=== PATIENT | male | born 1970 | race African-American/Black ===

== ENCOUNTER 2020-07-23 21:56 | Inpatient (IN) | payer OTHER, SELFPAY ==
--- NOTE | ~2020-07-23 | XR_ITS ---
EXAMINATION: XR chest 1V portable EXAM DATE: 07/23/2020 22:25 INDICATION: Weakness, cough. COVID-19. TECHNIQUE: Portable AP frontal chest x-ray was obtained. Comparison is made to prior examination from 01/02/2013. FINDINGS: There is patchy right-sided greater than left peripheral acute airspace disease. Distributi on and appearance is consistent with acute lung injury from SARS-CoV-2. No pneumothorax or pleural ef fusion. Cardiomediastinal silhouette is normal. There are no osseous abnormalities identified. IMPRESSION: Patchy bilateral acute airspace disease, peripheral distribution consistent with COVID-19 . Reviewed, dictated and finalized at location G. IMPRESSION: Patchy bilateral acute airspace disease, peripheral distribution co nsistent with COVID-19.
--- NOTE | ~2020-07-23 | US_ITS ---
US renal BI 07/24/2020 08:48 Procedure: Realtime transabdominal ultrasound of the kidneys and bladder. Indication: Renal failure Comparison: Ultrasound dated 12/10/2011 Findings: Renal echotexture is increased bilaterally with renal atrophy. No hydronephrosis or mass id entified. The right kidney measures 6.7 cm and left kidney measures 7.3 cm. Bladder within normal li mits. Impression: 1: Atrophic echogenic kidneys bilaterally, consistent with chronic medical renal disease. Reviewed, dictated and finalized at location A. Impression: 1: Atrophic echogenic kidneys bilaterally, consistent with chronic medical chaim l disease.
--- NOTE | ~2020-07-23 | XR_ITS ---
EXAMINATION: XR chest port-a-cath/central INDICATION: Tunnel dialysis catheter placement TECHNIQUE: Portable AP chest at 1446 hours COMPARISON: 07/24/2020 FINDINGS: A right internal jugular dialysis catheter ends with its tip in the proximal right atrium. A diffuse interstitial pattern is present with slight worsening since the comparison examination. The re is stable cardiomegaly. No pleural effusion or pneumothorax is identified. IMPRESSION: 1. Right internal jugular tunneled dialysis catheter ending with its tip in the proximal right atrium . No pneumothorax. 2. Cardiomegaly with moderate pulmonary edema. Reviewed, dictated and finalized at location A. IMPRESSION: 1. Right internal jugular tunneled dialysis catheter ending with its tip in the proximal right atrium. No pneumothorax. 2. Cardiomegaly with moderate pulmonary edema.
--- NOTE | ~2020-07-23 | XR_ITS ---
EXAMINATION: XR fl guide central line place INDICATION: Tunnel dialysis catheter placement TECHNIQUE: A single intraoperative fluoroscopic image is submitted for review. Total fluoroscopic maurilio e is 2.0 seconds. The DAP is [id number] [id number]. COMPARISON: None available FINDINGS: Fluoroscopic image demonstrates partial visualization of a right internal jugular central v enous catheter. Please refer to procedure note for full details. IMPRESSION: 1. Partially imaged right internal jugular catheter. Please refer to procedure note for full details. Reviewed, dictated and finalized at location A.
--- NOTE | ~2020-07-23 | XR_ITS ---
XR chest port-a-cath/central 07/24/2020 10:52 Indication: Placement of dialysis catheter. Procedure: AP portable chest Comparison: 07/23/2020 Findings: Right IJ portacatheter tip at the cavoatrial junction. Cardiomegaly. Mild interstitial crissy a. Atypical pneumonia less favored. No pleural effusion or pneumothorax. Impression: 1: Cardiomegaly with bilateral interstitial infiltrates, edema versus atypical pneumonia. Reviewed, dictated and finalized at location A. Impression: 1: Cardiomegaly with bilateral interstitial infiltrates, edema versus atypical pneumonia.
[2020-07-23 21:54] VITALS: BP 143/98; PULSE 77; RESP 15; O2SAT 98
--- NOTE | 2020-07-23 22:11 | ECG_ITS ---
Measurements Intervals [place] Rate: 78 P: 40 [place]: 188 QRS: 21 QRSD: 87 T: 49 QT: 366 QTc: 418 Interpretive Statements SINUS RHYTHM NORMAL ECG Electronically Signed On 07-24-2020 7:37:21 CDT by Todd Romano D.O.
--- NOTE | 2020-07-23 22:16 | ED.WEAKNESS ---
HPI - Weakness General Chief complaint: Weakness Stated complaint: covid positive, n/v, weak Time Seen by Provider: 07/23/20 22:16 History of Present Illness HPI Narrative: Known COVID-19 positive. Feeling very weak and fatigued. Barely able to get around the house. Has not had anything to eat or drink in days. He has mild SOB. He has ESRD not yet on dialysis and is concerned that kidney function may be worse. Related Data Home Medications Medication Instructions Recorded Confirmed amlodipine 10 mg PO DAILY 07/23/20 07/24/20 Allergies Allergy/AdvReac Type Severity Reaction Status Date / Time No Known Allergies Allergy Verified 07/23/20 22:09 Review of Systems Review of Systems: All systems reviewed & are unremarkable except as noted in HPI and below Constitutional: Constitutional: Reports fever(s) ENT: Reports dizziness and Denies sore throat Cardiovascular: Cardiovascular: Denies chest pain Respiratory: Respiratory: Reports cough and Reports dyspnea Gastrointestinal: Gastrointestinal: Denies abdominal pain, Reports diarrhea, Reports nausea and Reports vomiting Genitourinary: Genitourinary: Reports oliguria Musculoskeletal: Musculoskeletal: Reports myalgias Neurologic: Reports dizziness and Reports weakness PMFSH Past Medical History Medical History Chronic hypertension Chronic kidney disease, stage 5 Chronic renal failure, stage 4 (severe) COVID-19 Hyperkalemia Obesity Family History Family History Grandparent Diabetes mellitus, Onset Age: 75 Father Hypertension Family history of elevated blood lipids Cerebrovascular accident Family history of coronary artery disease Social History Social History Smoking status: Never smoker Second hand tobacco smoke exposure: No Alcohol intake: current Drinks per week: 1 Substance use: never Substance use type: does not use Living arrangements: with family Occupation/Education: occupation Gender identity (if verbalized by the patient): Male Sexual Orientation (if Verbalized by the Patient): Straight or Heterosexual Spiritual care concerns: No Agree to blood products: No Exam Const: General: no acute distress, alert and ill appearing Orientation/consciousness: patient oriented x3 HENMT: Mouth: Yes dry mucous membranes Resp: Effort & Inspection: normal respiratory effort Auscultation: rhonchi lower bilaterally Cardio: Rate: regular rate Rhythm: regular rhythm GI: GI Palp: Yes Soft to palpation and No Tenderness to palpation present (GI) Skin: General skin exam: normal color Neuro: General: patient oriented x3, moves all extremities and CN's II-XI intact bilaterally Speech: normal speech Course Vital Signs Vital signs: Vital Signs Pulse Rate 77 07/23/20 21:54 Respiratory Rate 15 07/23/20 21:54 Blood Pressure 143/98 H 07/23/20 21:54 Pulse Oximetry 98 07/23/20 21:54 Temperature 37.1 C 07/27/20 12:00 Pulse Rate 82 07/27/20 12:00 Respiratory Rate 18 07/27/20 12:00 Blood Pressure 131/88 07/27/20 12:00 Pulse Oximetry 97 07/27/20 12:00 MDM - Weakness MDM Narrative Medical decision making narrative: Kidney function significantly decreased. He will likely need dialysis. Case discussed with Dr. Lim. I will plan to admit. Medical Records Attestation: I reviewed the patient's medical records. Lab Data Attestation: I reviewed the patient's lab results. Result diagrams: 07/27/20 06:34 07/27/20 06:34 Labs: Lab Results 07/23/20 07/23/20 Range/Units 22:12 22:12 WBC 7.7 (4.5-10.0) K/mm3 RBC 2.83 L (4.6-6.20) M/mm3 Hgb 8.2 L (14.0-18.0) g/dL Hct 24.0 L (42.0-52.0) % MCV 84.8 (80-100) fl MCH 29.0 (26-34) pg MCHC 34.2 (32-36) g/dl RDW
[2020-07-23 22:20] LABS: Basophils Percent Auto 0.3 % (0.2-1.2); Eosinophils Percent Auto 0.1 % (0-4.4); Hemoglobin 8.2 g/dL (14.0-18.0); Immature Granulocyte Absolute 0.11 K/mm3 (0.00-0.031); Immature Granulocyte Percent A 1.4 % (0-0.5); Lymphocytes Absolute Auto 0.69 K/mm3 (0.9-3.2); Mean Corpuscular HGB Conc 34.2 g/dl (32-36); Mean Corpuscular Volume 84.8 fl (80-100); Mean Platelet Volume 10.9 fl (7.4-10.4); Monocytes Absolute Auto 0.5 K/mm3 (0.1-0.6); Monocytes Percent Auto 6.8 % (2.6-8.5); Neutrophils Absolute Auto 6.3 K/mm3 (1.3-6.7); Neutrophils Percent Auto 82.4 % (45.5-73.1); Platelet Count Result 184 k/mm3 (150-375); Red Blood Count 2.83 M/mm3 (4.6-6.20); Red Cell Distribution Width 12.3 % (11.5-14.5); White Blood Count 7.7 K/mm3 (4.5-10.0)
[2020-07-23 22:32] LABS: Alanine Aminotransferase 16 U/L (4-50); Albumin Level 3.6 g/dL (3.5-5.1); Alkaline Phosphatase 48 U/L (38-126); Anion Gap 22 mmol/L (8-16); Aspartate Amino Transferase 16 U/L (17-59); Bilirubin,Total 0.4 mg/dL (0.2-1.3); Carbon Dioxide 13 mmol/L (22-30); Chloride 102 mmol/L (98-107); Glucose 108 mg/dL (75-110); Sodium 137 mmol/L (137-145)
[2020-07-23 22:39] LABS: Estimated CRCL calculation 4 ml/min; Estimated Glomerular Filt Rate 2
[2020-07-23 22:42] LABS: Blood Urea Nitrogen 140 mg/dL (9-20)
[2020-07-23] MEDS: SODIUM CHLORIDE 0.9% IV 1,000 ML 999 ML IV CONT (23:32)
[2020-07-24] VITALS (22 sets, daily range): BP systolic 132–171; BP diastolic 78–104; PULSE 65–94; RESP 18–20; TEMP 36.7–38.2; O2SAT 97–100; BMI 28.3
--- NOTE | 2020-07-24 01:23 | ADMGEN ---
This patient, Ron Sky, was admitted to [facility] Surg Room 328-01. Patient/family oriented to hospital policies and general routines including ID bracelet, bed and alarms, visiting hours, pain management, procedures, bathroom and other care routines, personal items, smoking policy, room service/diet, and visiting hours. Valuables list has been completed. Information on how to activate the Rapid Response Team has been discussed. Patient/Family are encouraged to report perceived risks to care and to ask questions if they do not understand what they are told or what they should do.
[2020-07-24] MEDS: LACTATED RINGERS 1,000 ML 125 ML IV CONT ×3 (02:07→20:34)
--- NOTE | 2020-07-24 03:38 | PM.IMHP ---
H&P: HPI History of Present Illness Date/Time: 07/24/20 03:38 Chief complaint: Acute on chronic renal failure, COVID-19 Narrative: This is a pleasant 49-year-old male with known chronic renal failure stage 4 thought to be secondary to hypertension who presented to the hospital this evening with a complaint of generalized weakness, nausea, vomiting, and ongoing respiratory symptoms from coronavirus. The patient tested positive for coronavirus this past Sunday. He reports that he is making urine. The patient is known to see Dr. Lim for his chronic renal failure. Over the past few days he has become so nauseated that he can't keep down any food or fluid. The patient was evaluated emergency room this evening and he was found to have a creatinine greater than 28. His last known creatinine was 14 last month. The patient has not required any supplemental oxygen tonight. ER provider has consulted nephrology who has asked that we admit the patient to the hospital so they can evaluate him in the morning. On further questioning the patient denies any significant chest pain, abdominal pain, headache, dysuria, hematuria, diarrhea, rectal bleeding, or focal neurological symptoms. The patient has had fever over the past few days. Review of Systems Review of Systems: All systems reviewed & are unremarkable except as noted in HPI and below PMFSH Past Medical History Medical History (Updated 07/24/20 @ 03:51 by Sean Orr MD) Chronic hypertension Chronic renal failure, stage 4 (severe) Family History Family History Grandparent Diabetes mellitus, Onset Age: 75 Father Hypertension Family history of elevated blood lipids Cerebrovascular accident Family history of coronary artery disease Social History Social History (Updated 07/24/20 @ 01:13 by Darian Berger, RN) Smoking status: Never smoker Second hand tobacco smoke exposure: No Alcohol intake: current Drinks per week: 1 Substance use: never Substance use type: does not use Living arrangements: with family Occupation/Education: occupation Gender identity (if verbalized by the patient): Male Sexual Orientation (if Verbalized by the Patient): Straight or Heterosexual Spiritual care concerns: No Agree to blood products: No Comments Past surgical history is reviewed and noncontributory. Meds Home Medications and Allergies Home Medications Medication Instructions Recorded Confirmed Type amlodipine 10 mg PO DAILY 07/23/20 07/24/20 History Allergies Allergy/AdvReac Type Severity Reaction Status Date / Time No Known Allergies Allergy Verified 07/23/20 22:09 Vital Signs Vital Signs - 24 hr 07/23/20 21:54 07/24/20 00:05 07/24/20 00:35 Temperature 36.9 C 37.3 C Pulse Rate 77 78 74 Respiratory Rate 15 19 18 Blood Pressure 143/98 H 152/104 H 146/95 H Pulse Oximetry 98 100 97 Exam Const: General: cooperative, no acute distress, alert and awake Nutritional Appearance: well nourished Orientation/consciousness: patient oriented x3 HENMT: Head: normal to inspection General nose exam: Normal external nose present Face and sinus: normal facial exam Mouth: Yes Normal oral and palatal mucosa present and Yes oropharynx normal Eyes: Pupils: Equal, round and reactive pupils present EOM: EOMs intact bilaterally Neck: Neck: supple and no JVD Thyroid: thyroid normal Lymphatic: lymphadenopathy not noted Resp: Effort & Inspection: normal respiratory effort Auscultation: clear to auscultation bilaterally Cardio: Rate: regular rate Rhythm: regular rhythm Heart sounds: no murmurs GI: Inspection: normal to inspection Auscultation: normal bowel sounds Skin: General skin exam: normal color and no rashes or lesions noted Neuro: General: patient oriented x3 Cranial nerves: Yes CN's II-XII intact bilaterally and Yes Equal, round and reactive pu
[2020-07-24 05:25] LABS: Add Urine Microscopic? YES; Appearance Urine Clear (Clear); Bacteria Urine Trace /hpf; Bilirubin Urine Negative (Negative); Blood Urine Negative (Negative); Color Urine Yellow (Yellow); Glucose Urine UA 2+ mg/dL (Negative); Ketones Urine Negative (Negative); Leukocyte Esterase Ur Negative LEU/UL (Negative); Mucus Urine Rare /lpf; Nitrate Urine Negative (Negative); Protein Urine 3+ mg/dL (Negative); Specific Grav Ur 1.026 (1.001-1.035); Urobilinogen Urine Negative mg/dL (<2.0); WBC Urine 0-3 /hpf
[2020-07-24 06:01] LABS: Basophils Percent Auto 0.2 % (0.2-1.2); Hematocrit 22.4 % (42.0-52.0); Hemoglobin 7.6 g/dL (14.0-18.0); Immature Granulocyte Absolute 0.11 K/mm3 (0.00-0.031); Immature Granulocyte Percent A 1.4 % (0-0.5); Lymphocytes Absolute Auto 0.65 K/mm3 (0.9-3.2); Mean Corpuscular HGB Conc 33.9 g/dl (32-36); Mean Corpuscular Hemoglobin 29.3 pg (26-34); Mean Corpuscular Volume 86.5 fl (80-100); Mean Platelet Volume 11.3 fl (7.4-10.4); Monocytes Absolute Auto 0.6 K/mm3 (0.1-0.6); Monocytes Percent Auto 7.4 % (2.6-8.5); Neutrophils Absolute Auto 6.7 K/mm3 (1.3-6.7); Platelet Count Result 174 k/mm3 (150-375); Red Blood Count 2.59 M/mm3 (4.6-6.20); Red Cell Distribution Width 12.3 % (11.5-14.5); White Blood Count 8.1 K/mm3 (4.5-10.0)
[2020-07-24 07:17] LABS: Anion Gap 20 mmol/L (8-16); Calcium 6.9 mg/dL (8.4-10.2); Carbon Dioxide 14 mmol/L (22-30); Chloride 103 mmol/L (98-107); Glucose 106 mg/dL (75-110); Magnesium 2.3 mg/dL (1.6-2.3); Potassium 5.7 mmol/L (3.4-5.0); Sodium 137 mmol/L (137-145)
[2020-07-24 07:19] LABS: Blood Urea Nitrogen 137 mg/dL (9-20)
[2020-07-24 07:20] LABS: Estimated CRCL calculation 4 ml/min; Estimated Glomerular Filt Rate 2
--- NOTE | 2020-07-24 07:46 | PC.NURSE ---
Called Dr Gauri Travis about potassium of 5.7 . New order received for 30g of Kayexalate one time dose.
[2020-07-24] MEDS: SODIUM POLYSTYRENE SULFONONATE 15 GM/60 ML BTL 30 GM PO (08:09)
[2020-07-24] MEDS: ONDANSETRON INJ 4 MG/2 ML VIAL IV PUSH (08:24)
--- NOTE | 2020-07-24 09:11 | PM.CNGS ---
Assessment and Plan Assessment and plan (1) Acute on chronic renal failure: Qualifiers: Acute renal failure type: unspecified Chronic kidney disease stage: stage 4 (severe) Qualified Code(s): N17.9 - Acute kidney failure, unspecified; N18.4 - Chronic kidney disease, stage 4 (severe) Code(s): N17.9 - Acute kidney failure, unspecified; N18.9 - Chronic kidney disease, unspecified Status: Acute Assessment and Plan: will place temporary emergent catheter at bedside (2) COVID-19: Code(s): U07.1 - COVID-19 Status: Acute Assessment and Plan: all necessary precautions, isolation, etc, retest pending (3) Chronic hypertension: Code(s): I10 - Essential (primary) hypertension Status: Chronic Assessment and Plan: mgmt peer primary team History of Present Illness Consult details Consult date: 07/24/20 Reason for consult: other (renal failure) Requesting physician: Farhat Travis MD Narrative: Pt is a 49 y/o M c multiple med issues including severe renal disease presenting to ED c/o SOB, N/V, anorexia, weakness over last week. Pt reports he tested positive for COVID last wk. Pt noted to have creatinine > 28 at this time. Given this, pt admitted and GS consulted for emergent HD access. Review of Systems Constitutional: Constitutional: Reports anorexia, Reports body ache(s), Reports chills, Reports fatigue, Reports fever(s), Reports lethargy, Reports malaise, Reports poor appetite and Reports weakness Eyes: Eyes: Reports no additional eye complaints ENT: Reports system reviewed and no additional complaints, except as documented Cardiovascular: Cardiovascular: Reports no additional cardiovascular complaints Respiratory: Respiratory: Reports cough, Denies hemoptysis, Reports dyspnea and Reports dyspnea on exertion Gastrointestinal: Gastrointestinal: Reports no additional gastrointestinal complaints Genitourinary: Genitourinary: Reports no additional male genitourinary complaints Musculoskeletal: Musculoskeletal: Reports no additional musculoskeletal complaints Integumentary/Breasts: Skin/Breast: Reports system reviewed and no additional complaints, except as docu Neurologic: Reports system reviewed and no additional complaints, except as documented Psychiatric: Psychiatric: Reports no additional psychiatric complaints Endocrine: Endocrine: Reports no additional endocrine complaints Hematologic/Lymphatic: Hematologic/Lymphatic: Reports no additional hematologic/lymphatic complaints Allergic/Immunologic: Allergic/Immunologic: Reports no additional allergic/immunologic complaints PMFSH Past Medical History Medical History Chronic hypertension Chronic renal failure, stage 4 (severe) Family History Family History Grandparent Diabetes mellitus, Onset Age: 75 Father Hypertension Family history of elevated blood lipids Cerebrovascular accident Family history of coronary artery disease Social History Social History Smoking status: Never smoker Second hand tobacco smoke exposure: No Alcohol intake: current Drinks per week: 1 Substance use: never Substance use type: does not use Living arrangements: with family Occupation/Education: occupation Gender identity (if verbalized by the patient): Male Sexual Orientation (if Verbalized by the Patient): Straight or Heterosexual Spiritual care concerns: No Agree to blood products: No Meds Home Medications and Allergies Home Medications Medication Instructions Recorded Confirmed Type amlodipine 10 mg PO DAILY 07/23/20 07/24/20 History Allergies Allergy/AdvReac Type Severity Reaction Status Date / Time No Known Allergies Allergy Verified 07/23/20 22:09 Vital Signs Vital Signs - 24 hr 07/23/20
--- NOTE | 2020-07-24 09:32 | PC.NURSE ---
At 0900, I called Dr. Travis at the request of Dr. Andrade to get approval to place a Mino catheter at bedside for dialysis access. Dr. Travis approved the placement of the Mino catheter. In addition, I notified Dr. Travis that the patient is currently vomiting and unable to keep down the Kayexalate that was ordered for the elevated potassium. Dr. Travis stated that he did not want to order anything else for the elevated potassium because he would get dialysis later in the day. Dr. Travis stated that the patient was still appropriate to stay on Med/Surg regardless of his labs.
--- NOTE | 2020-07-24 09:38 | PM.IMPN ---
Progress Note: A&P Assessment and Plan (1) Acute on chronic renal failure: Qualifiers: Acute renal failure type: unspecified Chronic kidney disease stage: stage 4 (severe) Qualified Code(s): N17.9 - Acute kidney failure, unspecified; N18.4 - Chronic kidney disease, stage 4 (severe) Code(s): N17.9 - Acute kidney failure, unspecified; N18.9 - Chronic kidney disease, unspecified Status: Acute Assessment and Plan: Likely secondary to dehydration from vomiting and decreased p.o. intake of fluids. Dr. Travis has been consulted and appreciate recommendations. Plans for a temporary HD catheter and HD today. He gets N/v when eating/drinking anything and vomited after kayexalate administration. He is still making urine continue IV fluid for now monitor renal function and urine output. avoid nephrotoxin agents and renally dose medications. Await further rec from Nephrology Zofran PRN with n/v; willconsider compazine if zofran not improving symptoms Monitor closely (2) Metabolic acidosis with increased anion gap and accumulation of organic acids: Code(s): E87.2 - Acidosis Status: Acute Assessment and Plan: Likely secondary to acute on chronic renal failure. Improvement in AG. Monitor acid-base status. Continue treatment of acute renal failure. We will consider sodium bicarbonate IV drip if necessary. Plan on dialysis today (3) Chronic hypertension: Code(s): I10 - Essential (primary) hypertension Status: Chronic Assessment and Plan: BP elevated to 160 sys this morning. Monitor blood pressure. Continue amlodipine. (4) COVID-19: Code(s): U07.1 - COVID-19 Status: Acute Assessment and Plan: The patient has tested positive for trivedi virus on 07/18. Has adequate O2 requirements on RA. Minimal symptoms today. Droplet isolation. Continue supportive care. The patient has not required any supplemental oxygen and at this time he does not meet criteria for steroid therapy or Remdesivir. Continue bronchodilators. (5) Normocytic anemia: Code(s): D64.9 - Anemia, unspecified Status: Acute Assessment and Plan: Hgb 7.6. likely chronic anemia and anemia of chronic disease from chronic renal failure. No signs of acute blood loss. Monitor H&H. Iron panel/vitb12/folate studies pending Transfuse p.r.n. (6) Hyperkalemia: Code(s): E87.5 - Hyperkalemia Status: Acute Assessment and Plan: Likely secondary to acute on CKDIV. Kayexalate ordered by Nephrology. Patient also to have dialysis today once temp cath placed by general surgery. No chest pain/palpitations. 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 Patient sates he feels somewhat better now that he has gotten zofran, but notes n/v today when he drank kayexalate for his high potassium. He states he only gets sick when he eats/drinks anything. No associated abdominal pain. 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 No other complaints. Denies f/c/s, headaches, dizziness, lightheadedness, changes in v/h, cp/palpitations, sob/cough, d/c, abd pain, bloody emesis;coffee-ground emesis, changes in BMs, dysuria, hematuria, cloudy urine, sergei
--- NOTE | 2020-07-24 10:14 | PM.PROC ---
Procedure Note - Detailed Date of procedure: 07/24/20 Pre-op diagnosis: Acute on chronic renal failure, COVID-19 Post-op diagnosis: same Procedure performed: Placement of Trialysis catheter in right internal jugular vein under ultrasound guidance Description of procedure: The patient was placed in the supine position. The bed was then placed in Trendelenburg with the patient facing to his left to expose the right neck. I then prepped and draped the right neck in normal sterile fashion. A time-out was then done to verify the patient's identity as well as the procedure being performed. I then used the ultrasound to view the right internal jugular vein. Once this was identified, I localized the skin superior to the vein. I then used the 18 gauge needle to gain access into the right internal jugular vein, once again under ultrasound guidance. Once this was noted in good position, I removed the needle just leaving the guidewire in the vein. I then enlarged the incision around the guidewire in the right neck. I then dilated the vein and using the dilators provided in the kit under sterile Seldinger technique. Once the vein was adequately dilated, I was able to easily slide the catheter over the guidewire into the right internal jugular vein. I placed a 20 cm 12 [place] Trialysis catheter into the right internal jugular vein. I then removed the guidewire, now just leaving the catheter in the vein. I was then able to easily draw and flush from all 3 port sites . I then sutured the catheter in place in the right neck. Sterile dressing was then placed. I did not place final heparin flush into the catheter as the patient is going to get emergent dialysis today. The patient tolerated the procedure well. Implants: 20 cm 12 [place] Trialysis catheter in right IJ Anesthesia: local Surgeon: Lynsey Ribera Estimated blood loss (mL): 5 Drains: No Packing: No Pathology: none sent Complications: No immediate complications Condition: stable Disposition: floor Findings: 1st stick right IJ via ultrasound guidance
[2020-07-24 10:35] LABS: Folic Acid > 20.0 ng/mL (2.76->20)
[2020-07-24 10:55] LABS: Iron 79 ug/dL (49-181)
[2020-07-24 11:07] LABS: Hepatitis B Surface Antigen Negative (Negative)
[2020-07-24 11:09] LABS: Percent Iron Saturation 45 % (20-50)
[2020-07-24 11:25] LABS: Hepatitis B Surface Anti Res Negative
--- NOTE | 2020-07-24 11:25 | PC.NURSE ---
Called Dr Andrade with chest x ray results after plaement of right IJ line. Dr. Andrade said it was now ok to use this line.
[2020-07-24] MEDS: LIDOCAINE HCL 1% LOCAL INJ 20 ML VIAL (11:31)
--- NOTE | 2020-07-24 11:32 | PM.CNNEP ---
Assessment and Plan Assessment and plan (1) Chronic kidney disease, stage 5: Code(s): N18.5 - Chronic kidney disease, stage 5 Status: Acute Assessment and Plan: The patient has longstanding chronic kidney disease. A month ago his creatinine was 14. Now it is above 28. I think he is probably end-stage renal disease. Even if he recovers from COVID and whatever affect COVID had on his kidneys improves he would still have a creatinine of 14 Which is not good enough to stay off dialysis. I discussed with the patient at length about dialysis. We discussed the risks, benefits, alternatives, and the process of the dialysis and he agrees to proceed. He still wants to do a kidney transplant. We will have to apply for this to [facility]. (2) Hyperkalemia: Code(s): E87.5 - Hyperkalemia Status: Acute Assessment and Plan: Potassium is mildly high at 5.7. He has too much nausea and vomiting to swallow Kayexalate. He is going to be getting dialysis early this afternoon. (3) Normocytic anemia: Code(s): D64.9 - Anemia, unspecified Status: Acute Assessment and Plan: Hemoglobin is 7.6. Will start Epogen. Will check iron levels. (4) COVID-19: Code(s): U07.1 - COVID-19 Status: Acute Assessment and Plan: Getting supportive care. (5) Chronic hypertension: Code(s): I10 - Essential (primary) hypertension Status: Chronic Assessment and Plan: Blood pressure is a bit high. We will see how he does after dialysis. (6) Metabolic acidosis with increased anion gap and accumulation of organic acids: Code(s): E87.2 - Acidosis Status: Acute Assessment and Plan: Most likely due to his chronic kidney disease. This should improve with dialysis. Consider oral bicarb if it continues. History of Present Illness Reason for Consult Consult date: 07/24/20 Chief Complaint Chief complaint: Acute on chronic renal failure, COVID-19 History of Present Illness Narrative: Ron is a very pleasant 49-year-old gentleman who has chronic kidney disease. He sees Dr. Lim as an outpatient. His last visit was on July 05 when he came in after about 18 months. He did not have any symptoms at that point apparently. However his creatinine was very high at 14. Few days ago the patient was feeling weaker. 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 So because he was feeling poorly he got at test which was positive. He stated home for this but then felt worse and so came to the emergency room yesterday evening. In the ER his creatinine was greater than 20 a. Electrolytes were okay and volume status was okay so he was admitted. Patient wants to get a transplant but has not really addressed dialysis. The etiology of the chronic kidney disease is unclear. The 1st time he saw Dr. Lim a renal ultrasound was obtained which showed small-sized shrunken echogenic kidneys. The patient has hypertension. He has had this for many years. He does not smoke cigarettes. He is drinks about 1 drink per week. Allergies are none. Review of Systems Constitutional: Constitutional: Reports no additional constitutional complaints Eyes: Eyes: Reports no additional eye complaints ENT: Reports system reviewed and no additional complaints, except as documented Cardiovascular: Cardiovascular: Reports no additional cardiovascular complaints Respiratory: Respiratory: Reports no additional respiratory complaints Gastrointestinal: Gastrointestinal: Reports no additional gastrointestinal complaints Genitourinary: Genitourinary: Reports no additional male genitourinary complaints Musculoskeletal: Musculoskeletal: Reports no additional musculoskeletal complaints Integumentary/Breasts: Skin/Breast: Reports system reviewed and no additional complaints, except a
[2020-07-24 12:58] LABS: Hepatitis B Surface Antigen Negative (Negative)
[2020-07-24 14:22] LABS: Hepatitis B Surface Anti Res Negative; Hepatitis C Virus Antibody Negative (Negative)
[2020-07-24] MEDS: guaiFENesin/DEXTROMETHORPHAN 10 ML UDC PO (18:11)
[2020-07-24] MEDS: amLODIPine BESYLATE 5 MG TABLET 10 MG PO (18:11)
[2020-07-24] MEDS: SODIUM CHLORIDE 0.9% IV 1,000 ML 999 ML IV CONT (18:11)
[2020-07-24] MEDS: ACETAMINOPHEN 325 MG TABLET 650 MG PO (18:37)
--- NOTE | 2020-07-24 18:45 | PC.NURSE ---
Pt had triple lumen Right IJ placed at bedside by Dr. Andrade. Had Dialysis at bedside tolerated well. Informed he became slightly hypertensive during dialysis. This was pts first dialysis tx.800 ml removed.
[2020-07-25] VITALS: BP 149/93; PULSE 89; PULSE 94; RESP 20; TEMP 37.4; O2SAT 95
[2020-07-25 04:00] VITALS: BP 136/88; PULSE 120; PULSE 88; RESP 20; TEMP 37.6; O2SAT 100
[2020-07-25] MEDS: LACTATED RINGERS 1,000 ML 125 ML IV CONT (04:50)
[2020-07-25 06:39] LABS: Basophils Percent Auto 0.1 % (0.2-1.2); Immature Granulocyte Absolute 0.13 K/mm3 (0.00-0.031); Immature Granulocyte Percent A 1.8 % (0-0.5); Lymphocytes Absolute Auto 0.57 K/mm3 (0.9-3.2); Lymphocytes Percent Auto 7.9 % (18.3-44.2); Mean Corpuscular HGB Conc 33.8 g/dl (32-36); Mean Corpuscular Hemoglobin 29.4 pg (26-34); Monocytes Absolute Auto 0.6 K/mm3 (0.1-0.6); Monocytes Percent Auto 7.9 % (2.6-8.5); Neutrophils Percent Auto 82.3 % (45.5-73.1); Platelet Count Result 161 k/mm3 (150-375); Red Blood Count 2.38 M/mm3 (4.6-6.20); Red Cell Distribution Width 12.5 % (11.5-14.5); White Blood Count 7.2 K/mm3 (4.5-10.0)
[2020-07-25 06:40] LABS: Hematocrit 20.7 % (42.0-52.0)
[2020-07-25 07:12] LABS: Anion Gap 16 mmol/L (8-16); Blood Urea Nitrogen 107 mg/dL (9-20); Carbon Dioxide 20 mmol/L (22-30); Chloride 101 mmol/L (98-107); Estimated CRCL calculation 5 ml/min; Estimated Glomerular Filt Rate 3; Glucose 112 mg/dL (75-110); Magnesium 2.1 mg/dL (1.6-2.3); Potassium 4.9 mmol/L (3.4-5.0); Sodium 137 mmol/L (137-145)
[2020-07-25 08:00] VITALS: BP 130/87; PULSE 80; PULSE 82; RESP 16; TEMP 36.8; O2SAT 93
[2020-07-25] MEDS: VITAMIN B CMPLX/VIT C/FOLIC AC 1 CAPSULE 1 CAP PO (09:39)
[2020-07-25] MEDS: guaiFENesin/DEXTROMETHORPHAN 10 ML UDC PO (09:46)
--- NOTE | 2020-07-25 10:16 | PM.PNNEP ---
Progress Note: A&P Assessment and Plan (1) Chronic kidney disease, stage 5: Code(s): N18.5 - Chronic kidney disease, stage 5 Status: Acute Assessment and Plan: The patient has longstanding chronic kidney disease. He is not getting dialysis and has end-stage kidney disease. He got a treatment yesterday. We will give another treatment tomorrow. (2) Hyperkalemia: Code(s): E87.5 - Hyperkalemia Status: Acute Assessment and Plan: Potassium is Down to 4.0. (3) Normocytic anemia: Code(s): D64.9 - Anemia, unspecified Status: Acute Assessment and Plan: Hemoglobin is 7.0. His hemoglobin is borderline for blood transfusion but since he wants to get a transplant I asked them to hold off on the transfusion. I talked with ANASTACIA Razo and also with Fabio his nurse. Iron level is okay. He is on Epogen. (4) COVID-19: Code(s): U07.1 - COVID-19 Status: Acute Assessment and Plan: Getting supportive care. (5) Chronic hypertension: Code(s): I10 - Essential (primary) hypertension Status: Chronic Assessment and Plan: Blood pressure is Better (6) Metabolic acidosis with increased anion gap and accumulation of organic acids: Code(s): E87.2 - Acidosis Status: Acute Assessment and Plan: Most likely due to his chronic kidney disease. This should improve with dialysis. Consider oral bicarb if it continues. Subjective Date/time seen: 07/25/20 10:16 Interval history: patient is feeling weak. No chest pain or shortness of breath I talked with his sister. She is applying to give him a kidney. She lives in [place] but she is staying in a hotel nearby. We discussed all aspects of the case. She will call the transplant people to find out how long she should stay in [place] or whether she should just go home and come back for her evaluation. Review of Systems Cardiovascular: Cardiovascular: Reports no additional cardiovascular complaints Respiratory: Respiratory: Reports no additional respiratory complaints Gastrointestinal: Gastrointestinal: Reports no additional gastrointestinal complaints Genitourinary: Genitourinary: Reports no additional male genitourinary complaints Exam Narrative: Exam Narrative: WDWN in NAD skin no rash head ncat lungs clear cor reg no rub abd BS+ nontender and soft ext no edema. Objective Data Vital Signs Vital Signs: Vital Signs - 24 hr 07/24/20 12:00 07/24/20 13:45 07/24/20 13:59 Temperature 36.8 C Pulse Rate 73 74 73 Respiratory Rate 18 Blood Pressure 160/97 H 171/98 H Pulse Oximetry 07/24/20 14:00 07/24/20 14:15 07/24/20 14:30 Temperature Pulse Rate 72 94 79 Respiratory Rate Blood Pressure 165/93 H 156/94 H 147/93 H Pulse Oximetry 07/24/20 14:45 07/24/20 15:00 07/24/20 15:15 Temperature Pulse Rate 83 65 77 Respiratory Rate Blood Pressure 157/96 H 132/78 136/83 Pulse Oximetry 07/24/20 15:30 07/24/20 15:45 07/24/20 15:57 Temperature Pulse Rate 81 80 81 Respiratory Rate Blood Pressure 134/84 144/86 H 138/82 Pulse Oximetry 07/24/20 16:00 07/24/20 16:03 07/24/20 18:22 Temperature 37.2 C 37.2 C 37.7 C H Pulse Rate 84 79 90 Respiratory Rate 18 20 Blood Pressure 148/90 H 153/96 H Pulse Oximetry 97 07/24/20 18:37 07/24/20 20:00 07/25/20 00:00 Temperature 37.6 C H 38.2 C H 37.4 C Pulse Rate 92 89 Respiratory Rate 20 20 Blood Pressure 151/93 H 149/93 H Pulse Oximetry 97 95 07/25/20 04:00 07/25/20 08:00 Temperature 37.6 C 36.8 C Pulse Rate 88 80 Respiratory Rate 20 16 Blood Pressure 136/88 130/87 Pulse Oximetry 100 93 Intake/Output Intake/Output: Intake & Output 07/22/20 07/23/20 07/24/20 07/25/20 23:59 23:59 23:59 23:59 Intake Total 5520 1100 Output Total 1450 Balance 4070 1100 Meds/Results Medications: Active Medications Gener
[2020-07-25] MEDS: amLODIPine BESYLATE 5 MG TABLET 10 MG PO (11:33)
[2020-07-25] MEDS: CALCIUM ACETATE 667 MG TABLET 1334 MG PO ×2 (11:33→19:42)
[2020-07-25 12:00] VITALS: BP 130/89; PULSE 73; PULSE 77; RESP 16; TEMP 36.4; O2SAT 94
--- NOTE | 2020-07-25 12:14 | PM.IMPN ---
Progress Note: A&P Assessment and Plan (1) Acute on chronic renal failure: Qualifiers: Acute renal failure type: unspecified Chronic kidney disease stage: stage 4 (severe) Qualified Code(s): N17.9 - Acute kidney failure, unspecified; N18.4 - Chronic kidney disease, stage 4 (severe) Code(s): N17.9 - Acute kidney failure, unspecified; N18.9 - Chronic kidney disease, unspecified Status: Acute Assessment and Plan: Likely secondary to dehydration from vomiting and decreased p.o. intake of fluids. Dr. Travis has been consulted and appreciate recommendations. Temp catheter placed yesterday per Dr. Andrade at bedside. HD yesterday and appears will go again tomorrow. He is still making urine. Feeling somwhat better today Will stop IVF today monitor renal function and urine output. avoid nephrotoxin agents and renally dose medications. Await further rec from Nephrology Zofran PRN with n/v; will consider compazine if zofran not improving symptoms Monitor closely (2) Metabolic acidosis with increased anion gap and accumulation of organic acids: Code(s): E87.2 - Acidosis Status: Acute Assessment and Plan: Likely secondary to acute on chronic renal failure. Improvement in AG. Monitor acid-base status. Continue treatment of acute renal failure. We will consider sodium bicarbonate IV drip if necessary. Plan on dialysis tomorrow (3) Chronic hypertension: Code(s): I10 - Essential (primary) hypertension Status: Chronic Assessment and Plan: BP elevated to 130 sys this morning. Monitor blood pressure. Continue amlodipine. (4) COVID-19: Code(s): U07.1 - COVID-19 Status: Acute Assessment and Plan: The patient has tested positive for trivedi virus on 07/18. Has adequate O2 requirements on RA. Minimal symptoms today. Droplet isolation. Continue supportive care. The patient has not required any supplemental oxygen and at this time he does not meet criteria for steroid therapy or Remdesivir. Continue bronchodilators. (5) Normocytic anemia: Code(s): D64.9 - Anemia, unspecified Status: Acute Assessment and Plan: Hgb 7.0. Likely chronic anemia and anemia of chronic disease from chronic renal failure; possible some dilutional effect from IV fluids. No signs of acute blood loss. Discussed with Dr. Travis, and will plan to hold on transfusion as he may proceed with transplant in the future. He does not appear to be iron deficient; iron panel suggestive more of anemia of chronic disease. Monitor H&H tomorrow Will defer transfuse to Nephrology (6) Hyperkalemia: Code(s): E87.5 - Hyperkalemia Status: Acute Assessment and Plan: K 4.9 today; improvement. Likely secondary to acute on CKDIV. Kayexalate ordered by Nephrology. Patient also to have dialysis today once temp cath placed by general surgery. No chest pain/palpitations. Telemetry thus far has no alarms, no peaked T waves Continue knowledge management advisor for symptoms Monitor BMP Subjective Date/time seen: 07/25/20 12:14 Interval history: Patient is a pleasant 49 yo M with known chronic renal failure stage 4 thought to be secondary to hypertension, and with recent positive COVID test on 07/18 who is seen in follow up for acute on CKDIV with uremia-associated symptoms. Patient sates he feels somewhat better today, but still tired and somewhat nauseated at times. Coughing up clear sputum at times. No signs of bleeding in stools, urine or sputum. No other complaints. Denies f/c/s, headaches, dizziness, lightheadedness, cp/palpitations, sob, d/c, abd pain, bloody emesis, coffee-ground emesis, changes in BMs, dysuria, hematuria,
[2020-07-25 16:00] VITALS: BP 147/92; PULSE 70; PULSE 75; RESP 14; TEMP 36.6; O2SAT 96
[2020-07-25 20:00] VITALS: BP 144/91; PULSE 77; PULSE 80; RESP 18; TEMP 36.9; O2SAT 94
--- NOTE | 2020-07-25 21:51 | PC.NURSE ---
Attempted to obtain consent for dialysis catheter as ordered. Patient stated he was too tired right now and he would look at the consent in the morning.
[2020-07-26] VITALS (28 sets, daily range): BP systolic 90–164; BP diastolic 64–100; PULSE 76–107; RESP 16–22; TEMP 36.4–37.9; O2SAT 93–97
[2020-07-26 06:35] LABS: Basophils Percent Auto 0.4 % (0.2-1.2); Eosinophils Percent Auto 0.5 % (0-4.4); Hematocrit 21.1 % (42.0-52.0); Immature Granulocyte Absolute 0.24 K/mm3 (0.00-0.031); Immature Granulocyte Percent A 3.1 % (0-0.5); Lymphocytes Absolute Auto 0.68 K/mm3 (0.9-3.2); Lymphocytes Percent Auto 8.9 % (18.3-44.2); Mean Corpuscular HGB Conc 33.2 g/dl (32-36); Mean Corpuscular Hemoglobin 28.9 pg (26-34); Mean Corpuscular Volume 87.2 fl (80-100); Mean Platelet Volume 10.7 fl (7.4-10.4); Monocytes Absolute Auto 0.6 K/mm3 (0.1-0.6); Monocytes Percent Auto 8.4 % (2.6-8.5); Neutrophils Percent Auto 78.7 % (45.5-73.1); Platelet Count Result 186 k/mm3 (150-375); Red Blood Count 2.42 M/mm3 (4.6-6.20); Red Cell Distribution Width 12.2 % (11.5-14.5); White Blood Count 7.7 K/mm3 (4.5-10.0)
[2020-07-26 06:55] LABS: Anion Gap 16 mmol/L (8-16); Blood Urea Nitrogen 117 mg/dL (9-20); Calcium 6.8 mg/dL (8.4-10.2); Carbon Dioxide 19 mmol/L (22-30); Chloride 101 mmol/L (98-107); Glucose 107 mg/dL (75-110); Magnesium 2.2 mg/dL (1.6-2.3); Phosphorus 10.7 mg/dL (2.5-4.5); Potassium 4.7 mmol/L (3.4-5.0); Sodium 136 mmol/L (137-145)
[2020-07-26 07:03] LABS: Estimated CRCL calculation 5 ml/min; Estimated Glomerular Filt Rate 2
[2020-07-26] MEDS: amLODIPine BESYLATE 5 MG TABLET 10 MG PO (10:49)
[2020-07-26] MEDS: ONDANSETRON INJ 4 MG/2 ML VIAL IV PUSH (10:58)
--- NOTE | 2020-07-26 13:50 | WPDANESEPPF ---
Anes - Initial Pre Proc Eval Procedure: Operation Date: 07/26/20 14:30 Proposed Procedures p Insertion Tunneled Dialysis Catheter - Lima Andrade MD Date/Time: 07/26/20 13:50 Surgeon: Maco Razo PA-C Pre Op Diagnosis: Acute on chronic renal failure, COVID-19 Patient Data Age: 49 Gender: M Height: 6 ft 6 in Weight: 130.7 kg Last Vital Signs Temp 98.4 F 07/26/20 12:00 Pulse 79 07/26/20 12:00 Resp 18 07/26/20 12:00 BP 147/92 H 07/26/20 12:00 Pulse Ox 96 07/26/20 12:00 Allergies Allergy/AdvReac Type Severity Reaction Status Date / Time No Known Allergies Allergy Verified 07/23/20 22:09 Home Medications Medication Instructions Recorded Confirmed Type amlodipine 10 mg PO DAILY 07/23/20 07/24/20 History Laboratory Tests 07/26/20 07/26/20 06:10 06:10 WBC 7.7 K/mm3 K/mm3 (4.5-10.0) RBC 2.42 M/mm3 L M/mm3 (4.6-6.20) Hgb 7.0 g/dL L g/dL (14.0-18.0) Hct 21.1 % L % (42.0-52.0) MCV 87.2 fl fl (80-100) MCH 28.9 pg pg (26-34) MCHC 33.2 g/dl g/dl (32-36) RDW 12.2 % % (11.5-14.5) Plt Count 186 k/mm3 k/mm3 (150-375) MPV 10.7 fl H fl (7.4-10.4) Immature Gran % (Auto) 3.1 % H % (0-0.5) Neut % (Auto) 78.7 % H % (45.5-73.1) Lymph % (Auto) 8.9 % L % (18.3-44.2) [place] % (Auto) 8.4 % % (2.6-8.5) Eos % (Auto) 0.5 % % (0-4.4) Baso % (Auto) 0.4 % % (0.2-1.2) Lymph # (Auto) 0.68 K/mm3 L K/mm3 (0.9-3.2) [place] # (Auto) 0.6 K/mm3 K/mm3 (0.1-0.6) Eos # (Auto) 0.0 K/mm3 K/mm3 (0-0.3) Baso # (Auto) 0.0 K/mm3 K/mm3 (0.0-0.1) Abs Immat Gran (auto) 0.24 K/mm3 H K/mm3 (0.00-0.031) Absolute Neuts (auto) 6.0 K/mm3 K/mm3 (1.3-6.7) Absolute Nucleated RBC 0.0 K/mm3 K/mm3 (0.0-0.012) Nucleated RBC % 0.0 % % (0.0-0.2) Sodium 136 mmol/L L mmol/L (137-145) Potassium 4.7 mmol/L mmol/L (3.4-5.0) Chloride 101 mmol/L mmol/L (98-107) Carbon Dioxide 19 mmol/L L mmol/L (22-30) Anion Gap 16 mmol/L mmol/L (8-16) BUN 117 mg/dL H D mg/dL (9-20) Creatinine 24.60 mg/dL H mg/dL (0.7-1.3) Estim Creat Clear Calc 5 ml/min ml/min Estimated GFR 2 L (59 - ) Glucose 107 mg/dL mg/dL (75-110) Calcium 6.8 mg/dL L mg/dL (8.4-10.2) Phosphorus 10.7 mg/dL H mg/dL (2.5-4.5) Magnesium 2.2 mg/dL mg/dL (1.6-2.3) Albumin 3.0 g/dL L g/dL (3.5-5.1) Patient hx anesthesia problems: none Family hx anesthesia problems: none PMFSH Past Medical History Medical History (Updated 07/26/20 @ 13:52 by Nicolás Cast MD) Chronic hypertension Chronic kidney disease, stage 5 Chronic renal failure, stage 4 (severe) COVID-19 Hyperkalemia Obesity Family History Family History Grandparent Diabetes mellitus, Onset Age: 75 Father Hypertension Family history of elevated blood lipids Cerebrovascular accident Family history of coronary artery disease Social History Social History Smoking status: Never smoker Second hand tobacco smoke exposure: No Alcohol intake: current Drinks per week: 1 Substance use: never Substance use type: does not use Living arrangements: with family Occupation/Education: occupation Gender identity (if verbalized by the patient): Male Sexual Orientation (if Verbalized by the Patient): Straight or Heterosexual Spiritual care concerns: No Agree to blood products: No Anes - Eval Final PreProcedure Day of Procedure 07/26/20 13:50 Patient weight: obese Heart: regular rate and rhythm Lungs: clear to auscultation Airway: Mallampati scale class III Neurological: alert and oriented Last oral intake: >/= 8 hours ASA classification: IV Emergen
--- NOTE | 2020-07-26 13:50 | WPDHPUPDATE1 ---
History and Physical Update Update Date/Time: 07/26/20 13:50 History and Physical has been reviewed, including an updated exam of the patient. There are NO changes in the patient's condition. Risks, benefits, and alternatives have been discussed and questions answered. Patient agrees to proceed with procedure.
[2020-07-26] MEDS: ceFAZolin SODIUM 1 GM VIAL 2 GM IV PUSH ×2 (14:17→15:00)
[2020-07-26] MEDS: LIDO 1%/EPINEPHRINE 1:100,000 20 ML VIAL INFILTRATE (14:35)
[2020-07-26] MEDS: HEPARIN SODIUM 5,000 UNITS/ML VIAL 5000 UNITS IRRIGATION (14:36)
[2020-07-26] MEDS: HEPARIN SODIUM, PORCINE 10,000 UNITS/10 ML VIAL 10000 UNITS IRRIGATION (14:37)
--- NOTE | 2020-07-26 14:46 | PM.PROC ---
Procedure Note - Detailed Date of procedure: 07/26/20 Pre-op diagnosis: Acute on chronic renal failure, COVID-19 end stage renal disease Post-op diagnosis: same Procedure performed: placement of RIJ tunneled HD catheter 28 cm under fluroscopic guidance Description of procedure: Patient was taken to the operating room and placed in the supine position. After adequate induction of MAC anesthesia, the patient was prepped and draped in normal sterile fashion. A time-out was then done to verify the patient's identity as well as the procedure being performed. I began by placing a guidewire through the previously placed RIJ hemodialysis catheter. Placement of the guidewire was confirmed by fluoroscopic guidance. I removed the previously placed catheter just leaving the guidewire in the vein. I then went ahead and measured the 28 cm tunneled dialysis catheter to our stick site in the right neck. I then localized the tract going from the right chest to the right neck. I then made a small incision in the right chest and tunneled the catheter to the right neck. I then serially dilated the right internal jugular vein under fluoroscopic guidance. Once adequately dilated, I placed dilating sheath over the guidewire into the right internal jugular vein under fluoroscopic visualization. Once this was noted to be in good position, I removed both the guidewire and dilator, now just leaving the sheath in the vein. I then went ahead and fed the previously tunneled catheter into the sheath. Once the catheter was fed and positioned correctly, I went ahead and peeled the sheath away. Final fluoroscopic view showed the catheter in good position from its insertion point in the right chest to its termination in the right atrial caval junction. It was noted there was no kinking of the catheter. I was able to easily draw and flush from both ports of the catheter. I placed 2.2 and 2.3 cc of final heparin flush into each port as marked. The catheter was then sutured into place and the incision in the neck was closed with 4 O Monocryl subcuticular suture. The patient tolerated the procedure well and will be transferred to the recovery room in stable condition. Sterile dressing was placed on the catheter. Portable chest x-ray will be done in the recovery. Implants: 28 cm duraflow tunneled HD cath Anesthesia: MAC and local Surgeon: Lima Andrade MD Estimated blood loss (mL): 5 Drains: No Packing: No Pathology: none sent Complications: No immediate complications Condition: stable Disposition: PACU Findings: 28 cm TDC in RIJ replacing previous HD cath
[2020-07-26] MEDS: SODIUM CHLORIDE 0.9% IV 500 ML 30 ML IV CONT (14:47)
--- NOTE | 2020-07-26 14:52 | SUR.PHASEI ---
1447 - pt recovered in OR 9
--- NOTE | 2020-07-26 16:32 | PM.IMPN ---
Progress Note: A&P Assessment and Plan (1) Acute on chronic renal failure: Qualifiers: Acute renal failure type: unspecified Chronic kidney disease stage: stage 4 (severe) Qualified Code(s): N17.9 - Acute kidney failure, unspecified; N18.4 - Chronic kidney disease, stage 4 (severe) Code(s): N17.9 - Acute kidney failure, unspecified; N18.9 - Chronic kidney disease, unspecified Status: Acute Assessment and Plan: Likely secondary to dehydration from vomiting and decreased p.o. intake of fluids. Nephrology has been consulted and appreciate recommendations. Temp catheter placed 07/[address] Andrade at bedside. Tunneled catheter placed today, 07/26. HD on 07/24 and appears will go again this evening. He is still making urine. Feeling somewhat about the same today, although tremulous monitor renal function and urine output. avoid nephrotoxic agents and renally dose medications. Await further rec from Nephrology Zofran PRN with n/v Monitor closely (2) Metabolic acidosis with increased anion gap and accumulation of organic acids: Code(s): E87.2 - Acidosis Status: Acute Assessment and Plan: Likely secondary to acute on chronic renal failure. Improvement in AG. Monitor acid-base status. Continue treatment of acute renal failure. We will consider sodium bicarbonate IV drip if necessary. Plan on dialysis this evening (3) Chronic hypertension: Code(s): I10 - Essential (primary) hypertension Status: Chronic Assessment and Plan: BP elevated to 140 sys this morning. Monitor blood pressure. Continue amlodipine. (4) COVID-19: Code(s): U07.1 - COVID-19 Status: Inactive Assessment and Plan: The patient has tested positive for trivedi virus on 07/18. Has adequate O2 requirements on RA. Minimal symptoms today, although still has a cough. Droplet isolation. Continue supportive care. The patient has not required any supplemental oxygen and at this time he does not meet criteria for steroid therapy or Remdesivir. Continue bronchodilators. (5) Normocytic anemia: Code(s): D64.9 - Anemia, unspecified Status: Acute Assessment and Plan: Hgb 7.0. Likely chronic anemia and anemia of chronic disease from chronic renal failure; possible some dilutional effect from IV fluids. No signs of acute blood loss. Discussed with Dr. Travis, and will plan to hold on transfusion as he may proceed with transplant in the future. He does not appear to be iron deficient; iron panel suggestive more of anemia of chronic disease. Monitor H&H tomorrow Will defer transfuse to Nephrology (6) Hyperkalemia: Code(s): E87.5 - Hyperkalemia Status: Inactive Assessment and Plan: K 4.7 today; improvement. Likely secondary to acute on CKD IV. Kayexalate given on 07/24. No chest pain/palpitations. Monitor for symptoms Monitor BMP Subjective Date/time seen: 07/26/20 16:32 Interval history: Patient is a pleasant 49 yo M with known chronic renal failure stage 4 thought to be secondary to hypertension, and with recent positive COVID test on 07/18 who is seen in follow up for acute on CKDIV with uremia-associated symptoms. Patient states he feels somewhat okay today, but complaining of tremulous. Coughing up clear sputum at times. He was feeling nauseous in the morning, but this has resolved. No signs of bleeding in stools, urine or sputum. No other complaints. Denies f/c/s, headaches, dizziness, lightheadedness, cp/palpitations, sob, diarrhea/constipation, abd pain, bloody emesis, coffee-ground emesis, changes in BMs, dysuria, hematuria, cloudy urine, calf pain/swelling. Review of Systems Review of System
[2020-07-26] MEDS: VITAMIN B CMPLX/VIT C/FOLIC AC 1 CAPSULE 1 CAP PO (16:35)
[2020-07-26] MEDS: CALCIUM ACETATE 667 MG TABLET 1334 MG PO (16:35)
--- NOTE | 2020-07-26 18:17 | PC.NURSE ---
Sister Magalys called in and was updated on her brother and his current status. All questions answered verbalized by Magalys.
--- NOTE | 2020-07-26 18:20 | PM.PNNEP ---
Progress Note: A&P Assessment and Plan (1) End stage renal disease: Code(s): N18.6 - End stage renal disease Status: Chronic Assessment and Plan: due to progression of advanced kidney disease at baseline s/p tunneled HD catheter today HD today and likely again tomorrow will need outpatient dialysis arranged follow electrolytes, volume status, and clearance (2) Chronic hypertension: Code(s): I10 - Essential (primary) hypertension Status: Chronic Assessment and Plan: reasonable control at this time follow trend of hemodynamics (3) Anemia: Code(s): D64.9 - Anemia, unspecified Status: Acute Assessment and Plan: due to ESRD adequate iron stores high dose Epogen with HD since he is a transplant candidate, limit PRBC transfusion if possible follow trend of H/H (4) Metabolic acidosis: Code(s): E87.2 - Acidosis Status: Chronic Assessment and Plan: due to advanced kidney disease should correct with dialytic intervention (5) Renal osteodystrophy: Code(s): N25.0 - Renal osteodystrophy Status: Chronic Assessment and Plan: calcium low and phosphorus high follow trend with dialysis suspect will eventually need binders Will continue to follow. Subjective Date/time seen: 07/26/20 18:20 Tolerating dialysis at the time of my visit (seen on HD at ~ 6:10PM); s/p tunneled HD catheter placement earlier this afternoon and he tolerated well; no acute distress at this time. Exam Narrative: Exam Narrative: General: WD/WN AA male in NAD Heart: normal S1 and S2; no rub Lungs: clear to auscultation Abdomen: soft, nontender, nondistended, positive bowel sounds Extremities: no cyanosis or clubbing; no edema Skin: warm and dry Objective Data Vital Signs Vital Signs: Vital Signs Temp Pulse Resp BP Pulse Ox 07/26/20 15:15 77 20 147/77 H 97 07/26/20 15:05 94 20 136/77 97 07/26/20 14:47 104 H 22 H 137/69 95 07/26/20 12:00 36.9 C 79 18 147/92 H 96 07/26/20 08:00 37.2 C 80 16 145/86 H 96 07/26/20 04:00 37.9 C H 81 18 142/94 H 95 07/26/20 00:00 37.4 C 76 18 139/96 H 95 07/25/20 20:00 36.9 C 77 18 144/91 H 94 Intake/Output Intake/Output: Intake & Output 07/23/20 07/24/20 07/25/20 07/26/20 23:59 23:59 23:59 23:59 Intake Total 5520 2270 100 Output Total 1450 Balance 4070 2270 100 Meds/Results Medications: Active Medications Generic Name Dose Route Start Last Admin Trade Name Freq PRN Reason Stop Dose Admin Acetaminophen 650 mg 07/24/20 03:38 07/24/20 18:37 Acetaminophen 325 Mg Tablet PO 650 mg Q4H PRN Administration Mild Pain (1-3) or Fever Amlodipine Besylate 10 mg 07/24/20 09:00 07/26/20 10:49 Amlodipine Besylate 5 Mg Tablet PO 08/23/20 09:01 10 mg DAILY DEXTER Administration Calcium Acetate 1,334 mg 07/25/20 11:30 07/26/20 16:35 Calcium Acetate 667 Mg Tablet PO 1,334 mg TIDAC DEXTER Administration Epoetin Issa-epbx 10,000 units 07/24/20 14:00 Epoetin Issa-Epbx 10,000 Units/Ml Vial IV PUSH ONCE DEXTER Epoetin Issa-epbx 10,000 units 07/26/20 17:00 Epoetin Issa-Epbx 10,000 Units/Ml Vial IV PUSH [id number] DEXTER Guaifenesin/Dextromethorphan 10 ml 07/24/20 01:29 07/25/20 09:46 Guaifenesin/Dextromethorphan 10 Ml Udc PO 10 ml Q4H PRN Administration Cough Ondansetron HCl 4 mg 07/23/20 23:32 07/26/20 10:58 Ondansetron Inj 4 Mg/2 Ml Vial IV PUSH 4 mg Q4H PRN Administration Nausea Vitamin B Complex/Folic Acid 1 cap 07/25/20 09:00 07/26/20 16:35 Vitamin B Cmplx/Vit C/Folic Ac 1 Capsule PO 1 cap QAM DEXTER Administration Radiology Results: ITS Impressions Renal Ultrasound 07/24/20 08:54 Impression: 1: Atrophic echogenic kidneys bilaterally, consistent with chronic medical renal disease. Chest X-Ray 07/26/20 15:09 IMPRESSION: 1. Right inte
[2020-07-26] MEDS: EPOETIN ALFA-EPBX 10,000 UNITS/ML VIAL 10000 UNITS IV PUSH (19:00)
[2020-07-26] MEDS: HEPARIN SODIUM 1,000 UNITS/ML VIAL 6000 UNITS (22:08)
[2020-07-27] VITALS (21 sets, daily range): BP systolic 128–161; BP diastolic 78–95; PULSE 78–103; RESP 16–18; TEMP 36.7–37.8; O2SAT 92–99
[2020-07-27] MEDS: CALCIUM ACETATE 667 MG TABLET 1334 MG PO ×3 (06:16→18:21)
[2020-07-27] MEDS: guaiFENesin/DEXTROMETHORPHAN 10 ML UDC PO (06:32)
--- NOTE | 2020-07-27 06:41 | PC.NURSE ---
Patient experienced nausea and emesis just after taking morning dose of phoslo. Phoslo pills visualized coming back up into emesis bag just after being given. Zofran PRN dose given. Dr. Orr informed.
[2020-07-27 06:59] LABS: Basophils Percent Auto 0.4 % (0.2-1.2); Eosinophils Absolute Auto 0.1 K/mm3 (0-0.3); Hematocrit 22.4 % (42.0-52.0); Hemoglobin 7.6 g/dL (14.0-18.0); Immature Granulocyte Absolute 0.43 K/mm3 (0.00-0.031); Immature Granulocyte Percent A 5.4 % (0-0.5); Lymphocytes Absolute Auto 0.95 K/mm3 (0.9-3.2); Mean Corpuscular HGB Conc 33.9 g/dl (32-36); Mean Corpuscular Volume 85.5 fl (80-100); Mean Platelet Volume 10.6 fl (7.4-10.4); Monocytes Absolute Auto 0.6 K/mm3 (0.1-0.6); Neutrophils Absolute Auto 5.8 K/mm3 (1.3-6.7); Neutrophils Percent Auto 73.2 % (45.5-73.1); Platelet Count Result 241 k/mm3 (150-375); Red Blood Count 2.62 M/mm3 (4.6-6.20); Red Cell Distribution Width 11.9 % (11.5-14.5); White Blood Count 7.9 K/mm3 (4.5-10.0)
[2020-07-27 07:14] LABS: Albumin Level 3.2 g/dL (3.5-5.1); Anion Gap 13 mmol/L (8-16); Blood Urea Nitrogen 77 mg/dL (9-20); Calcium 6.9 mg/dL (8.4-10.2); Carbon Dioxide 26 mmol/L (22-30); Chloride 99 mmol/L (98-107); Glucose 105 mg/dL (75-110); Magnesium 2.1 mg/dL (1.6-2.3); Potassium 3.9 mmol/L (3.4-5.0); Sodium 138 mmol/L (137-145)
[2020-07-27 07:22] LABS: Estimated CRCL calculation 6 ml/min; Estimated Glomerular Filt Rate 3
--- NOTE | 2020-07-27 08:07 | WPDANESPN ---
Anes - Prog Note Post-Op Date/Time: 07/27/20 08:07 Cardiovascular status: normal Respiratory status: normal Airway patency: baseline Mental status: baseline Post-Op hydration status: normal Vital Signs: Last Vital Signs Temp 37.6 C 07/27/20 04:00 Pulse 90 07/27/20 04:00 Resp 18 07/27/20 04:00 BP 133/95 H 07/27/20 04:00 Pulse Ox 99 07/27/20 04:00 Pain Score (VAS): 3 I/O: Intake & Output 07/26/20 07/27/20 07/27/20 23:59 07:59 15:59 Intake Total 240 220 Output Total 2050 200 Balance -1810 20 Laboratory Tests 07/26/20 06:10 07/27/20 06:34 07/27/20 06:34 Sodium 138 Potassium 3.9 Chloride 99 Carbon Dioxide 26 Anion Gap 13 BUN 77 H D Creatinine 19.20 H Estim Creat Clear Calc 6 Estimated GFR 3 L Glucose 105 Calcium 6.9 L Phosphorus 8.0 H Magnesium 2.1 Albumin 3.2 L Post-procedural complaints: none Patient Feedback: Patient satisfied with anesthetic care.
[2020-07-27] MEDS: VITAMIN B CMPLX/VIT C/FOLIC AC 1 CAPSULE 1 CAP PO (09:44)
[2020-07-27] MEDS: amLODIPine BESYLATE 5 MG TABLET 10 MG PO (09:44)
--- NOTE | 2020-07-27 11:04 | PM.PNNEP ---
Progress Note: A&P Assessment and Plan (1) End stage renal disease: Code(s): N18.6 - End stage renal disease Status: Chronic Assessment and Plan: due to progression of advanced kidney disease at baseline s/p tunneled HD catheter yesterday HD today will need outpatient dialysis arranged follow electrolytes, volume status, and clearance (2) Chronic hypertension: Code(s): I10 - Essential (primary) hypertension Status: Chronic Assessment and Plan: reasonable control at this time follow trend of hemodynamics (3) Anemia: Code(s): D64.9 - Anemia, unspecified Status: Acute Assessment and Plan: due to ESRD adequate iron stores high dose Epogen with HD since he is a transplant candidate, limit PRBC transfusion if possible follow trend of H/H (4) Metabolic acidosis: Code(s): E87.2 - Acidosis Status: Chronic Assessment and Plan: due to advanced kidney disease should correct with dialytic intervention (5) Renal osteodystrophy: Code(s): N25.0 - Renal osteodystrophy Status: Chronic Assessment and Plan: calcium low and phosphorus high follow trend with dialysis suspect will eventually need binders Will continue to follow. Subjective Date/time seen: 07/27/20 11:04 Tolerated dialysis yesterday and plan HD later today; seems to be doing reasonably well; no other acute issues or problems to report. Exam Narrative: Exam Narrative: General: WD/WN AA male in NAD Heart: normal S1 and S2; no rub Lungs: clear to auscultation Abdomen: soft, nontender, nondistended, positive bowel sounds Extremities: no cyanosis or clubbing; no edema Skin: warm and dry Objective Data Vital Signs Vital Signs: Vital Signs Temp Pulse Resp BP Pulse Ox 07/27/20 09:49 37.1 C 07/27/20 08:00 37.5 C 83 18 134/94 H 94 07/27/20 04:00 37.6 C 90 18 133/95 H 99 07/27/20 00:00 37.8 C H 94 18 156/95 H 92 07/26/20 20:10 37.6 C 94 16 132/88 07/26/20 20:05 88 131/78 07/26/20 20:00 37.3 C 90 20 123/81 96 07/26/20 19:50 89 119/81 07/26/20 19:45 96 90/64 L 07/26/20 19:30 103 H 122/79 07/26/20 19:15 101 H 126/90 07/26/20 19:00 100 154/93 H 07/26/20 18:45 96 147/95 H 07/26/20 18:30 102 H 142/90 H 07/26/20 18:15 107 H 154/98 H 07/26/20 18:00 100 153/95 H 07/26/20 17:45 97 164/100 H 07/26/20 17:35 97 160/95 H 07/26/20 17:18 37.2 C 98 16 164/99 H 07/26/20 17:15 37.2 C 100 18 153/95 H 95 07/26/20 16:15 36.4 C L 97 18 155/97 H 93 07/26/20 16:00 93 07/26/20 15:45 36.6 C 95 20 146/92 H 96 07/26/20 15:30 36.6 C 98 20 146/95 H 93 07/26/20 15:15 77 20 147/77 H 97 07/26/20 15:05 94 20 136/77 97 07/26/20 14:47 104 H 22 H 137/69 95 07/26/20 12:00 36.9 C 79 18 147/92 H 96 Intake/Output Intake/Output: Intake & Output 07/24/20 07/25/20 07/26/20 07/27/20 23:59 23:59 23:59 23:59 Intake Total 5520 2270 340 220 Output Total 1450 2050 200 Balance 4070 2270 -1710 20 Meds/Results Medications: Active Medications Generic Name Dose Route Start Last Admin Trade Name Freq PRN Reason Stop Dose Admin Acetaminophen 650 mg 07/24/20 03:38 07/24/20 18:37 Acetaminophen 325 Mg Tablet PO 650 mg Q4H PRN Administration Mild Pain (1-3) or Fever Amlodipine Besylate 10 mg 07/24/20 09:00 07/27/20 09:44 Amlodipine Besylate 5 Mg Tablet PO 08/23/20 09:01 10 mg DAILY DEXTER Administration Calcium Acetate 1,334 mg 07/25/20 11:30 07/27/20 06:16 Calcium Acetate 667 Mg Tablet PO 1,334 mg TIDAC DEXTER Administration Epoetin Issa-epbx 20,000 units 07/27/20 19:08 Epoetin Issa-Epbx 10,000 Units/Ml Vial IV PUSH 07/27/20 19:09 ONCE ONE Guaifenesin/Dextromethorphan 10 ml 07/24/20 01:29 07/27/20 06:32 Guaifenesin/Dextromethorphan 10 Ml Udc PO 10 ml Q4
[2020-07-27] MEDS: SODIUM CHLORIDE 0.9% IV 1,000 ML 999 ML IV CONT (15:47)
[2020-07-27] MEDS: EPOETIN ALFA-EPBX 10,000 UNITS/ML VIAL 20000 UNITS IV PUSH (15:48)
[2020-07-27] MEDS: HEPARIN SODIUM 1,000 UNITS/ML VIAL 5000 UNITS (15:49)
--- NOTE | 2020-07-27 16:23 | PM.IMPN ---
Progress Note: A&P Assessment and Plan (1) Acute on chronic renal failure: Code(s): N17.9 - Acute kidney failure, unspecified; N18.9 - Chronic kidney disease, unspecified Status: Acute Assessment and Plan: -----acute on chronic, likely worsened from viral illness with decreased p.o. intake and just progressive kidney disease. Unclear of the etiology at this time. He does have a history of hypertension and is which makes him high risk. Ultrasound shows medical renal disease. I am unsure if he has ever got a renal biopsy. Continue dialysis, creatinine and BUN coming down nicely. (2) Metabolic acidosis with increased anion gap and accumulation of organic acids: Code(s): E87.2 - Acidosis Status: Acute Assessment and Plan: -----likely due to renal disease CO2 within normal limits today. Monitor (3) Chronic hypertension: Code(s): I10 - Essential (primary) hypertension Status: Chronic Assessment and Plan: -----last blood pressure 136/90, continue amlodipine. (4) COVID-19: Code(s): U07.1 - COVID-19 Status: Inactive Assessment and Plan: -----The patient has tested positive for trivedi virus on 07/18. Continues to have a cough but is getting better. Not requiring O2. Continue isolation and supportive care. (5) Normocytic anemia: Code(s): D64.9 - Anemia, unspecified Status: Acute Assessment and Plan: -----Hgb 7.7. Likely chronic anemia and anemia of chronic disease from chronic renal failure; possible some dilutional effect from IV fluids. No signs of acute blood loss. (6) Hyperkalemia: Code(s): E87.5 - Hyperkalemia Status: Inactive Assessment and Plan: -----K 3.9 today; improvement. Likely secondary to acute on CKD IV. Time Spent With Patient Time with patient: 25 - 35 minutes Subjective Date/time seen: 07/27/20 16:23 Interval history: Pt is a 49-year-old male here for new onset dialysis with acute on chronic kidney failure. Patient was seen today and is feeling little bit better. He said his cough has improved but is appetite is still low. He had some nausea this morning and Zofran helped. No vomiting. Pt denies fevers, chills, constipation, diarrhea, chest pain, sob, or abdominal pain. Review of Systems Review of Systems: All systems reviewed & are unremarkable except as noted in HPI and below Exam Narrative: Exam Narrative: General: Well developed well nourished patient in NAD HEENT: normocephalic Neck: supple Neuro: Alert and oriented x4 CV:RRR Resp:CTA through a disposable stethoscope which lowers sensitivity Abd: Soft, non distended. No pain to palpation. Positive bowel sounds Extremities: No swelling, erythema, or pain to palpation. Objective Data Vital Signs Vital Signs: Vital Signs - 24 hr 07/26/20 17:15 07/26/20 17:18 07/26/20 17:35 Temperature 98.9 F 98.9 F Pulse Rate 100 98 97 Respiratory Rate 18 16 Blood Pressure 153/95 H 164/99 H 160/95 H Pulse Oximetry 95 07/26/20 17:45 07/26/20 18:00 07/26/20 18:15 Temperature Pulse Rate 97 100 107 H Respiratory Rate Blood Pressure 164/100 H 153/95 H 154/98 H Pulse Oximetry 07/26/20 18:30 07/26/20 18:45 07/26/20 19:00 Temperature Pulse Rate 102 H 96 100 Respiratory Rate Blood Pressure 142/90 H 147/95 H 154/93 H Pulse Oximetry 07/26/20 19:15 07/26/20 19:30 07/26/20 19:45 Temperature Pulse Rate 101 H 103 H 96 Respiratory Rate Blood Pressure 126/90 122/79 90/64 L Pulse Oximetry 07/26/20 19:50 07/26/20 20:00 07/26/20 20:05 Temperature 99.1 F Pulse Rate 89 90 88 Respiratory Rate 20 Blood Pressure 119/81 123/81 131/78 Pulse Oximetry 96 07/26/20 20:10 07/27/20 00:00 07/27/20 04:00 Temperature 99.6 F 100.1 F H 99.6 F Pulse Rate 94 94 90 Respiratory Rate 16 18 18 Blood Pressure 132/88 156/95 H 133/95 H Pulse Oxi
[2020-07-28] VITALS (7 sets, daily range): BP systolic 102–145; BP diastolic 67–92; PULSE 83–96; RESP 14–18; TEMP 36.9–37.7; O2SAT 94–99
[2020-07-28] MEDS: ONDANSETRON INJ 4 MG/2 ML VIAL IV PUSH (02:48)
[2020-07-28] MEDS: CALCIUM ACETATE 667 MG TABLET 1334 MG PO ×3 (05:40→17:45)
[2020-07-28 06:32] LABS: Hematocrit 22.6 % (42.0-52.0); Hemoglobin 7.4 g/dL (14.0-18.0); Mean Corpuscular HGB Conc 32.7 g/dl (32-36); Mean Corpuscular Hemoglobin 28.7 pg (26-34); Mean Corpuscular Volume 87.6 fl (80-100); Mean Platelet Volume 10.3 fl (7.4-10.4); Platelet Count Result 271 k/mm3 (150-375); Red Blood Count 2.58 M/mm3 (4.6-6.20); Red Cell Distribution Width 12.1 % (11.5-14.5); White Blood Count 9.4 K/mm3 (4.5-10.0)
[2020-07-28 06:45] LABS: Albumin Level 3.3 g/dL (3.5-5.1); Anion Gap 7 mmol/L (8-16); Blood Urea Nitrogen 50 mg/dL (9-20); Calcium 7.7 mg/dL (8.4-10.2); Carbon Dioxide 31 mmol/L (22-30); Chloride 100 mmol/L (98-107); Glucose 117 mg/dL (75-110); Phosphorus 5.8 mg/dL (2.5-4.5); Potassium 4.3 mmol/L (3.4-5.0); Sodium 138 mmol/L (137-145)
[2020-07-28 06:51] LABS: Estimated CRCL calculation 9 ml/min; Estimated Glomerular Filt Rate 5
[2020-07-28] MEDS: VITAMIN B CMPLX/VIT C/FOLIC AC 1 CAPSULE 1 CAP PO (09:24)
[2020-07-28] MEDS: amLODIPine BESYLATE 5 MG TABLET 10 MG PO (09:24)
[2020-07-28] MEDS: ACETAMINOPHEN 325 MG TABLET 650 MG PO (11:52)
--- NOTE | 2020-07-28 14:52 | PM.IMPN ---
Progress Note: A&P Assessment and Plan (1) Acute on chronic renal failure: Code(s): N17.9 - Acute kidney failure, unspecified; N18.9 - Chronic kidney disease, unspecified Status: Acute Assessment and Plan: -----acute on chronic, likely worsened from viral illness with decreased p.o. intake and just progressive kidney disease. Unclear of the etiology at this time. He does have a history of hypertension and is which makes him high risk. Ultrasound shows medical renal disease. I am unsure if he has ever got a renal biopsy. Continue dialysis, creatinine and BUN coming down nicely. Likely d/c tomorrow (2) Metabolic acidosis with increased anion gap and accumulation of organic acids: Code(s): E87.2 - Acidosis Status: Acute Assessment and Plan: -----likely due to renal disease CO2 within normal limits today. Monitor (3) Chronic hypertension: Code(s): I10 - Essential (primary) hypertension Status: Chronic Assessment and Plan: -----last blood pressure 102/67. continue amlodipine. (4) COVID-19: Code(s): U07.1 - COVID-19 Status: Inactive Assessment and Plan: -----The patient has tested positive for Covid on 07/18. Continues to have a cough but is getting better. Not requiring O2. Continue isolation and supportive care. okay to discontinue isolation tomorrow. (5) Normocytic anemia: Code(s): D64.9 - Anemia, unspecified Status: Acute Assessment and Plan: -----Hgb 7.4. Likely chronic anemia and anemia of chronic disease from chronic renal failure; possible some dilutional effect from IV fluids. No signs of acute blood loss. (6) Hyperkalemia: Code(s): E87.5 - Hyperkalemia Status: Inactive Assessment and Plan: -----K 4.5 today; improvement. Subjective Date/time seen: 07/28/20 14:52 Interval history: Pt is a 49-year-old male here for new onset dialysis with acute on chronic kidney failure. Patient was seen today and is feeling pretty good. he has not gotten out of bed much except to use the commode and feels weak. He said his cough has improved and his appetite has as well. Pt denies fevers, chills, constipation, diarrhea, chest pain, sob, or abdominal pain. Exam Narrative: Exam Narrative: General: Well developed well nourished patient in NAD HEENT: normocephalic Neck: supple Neuro: Alert and oriented x4 CV:RRR Resp:CTA through a disposable stethoscope which lowers sensitivity Abd: Soft, non distended. No pain to palpation. Positive bowel sounds Extremities: No swelling, erythema, or pain to palpation. pt appears unsteady on his feet when walking him to the door and back Objective Data Vital Signs Vital Signs: Vital Signs - 24 hr 07/27/20 15:00 07/27/20 15:30 07/27/20 15:35 Temperature Pulse Rate 84 81 79 Respiratory Rate Blood Pressure 130/93 H 145/95 H 147/87 H Pulse Oximetry 07/27/20 15:45 07/27/20 16:00 07/27/20 16:01 Temperature 98.0 F Pulse Rate 88 90 87 Respiratory Rate 18 Blood Pressure 138/92 H 134/78 143/92 H Pulse Oximetry 97 07/27/20 16:16 07/27/20 16:30 07/27/20 16:45 Temperature Pulse Rate 88 90 94 Respiratory Rate Blood Pressure 136/90 134/78 128/91 H Pulse Oximetry 07/27/20 17:00 07/27/20 17:15 07/27/20 17:34 Temperature 98.2 F Pulse Rate 83 89 78 Respiratory Rate 16 Blood Pressure 133/82 146/89 H 132/85 Pulse Oximetry 07/27/20 20:00 07/28/20 00:00 07/28/20 04:00 Temperature 98.5 F 99.4 F 98.5 F Pulse Rate 96 96 92 Respiratory Rate 18 18 18 Blood Pressure 128/93 H 130/82 133/90 Pulse Oximetry 93 94 94 07/28/20 08:00 07/28/20 11:52 07/28/20 12:00 Temperature 98.5 F 99.4 F 99.8 F H Pulse Rate 90 88 Respiratory Rate 16 16 Blood Pressure 128/88 102/67 Pulse Oximetry 98 94 Intake/Output Intake/Output: Intake & Output 07/25/20 07/26/20 07/27/20 1
--- NOTE | 2020-07-28 17:51 | PM.PNNEP ---
Progress Note: A&P Assessment and Plan (1) End stage renal disease: Code(s): N18.6 - End stage renal disease Status: Chronic Assessment and Plan: due to progression of advanced kidney disease at baseline s/p tunneled HD catheter placement plan HD tomorrow follow electrolytes, volume status, and clearance (2) Chronic hypertension: Code(s): I10 - Essential (primary) hypertension Status: Chronic Assessment and Plan: reasonable control at this time will switch amlodipine to lisinopril follow trend of hemodynamics (3) Anemia: Code(s): D64.9 - Anemia, unspecified Status: Acute Assessment and Plan: due to ESRD adequate iron stores high dose Epogen with HD since he is a transplant candidate, limit PRBC transfusion if possible follow trend of H/H (4) Metabolic acidosis: Code(s): E87.2 - Acidosis Status: Chronic Assessment and Plan: due to advanced kidney disease corrected with dialytic intervention (5) Renal osteodystrophy: Code(s): N25.0 - Renal osteodystrophy Status: Chronic Assessment and Plan: calcium low and phosphorus high follow trend with dialysis started on phoslo Long and extensive (> 20 minutes) discussion with patient regarding ESRD, dialysis, treatment modalities, transplantation and general plan of care regarding the above issues. Will continue to follow - not opposed to discharge if otherwise medically stable and outpatient dialysis center/schedule is finalized Subjective Date/time seen: 07/28/20 17:51 Seems to be doing better; tolerated dialysis yesterday without any issues or problems; no apparent distress noted; no other acute complaints voiced at this time. Exam Narrative: Exam Narrative: General: WD/WN AA male in NAD Heart: normal S1 and S2; no rub Lungs: clear to auscultation Abdomen: soft, nontender, nondistended, positive bowel sounds Extremities: no cyanosis or clubbing; no edema Skin: warm and intact Objective Data Vital Signs Vital Signs: Vital Signs Temp Pulse Resp BP Pulse Ox 07/28/20 16:00 37.1 C 86 14 145/92 H 99 07/28/20 12:00 37.7 C H 88 16 102/67 94 07/28/20 11:52 37.4 C 07/28/20 08:00 36.9 C 90 16 128/88 98 07/28/20 04:00 36.9 C 92 18 133/90 94 07/28/20 00:00 37.4 C 96 18 130/82 94 07/27/20 20:00 36.9 C 96 18 128/93 H 93 Intake/Output Intake/Output: Intake & Output 07/25/20 07/26/20 07/27/20 07/28/20 23:59 23:59 23:59 23:59 Intake Total 2270 340 490 650 Output Total 2050 1900 0 Balance 2270 -1710 -1410 650 Meds/Results Medications: Active Medications Generic Name Dose Route Start Last Admin Trade Name Freq PRN Reason Stop Dose Admin Acetaminophen 650 mg 07/24/20 03:38 07/28/20 11:52 Acetaminophen 325 Mg Tablet PO 650 mg Q4H PRN Administration Mild Pain (1-3) or Fever Amlodipine Besylate 10 mg 07/24/20 09:00 07/28/20 09:24 Amlodipine Besylate 5 Mg Tablet PO 08/23/20 09:01 10 mg DAILY DEXTER Administration Calcium Acetate 1,334 mg 07/25/20 11:30 07/28/20 11:49 Calcium Acetate 667 Mg Tablet PO 1,334 mg TIDAC DEXTER Administration Guaifenesin/Dextromethorphan 10 ml 07/24/20 01:29 07/27/20 06:32 Guaifenesin/Dextromethorphan 10 Ml Udc PO 10 ml Q4H PRN Administration Cough Albumin Human 50 mls @ 999 mls/hr 07/27/20 07:08 Albutein IVPB 08/26/20 07:09 Q10M PRN HYPOTENSION Ondansetron HCl 4 mg 07/23/20 23:32 07/28/20 02:48 Ondansetron Inj 4 Mg/2 Ml Vial IV PUSH 4 mg Q4H PRN Administration Nausea Vitamin B Complex/Folic Acid 1 cap 07/25/20 09:00 07/28/20 09:24 Vitamin B Cmplx/Vit C/Folic Ac 1 Capsule PO 1 cap QAM DEXTER Administration Radiology Results: ITS Impressions Renal Ultrasound 07/24/20 08:54 Impression: 1: Atrophic echogenic kidneys bilaterally, consistent with chronic medical renal dise
[2020-07-29] VITALS (16 sets, daily range): BP systolic 108–145; BP diastolic 62–91; PULSE 77–98; RESP 16–18; TEMP 36–37.4; O2SAT 95–98
[2020-07-29 05:22] LABS: Hepatitis B Core Ab Total Nonreactive (Nonreactive)
[2020-07-29] MEDS: CALCIUM ACETATE 667 MG TABLET 1334 MG PO ×2 (05:32→19:30)
--- NOTE | 2020-07-29 07:41 | PM.IMPN ---
Progress Note: A&P Assessment and Plan (1) Acute on chronic renal failure: Code(s): N17.9 - Acute kidney failure, unspecified; N18.9 - Chronic kidney disease, unspecified Status: Acute Assessment and Plan: -----acute on chronic, likely worsened from viral illness with decreased p.o. intake and just progressive kidney disease. Unclear of the etiology at this time. He does have a history of hypertension and is which makes him high risk. Ultrasound shows medical renal disease. I am unsure if he has ever got a renal biopsy. Continue dialysis, creatinine and BUN coming down nicely. Likely d/c tomorrow (2) Metabolic acidosis with increased anion gap and accumulation of organic acids: Code(s): E87.2 - Acidosis Status: Acute Assessment and Plan: -----likely due to renal disease CO2 within normal limits today. Monitor (3) Chronic hypertension: Code(s): I10 - Essential (primary) hypertension Status: Chronic Assessment and Plan: -----Reviewed 07/29 and stable. continue lisinopril (4) COVID-19: Code(s): U07.1 - COVID-19 Status: Inactive Assessment and Plan: -----The patient has tested positive for Covid on 07/18. Continues to have a cough but is getting better. Not requiring O2. it has been 10 days since his infection, will discontinue isolation according to CDC guidelines as the pt is improved. (5) Normocytic anemia: Code(s): D64.9 - Anemia, unspecified Status: Acute Assessment and Plan: -----Hgb 7.4. Likely chronic anemia and anemia of chronic disease from chronic renal failure; possible some dilutional effect from IV fluids. No signs of acute blood loss. (6) Hyperkalemia: Code(s): E87.5 - Hyperkalemia Status: Inactive Assessment and Plan: -----resolved Subjective Date/time seen: 07/29/20 1200 Late entry Interval history: Pt is a 49-year-old male here for new onset dialysis with acute on chronic kidney failure. Patient was seen right before dialysis and doing well. Earlier he has some nausea vomiting but that has resolved. He has been eating and drinking well. His cough is getting better. Pt denies fevers, chills, , diarrhea, chest pain, sob, or abdominal pain. He feels a bit constipated Exam Narrative: Exam Narrative: General: Well developed well nourished patient in NAD HEENT: normocephalic Neck: supple Neuro: Alert and oriented x4 CV:RRR Resp:CTA through a disposable stethoscope which lowers sensitivity Abd: Soft, non distended. No pain to palpation. Positive bowel sounds Extremities: No swelling, erythema, or pain to palpation. Objective Data Vital Signs Vital Signs: Vital Signs - 24 hr 07/29/20 08:00 07/29/20 12:59 07/29/20 13:00 Temperature 98.5 F 98.4 F Pulse Rate 78 79 80 Respiratory Rate 16 18 Blood Pressure 121/77 134/85 141/82 H Pulse Oximetry 98 07/29/20 13:15 07/29/20 13:30 07/29/20 13:45 Temperature Pulse Rate 78 78 78 Respiratory Rate Blood Pressure 138/88 129/86 144/87 H Pulse Oximetry 07/29/20 14:00 07/29/20 14:15 07/29/20 14:30 Temperature Pulse Rate 81 83 87 Respiratory Rate Blood Pressure 134/88 145/80 H 137/91 H Pulse Oximetry 07/29/20 15:00 07/29/20 15:15 07/29/20 15:30 Temperature 98.4 F Pulse Rate 88 87 98 Respiratory Rate 18 Blood Pressure 120/62 124/78 118/64 Pulse Oximetry 07/29/20 19:10 07/29/20 22:00 07/30/20 04:00 Temperature 99.0 F 98.9 F 98.5 F Pulse Rate 84 86 79 Respiratory Rate 16 16 16 Blood Pressure 114/72 108/73 111/74 Pulse Oximetry 95 98 98 Intake/Output Intake/Output: Intake & Output 07/27/20 07/28/20 07/29/20 07/30/20 23:59 23:59 23:59 23:59 Intake Total 338 799 3207 200 Output Total 1900 0 2300 Balance -1410 650 -1240 200 Meds/Results Medications: Active Medications Generic Name Dose Route Start Last Admin T
[2020-07-29] MEDS: lisinopriL 10 MG TABLET PO (08:52)
[2020-07-29] MEDS: VITAMIN B CMPLX/VIT C/FOLIC AC 1 CAPSULE 1 CAP PO (08:52)
[2020-07-29] MEDS: ONDANSETRON INJ 4 MG/2 ML VIAL IV PUSH (12:19)
--- NOTE | 2020-07-29 13:30 | PCPTNOTE ---
Attempted PT eval. Pt receiving dialysis. Will try again at later time.
--- NOTE | 2020-07-29 15:30 | PM.PNNEP ---
Progress Note: A&P Assessment and Plan (1) End stage renal disease: Code(s): N18.6 - End stage renal disease Status: Chronic Assessment and Plan: due to progression of advanced kidney disease at baseline s/p tunneled HD catheter placement HD today and HD tomorrow at his outpatient dialysis center follow electrolytes, volume status, and clearance (2) Chronic hypertension: Code(s): I10 - Essential (primary) hypertension Status: Chronic Assessment and Plan: reasonable control at this time switched amlodipine to lisinopril follow trend of hemodynamics (3) Anemia: Code(s): D64.9 - Anemia, unspecified Status: Acute Assessment and Plan: due to ESRD adequate iron stores high dose Epogen with HD since he is a transplant candidate, limit PRBC transfusion if possible follow trend of H/H (4) Metabolic acidosis: Code(s): E87.2 - Acidosis Status: Chronic Assessment and Plan: due to advanced kidney disease corrected with dialytic intervention (5) Renal osteodystrophy: Code(s): N25.0 - Renal osteodystrophy Status: Chronic Assessment and Plan: calcium low and phosphorus high follow trend with dialysis started on phoslo Will continue to follow - not opposed to discharge if otherwise medically stable and outpatient dialysis center/schedule is finalized Subjective Date/time seen: 07/29/20 15:30 Tolerating dialysis at the time of my visit (seen on HD at 3:15PM); no apparent distress noted at this time; feel reasonably well; no events overnight or earlier this AM. Exam Narrative: Exam Narrative: General: WD/WN AA male in NAD Heart: normal S1 and S2; no rub Lungs: clear to auscultation Abdomen: soft, nontender, nondistended, positive bowel sounds Extremities: no cyanosis or clubbing; no edema Skin: warm and intact Objective Data Vital Signs Vital Signs: Vital Signs Temp Pulse Resp BP Pulse Ox 07/29/20 15:30 36.9 C 98 18 118/64 07/29/20 15:15 87 124/78 07/29/20 15:00 88 120/62 07/29/20 14:30 87 137/91 H 07/29/20 14:15 83 145/80 H 07/29/20 14:00 81 134/88 07/29/20 13:45 78 144/87 H 07/29/20 13:30 78 129/86 07/29/20 13:15 78 138/88 07/29/20 13:00 80 141/82 H 07/29/20 12:59 36.9 C 79 18 134/85 07/29/20 08:00 36.9 C 78 16 121/77 98 07/29/20 04:00 36.8 C 77 16 122/62 98 07/29/20 00:00 37.4 C 85 18 131/90 98 07/28/20 20:00 36.9 C 83 18 133/83 98 Intake/Output Intake/Output: Intake & Output 07/26/20 07/27/20 07/28/20 07/29/20 23:59 23:59 23:59 23:59 Intake Total 340 975 040 2562 Output Total 2050 1900 0 2300 Balance -1710 -1410 650 -1240 Meds/Results Medications: Active Medications Generic Name Dose Route Start Last Admin Trade Name Freq PRN Reason Stop Dose Admin Acetaminophen 650 mg 07/24/20 03:38 07/28/20 11:52 Acetaminophen 325 Mg Tablet PO 650 mg Q4H PRN Administration Mild Pain (1-3) or Fever Calcium Acetate 1,334 mg 07/25/20 11:30 07/29/20 14:57 Calcium Acetate 667 Mg Tablet PO Not Given TIDAC DEXTER Epoetin Issa-epbx 20,000 units 07/29/20 19:00 Epoetin Issa-Epbx 10,000 Units/Ml Vial IV PUSH 07/29/20 19:01 ONCE ONE Guaifenesin/Dextromethorphan 10 ml 07/24/20 01:29 07/27/20 06:32 Guaifenesin/Dextromethorphan 10 Ml Udc PO 10 ml Q4H PRN Administration Cough Albumin Human 50 mls @ 999 mls/hr 07/27/20 07:08 Albutein IVPB 08/26/20 07:09 Q10M PRN HYPOTENSION Lisinopril 10 mg 07/29/20 09:00 07/29/20 08:52 Lisinopril 10 Mg Tablet PO 10 mg DAILY DEXTER Administration Ondansetron HCl 4 mg 07/23/20 23:32 07/29/20 12:19 Ondansetron Inj 4 Mg/2 Ml Vial IV PUSH 4 mg Q4H PRN Administration Nausea Vitamin B Complex/Folic Acid 1 cap 07/25/20 09:00 07/29/20 08:52 Vitamin B Cmplx/Vit C/Folic Ac 1 Capsule P
--- NOTE | 2020-07-29 15:30 | P.PNNP_ITS ---
Progress Note: A&P Assessment and Plan (1) End stage renal disease: Code(s): N18.6 - End stage renal disease Status: Chronic Assessment and Plan: * due to progression of advanced kidney disease at baseline * s/p tunneled HD catheter placement * HD today and HD tomorrow at his outpatient dialysis center * follow electrolytes, volume status, and clearance (2) Chronic hypertension: Code(s): I10 - Essential (primary) hypertension Status: Chronic Assessment and Plan: * reasonable control at this time * switched amlodipine to lisinopril * follow trend of hemodynamics (3) Anemia: Code(s): D64.9 - Anemia, unspecified Status: Acute Assessment and Plan: * due to ESRD * adequate iron stores * high dose Epogen with HD * since he is a transplant candidate, limit PRBC transfusion if possible * follow trend of H/H (4) Metabolic acidosis: Code(s): E87.2 - Acidosis Status: Chronic Assessment and Plan: * due to advanced kidney disease * corrected with dialytic intervention (5) Renal osteodystrophy: Code(s): N25.0 - Renal osteodystrophy Status: Chronic Assessment and Plan: * calcium low and phosphorus high * follow trend with dialysis * started on phoslo Will continue to follow - not opposed to discharge if otherwise medically stable and outpatient dialysis center/schedule is finalized Subjective Date/time seen: 07/29/20 15:30 Tolerating dialysis at the time of my visit (seen on HD at 3:15PM); no apparent distress noted at this time; feel reasonably well; no events overnight or earlier this AM. Exam Narrative: Exam Narrative: General: WD/WN AA male in NAD Heart: normal S1 and S2; no rub Lungs: clear to auscultation Abdomen: soft, nontender, nondistended, positive bowel sounds Extremities: no cyanosis or clubbing; no edema Skin: warm and intact Objective Data Vital Signs Vital Signs: Vital Signs Temp Pulse Resp BP Pulse Ox 07/29/20 15:30 36.9 C 98 18 118/64 07/29/20 15:15 87 124/78 07/29/20 15:00 88 120/62 07/29/20 14:30 87 137/91 H 07/29/20 14:15 83 145/80 H 07/29/20 14:00 81 134/88 07/29/20 13:45 78 144/87 H 07/29/20 13:30 78 129/86 07/29/20 13:15 78 138/88 07/29/20 13:00 80 141/82 H 07/29/20 12:59 36.9 C 79 18 134/85 07/29/20 08:00 36.9 C 78 16 121/77 98 07/29/20 04:00 36.8 C 77 16 122/62 98 07/29/20 00:00 37.4 C 85 18 131/90 98 07/28/20 20:00 36.9 C 83 18 133/83 98 Intake/Output Intake/Output: Intake & Output 07/26/20 07/27/20 07/28/20 07/29/20 23:59 23:59 23:59 23:59 Intake Total 340 781 256 5228 Output Total 2050 1900 0 2300 Balance -1710 -1410 650 -1240 Meds/Results Medications: Active Medications Generic Name Dose Route Start Last Admin Trade Name Aaliyah PRN Reason Stop Dose Admin Acetaminophen 650 mg 07/24/20 03:38 07/28/20 11:52 Acetaminophen 325 Mg Tablet PO 650 mg Q4H PRN Administration Mild Pain (1-3) or Fever Calcium Acetate 1,334 mg 07/25/20 11:30 07/29/20 14:57 Calcium Acetate 667 Mg Tablet PO Not Given TIDAC DEXTER
--- NOTE | 2020-07-29 17:23 | PC.NURSE ---
Pt has discharge ordered. Pt has had IV removed, and discharge instructions have been reviewed with the pt and his sister. Opportunities for questions was provided and all questions answered to the best of my ability. Pt and sister exhibited good understanding of discharge instructions. Pt requested to eat dinner before he left the hospital and is currently finishing his food. Pt belongs have been reviewed with pt and his sister. Pt will be assisted to the front of the lobby by wheelchair, once he is ready.
--- NOTE | 2020-07-29 19:13 | PC.NURSE ---
Pt is A&O x 3. Vital signs all stable. Pt is very tired after dialysis and his family does not feel that he should go home. Pt is not waking up well and feels very weak. They have concerns about him getting in and out of the car and house. Dr. Rogers and hospitalist group notified.
[2020-07-30 04:00] VITALS: BP 111/74; PULSE 79; RESP 16; TEMP 36.9; O2SAT 98
[2020-07-30] MEDS: ACETAMINOPHEN 325 MG TABLET 650 MG PO (04:07)
[2020-07-30] MEDS: CALCIUM ACETATE 667 MG TABLET 1334 MG PO (06:14)
[2020-07-30 06:34] LABS: Hematocrit 23.2 % (42.0-52.0); Hemoglobin 7.4 g/dL (14.0-18.0)
[2020-07-30] MEDS: VITAMIN B CMPLX/VIT C/FOLIC AC 1 CAPSULE 1 CAP PO (08:47)
--- NOTE | 2020-07-30 08:47 | PCPTNOTE ---
Attempted PT eval. Pt is being discharged to home.
--- NOTE | 2020-07-30 09:18 | PM.DS ---
DS: Admitting Diagnosis Admitting Diagnosis Admitting Diagnosis: Acute on chronic renal failure, COVID-19 DS: Discharge Diagnosis Discharge Diagnosis (1) Acute on chronic renal failure: Code(s): N17.9 - Acute kidney failure, unspecified; N18.9 - Chronic kidney disease, unspecified Status: Acute Assessment and Plan: -----acute on chronic, likely worsened from viral illness with decreased p.o. intake and just progressive kidney disease. Unclear of the etiology at this time. He does have a history of hypertension and is which makes him high risk. Ultrasound shows medical renal disease. I am unsure if he has ever got a renal biopsy. Continue dialysis outpatient and follow-up with nephrology. (2) Metabolic acidosis with increased anion gap and accumulation of organic acids: Code(s): E87.2 - Acidosis Status: Acute Assessment and Plan: ----- Resolved.likely due to renal disease On admission (3) Chronic hypertension: Code(s): I10 - Essential (primary) hypertension Status: Chronic Assessment and Plan: ----- last blood pressure 111/74. I spoke with Dr. Lim who recommends no blood pressure medications and that he is going to follow up with the patient outpatient and will add back if necessary. I spoke to the patient and family about this change (4) COVID-19: Code(s): U07.1 - COVID-19 Status: Inactive Assessment and Plan: -----The patient has tested positive for Covid on 07/18. Continues to have a cough but is getting better. Not requiring O2. it has been 10 days since his infection, isolation discontinued (5) Normocytic anemia: Code(s): D64.9 - Anemia, unspecified Status: Acute Assessment and Plan: -----Hgb 7.4. Likely chronic anemia and anemia of chronic disease from chronic renal failure; possible some dilutional effect from IV fluids. No signs of acute blood loss. (6) Hyperkalemia: Code(s): E87.5 - Hyperkalemia Status: Inactive Assessment and Plan: -----resolved DS: Summary Hospital Course Reason for hospitalization: renal failure Hospital Course: patient is a 49-year-old male with chronic kidney disease End-stage but not on dialysis Recently diagnosed with COVID-19 who presented to the emergency room on July 23, 2020 for weakness, fatigue and shortness of breath. ER vitals were pulse 77, respiratory rate 15, blood pressure 143/98, pulse ox 98 on room air. hemoglobin 7.6, hematocrit 22.4, white blood cell count 7.9. His initial creatinine was greater than 28 with a BUN of 140, potassium 5.0, and a CO2 of 13. Patient was admitted to the hospitalist service and started on dialysis. This improved his fatigue and weakness significantly and he was set up for outpatient dialysis with [facility]. He did not have many COVID-19 symptoms and did not require any oxygen. He continues to have a slight cough. He saw physical therapy why he was here and is doing well and would like to go home. He had a decreased appetite throughout his stay but it improved at discharge. He still has not had a bowel movement in felt constipated but we talked about obtaining [id number]-[id number] medications. He plans to go to dialysis this afternoon and follow up with Dr. Lim. Family in the room and I discussed discharge instructions with her as well. The patient was educated about the worrisome signs and symptoms to come back to emergency room for and was discharged in stable condition. Status at Discharge Functional status at discharge: independent ambulation Overall status at discharge: patient is progressing back to baseline Time Spent with Patient Time attestation: Total time spent providing and/or coordinating discharge services:34 min Time spent: Greater than 30 minutes Exam Narrative: Exam Narrative: General: Well developed well nourished patient in NAD HEENT: normocephalic
== END 2020-07-30 09:55 | disposition home or self-care (01) | DRG 178 ==
LOC: ANHED 22:40 → ANH3MEDSUR 07-24 00:14
PROVIDERS: Internal Medicine Nephrology; Physician Assistant; Surgery; Admitting Provider Family Medicine; Emergency Provider Emergency Medicine; PCP Internal Medicine; Visit Provider Physician Assistant
PROC: 0JH63XZ Insertion of Tunneled Vascular Access Device into Chest Subcutaneous Tissue and Fascia, Percutaneous Approach (ICD-10-PCS; CPT 36908; principal; 2020-07-26 14:30)
DX: U07.1 COVID-19 (principal); N17.9 Acute kidney failure, unspecified; I12.0 Hypertensive chronic kidney disease with stage 5 chronic kidney disease or end stage renal disease; E87.2 Acidosis; N18.5 Chronic kidney disease, stage 5; D63.1 Anemia in chronic kidney disease; N25.0 Renal osteodystrophy; E87.5 Hyperkalemia; E66.9 Obesity, unspecified; Z68.28 Body mass index [BMI] 28.0-28.9, adult; Z28.21 Immunization not carried out because of patient refusal; Z77.9 Other contact with and (suspected) exposures hazardous to health; Z79.899 Other long term (current) drug therapy; Z99.2 Dependence on renal dialysis
CPT/HCPCS: 36415; 71045; 76775; 77001; 80048; 80053; 80069; 81001; 82607; 82728; 82746; 83540; 83550; 83735; 85014; 85018; 85025; 85027; 86704; 86706; 86803; 86850; 86900; 86901; 86923; 87340; 93005; 96360; 97165; 97535; 99285; A9270; C1750; C1752; G0257; J0690; J1644; J2405; J2704; J3010; J7030; J7040; J7120; Q5106

== ENCOUNTER 2021-05-23 02:47 | Day surgery (SDC) | payer OTHER, SELFPAY ==
[2021-05-11 14:09] VITALS: BMI 28.7
--- NOTE | 2021-05-20 18:07 | WPDANESEPP ---
Anes - Eval Pre Procedure Procedure: Operation Date: 05/23/21 12:15 Proposed Procedures p Screening Colonoscopy - Marco Antonio Ch MD Date/Time: 05/20/21 18:07 Pre Op Diagnosis: neoplasm screening Patient Data Age: 50 Gender: M Height: 1.98 m Weight: 112.7 kg Allergies Allergy/AdvReac Type Severity Reaction Status Date / Time No Known Allergies Allergy Verified 07/23/20 22:09 Home Medications Medication Instructions Recorded Confirmed Type ondansetron HCl [Zofran] 4 mg PO Q8H #20 tablet 07/29/20 05/11/21 Rx B complex-vitamin C-folic acid 1 tablet PO DAILY 05/11/21 05/11/21 History [Sonya-Shayne] amlodipine 10 mg PO DAILY 05/11/21 05/11/21 History cinacalcet 90 mg PO DAILY 05/11/21 05/11/21 History lisinopril 10 mg PO DAILY 05/11/21 05/11/21 History sevelamer carbonate 800 mg PO DIRECTED 05/11/21 05/11/21 History Patient hx anesthesia problems: none Family hx anesthesia problems: none PMFSH Past Medical History Medical History (Updated 05/20/21 @ 18:08 by Emerson Briceño DO) Chronic hypertension COVID-19 Dialysis patient Tues/Thurs/Sat End stage renal disease Hyperkalemia Obesity Family History Family History Grandparent Diabetes mellitus, Onset Age: 75 Father Hypertension Family history of elevated blood lipids Cerebrovascular accident Family history of coronary artery disease Social History Social History Smoking status: Never smoker Second hand tobacco smoke exposure: No Alcohol intake: current Drinks per week: 1 Substance use: never Substance use type: does not use Living arrangements: with family Gender identity (if verbalized by the patient): Male Spiritual care concerns: No Agree to blood products: No Exam Day of Procedure 05/20/21 18:07
[2021-05-23 11:21] VITALS: BP 110/74; PULSE 70; RESP 18; TEMP 35.8; O2SAT 100
--- NOTE | 2021-05-23 11:30 | WPDANESEFPP ---
Anes - Eval Final PreProcedure Day of Procedure 05/23/21 11:30 Patient weight: overweight Heart: regular rate and rhythm Lungs: clear to auscultation Airway: Mallampati scale class III Neurological: alert and oriented Last oral intake: >/= 8 hours ASA classification: IV Emergent: no Anesthetic plan: proceed Anesthesia type and monitoring: general GIVS and standard monitoring Informed Consent: The patient's anesthetic plan and its attendant risks and benefits were discussed with the patient/family/POA. Questions were solicited and answers provided to the satisfaction of the patient/family/POA.
[2021-05-23] MEDS: SODIUM CHLORIDE 0.9% IV 500 ML 10 ML IV CONT (11:32)
--- NOTE | 2021-05-23 12:15 | PM.HPGS ---
History of Present Illness History of Present Illness Consent: Risks, benefits, and alternatives have been discussed and questions answered. Patient agrees to proceed with procedure. Chief complaint: neoplasm screening Narrative: Ron Sky is a 50 year old male here for first screening colonoscopy Review of Systems Constitutional: Constitutional: Denies headache(s) and Denies weakness Eyes: Eyes: Denies blurry vision ENT: Reports Normal hearing present, Denies headache(s) and Denies neck pain Cardiovascular: Cardiovascular: Denies chest pain and Denies dyspnea Respiratory: Respiratory: Denies dyspnea Gastrointestinal: Gastrointestinal: Reports no additional gastrointestinal complaints Genitourinary: Genitourinary: Denies dysuria Musculoskeletal: Musculoskeletal: Denies neck pain Integumentary/Breasts: Skin/Breast: Denies dry skin Neurologic: Reports Normal hearing present, Denies headache(s) and Denies weakness Psychiatric: Psychiatric: Denies anxiety Endocrine: Endocrine: Denies change in body appearance Hematologic/Lymphatic: Hematologic/Lymphatic: Denies easy bleeding Allergic/Immunologic: Allergic/Immunologic: Denies urticaria PMFSH Past Medical History Medical History (Updated 05/23/21 @ 12:15 by Marco Antonio Ch MD) Chronic hypertension Colon cancer screening COVID-19 Dialysis patient Tues/Th/Sat End stage renal disease Hyperkalemia Obesity Family History Family History Grandparent Diabetes mellitus, Onset Age: 75 Father Hypertension Family history of elevated blood lipids Cerebrovascular accident Family history of coronary artery disease Social History Social History Smoking status: Never smoker Second hand tobacco smoke exposure: No Alcohol intake: current Drinks per week: 1 Substance use: never Substance use type: does not use Living arrangements: with family Gender identity (if verbalized by the patient): Male Spiritual care concerns: No Agree to blood products: No Meds Home Medications and Allergies Home Medications Medication Instructions Recorded Confirmed Type ondansetron HCl [Zofran] 4 mg PO Q8H #20 tablet 07/29/20 05/11/21 Rx B complex-vitamin C-folic acid 1 tablet PO DAILY 05/11/21 05/11/21 History [Sonya-Shayne] amlodipine 10 mg PO DAILY 05/11/21 05/11/21 History cinacalcet 90 mg PO DAILY 05/11/21 05/11/21 History lisinopril 10 mg PO DAILY 05/11/21 05/11/21 History sevelamer carbonate 800 mg PO DIRECTED 05/11/21 05/11/21 History Allergies Allergy/AdvReac Type Severity Reaction Status Date / Time No Known Allergies Allergy Verified 05/23/21 11:19 Vital Signs Vital Signs - 24 hr 05/23/21 11:21 Temperature 96.4 F L Pulse Rate 70 Respiratory Rate 18 Blood Pressure 110/74 Pulse Oximetry 100 Exam Const: General: comfortable and no acute distress HENMT: General nose exam: Normal nares present Eyes: General: appearance normal, both eyes and all related structures Neck: Neck: no JVD Resp: Auscultation: clear to auscultation bilaterally Cardio: Rate: regular rate Rhythm: regular rhythm GI: Inspection: non-distended GI Palp: Yes Soft to palpation Skin: General skin exam: normal color Neuro: General: gait normal Speech: normal speech Extrem: General: normal to inspection Psych: Mental Status: mental status grossly normal Assessment and Plan Assessment and plan (1) Colon cancer screening: Code(s): Z12.11 - Encounter for screening for malignant neoplasm of colon Status: Acute Assessment and Plan: colonoscopy
[2021-05-23 12:35] VITALS: BP 108/70; PULSE 64; RESP 13; O2SAT 98
[2021-05-23 12:45] VITALS: BP 105/73; PULSE 61; RESP 18; O2SAT 100
[2021-05-23 12:55] VITALS: BP 107/83; PULSE 55; RESP 12; O2SAT 100
== END 2021-05-23 12:59 | disposition home or self-care (01) ==
PROVIDERS: PCP Internal Medicine; Visit Provider Internal Medicine Gastroenterology
PROC: 0DJD8ZZ Inspection of Lower Intestinal Tract, Via Natural or Artificial Opening Endoscopic (ICD-10-PCS; CPT 45378; principal; 2021-05-23 12:15)
DX: Z12.11 Encounter for screening for malignant neoplasm of colon (principal); K63.5 Polyp of colon; K57.30 Diverticulosis of large intestine without perforation or abscess without bleeding; K64.8 Other hemorrhoids; I12.0 Hypertensive chronic kidney disease with stage 5 chronic kidney disease or end stage renal disease; N18.6 End stage renal disease; Z99.2 Dependence on renal dialysis; Z86.16 Personal history of COVID-19
CPT/HCPCS: 45380; 88305; J2704; J7040

== ENCOUNTER 2021-09-09 02:43 | Emergency (ER) | payer OTHER, SELFPAY ==
[2021-09-09] VITALS (24 sets, daily range): BP systolic 122–148; BP diastolic 87–105; PULSE 51–78; RESP 10–20; TEMP 36.4; O2SAT 95–100
--- NOTE | ~2021-09-09 | XR_ITS ---
EXAMINATION: XR chest 2V DATE: 09/09/2021 03:40 INDICATION: Left-sided lower chest pain TECHNIQUE: PA and lateral views of the chest are obtained. COMPARISON: 07/26/2020 FINDINGS: The lungs are free of acute opacities. A right internal jugular dialysis catheter ends with its tip in the proximal right atrium. There is no pleural effusion or pneumothorax. Stable cardiomeg marin is noted. There is mild thoracic spondylosis. IMPRESSION: 1. Stable cardiomegaly. Reviewed, dictated and finalized at location A. ATURE SET BUILDER IMPRESSION: 1. Stable cardiomegaly.
--- NOTE | 2021-09-09 03:07 | ECG_ITS ---
Measurements Intervals [place] Rate: 68 P: 43 DC: 199 QRS: 28 QRSD: 94 T: 26 QT: 403 QTc: 432 Interpretive Statements SINUS RHYTHM LOW QRS VOLTAGE IN PRECORDIAL LEADS BASELINE ARTIFACT- I, II, III, AVR, AVL, AVF, V1, V3-V6 BORDERLINE ECG Electronically Signed On 09-09-2021 7:56:14 DESKTOP SUPPORT SPECIALIST by Todd Romano D.O.
--- NOTE | 2021-09-09 03:11 | ED.CHESTPAIN ---
HPI - Chest Pain General Chief Complaint: Chest Pain Stated Complaint: chest pain Time Seen by Provider: 09/09/21 02:51 Source: patient and RN notes reviewed Mode of arrival: ambulatory Limitations: no limitations History of Present Illness HPI narrative: This is a 50 year old male with history of hypertension and ESRD on dialysis who presents for evaluation of left chest pain. He states last night he notice slight twinge to his left lower chest. He is pointing at left lower lateral chest or upper abdomen. He reports this only last a minute. He then noticed the same thing tonight when he was trying to sleep. He denies feeling anything currently. He is scheduled to get renal transplant next week so he states he came in to be safe. He has labs with multiple other testing on Sunday. He reports having normal stress test on Sunday. He states he does not have anginal chest pain. His symptoms are not worse with anything. HE denies cough, fever, shortness of breath, nausea or vomiting. He is also concerned because his potassium was elevated on Sunday. He had dialysis on Sunday and Sunday this week and his next dialysis is scheduled for Sunday. Timing of current episode: episodic Onset: during rest Pain radiation: none Exacerbating factors: nothing Related Data Home Medications Medication Instructions Recorded Confirmed B complex-vitamin C-folic acid 1 tablet PO DAILY 05/11/21 05/11/21 [Sonya-Shayne] amlodipine 10 mg PO DAILY 05/11/21 05/11/21 cinacalcet 90 mg PO DAILY 05/11/21 05/11/21 lisinopril 10 mg PO DAILY 05/11/21 05/11/21 sevelamer carbonate 800 mg PO DIRECTED 05/11/21 05/11/21 calcium acetate(phosphat bind) mg 09/09/21 Allergies Allergy/AdvReac Type Severity Reaction Status Date / Time No Known Allergies Allergy Verified 09/09/21 02:57 Review of Systems Review of Systems: All systems reviewed & are unremarkable except as noted in HPI and below PMFSH Past Medical History Medical History Chronic hypertension Colon cancer screening COVID-19 Dialysis patient //Sun End stage renal disease Hyperkalemia Obesity Family History Family History Grandparent Diabetes mellitus, Onset Age: 75 Father Hypertension Family history of elevated blood lipids Cerebrovascular accident Family history of coronary artery disease Social History Social History Smoking status: Never smoker Second hand tobacco smoke exposure: No Alcohol intake: current Drinks per week: 1 Substance use: never Substance use type: does not use Gender identity (if verbalized by the patient): Male Sexual Orientation (if Verbalized by the Patient): Straight or Heterosexual Spiritual care concerns: No Agree to blood products: No Exam Const: General: no acute distress and alert Orientation/consciousness: patient oriented x3 Eyes: EOM: EOMs intact bilaterally Chest: Chest palpation & inspection: normal inspection of the chest Resp: Effort & Inspection: normal respiratory effort and no retractions Auscultation: clear to auscultation bilaterally Cardio: Rate: regular rate Rhythm: regular rhythm Heart sounds: no murmurs GI: GI Palp: Yes Soft to palpation, No Tenderness to palpation present (GI) and No Guarding due to palpation present (GI) Auscultation: normal bowel sounds Skin: General skin exam: normal color Rashes: no rashes Neuro: General: patient oriented x3 and moves all extremities Extrem: General: normal to inspection Psych: Mental Status: mental status grossly normal Affect: normal affect Course Reevaluation(s) Reevaluation #1: PAtient's symptoms were atypical. I discussed labs are stable and his potassium was normal. He just seems anxious due to upcoming surgery. Date: 09/09/21 Time
[2021-09-09 03:30] LABS: Basophils Absolute Auto 0.1 K/mm3 (0.0-0.1); Basophils Percent Auto 1.4 % (0.2-1.2); Eosinophils Absolute Auto 0.4 K/mm3 (0-0.3); Eosinophils Percent Auto 4.9 % (0-4.4); Hematocrit 31.6 % (42.0-52.0); Hemoglobin 10.7 g/dL (14.0-18.0); Immature Granulocyte Absolute 0.05 K/mm3 (0.00-0.031); Immature Granulocyte Percent A 0.6 % (0-0.5); Lymphocytes Absolute Auto 1.96 K/mm3 (0.9-3.2); Lymphocytes Percent Auto 25.2 % (18.3-44.2); Mean Corpuscular HGB Conc 33.9 g/dl (32-36); Mean Corpuscular Volume 94.6 fl (80-100); Mean Platelet Volume 9.8 fl (7.4-10.4); Monocytes Absolute Auto 0.7 K/mm3 (0.1-0.6); Monocytes Percent Auto 8.5 % (2.6-8.5); Neutrophils Absolute Auto 4.6 K/mm3 (1.3-6.7); Neutrophils Percent Auto 59.4 % (45.5-73.1); Platelet Count Result 235 k/mm3 (150-375); Red Blood Count 3.34 M/mm3 (4.6-6.20); Red Cell Distribution Width 13.1 % (11.5-14.5); White Blood Count 7.8 K/mm3 (4.5-10.0)
[2021-09-09 03:33] LABS: INR 1.1; Partial Thromboplastin Time 30.3 SECONDS (22.3-36.8); Prothrombin Time 13.7 Seconds (11.1-14.7)
[2021-09-09 03:34] LABS: Alanine Aminotransferase 15 U/L (4-50); Albumin Level 4.5 g/dL (3.5-5.1); Alkaline Phosphatase 77 U/L (38-126); Anion Gap 13 mmol/L (8-16); Aspartate Amino Transferase 17 U/L (17-59); Bilirubin,Total 0.5 mg/dL (0.2-1.3); Blood Urea Nitrogen 53 mg/dL (9-20); Calcium 7.9 mg/dL (8.4-10.2); Carbon Dioxide 24 mmol/L (22-30); Chloride 101 mmol/L (98-107); Estimated CRCL calculation 8 ml/min; Estimated Glomerular Filt Rate 5; Glucose 121 mg/dL (65-110); Lipase 212 U/L (23-300); Potassium 4.8 mmol/L (3.4-5.0); Sodium 138 mmol/L (137-145)
[2021-09-09 03:44] LABS: Troponin I < 0.012 ng/mL (0.000-0.034)
[2021-09-09 06:46] LABS: Troponin I < 0.012 ng/mL (0.000-0.034)
== END 2021-09-09 07:05 | disposition home or self-care (01) ==
PROVIDERS: Emergency Provider General Practice; PCP Internal Medicine
DX: R07.89 Other chest pain (principal); I12.0 Hypertensive chronic kidney disease with stage 5 chronic kidney disease or end stage renal disease; N18.6 End stage renal disease; Z99.2 Dependence on renal dialysis; Z86.16 Personal history of COVID-19; E66.9 Obesity, unspecified; Z68.29 Body mass index [BMI] 29.0-29.9, adult; R94.31 Abnormal electrocardiogram [ECG] [EKG]
CPT/HCPCS: 36415; 71046; 80053; 83690; 84484; 85025; 85610; 85730; 93005; 99284

== ENCOUNTER 2024-11-12 11:37 | Emergency (ER) | payer MEDICARE, OTHER, SELFPAY ==
--- NOTE | ~2024-11-12 | XR_ITS ---
EXAMINATION: XR chest 2V DATE: 11/12/2024 16:43 INDICATION: Cough. Chills. TECHNIQUE: Frontal and lateral views of the chest were obtained. COMPARISON: Chest 2 views 09/09/2021 FINDINGS: There is mild atelectasis at left lung base. No pleural effusion or pneumothorax. The heart size is normal. IMPRESSION: 1. Mild atelectasis at left lung base. Reviewed, dictated and finalized at location A. OMIC GEOGRAPHER
--- NOTE | ~2024-11-12 | CT_ITS ---
EXAMINATION: CT brain wo con DATE: 11/12/2024 21:16 INDICATION: headache . TECHNIQUE: Computed tomography (CT) of the head was performed without intravenous contrast. The mA wa s adjusted according to patient size. Iterative reconstruction technique was employed. The dose-lengt h product was 983.67 mGy-cm. COMPARISON: None. FINDINGS: No acute intracranial hemorrhage or extra-axial fluid collection. No hydrocephalus, mass, or herniation. No acute ischemic infarct. Unremarkable dural venous sinus attenuation. No acute osseous abnormality. The aerated spaces are clear. Bilateral basal ganglia calcifications. IMPRESSION: No acute intracranial process. Reviewed, dictated and finalized at location K. STANT TEACHER
[2024-11-12 11:42] VITALS: BP 161/88; PULSE 82; RESP 20; TEMP 37.3; O2SAT 100
--- OUTSIDE RECORDS SUMMARY | 2024-11-12 12:55 | XMS_ITS | Encounter Summary ---
Author Organization [facility] Address [address] [place] [phone] Phone Care Team Providers Care Film Archivist Name Role Phone Unavailable Primary Care Provider Unavailabl e Reason for Visit * Reason Comments Med Refill Encounter Details Date Type Department Care Team (Late st Contact Info) Description 05/20/2021 Refill [facility] Nephrology and Hypertension [address] [facility], [address] [place] [id number] Zi Lim MD [address] [facility] [facility] [place] [address] Social History Tobacco Use Types Packs/Day Years Used Date Smoking Tobacco: Never Smokeless Tobacco: Never Alcohol Use Standard Drinks/Week Comments No 0 (1 standard drink = 0.6 oz pur e alcohol) Sex and Gender Information Value Date Recorded Sex Assigned at Not on file Gender Identity Not on file Sexual Orientation Not on file documented as of this encounter Plan of Treatment Not on file documented as of this encounter Visit Diagnoses Not on filedocumented in this encounter
--- OUTSIDE RECORDS SUMMARY | 2024-11-12 12:55 | XMS_ITS | Encounter Summary ---
Author Organization [facility] Address [address] [place] [address] Phone Care Team Providers Care Crab Fisherman Name Role Phone Sean Davis DO Primary Care Provider [phone] Reason for Visit * Reason Comments Med Refill Encounter Details Date Type Department Care Team (Late st Contact Info) Description 04/04/2020 Refill [facility] Nephrology and Hypertension [address] [place] [address], [address] [place] [address] Zi Lim MD [address] [facility], [address] [place] [address] Social History Tobacco Use Types Packs/Day Years Used Date Smoking Tobacco: Never Smokeless Tobacco: Never Alcohol Use Standard Drinks/Week Comments No 0 (1 standard drink = 0.6 oz pur e alcohol) Sex and Gender Information Value Date Recorded Sex Assigned at Not on file Gender Identity Not on file Sexual Orientation Not on file documented as of this encounter Miscellaneous Notes * Telephone Encounter - Zi Lim MD - 04/04/2020 4:51 PM CDT Patient has not been seen in almost a year....needs appointment first before medication refill. documented in this encounter Plan of Treatment Not on file documented as of this encounter Visit Diagnoses Not on filedocumented in this encounter Care Teams Crab Fisherman Relationship Specialty Start Date End Date Sean Davis DO [address] [place] [id number] PCP - General Internal Medicine 01/05/19 07/04/20 documented as of this encounter
--- OUTSIDE RECORDS SUMMARY | 2024-11-12 12:55 | XMS_ITS | Clinical Summary ---
Author Organization [facility] Address [address] [place] [address] Phone Care Team Providers Care Roofing Superintendent Name Role Phone Unavailable Primary Care Provider Unavailabl e Allergies No known active allergies Medications Medication Sig Dispensed Refills Start Date End Date Status amLODIPine (NORVASC) 10 MG tablet Take 1 tablet (10 mg total) by mouth 1 (one) time each day 30 tablet 11 07/05/2020 Active Calcium Acetate 667 MG tablet TAKE 2 TABLETS BY MOUTH THREE TIMES DAILY BEFORE A MEAL 180 tablet 11 10/28/2020 Active ondansetron (ZOFRAN) 4 MG tablet TAKE 1 TABLET BY MOUTH EVERY 8 HOURS NEEDED FOR NAUSEA 30 tablet 6 05/21/2021 Active B Xjrfhbc-Y-Yiwhb Acid (Sonya-Shayne) tablet TAKE 1 TABLET BY MOUTH EVERY DAY 30 tablet 11 05/30/2021 Active Active Problems Problem Noted Date Diagnosed Date Stage 5 chronic kidney disease 08/21/2018 Hypertensive chronic kidney disease with stage 1 through stage 4 chronic kidney disease, or unspecified chronic kidney disease 10/31/2015 Chronic kidney disease, stage 4 (severe) 015 Chronic kidney disease, stage 3 (moderate) 04/15 Essential (primary) hypertension 04/15/2012 Family History Medical History Relation Comments Kidney disease Neg Hx Kidney stone Neg Hx Social History Tobacco Use Types Packs/Day Years Used Date Smoking Tobacco: Never Smokeless Tobacco: Never Alcohol Use Standard Drinks/Week Comments No 0 (1 standard drink = 0.6 oz pur e alcohol) Sex and Gender Information Value Date Recorded Sex Assigned at Not on file Gender Identity Not on file Sexual Orientation Not on file Last Filed Vital Signs Vital Sign Reading Time Taken Comments Blood Pressure 154/84 07/05/2020 2:43 PM CDT Pulse - - Temperature 36.8 ??C (98.2 ??F) 07/05/2020 2:43 PM CD T Respiratory Rate 18 07/05/2020 2:43 PM CDT Oxygen Saturation - - Inhaled Oxygen Concentration - - Weight 115 kg (254 lb) 07/05/2020 2:43 PM CDT Height 200.7 cm (6' 7 ) 07/05/2020 2:43 PM CDT Body Mass Index 28.61 07/05/2020 2:43 PM CDT Plan of Treatment Health Maintenance Due Date Last Done Comments Influenza Vaccine (#1) 2024
--- OUTSIDE RECORDS SUMMARY | 2024-11-12 12:55 | XMS_ITS | Encounter Summary ---
Author Organization [facility] Address [address] [facility] [place] [address] Care Team Providers Care Personnel Research Psychologist Name Role Phone Zi Lim MD Unavailable [phone] Unknown, Provider Primary Care Provider Unavaila ble Reason for Visit * Reason Onset Date Comments MEDICATION REFILL 03/11/2024 Encounter Details Date Type Department Care Team (Late st Contact Info) Description 03/11/2024 Refill [facility] - Nephrology [address] [facility], [place] [address] Melisa Chambers, RETAIL SELLING SPECIALIST-MEASUREMENT SUPERINTENDENT [address] [facility] [place] [address] MEDICATION REFILL Social History Tobacco Use Types Packs/Day Years Used Date Smoking Tobacco: Never Smokeless Tobacco: Never Alcohol Use Standard Drinks/Week Comments Yes 0 (1 standard drink = 0.6 oz pur e alcohol) SOCIAL/RARELY AUDIT-C Answer Date Recorded Q1: How often do you have a drink containing alc ohol? Monthly or less 09/14/2021 Q2: How many drinks containi ng alcohol do you have on a typical day when you are drinking? 1 or 2 09/14/2021 Q3: How often do you have si x or more drinks on one occasion? Never 09/14/2021 Sex and Gender Information Value Date Recorded Sex Assigned at Not on file Gender Identity Not on file Sexual Orientation Not on file documented as of this encounter Functional Status Functional Status Response Date of Assess ment Is person deaf or have serious hearing difficult y? No 09/30/2021 Is person blind or have serious difficulty seein g? No 09/30/2021 Does person have serious dif ficulty walking/climbing stairs? No 09/30/2021 Does person have difficulty dressing/bathing? No 09/30/2021 Does person have difficulty doing errands alone? No 09/30/2021 Cognitive Status Response Date of Assessm ent Does person have difficulty concentrating/remembering/making decisions? No 09/30/2021 documented as of this encounter Plan of Treatment Upcoming Encounters Date Type Department Care Team (Late st Contact Info) Description 04/21/2025 8:40 AM CDT Office Visit [facility] - Nephrology [facility] [facility] [place] [id number] documented as of this encounter Visit Diagnoses Not on filedocumented in this encounter Care Teams Personnel Research Psychologist Relationship Specialty Start Date End Date Unknown, Provider PCP - General 12/18/23 Zi Lim MD [facility] [phone] Tool Liaison Nephrology 07/28/20 documented as of this encounter
--- OUTSIDE RECORDS SUMMARY | 2024-11-12 12:55 | XMS_ITS | Encounter Summary ---
Author Organization [facility] Address [address] [place] [address] Phone Care Team Providers Care Product Examiner Name Role Phone Unavailable Primary Care Provider Unavailabl e Reason for Visit * Reason Comments Med Refill Encounter Details Date Type Department Care Team (Late st Contact Info) Description 10/28/2020 Refill [facility] Nephrology and Hypertension [address] [facility], [address] [place] [address] Zi Lim MD [address] [facility], [address] [facility] [place] [address] Social History Tobacco Use Types Packs/Day Years [...]
--- OUTSIDE RECORDS SUMMARY | 2024-11-12 12:56 | XMS_ITS | Patient Health Summary ---
Author Organization [facility] Address [address] [place] [address] Care Team Providers Care Top Frame Fitter Name Role Phone Zi Lim MD Unavailable [phone] Unknown, Provider Primary Care Provider Unavaila ble Note from [facility],non-owned Affiliates and Associated Physician Practices is amultiple site organization consisting of ambulatory clinics and hospital sitesin [place], [place], [place] and [place]. This disclosure is being madepursuant to the Care Everywhere program and may not contain all information available regarding this patient. Last updated 18.[facility] Allergies * Fish Allergy(Other) -High Criticality * Live Vaccines (Immunodeficiency)(Other) -Low Criticality Medications * Be aware that medications may not be up to date on this document. Alwaysverify current medications with the patient. * aspirin (Aspirin) 81 MG chew tablet(Started 08/23/2022) Take 1 (one) tablet by mouth once daily Reasons: Systemic Lupus Erythematosus 11 refills by 08/23/2023 * Vitamin D3, cholecalciferol, 50 MCG (1999) tablet(Started 11/08/2022) Take 1 (one) tablet by mouth once daily 4 refills by 11/08/2023 * predniSONE (Deltasone) 5 MG tablet(Started 01/15/2024) Take 1 (one) tablet by mouth once daily 11 refills by 01/14/2025 * mycophenolate EC (Myfortic) 180 MG tablet(Started 02/15/2024) Take 1 (one) tablet by mouth 2 times daily 4 refills by 02/14/2025 * atorvastatin (Lipitor) 20 MG tablet(Started 02/27/2024) Take 1 (one) tablet by mouth at bedtime 11 refills by 02/26/2025 * cinacalcet (Sensipar) 30 MG tablet(Started 03/04/2024) Take 1 (one) tablet by mouth daily with breakfast 4 refills by 03/04/2025 * amLODIPine (Norvasc) 5 MG tablet(Started 09/17/2024) Take 1 (one) tablet by mouth once daily 4 refills by 09/17/2025 * losartan - hydroCHLOROthiazide (Hyzaar) 50-12.5 MG tablet(Started 09/22/2024) Take 1 (one) tablet by mouth once daily 3 refills by 09/22/2025 * carvedilol (Coreg) 6.25 MG tablet(Started 10/29/2024) Take 1 (one) tablet by mouth 2 times daily with morning and evening meal 3 refills by 10/29/2025 * calcitriol (Rocaltrol) 0.25 MCG capsule(Started 10/29/2024) Take 1 (one) capsule by mouth every Sunday, Sunday & Sunday 4 refills by 10/29/2025 * tacrolimus ER 24hr (Envarsus XR) 0.75 MG tablet(Started 11/10/2024) Take 5 (five) tablets by mouth once daily Swallow whole. Do not crush or chew tablets. 11 refills by 11/10/2025 Ended Medications* carvedilol (Coreg) 6.25 MG tablet(Started 12/03/2023) (Discontinued) Take 1 (one) tablet by mouth 2 times daily with morning and evening meal 3 refills by 12/02/2024 * calcitriol (Rocaltrol) 0.25 MCG capsule(Started 04/09/2024)(Discontinued) Take 1 (one) capsule by mouth every Sunday, Sunday & Sunday 4 refills by 04/08/2025 * tacrolimus ER 24hr (Envarsus XR) 0.75 MG tablet(Started 08/01/2024) (Discontinued) Take 4 (four) tablets by mouth once daily Swallow whole. Do not crush or chew tablets. 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 disease or end stage renal disease Anemia in chronic kidney disease (CODE) Secondary hyperparathyroidism of renal origin Social History Tobacco Use Types Packs/Day Years Used Date Smoking Tobacco: Never Smokeless Tobacco: Never Tobacco Cessation:Counseling Given: Not Answered Alcohol Use Standard Drinks/Week Comments Yes 0 [...] Sign Reading Time Taken Comments Blood Pressure 115/83 10/14/2024 8:55 AM [employer] Pulse 68 10/14/2024 8:55 AM [employer] Temperature 36.9 ??C (98.4 ??F) 04/08/2024 8:37 AM CD T Respiratory Rate 20 12/19/2022 9:10 AM [employer] Oxygen Saturation 98% 10/14/2024 8:55 AM [employer] Inhaled Oxygen Concentration - - Weight 131.5 kg (290 lb) 10/14/2024 8:55 AM [employer] Height 198.1 cm (6' 6 ) 06/19/2023 8:23 AM CDT Body Mass Index 33.51 06/19/2023 8:23 AM CDT Medical Devices Implanted Type Area Dye And Chemical Coordinator Device Identifier Shelf Expiration Date Model / Serial / Lot Stent Uret 6fr 12cm 100cm .028in 1 Stp Implanted:Qty: 1 on 09/14/2021 by Jeimy Renteria MD at 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 Procedures * REF LAB-NOTE(Performed 10/28/2024) * MICROALB/CREAT RATIO URINE RANDOM PANEL(Performed 10/28/2024) Performed for Chronic kidney disease-mineral and bone disorder, S/P living-donor kidney transplantation ([facility]) * URINALYSIS REFLEX TO MICROSCOPIC NO CULTURE(Performed 10/28/2024) Performed for Chronic kidney disease-mineral and bone disorder, S/P living-donor kidney transplantation ([facility]) * TACROLIMUS LEVEL(Performed 10/28/2024) Performed for Chronic kidney disease-mineral and bone disorder, S/P living-donor kidney transplantation ([facility]) * PHOSPHORUS BLOOD(Performed 10/28/2024) Performed for Chronic kidney disease-mineral and bone disorder, S/P living-donor kidney transplantation ([facility]) * MAGNESIUM BLOOD(Performed 10/28/2024) Performed for Chronic kidney disease-mineral and bone disorder, S/P living-donor kidney transplantation ([facility]) * COMPREHENSIVE METABOLIC PANEL(Performed 10/28/2024) Performed for Chronic kidney disease-mineral and bone disorder, S/P living-donor kidney transplantation ([facility]) * CBC W AUTO DIFFERENTIAL(Performed 10/28/2024) Performed for Chronic kidney disease-mineral and bone disorder, S/P living-donor kidney transplantation ([facility]) * PTH INTACT(Performed 10/28/2024) Performed for Chronic kidney disease-mineral and bone disorder, S/P living-donor kidney transplantation ([facility]) * URIC ACID BLOOD(Performed 10/28/2024) Performed for Chronic kidney disease-mineral and bone disorder, S/P living-donor kidney transplantation ([facility]) * VITAMIN D 25-HYDROXY(Performed 10/28/2024) Performed for Chronic kidney disease-mineral and bone disorder, S/P living-donor kidney transplantation ([facility]) * CYTOMEGALOVIRUS QUANT BLOOD(Performed 10/28/2024) Performed for Chronic kidney disease-mineral and bone disorder, S/P living-donor kidney transplantation ([facility]) * BK VIRUS PCR QUANTITATIVE(Performed 10/28/2024) Performed for Chronic kidney disease-mineral and bone disorder, S/P living-donor kidney transplantation ([facility]) * LIPID PROFILE(Performed 10/28/2024) Performed for Chronic kidney disease-mineral and bone disorder, S/P living-donor kidney transplantation ([facility]) * REF LAB-NOTE(Performed 09/30/2024) * MICROALB/CREAT RATIO URINE RANDOM PANEL(Performed 09/30/2024) Performed for Chronic kidney disease-mineral and bone disorder, S/P living-donor kidney transplantation ([facility]) * URINALYSIS REFLEX TO MICROSCOPIC NO CULTURE(Performed 09/30/2024) Performed for Chronic kidney disease-mineral and bone disorder, S/P living-donor kidney transplantation ([facility]) * TACROLIMUS LEVEL(Performed 09/30/2024) Performed for Chronic kidney disease-mineral and bone disorder, S/P living-donor kidney transplantation ([facility]) * PHOSPHORUS BLOOD(Performed 09/30/2024) Performed for Chronic kidney disease-mineral and bone disorder, S/P living-donor kidney transplantation ([facility]) * MAGNESIUM BLOOD(Performed 09/30/2024) Performed for Chronic kidney disease-mineral and bone disorder, S/P living-donor kidney transplantation ([facility]) * COMPREHENSIVE METABOLIC PANEL(Performed 09/30/2024) Performed for Chronic kidney disease-mineral and bone disorder, S/P living-donor kidney transplantation ([facility]) * CBC W AUTO DIFFERENTIAL(Performed 09/30/2024) Performed for Chronic kidney disease-mineral and bone disorder, S/P living-donor kidney transplantation ([facility]) * PTH INTACT(Performed 09/30/2024) Performed for Chronic kidney disease-mineral and bone disorder, S/P living-donor kidney transplantation ([facility]) * URIC ACID BLOOD(Performed 09/30/2024) Performed for Chronic kidney disease-mineral and bone disorder, S/P living-donor kidney transplantation ([facility]) * VITAMIN D 25-HYDROXY(Performed 09/30/2024) Performed for Chronic kidney disease-mineral and bone disorder, S/P living-donor kidney transplantation ([facility]) * CYTOMEGALOVIRUS QUANT BLOOD(Performed 09/30/2024) Performed for Chronic kidney disease-mineral and bone disorder, S/P living-donor kidney transplantation ([facility]) * BK VIRUS PCR QUANTITATIVE(Performed 09/30/2024) Performed for Chronic kidney disease-mineral and bone disorder, S/P living-donor kidney transplantation ([facility]) * LIPID PROFILE(Performed 09/30/2024) Performed for Chronic kidney disease-mineral and bone disorder, S/P living-donor kidney transplantation ([facility]) * URINALYSIS W/MICROSCOPIC REFLEX TO CULTURE(Performed 05/19/2024) Performed for Secondary hyperparathyroidism of renal origin (HCC), S/P living- donor kidney transplantation, S/P LR-TXP in 09/14/2021, Long-term use of immunosuppressant medication, Chronic kidney disease-mineral and bone disorder, Vitamin D deficiency * PROTEIN CREATININE RATIO URINE RANDOM PNL(Performed 05/19/2024) Performed for Secondary hyperparathyroidism of renal origin (HCC), S/P living- donor kidney transplantation, S/P LR-TXP in 09/14/2021, Long-term use of immunosuppressant medication, Chronic kidney disease-mineral and bone disorder, Vitamin D deficiency * TACROLIMUS LEVEL(Performed 05/19/2024) Performed for Secondary hyperparathyroidism of renal origin (HCC), S/P living- donor kidney transplantation, S/P LR-TXP in 09/14/2021, Long-term use of immunosuppressant medication, Chronic kidney disease-mineral and bone disorder, Vitamin D deficiency * PHOSPHORUS BLOOD(Performed 05/19/2024) Performed for Secondary hyperparathyroidism of renal origin (HCC), S/P living- donor kidney transplantation, S/P LR-TXP in 09/14/2021, Long-term use of immunosuppressant medication, Chronic kidney disease-mineral and bone disorder, Vitamin D deficiency * MAGNESIUM BLOOD(Performed 05/19/2024) Performed for Secondary hyperparathyroidism of renal origin (HCC), S/P living- donor kidney transplantation, S/P LR-TXP in 09/14/2021, Long-term use of immunosuppressant medication, Chronic kidney disease-mineral and bone disorder, Vitamin D deficiency * COMPREHENSIVE METABOLIC PANEL(Performed 05/19/2024) Performed for Secondary hyperparathyroidism of renal origin (HCC), S/P living- donor kidney transplantation, S/P LR-TXP in 09/14/2021, Long-term use of immunosuppressant medication, Chronic kidney disease-mineral and bone disorder, Vitamin D deficiency * CBC W AUTO DIFFERENTIAL(Performed 05/19/2024) Performed for Secondary hyperparathyroidism of renal origin (HCC), S/P living- donor kidney transplantation, S/P LR-TXP in 09/14/2021, Long-term use of immunosuppressant medication, Chronic kidney disease-mineral and bone disorder, Vitamin D deficiency * URIC ACID BLOOD(Performed 05/19/2024) Performed for Secondary hyperparathyroidism of renal origin (HCC), S/P living- donor kidney transplantation, S/P LR-TXP in 09/14/2021, Long-term use of immunosuppressant medication, Chronic kidney disease-mineral and bone disorder, Vitamin D deficiency * PTH INTACT W/O CALCIUM(Performed 05/19/2024) Performed for Secondary hyperparathyroidism of renal origin (HCC), S/P living- donor kidney transplantation, S/P LR-TXP in 09/14/2021, Long-term use of immunosuppressant medication, Chronic kidney disease-mineral and bone disorder, Vitamin D deficiency * VITAMIN D 25-HYDROXY(Performed 05/19/2024) Performed for Secondary hyperparathyroidism of renal origin (HCC), S/P living- donor kidney transplantation, S/P LR-TXP in 09/14/2021, Long-term use of immunosuppressant medication, Chronic kidney disease-mineral and bone disorder, Vitamin D deficiency * LIPID PROFILE(Performed 05/19/2024) Performed for Secondary hyperparathyroidism of renal origin (HCC), S/P living- donor kidney transplantation, S/P LR-TXP in 09/14/2021, Long-term use of immunosuppressant medication, Chronic kidney disease-mineral and bone disorder, Vitamin D deficiency * CYTOMEGALOVIRUS (CMV) QUANTITATIVE PLASMA(Performed 05/19/2024) Performed for Secondary hyperparathyroidism of renal origin (HCC), S/P living- donor kidney transplantation, S/P LR-TXP in 09/14/2021, Long-term use of immunosuppressant medication, Chronic kidney disease-mineral and bone disorder, Vitamin D deficiency * BK VIRUS PCR QUANT BLOOD STL(Performed 05/19/2024) Performed for Secondary hyperparathyroidism of renal origin (HCC), S/P living- donor kidney transplantation, S/P LR-TXP in 09/14/2021, Long-term use of immunosuppressant medication, Chronic kidney disease-mineral and bone disorder, Vitamin D deficiency * URINALYSIS W/MICROSCOPIC REFLEX TO CULTURE(Performed 04/07/2024) Performed for Secondary hyperparathyroidism of renal origin (HCC), S/P living- donor kidney transplantation, S/P LR-TXP in 09/14/2021, Long-term use of immunosuppressant medication, Chronic kidney disease-mineral and bone disorder, Vitamin D deficiency * PROTEIN CREATININE RATIO URINE RANDOM PNL(Performed 04/07/2024) Performed for Secondary hyperparathyroidism of renal origin (HCC), S/P living- donor kidney transplantation, S/P LR-TXP in 09/14/2021, Long-term use of immunosuppressant medication, Chronic kidney disease-mineral and bone disorder, Vitamin D deficiency * TACROLIMUS LEVEL(Performed 04/07/2024) Performed for Secondary hyperparathyroidism of renal origin (HCC), S/P living- donor kidney transplantation, S/P LR-TXP in 09/14/2021, Long-term use of immunosuppressant medication, Chronic kidney disease-mineral and bone disorder, Vitamin D deficiency * PHOSPHORUS BLOOD(Performed 04/07/2024) Performed for Secondary hyperparathyroidism of renal origin (HCC), S/P living- donor kidney transplantation, S/P LR-TXP in 09/14/2021, Long-term use of immunosuppressant medication, Chronic kidney disease-mineral and bone disorder, Vitamin D deficiency * MAGNESIUM BLOOD(Performed 04/07/2024) Performed for Secondary hyperparathyroidism of renal origin (HCC), S/P living- donor kidney transplantation, S/P LR-TXP in 09/14/2021, Long-term use of immunosuppressant medication, Chronic kidney disease-mineral and bone disorder, Vitamin D deficiency * COMPREHENSIVE METABOLIC PANEL(Performed 04/07/2024) Performed for Secondary hyperparathyroidism of renal origin (HCC), S/P living- donor kidney transplantation, S/P LR-TXP in 09/14/2021, Long-term use of immunosuppressant medication, Chronic kidney disease-mineral and bone disorder, Vitamin D deficiency * CBC W AUTO DIFFERENTIAL(Performed 04/07/2024) Performed for Secondary hyperparathyroidism of renal origin (HCC), S/P living- donor kidney transplantation, S/P LR-TXP in 09/14/2021, Long-term use of immunosuppressant medication, Chronic kidney disease-mineral and bone disorder, Vitamin D deficiency * URIC ACID BLOOD(Performed 04/07/2024) Performed for Secondary hyperparathyroidism of renal origin (HCC), S/P living- donor kidney transplantation, S/P LR-TXP in 09/14/2021, Long-term use of immunosuppressant medication, Chronic kidney disease-mineral and bone disorder, Vitamin D deficiency * PTH INTACT W/O CALCIUM(Performed 04/07/2024) Performed for Secondary hyperparathyroidism of renal origin (HCC), S/P living- donor kidney transplantation, S/P LR-TXP in 09/14/2021, Long-term use of immunosuppressant medication, Chronic kidney disease-mineral and bone disorder, Vitamin D deficiency * VITAMIN D 25-HYDROXY(Performed 04/07/2024) Performed for Secondary hyperparathyroidism of renal origin (HCC), S/P living- donor kidney transplantation, S/P LR-TXP in 09/14/2021, Long-term use of immunosuppressant medication, Chronic kidney disease-mineral and bone disorder, Vitamin D deficiency * LIPID PROFILE(Performed 04/07/2024) Performed for Secondary hyperparathyroidism of renal origin (HCC), S/P living- donor kidney transplantation, S/P LR-TXP in 09/14/2021, Long-term use of immunosuppressant medication, Chronic kidney disease-mineral and bone disorder, Vitamin D deficiency * CYTOMEGALOVIRUS (CMV) QUANTITATIVE PLASMA(Performed 04/07/2024) Performed for Secondary hyperparathyroidism of renal origin (HCC), S/P living- donor kidney transplantation, S/P LR-TXP in 09/14/2021, Long-term use of immunosuppressant medication, Chronic kidney disease-mineral and bone disorder, Vitamin D deficiency * BK VIRUS PCR QUANT BLOOD STL(Performed 04/07/2024) Performed for Secondary hyperparathyroidism of renal origin (HCC), S/P living- donor kidney transplantation, S/P LR-TXP in 09/14/2021, Long-term use of immunosuppressant medication, Chronic kidney disease-mineral and bone disorder, Vitamin D deficiency * URINALYSIS W/MICROSCOPIC REFLEX TO CULTURE(Performed 03/04/2024) Performed for Secondary hyperparathyroidism of renal origin (HCC), S/P living- donor kidney transplantation, S/P LR-TXP in 09/14/2021, Long-term use of immunosuppressant medication, Chronic kidney disease-mineral and bone disorder, Vitamin D deficiency * PROTEIN CREATININE RATIO URINE RANDOM PNL(Performed 03/04/2024) Performed for Secondary hyperparathyroidism of renal origin (HCC), S/P living- donor kidney transplantation, S/P LR-TXP in 09/14/2021, Long-term use of immunosuppressant medication, Chronic kidney disease-mineral and bone disorder, Vitamin D deficiency * TACROLIMUS LEVEL(Performed 03/04/2024) Performed for Secondary hyperparathyroidism of renal origin (HCC), S/P living- donor kidney transplantation, S/P LR-TXP in 09/14/2021, Long-term use of immunosuppressant medication, Chronic kidney disease-mineral and bone disorder, Vitamin D deficiency * PHOSPHORUS BLOOD(Performed 03/04/2024) Performed for Secondary hyperparathyroidism of renal origin (HCC), S/P living- donor kidney transplantation, S/P LR-TXP in 09/14/2021, Long-term use of immunosuppressant medication, Chronic kidney disease-mineral and bone disorder, Vitamin D deficiency * MAGNESIUM BLOOD(Performed 03/04/2024) Performed for Secondary hyperparathyroidism of renal origin (HCC), S/P living- donor kidney transplantation, S/P LR-TXP in 09/14/2021, Long-term use of immunosuppressant medication, Chronic kidney disease-mineral and bone disorder, Vitamin D deficiency * COMPREHENSIVE METABOLIC PANEL(Performed 03/04/2024) Performed for Secondary hyperparathyroidism of renal origin (HCC), S/P living- donor kidney transplantation, S/P LR-TXP in 09/14/2021, Long-term use of immunosuppressant medication, Chronic kidney disease-mineral and bone disorder, Vitamin D deficiency * CBC W AUTO DIFFERENTIAL(Performed 03/04/2024) Performed for Secondary hyperparathyroidism of renal origin (HCC), S/P living- donor kidney transplantation, S/P LR-TXP in 09/14/2021, Long-term use of immunosuppressant medication, Chronic kidney disease-mineral and bone disorder, Vitamin D deficiency * URINALYSIS W/MICROSCOPIC REFLEX TO CULTURE(Performed 01/08/2024) Performed for Secondary hyperparathyroidism of renal origin (HCC), S/P living- donor kidney transplantation, S/P LR-TXP in 09/14/2021, Long-term use of immunosuppressant medication, Chronic kidney disease-mineral and bone disorder, Vitamin D deficiency * PROTEIN CREATININE RATIO URINE RANDOM PNL(Performed 01/08/2024) Performed for Secondary hyperparathyroidism of renal origin (HCC), S/P living- donor kidney transplantation, S/P LR-TXP in 09/14/2021, Long-term use of immunosuppressant medication, Chronic kidney disease-mineral and bone disorder, Vitamin D deficiency * TACROLIMUS LEVEL(Performed 01/08/2024) Performed for Secondary hyperparathyroidism of renal origin (HCC), S/P living- donor kidney transplantation, S/P LR-TXP in 09/14/2021, Long-term use of immunosuppressant medication, Chronic kidney disease-mineral and bone disorder, Vitamin D deficiency * PHOSPHORUS BLOOD(Performed 01/08/2024) Performed for Secondary hyperparathyroidism of renal origin (HCC), S/P living- donor kidney transplantation, S/P LR-TXP in 09/14/2021, Long-term use of immunosuppressant medication, Chronic kidney disease-mineral and bone disorder, Vitamin D deficiency * MAGNESIUM BLOOD(Performed 01/08/2024) Performed for Secondary hyperparathyroidism of renal origin (HCC), S/P living- donor kidney transplantation, S/P LR-TXP in 09/14/2021, Long-term use of immunosuppressant medication, Chronic kidney disease-mineral and bone disorder, Vitamin D deficiency * COMPREHENSIVE METABOLIC PANEL(Performed 01/08/2024) Performed for Secondary hyperparathyroidism of renal origin (HCC), S/P living- donor kidney transplantation, S/P LR-TXP in 09/14/2021, Long-term use of immunosuppressant medication, Chronic kidney disease-mineral and bone disorder, Vitamin D deficiency * CBC W AUTO DIFFERENTIAL(Performed 01/08/2024) Performed for Secondary hyperparathyroidism of renal origin (HCC), S/P living- donor kidney transplantation, S/P LR-TXP in 09/14/2021, Long-term use of immunosuppressant medication, Chronic kidney disease-mineral and bone disorder, Vitamin D deficiency * URIC ACID BLOOD(Performed 01/08/2024) Performed for Secondary hyperparathyroidism of renal origin (HCC), S/P living- donor kidney transplantation, S/P LR-TXP in 09/14/2021, Long-term use of immunosuppressant medication, Chronic kidney disease-mineral and bone disorder, Vitamin D deficiency * PTH INTACT W/O CALCIUM(Performed 01/08/2024) Performed for Secondary hyperparathyroidism of renal origin (HCC), S/P living- donor kidney transplantation, S/P LR-TXP in 09/14/2021, Long-term use of immunosuppressant medication, Chronic kidney disease-mineral and bone disorder, Vitamin D deficiency * VITAMIN D 25-HYDROXY(Performed 01/08/2024) Performed for Secondary hyperparathyroidism of renal origin (HCC), S/P living- donor kidney transplantation, S/P LR-TXP in 09/14/2021, Long-term use of immunosuppressant medication, Chronic kidney disease-mineral and bone disorder, Vitamin D deficiency * LIPID PROFILE(Performed 01/08/2024) Performed for Secondary hyperparathyroidism of renal origin (HCC), S/P living- donor kidney transplantation, S/P LR-TXP in 09/14/2021, Long-term use of immunosuppressant medication, Chronic kidney disease-mineral and bone disorder, Vitamin D deficiency * CYTOMEGALOVIRUS (CMV) QUANTITATIVE PLASMA(Performed 01/08/2024) Performed for Secondary hyperparathyroidism of renal origin (HCC), S/P living- donor kidney transplantation, S/P LR-TXP in 09/14/2021, Long-term use of immunosuppressant medication, Chronic kidney disease-mineral and bone disorder, Vitamin D deficiency * BK VIRUS PCR QUANT BLOOD STL(Performed 01/08/2024) Performed for Secondary hyperparathyroidism of renal origin (HCC), S/P living- donor kidney transplantation, S/P LR-TXP in 09/14/2021, Long-term use of immunosuppressant medication, Chronic kidney disease-mineral and bone disorder, Vitamin D deficiency * CYTOMEGALOVIRUS (CMV) QUANTITATIVE PLASMA(Performed 08/14/2023) Performed for S/P living-donor kidney transplantation, S/P LR-TXP in 09/14/2021, Chronic kidney disease-mineral and bone disorder, Long-term use of immunosuppressant medication * VITAMIN D 25-HYDROXY(Performed 08/14/2023) Performed for S/P living-donor kidney transplantation, S/P LR-TXP in 09/14/2021, Chronic kidney disease-mineral and bone disorder, Long-term use of immunosuppressant medication * URIC ACID BLOOD(Performed 08/14/2023) Performed for S/P living-donor kidney transplantation, S/P LR-TXP in 09/14/2021, Chronic kidney disease-mineral and bone disorder, Long-term use of immunosuppressant medication * PTH INTACT W/O CALCIUM(Performed 08/14/2023) Performed for S/P living-donor kidney transplantation, S/P LR-TXP in 09/14/2021, Chronic kidney disease-mineral and bone disorder, Long-term use of immunosuppressant medication * LIPID PROFILE(Performed 08/14/2023) Performed for S/P living-donor kidney transplantation, S/P LR-TXP in 09/14/2021, Chronic kidney disease-mineral and bone disorder, Long-term use of immunosuppressant medication * BK VIRUS PCR QUANT BLOOD STL(Performed 08/14/2023) Performed for S/P living-donor kidney transplantation, S/P LR-TXP in 09/14/2021, Chronic kidney disease-mineral and bone disorder, Long-term use of immunosuppressant medication * CREATININE URINE RANDOM(Performed 08/14/2023) Performed for S/P living-donor kidney transplantation, S/P LR-TXP in 09/14/2021, Chronic kidney disease-mineral and bone disorder, Long-term use of immunosuppressant medication * PROTEIN URINE RANDOM QUANTITATIVE(Performed 08/14/2023) Performed for S/P living-donor kidney transplantation, S/P LR-TXP in 09/14/2021, Chronic kidney disease-mineral and bone disorder, Long-term use of immunosuppressant medication * URINALYSIS W/MICROSCOPIC NO CULTURE(Performed 08/14/2023) Performed for S/P living-donor kidney transplantation, S/P LR-TXP in 09/14/2021, Chronic kidney disease-mineral and bone disorder, Long-term use of immunosuppressant medication * PHOSPHORUS BLOOD(Performed 08/14/2023) Performed for S/P living-donor kidney transplantation, S/P LR-TXP in 09/14/2021, Chronic kidney disease-mineral and bone disorder, Long-term use of immunosuppressant medication * MAGNESIUM BLOOD(Performed 08/14/2023) Performed for S/P living-donor kidney transplantation, S/P LR-TXP in 09/14/2021, Chronic kidney disease-mineral and bone disorder, Long-term use of immunosuppressant medication * COMPREHENSIVE METABOLIC PANEL(Performed 08/14/2023) Performed for S/P living-donor kidney transplantation, S/P LR-TXP in 09/14/2021, Chronic kidney disease-mineral and bone disorder, Long-term use of immunosuppressant medication * CBC W AUTO DIFFERENTIAL(Performed 08/14/2023) Performed for S/P living-donor kidney transplantation, S/P LR-TXP in 09/14/2021, Chronic kidney disease-mineral and bone disorder, Long-term use of immunosuppressant medication * TACROLIMUS LEVEL(Performed 08/14/2023) Performed for S/P living-donor kidney transplantation, S/P LR-TXP in 09/14/2021, Chronic kidney disease-mineral and bone disorder, Long-term use of immunosuppressant medication * CREATININE URINE RANDOM(Performed 06/19/2023) Performed for S/P living-donor kidney transplantation, S/P LR-TXP in 09/14/2021, Chronic kidney disease-mineral and bone disorder, Long-term use of immunosuppressant medication * PROTEIN URINE RANDOM QUANTITATIVE(Performed 06/19/2023) Performed for S/P living-donor kidney transplantation, S/P LR-TXP in 09/14/2021, Chronic kidney disease-mineral and bone disorder, Long-term use of immunosuppressant medication * URINALYSIS W/MICROSCOPIC NO CULTURE(Performed 06/19/2023) Performed for S/P living-donor kidney transplantation, S/P LR-TXP in 09/14/2021, Chronic kidney disease-mineral and bone disorder, Long-term use of immunosuppressant medication * CYTOMEGALOVIRUS (CMV) QUANTITATIVE PLASMA(Performed 06/19/2023) Performed for S/P living-donor kidney transplantation, S/P LR-TXP in 09/14/2021, Chronic kidney disease-mineral and bone disorder, Long-term use of immunosuppressant medication * VITAMIN D 25-HYDROXY(Performed 06/19/2023) Performed for S/P living-donor kidney transplantation, S/P LR-TXP in 09/14/2021, Chronic kidney disease-mineral and bone disorder, Long-term use of immunosuppressant medication * URIC ACID BLOOD(Performed 06/19/2023) Performed for S/P living-donor kidney transplantation, S/P LR-TXP in 09/14/2021, Chronic kidney disease-mineral and bone disorder, Long-term use of immunosuppressant medication * PTH INTACT W/O CALCIUM(Performed 06/19/2023) Performed for S/P living-donor kidney transplantation, S/P LR-TXP in 09/14/2021, Chronic kidney disease-mineral and bone disorder, Long-term use of immunosuppressant medication * LIPID PROFILE(Performed 06/19/2023) Performed for S/P living-donor kidney transplantation, S/P LR-TXP in 09/14/2021, Chronic kidney disease-mineral and bone disorder, Long-term use of immunosuppressant medication * BK VIRUS PCR QUANT BLOOD STL(Performed 06/19/2023) Performed for S/P living-donor kidney transplantation, S/P LR-TXP in 09/14/2021, Chronic kidney disease-mineral and bone disorder, Long-term use of immunosuppressant medication * PHOSPHORUS BLOOD(Performed 06/19/2023) Performed for S/P living-donor kidney transplantation, S/P LR-TXP in 09/14/2021, Chronic kidney disease-mineral and bone disorder, Long-term use of immunosuppressant medication * MAGNESIUM BLOOD(Performed 06/19/2023) Performed for S/P living-donor kidney transplantation, S/P LR-TXP in 09/14/2021, Chronic kidney disease-mineral and bone disorder, Long-term use of immunosuppressant medication * COMPREHENSIVE METABOLIC PANEL(Performed 06/19/2023) Performed for S/P living-donor kidney transplantation, S/P LR-TXP in 09/14/2021, Chronic kidney disease-mineral and bone disorder, Long-term use of immunosuppressant medication * CBC W AUTO DIFFERENTIAL(Performed 06/19/2023) Performed for S/P living-donor kidney transplantation, S/P LR-TXP in 09/14/2021, Chronic kidney disease-mineral and bone disorder, Long-term use of immunosuppressant medication * TACROLIMUS LEVEL(Performed 06/19/2023) Performed for S/P living-donor kidney transplantation, S/P LR-TXP in 09/14/2021, Chronic kidney disease-mineral and bone disorder, Long-term use of immunosuppressant medication * CREATININE URINE RANDOM(Performed 04/19/2023) Performed for Recurrent UTI, Immunosuppression ([facility]), Long-term use of immunosuppressant medication, Kidney replaced by transplant ([facility]) * PROTEIN URINE RANDOM QUANTITATIVE(Performed 04/19/2023) Performed for Recurrent UTI, Immunosuppression ([facility]), Long-term use of immunosuppressant medication, Kidney replaced by transplant ([facility]) * URINALYSIS W/MICROSCOPIC NO CULTURE(Performed 04/19/2023) Performed for Recurrent UTI, Immunosuppression ([facility]), Long-term use of immunosuppressant medication, Kidney replaced by transplant ([facility]) * CULTURE URINE(Performed 04/19/2023) Performed for Recurrent UTI, Immunosuppression ([facility]), Long-term use of immunosuppressant medication, Kidney replaced by transplant ([facility]) * PHOSPHORUS BLOOD(Performed 04/19/2023) Performed for Recurrent UTI, Immunosuppression ([facility]), Long-term use of immunosuppressant medication, Kidney replaced by transplant ([facility]) * MAGNESIUM BLOOD(Performed 04/19/2023) Performed for Recurrent UTI, Immunosuppression ([facility]), Long-term use of immunosuppressant medication, Kidney replaced by transplant ([facility]) * COMPREHENSIVE METABOLIC PANEL(Performed 04/19/2023) Performed for Recurrent UTI, Immunosuppression ([facility]), Long-term use of immunosuppressant medication, Kidney replaced by transplant ([facility]) * CBC W AUTO DIFFERENTIAL(Performed 04/19/2023) Performed for Recurrent UTI, Immunosuppression ([facility]), Long-term use of immunosuppressant medication, Kidney replaced by transplant ([facility]) * TACROLIMUS LEVEL(Performed 04/19/2023) Performed for Recurrent UTI, Immunosuppression ([facility]), Long-term use of immunosuppressant medication, Kidney replaced by transplant ([facility]) * CYTOMEGALOVIRUS (CMV) QUANTITATIVE PLASMA(Performed 03/13/2023) Performed for S/P living-donor kidney transplantation, S/P LR-TXP in 09/14/2021 * BK VIRUS PCR QUANT BLOOD STL(Performed 03/13/2023) Performed for S/P living-donor kidney transplantation, S/P LR-TXP in 09/14/2021 * CREATININE URINE RANDOM(Performed 03/13/2023) Performed for Recurrent UTI, Immunosuppression ([facility]), Long-term use of immunosuppressant medication, Kidney replaced by transplant ([facility]) * PROTEIN URINE RANDOM QUANTITATIVE(Performed 03/13/2023) Performed for Recurrent UTI, Immunosuppression ([facility]), Long-term use of immunosuppressant medication, Kidney replaced by transplant ([facility]) * URINALYSIS W/MICROSCOPIC NO CULTURE(Performed 03/13/2023) Performed for Recurrent UTI, Immunosuppression ([facility]), Long-term use of immunosuppressant medication, Kidney replaced by transplant ([facility]) * PHOSPHORUS BLOOD(Performed 03/13/2023) Performed for Recurrent UTI, Immunosuppression ([facility]), Long-term use of immunosuppressant medication, Kidney replaced by transplant ([facility]) * MAGNESIUM BLOOD(Performed 03/13/2023) Performed for Recurrent UTI, Immunosuppression ([facility]), Long-term use of immunosuppressant medication, Kidney replaced by transplant ([facility]) * COMPREHENSIVE METABOLIC PANEL(Performed 03/13/2023) Performed for Recurrent UTI, Immunosuppression ([facility]), Long-term use of immunosuppressant medication, Kidney replaced by transplant ([facility]) * CBC W AUTO DIFFERENTIAL(Performed 03/13/2023) Performed for Recurrent UTI, Immunosuppression ([facility]), Long-term use of immunosuppressant medication, Kidney replaced by transplant ([facility]) * TACROLIMUS LEVEL(Performed 03/13/2023) Performed for Recurrent UTI, Immunosuppression ([facility]), Long-term use of immunosuppressant medication, Kidney replaced by transplant ([facility]) * CULTURE URINE(Performed 03/13/2023) Performed for Recurrent UTI, Immunosuppression ([facility]), Long-term use of immunosuppressant medication, Kidney replaced by transplant ([facility]) * CYTOMEGALOVIRUS (CMV) QUANTITATIVE PLASMA(Performed 02/12/2023) Performed for Immunosuppression ([facility]) * BK VIRUS PCR QUANT BLOOD STL(Performed 02/12/2023) Performed for Immunosuppression ([facility]) * TESTOSTERONE TOTAL MALE(Performed 02/12/2023) Performed for Other male erectile dysfunction * CREATININE URINE RANDOM(Performed 02/12/2023) Performed for Recurrent UTI, Immunosuppression ([facility]), Long-term use of immunosuppressant medication, Kidney replaced by transplant ([facility]) * PROTEIN URINE RANDOM QUANTITATIVE(Performed 02/12/2023) Performed for Recurrent UTI, Immunosuppression ([facility]), Long-term use of immunosuppressant medication, Kidney replaced by transplant ([facility]) * URINALYSIS W/MICROSCOPIC NO CULTURE(Performed 02/12/2023) Performed for Recurrent UTI, Immunosuppression ([facility]), Long-term use of immunosuppressant medication, Kidney replaced by transplant ([facility]) * PHOSPHORUS BLOOD(Performed 02/12/2023) Performed for Recurrent UTI, Immunosuppression ([facility]), Long-term use of immunosuppressant medication, Kidney replaced by transplant ([facility]) * MAGNESIUM BLOOD(Performed 02/12/2023) Performed for Recurrent UTI, Immunosuppression ([facility]), Long-term use of immunosuppressant medication, Kidney replaced by transplant ([facility]) * COMPREHENSIVE METABOLIC PANEL(Performed 02/12/2023) Performed for Recurrent UTI, Immunosuppression ([facility]), Long-term use of immunosuppressant medication, Kidney replaced by transplant ([facility]) * CBC W AUTO DIFFERENTIAL(Performed 02/12/2023) Performed for Recurrent UTI, Immunosuppression ([facility]), Long-term use of immunosuppressant medication, Kidney replaced by transplant ([facility]) * TACROLIMUS LEVEL(Performed 02/12/2023) Performed for Recurrent UTI, Immunosuppression ([facility]), Long-term use of immunosuppressant medication, Kidney replaced by transplant ([facility]) * CULTURE URINE(Performed 02/12/2023) Performed for Recurrent UTI, Immunosuppression ([facility]), Long-term use of immunosuppressant medication, Kidney replaced by transplant ([facility]) * URINALYSIS AUTO - POINT OF CARE (AMB) [facility](Performed 12/21/2022) Performed for Other male erectile dysfunction * PTH INTACT W/O CALCIUM(Performed 12/19/2022) Performed for Recurrent UTI, Immunosuppression ([facility]), Long-term use of immunosuppressant medication, Kidney replaced by transplant ([facility]), Vitamin D deficiency, Chronic kidney disease-mineral and bonedisorder, Hyperlipidemia, unspecified hyperlipidemia type, Hyperparathyroidism ([facility]) * CYTOMEGALOVIRUS (CMV) QUANTITATIVE PLASMA(Performed 12/19/2022) Performed for Recurrent UTI, Immunosuppression ([facility]), Long-term use of immunosuppressant medication, Kidney replaced by transplant ([facility]) * BK VIRUS PCR QUANT BLOOD STL(Performed 12/19/2022) Performed for Recurrent UTI, Immunosuppression ([facility]), Long-term use of immunosuppressant medication, Kidney replaced by transplant ([facility]) * TRANSFERRIN(Performed 12/19/2022) Performed for Recurrent UTI, Immunosuppression ([facility]), Long-term use of immunosuppressant medication, Kidney replaced by transplant ([facility]), Vitamin D deficiency, Chronic kidney disease-mineral and bonedisorder, Hyperlipidemia, unspecified hyperlipidemia type, Hyperparathyroidism ([facility]) * IRON BLOOD(Performed 12/19/2022) Performed for Recurrent UTI, Immunosuppression ([facility]), Long-term use of immunosuppressant medication, Kidney replaced by transplant ([facility]), Vitamin D deficiency, Chronic kidney disease-mineral and bonedisorder, Hyperlipidemia, unspecified hyperlipidemia type, Hyperparathyroidism ([facility]) * URIC ACID BLOOD(Performed 12/19/2022) Performed for Recurrent UTI, Immunosuppression ([facility]), Long-term use of immunosuppressant medication, Kidney replaced by transplant ([facility]), Vitamin D deficiency, Chronic kidney disease-mineral and bonedisorder, Hyperlipidemia, unspecified hyperlipidemia type, Hyperparathyroidism ([facility]) * FERRITIN(Performed 12/19/2022) Performed for Recurrent UTI, Immunosuppression ([facility]), Long-term use of immunosuppressant medication, Kidney replaced by transplant ([facility]), Vitamin D deficiency, Chronic kidney disease-mineral and bonedisorder, Hyperlipidemia, unspecified hyperlipidemia type, Hyperparathyroidism ([facility]) * VITAMIN D 25-HYDROXY(Performed 12/19/2022) Performed for Recurrent UTI, Immunosuppression ([facility]), Long-term use of immunosuppressant medication, Kidney replaced by transplant ([facility]), Vitamin D deficiency, Chronic kidney disease-mineral and bonedisorder, Hyperlipidemia, unspecified hyperlipidemia type, Hyperparathyroidism ([facility]) * LIPID PROFILE(Performed 12/19/2022) Performed for Recurrent UTI, Immunosuppression ([facility]), Long-term use of immunosuppressant medication, Kidney replaced by transplant ([facility]), Vitamin D deficiency, Chronic kidney disease-mineral and bonedisorder, Hyperlipidemia, unspecified hyperlipidemia type, Hyperparathyroidism ([facility]) * CREATININE URINE RANDOM(Performed 12/19/2022) Performed for Recurrent UTI, Immunosuppression ([facility]), Long-term use of immunosuppressant medication, Kidney replaced by transplant ([facility]) * PROTEIN URINE RANDOM QUANTITATIVE(Performed 12/19/2022) Performed for Recurrent UTI, Immunosuppression ([facility]), Long-term use of immunosuppressant medication, Kidney replaced by transplant ([facility]) * URINALYSIS W/MICROSCOPIC NO CULTURE(Performed 12/19/2022) Performed for Recurrent UTI, Immunosuppression ([facility]), Long-term use of immunosuppressant medication, Kidney replaced by transplant ([facility]) * PHOSPHORUS BLOOD(Performed 12/19/2022) Performed for Recurrent UTI, Immunosuppression ([facility]), Long-term use of immunosuppressant medication, Kidney replaced by transplant ([facility]) * MAGNESIUM BLOOD(Performed 12/19/2022) Performed for Recurrent UTI, Immunosuppression ([facility]), Long-term use of immunosuppressant medication, Kidney replaced by transplant ([facility]) * COMPREHENSIVE METABOLIC PANEL(Performed 12/19/2022) Performed for Recurrent UTI, Immunosuppression ([facility]), Long-term use of immunosuppressant medication, Kidney replaced by transplant ([facility]) * CBC W AUTO DIFFERENTIAL(Performed 12/19/2022) Performed for Recurrent UTI, Immunosuppression ([facility]), Long-term use of immunosuppressant medication, Kidney replaced by transplant ([facility]) * TACROLIMUS LEVEL(Performed 12/19/2022) Performed for Recurrent UTI, Immunosuppression ([facility]), Long-term use of immunosuppressant medication, Kidney replaced by transplant ([facility]) * CULTURE URINE(Performed 12/19/2022) Performed for Recurrent UTI, Immunosuppression ([facility]), Long-term use of immunosuppressant medication, Kidney replaced by transplant ([facility]) * CYTOMEGALOVIRUS (CMV) QUANTITATIVE PLASMA(Performed 09/04/2022) Performed for Recurrent UTI, Immunosuppression ([facility]), Long-term use of immunosuppressant medication, Kidney replaced by transplant ([facility]) * BK VIRUS PCR QUANT BLOOD STL(Performed 09/04/2022) Performed for Recurrent UTI, Immunosuppression ([facility]), Long-term use of immunosuppressant medication, Kidney replaced by transplant ([facility]) * CREATININE URINE RANDOM(Performed 09/04/2022) Performed for Recurrent UTI, Immunosuppression ([facility]), Long-term use of immunosuppressant medication, Kidney replaced by transplant ([facility]) * PROTEIN URINE RANDOM QUANTITATIVE(Performed 09/04/2022) Performed for Recurrent UTI, Immunosuppression ([facility]), Long-term use of immunosuppressant medication, Kidney replaced by transplant ([facility]) * URINALYSIS W/MICROSCOPIC NO CULTURE(Performed 09/04/2022) Performed for Recurrent UTI, Immunosuppression ([facility]), Long-term use of immunosuppressant medication, Kidney replaced by transplant ([facility]) * PHOSPHORUS BLOOD(Performed 09/04/2022) Performed for Recurrent UTI, Immunosuppression ([facility]), Long-term use of immunosuppressant medication, Kidney replaced by transplant ([facility]) * MAGNESIUM BLOOD(Performed 09/04/2022) Performed for Recurrent UTI, Immunosuppression ([facility]), Long-term use of immunosuppressant medication, Kidney replaced by transplant ([facility]) * COMPREHENSIVE METABOLIC PANEL(Performed 09/04/2022) Performed for Recurrent UTI, Immunosuppression ([facility]), Long-term use of immunosuppressant medication, Kidney replaced by transplant ([facility]) * CBC W AUTO DIFFERENTIAL(Performed 09/04/2022) Performed for Recurrent UTI, Immunosuppression ([facility]), Long-term use of immunosuppressant medication, Kidney replaced by transplant ([facility]) * TACROLIMUS LEVEL(Performed 09/04/2022) Performed for Recurrent UTI, Immunosuppression ([facility]), Long-term use of immunosuppressant medication, Kidney replaced by transplant ([facility]) * CULTURE URINE(Performed 09/04/2022) Performed for Recurrent UTI, Immunosuppression ([facility]), Long-term use of immunosuppressant medication, Kidney replaced by transplant ([facility]) * CYTOMEGALOVIRUS (CMV) QUANTITATIVE PLASMA(Performed 08/23/2022) Performed for Recurrent UTI, Immunosuppression ([facility]), Long-term use of immunosuppressant medication, Kidney replaced by transplant ([facility]) * BK VIRUS PCR QUANT BLOOD STL(Performed 08/23/2022) Performed for Recurrent UTI, Immunosuppression ([facility]), Long-term use of immunosuppressant medication, Kidney replaced by transplant ([facility]) * CREATININE URINE RANDOM(Performed 08/23/2022) Performed for Recurrent UTI, Immunosuppression ([facility]), Long-term use of immunosuppressant medication, Kidney replaced by transplant ([facility]) * PROTEIN URINE RANDOM QUANTITATIVE(Performed 08/23/2022) Performed for Recurrent UTI, Immunosuppression ([facility]), Long-term use of immunosuppressant medication, Kidney replaced by transplant ([facility]) * URINALYSIS W/MICROSCOPIC NO CULTURE(Performed 08/23/2022) Performed for Recurrent UTI, Immunosuppression ([facility]), Long-term use of immunosuppressant medication, Kidney replaced by transplant ([facility]) * PHOSPHORUS BLOOD(Performed 08/23/2022) Performed for Recurrent UTI, Immunosuppression ([facility]), Long-term use of immunosuppressant medication, Kidney replaced by transplant ([facility]) * MAGNESIUM BLOOD(Performed 08/23/2022) Performed for Recurrent UTI, Immunosuppression ([facility]), Long-term use of immunosuppressant medication, Kidney replaced by transplant ([facility]) * COMPREHENSIVE METABOLIC PANEL(Performed 08/23/2022) Performed for Recurrent UTI, Immunosuppression ([facility]), Long-term use of immunosuppressant medication, Kidney replaced by transplant ([facility]) * CBC W AUTO DIFFERENTIAL(Performed 08/23/2022) Performed for Recurrent UTI, Immunosuppression ([facility]), Long-term use of immunosuppressant medication, Kidney replaced by transplant ([facility]) * TACROLIMUS LEVEL(Performed 08/23/2022) Performed for Recurrent UTI, Immunosuppression ([facility]), Long-term use of immunosuppressant medication, Kidney replaced by transplant ([facility]) * CULTURE URINE(Performed 08/23/2022) Performed for Recurrent UTI, Immunosuppression ([facility]), Long-term use of immunosuppressant medication, Kidney replaced by transplant ([facility]) * CYTOMEGALOVIRUS (CMV) QUANTITATIVE PLASMA(Performed 07/18/2022) Performed for Recurrent UTI, Immunosuppression ([facility]), Long-term use of immunosuppressant medication, Kidney replaced by transplant ([facility]) * BK VIRUS PCR QUANT BLOOD STL(Performed 07/18/2022) Performed for Recurrent UTI, Immunosuppression ([facility]), Long-term use of immunosuppressant medication, Kidney replaced by transplant ([facility]) * CREATININE URINE RANDOM(Performed 07/18/2022) Performed for Recurrent UTI, Immunosuppression ([facility]), Long-term use of immunosuppressant medication, Kidney replaced by transplant ([facility]) * PROTEIN URINE RANDOM QUANTITATIVE(Performed 07/18/2022) Performed for Recurrent UTI, Immunosuppression ([facility]), Long-term use of immunosuppressant medication, Kidney replaced by transplant ([facility]) * URINALYSIS W/MICROSCOPIC NO CULTURE(Performed 07/18/2022) Performed for Recurrent UTI, Immunosuppression ([facility]), Long-term use of immunosuppressant medication, Kidney replaced by transplant ([facility]) * PHOSPHORUS BLOOD(Performed 07/18/2022) Performed for Recurrent UTI, Immunosuppression ([facility]), Long-term use of immunosuppressant medication, Kidney replaced by transplant ([facility]) * MAGNESIUM BLOOD(Performed 07/18/2022) Performed for Recurrent UTI, Immunosuppression ([facility]), Long-term use of immunosuppressant medication, Kidney replaced by transplant ([facility]) * COMPREHENSIVE METABOLIC PANEL(Performed 07/18/2022) Performed for Recurrent UTI, Immunosuppression ([facility]), Long-term use of immunosuppressant medication, Kidney replaced by transplant ([facility]) * CBC W AUTO DIFFERENTIAL(Performed 07/18/2022) Performed for Recurrent UTI, Immunosuppression ([facility]), Long-term use of immunosuppressant medication, Kidney replaced by transplant ([facility]) * TACROLIMUS LEVEL(Performed 07/18/2022) Performed for Recurrent UTI, Immunosuppression ([facility]), Long-term use of immunosuppressant medication, Kidney replaced by transplant ([facility]) * CULTURE URINE(Performed 07/18/2022) Performed for Recurrent UTI, Immunosuppression ([facility]), Long-term use of immunosuppressant medication, Kidney replaced by transplant ([facility]) * CMV T CELL IMMUNITY PANEL(Performed 07/18/2022) Performed for Immunosuppression ([facility]), Long-term use of immunosuppressant medication, Kidney replaced by transplant ([facility]) * CYTOMEGALOVIRUS (CMV) QUANTITATIVE PLASMA(Performed 06/29/2022) Performed for Recurrent UTI, Immunosuppression ([facility]), Long-term use of immunosuppressant medication, Kidney replaced by transplant ([facility]) * BK VIRUS PCR QUANT BLOOD STL(Performed 06/29/2022) Performed for Recurrent UTI, Immunosuppression ([facility]), Long-term use of immunosuppressant medication, Kidney replaced by transplant ([facility]) * CREATININE URINE RANDOM(Performed 06/29/2022) Performed for Recurrent UTI, Immunosuppression ([facility]), Long-term use of immunosuppressant medication, Kidney replaced by transplant ([facility]) * PROTEIN URINE RANDOM QUANTITATIVE(Performed 06/29/2022) Performed for Recurrent UTI, Immunosuppression ([facility]), Long-term use of immunosuppressant medication, Kidney replaced by transplant ([facility]) * URINALYSIS W/MICROSCOPIC NO CULTURE(Performed 06/29/2022) Performed for Recurrent UTI, Immunosuppression (HCC), Long-term use of immunosuppressant medication, Kidney replaced by transplant ([facility]) * PHOSPHORUS BLOOD(Performed 06/29/2022) Performed for Recurrent UTI, Immunosuppression ([facility]), Long-term use of immunosuppressant medication, Kidney replaced by transplant ([facility]) * MAGNESIUM BLOOD(Performed 06/29/2022) Performed for Recurrent UTI, Immunosuppression ([facility]), Long-term use of immunosuppressant medication, Kidney replaced by transplant ([facility]) * COMPREHENSIVE METABOLIC PANEL(Performed 06/29/2022) Performed for Recurrent UTI, Immunosuppression ([facility]), Long-term use of immunosuppressant medication, Kidney replaced by transplant ([facility]) * CBC W AUTO DIFFERENTIAL(Performed 06/29/2022) Performed for Recurrent UTI, Immunosuppression ([facility]), Long-term use of immunosuppressant medication, Kidney replaced by transplant ([facility]) * TACROLIMUS LEVEL(Performed 06/29/2022) Performed for Recurrent UTI, Immunosuppression ([facility]), Long-term use of immunosuppressant medication, Kidney replaced by transplant ([facility]) * CULTURE URINE(Performed 06/29/2022) Performed for Recurrent UTI, Immunosuppression ([facility]), Long-term use of immunosuppressant medication, Kidney replaced by transplant ([facility]) * BK VIRUS PCR QUANTITATIVE(Performed 06/13/2022) Performed for BK viremia, Long-term use of immunosuppressant medication, S/P living-donor kidney transplantation ([facility]) * TACROLIMUS LEVEL(Performed 06/13/2022) Performed for BK viremia, Long-term use of immunosuppressant medication, S/P living-donor kidney transplantation ([facility]) * COMPREHENSIVE METABOLIC PANEL(Performed 06/13/2022) Performed for BK viremia, Long-term use of immunosuppressant medication, S/P living-donor kidney transplantation ([facility]) * TACROLIMUS (EXTERNAL RESULT ENTRY)(Performed 06/13/2022) * CHEM PROFILE (EXTERNAL RESULT ENTRY)(Performed 06/13/2022) * BK VIRUS PCR QUANTITATIVE(Performed 05/31/2022) Performed for Immunosuppression ([facility]), Long-term use of immunosuppressant medication, Kidney replaced by transplant ([facility]) * CYTOMEGALOVIRUS QUANT BLOOD(Performed 05/31/2022) Performed for Immunosuppression ([facility]), Long-term use of immunosuppressant medication, Kidney replaced by transplant ([facility]) * CREATININE URINE RANDOM(Performed 05/31/2022) Performed for Recurrent UTI, Immunosuppression ([facility]), Long-term use of immunosuppressant medication, Kidney replaced by transplant ([facility]) * PROTEIN URINE RANDOM QUANTITATIVE(Performed 05/31/2022) Performed for Recurrent UTI, Immunosuppression ([facility]), Long-term use of immunosuppressant medication, Kidney replaced by transplant ([facility]) * URINALYSIS W/MICROSCOPIC NO CULTURE(Performed 05/31/2022) Performed for Recurrent UTI, Immunosuppression ([facility]), Long-term use of immunosuppressant medication, Kidney replaced by transplant ([facility]) * PHOSPHORUS BLOOD(Performed 05/31/2022) Performed for Recurrent UTI, Immunosuppression ([facility]), Long-term use of immunosuppressant medication, Kidney replaced by transplant ([facility]) * MAGNESIUM BLOOD(Performed 05/31/2022) Performed for Recurrent UTI, Immunosuppression ([facility]), Long-term use of immunosuppressant medication, Kidney replaced by transplant ([facility]) * COMPREHENSIVE METABOLIC PANEL(Performed 05/31/2022) Performed for Recurrent UTI, Immunosuppression ([facility]), Long-term use of immunosuppressant medication, Kidney replaced by transplant ([facility]) * CBC W AUTO DIFFERENTIAL(Performed 05/31/2022) Performed for Recurrent UTI, Immunosuppression ([facility]), Long-term use of immunosuppressant medication, Kidney replaced by transplant ([facility]) * TACROLIMUS LEVEL(Performed 05/31/2022) Performed for Recurrent UTI, Immunosuppression ([facility]), Long-term use of immunosuppressant medication, Kidney replaced by transplant ([facility]) * CULTURE URINE(Performed 05/31/2022) Performed for Recurrent UTI, Immunosuppression ([facility]), Long-term use of immunosuppressant medication, Kidney replaced by transplant ([facility]) * DIFFERENTIAL MANUAL(Performed 05/17/2022) Performed for Recurrent UTI, Immunosuppression ([facility]), Long-term use of immunosuppressant medication, Kidney replaced by transplant ([facility]) * CYTOMEGALOVIRUS (CMV) QUANTITATIVE PLASMA(Performed 05/17/2022) Performed for Immunosuppression ([facility]), Kidney replaced by transplant ([facility]) * BK VIRUS PCR QUANT BLOOD STL(Performed 05/17/2022) Performed for Immunosuppression ([facility]), Kidney replaced by transplant ([facility]) * PTH INTACT W/O CALCIUM(Performed 05/17/2022) Performed for Immunosuppression ([facility]), Kidney replaced by transplant ([facility]) * TRANSFERRIN(Performed 05/17/2022) Performed for Recurrent UTI, Immunosuppression ([facility]), Long-term use of immunosuppressant medication, Kidney replaced by transplant ([facility]), Vitamin D deficiency, Chronic kidney disease-mineral and bonedisorder, Hyperlipidemia, unspecified hyperlipidemia type, Hyperparathyroidism ([facility]) * IRON BLOOD(Performed 05/17/2022) Performed for Recurrent UTI, Immunosuppression ([facility]), Long-term use of immunosuppressant medication, Kidney replaced by transplant ([facility]), Vitamin D deficiency, Chronic kidney disease-mineral and bonedisorder, Hyperlipidemia, unspecified hyperlipidemia type, Hyperparathyroidism ([facility]) * URIC ACID BLOOD(Performed 05/17/2022) Performed for Recurrent UTI, Immunosuppression ([facility]), Long-term use of immunosuppressant medication, Kidney replaced by transplant ([facility]), Vitamin D deficiency, Chronic kidney disease-mineral and bonedisorder, Hyperlipidemia, unspecified hyperlipidemia type, Hyperparathyroidism ([facility]) * FERRITIN(Performed 05/17/2022) Performed for Recurrent UTI, Immunosuppression ([facility]), Long-term use of immunosuppressant medication, Kidney replaced by transplant ([facility]), Vitamin D deficiency, Chronic kidney disease-mineral and bonedisorder, Hyperlipidemia, unspecified hyperlipidemia type, Hyperparathyroidism ([facility]) * VITAMIN D 25-HYDROXY(Performed 05/17/2022) Performed for Recurrent UTI, Immunosuppression ([facility]), Long-term use of immunosuppressant medication, Kidney replaced by transplant ([facility]), Vitamin D deficiency, Chronic kidney disease-mineral and bonedisorder, Hyperlipidemia, unspecified hyperlipidemia type, Hyperparathyroidism ([facility]) * LIPID PROFILE(Performed 05/17/2022) Performed for Recurrent UTI, Immunosuppression ([facility]), Long-term use of immunosuppressant medication, Kidney replaced by transplant ([facility]), Vitamin D deficiency, Chronic kidney disease-mineral and bonedisorder, Hyperlipidemia, unspecified hyperlipidemia type, Hyperparathyroidism ([facility]) * CREATININE URINE RANDOM(Performed 05/17/2022) Performed for Recurrent UTI, Immunosuppression ([facility]), Long-term use of immunosuppressant medication, Kidney replaced by transplant ([facility]) * PROTEIN URINE RANDOM QUANTITATIVE(Performed 05/17/2022) Performed for Recurrent UTI, Immunosuppression ([facility]), Long-term use of immunosuppressant medication, Kidney replaced by transplant ([facility]) * URINALYSIS W/MICROSCOPIC NO CULTURE(Performed 05/17/2022) Performed for Recurrent UTI, Immunosuppression ([facility]), Long-term use of immunosuppressant medication, Kidney replaced by transplant ([facility]) * PHOSPHORUS BLOOD(Performed 05/17/2022) Performed for Recurrent UTI, Immunosuppression ([facility]), Long-term use of immunosuppressant medication, Kidney replaced by transplant ([facility]) * MAGNESIUM BLOOD(Performed 05/17/2022) Performed for Recurrent UTI, Immunosuppression ([facility]), Long-term use of immunosuppressant medication, Kidney replaced by transplant ([facility]) * COMPREHENSIVE METABOLIC PANEL(Performed 05/17/2022) Performed for Recurrent UTI, Immunosuppression ([facility]), Long-term use of immunosuppressant medication, Kidney replaced by transplant ([facility]) * CBC W AUTO DIFFERENTIAL(Performed 05/17/2022) Performed for Recurrent UTI, Immunosuppression ([facility]), Long-term use of immunosuppressant medication, Kidney replaced by transplant ([facility]) * TACROLIMUS LEVEL(Performed 05/17/2022) Performed for Recurrent UTI, Immunosuppression ([facility]), Long-term use of immunosuppressant medication, Kidney replaced by transplant ([facility]) * CMV T CELL IMMUNITY PANEL(Performed 05/17/2022) Performed for Long-term use of immunosuppressant medication, Kidney replaced by transplant ([facility]) * CULTURE URINE(Performed 05/17/2022) Performed for Recurrent UTI, Immunosuppression ([facility]), Long-term use of immunosuppressant medication, Kidney replaced by transplant ([facility]) * CULTURE URINE(Performed 05/17/2022) Performed for Recurrent UTI, Immunosuppression ([facility]), Long-term use of immunosuppressant medication, Kidney replaced by transplant ([facility]) * DIFFERENTIAL MANUAL REFLXED III(Performed 04/28/2022) * BK VIRUS PCR QUANTITATIVE(Performed 04/28/2022) Performed for Immunosuppression ([facility]), Long-term use of immunosuppressant medication, Kidney replaced by transplant ([facility]) * CYTOMEGALOVIRUS QUANT BLOOD(Performed 04/28/2022) Performed for Immunosuppression ([facility]), Long-term use of immunosuppressant medication, Kidney replaced by transplant ([facility]) * CREATININE URINE RANDOM(Performed 04/28/2022) Performed for Recurrent UTI, Immunosuppression ([facility]), Long-term use of immunosuppressant medication, Kidney replaced by transplant ([facility]) * PROTEIN URINE RANDOM QUANTITATIVE(Performed 04/28/2022) Performed for Recurrent UTI, Immunosuppression ([facility]), Long-term use of immunosuppressant medication, Kidney replaced by transplant ([facility]) * URINALYSIS W/MICROSCOPIC NO CULTURE(Performed 04/28/2022) Performed for Recurrent UTI, Immunosuppression ([facility]), Long-term use of immunosuppressant medication, Kidney replaced by transplant ([facility]) * PHOSPHORUS BLOOD(Performed 04/28/2022) Performed for Recurrent UTI, Immunosuppression ([facility]), Long-term use of immunosuppressant medication, Kidney replaced by transplant ([facility]) * MAGNESIUM BLOOD(Performed 04/28/2022) Performed for Recurrent UTI, Immunosuppression ([facility]), Long-term use of immunosuppressant medication, Kidney replaced by transplant ([facility]) * COMPREHENSIVE METABOLIC PANEL(Performed 04/28/2022) Performed for Recurrent UTI, Immunosuppression ([facility]), Long-term use of immunosuppressant medication, Kidney replaced by transplant ([facility]) * CBC W AUTO DIFFERENTIAL(Performed 04/28/2022) Performed for Recurrent UTI, Immunosuppression ([facility]), Long-term use of immunosuppressant medication, Kidney replaced by transplant ([facility]) * TACROLIMUS LEVEL(Performed 04/28/2022) Performed for Recurrent UTI, Immunosuppression ([facility]), Long-term use of immunosuppressant medication, Kidney replaced by transplant ([facility]) * CULTURE URINE(Performed 04/28/2022) Performed for Recurrent UTI, Immunosuppression ([facility]), Long-term use of immunosuppressant medication, Kidney replaced by transplant ([facility]) * DIFFERENTIAL MANUAL REFLXED III(Performed 04/18/2022) * CREATININE URINE RANDOM(Performed 04/18/2022) Performed for Recurrent UTI, Immunosuppression ([facility]), Long-term use of immunosuppressant medication, Kidney replaced by transplant ([facility]) * PROTEIN URINE RANDOM QUANTITATIVE(Performed 04/18/2022) Performed for Recurrent UTI, Immunosuppression ([facility]), Long-term use of immunosuppressant medication, Kidney replaced by transplant ([facility]) * URINALYSIS W/MICROSCOPIC NO CULTURE(Performed 04/18/2022) Performed for Recurrent UTI, Immunosuppression ([facility]), Long-term use of immunosuppressant medication, Kidney replaced by transplant ([facility]) * PHOSPHORUS BLOOD(Performed 04/18/2022) Performed for Recurrent UTI, Immunosuppression ([facility]), Long-term use of immunosuppressant medication, Kidney replaced by transplant ([facility]) * MAGNESIUM BLOOD(Performed 04/18/2022) Performed for Recurrent UTI, Immunosuppression ([facility]), Long-term use of immunosuppressant medication, Kidney replaced by transplant ([facility]) * COMPREHENSIVE METABOLIC PANEL(Performed 04/18/2022) Performed for Recurrent UTI, Immunosuppression ([facility]), Long-term use of immunosuppressant medication, Kidney replaced by transplant ([facility]) * CBC W AUTO DIFFERENTIAL(Performed 04/18/2022) Performed for Recurrent UTI, Immunosuppression ([facility]), Long-term use of immunosuppressant medication, Kidney replaced by transplant ([facility]) * TACROLIMUS LEVEL(Performed 04/18/2022) Performed for Recurrent UTI, Immunosuppression ([facility]), Long-term use of immunosuppressant medication, Kidney replaced by transplant ([facility]) * CULTURE URINE(Performed 04/18/2022) Performed for Recurrent UTI, Immunosuppression ([facility]), Long-term use of immunosuppressant medication, Kidney replaced by transplant ([facility]) * TACROLIMUS (EXTERNAL RESULT ENTRY)(Performed 04/18/2022) * URINALYSIS (EXTERNAL RESULT ENTRY)(Performed 04/18/2022) * CBC W DIFF (EXTERNAL RESULT ENTRY)(Performed 04/18/2022) * PROTEIN RANDOM UR (EXTERNAL RESULT ENTRY)(Performed 04/18/2022) * CREATININE RAND UR (EXTERNAL RESULT ENTRY)(Performed 04/18/2022) * CHEM PROFILE (EXTERNAL RESULT ENTRY)(Performed 04/18/2022) * HLA ANTIBODY SCREEN LUM CLASS 2 SAB(Performed 03/22/2022) Performed for Long-term use of immunosuppressant medication, Kidney replaced by transplant ([facility]) * HLA ANTIBODY SCREEN LUM CLASS 1 SAB(Performed 03/22/2022) Performed for Long-term use of immunosuppressant medication, Kidney replaced by transplant ([facility]) * CMV T CELL IMMUNITY PANEL(Performed 03/22/2022) Performed for Immunosuppression ([facility]), Recurrent UTI, Long-term use of immunosuppressant medication * DIFFERENTIAL MANUAL REFLXED III(Performed 03/21/2022) * CREATININE URINE RANDOM(Performed 03/21/2022) Performed for Recurrent UTI, Immunosuppression ([facility]), Long-term use of immunosuppressant medication, Kidney replaced by transplant ([facility]) * PROTEIN URINE RANDOM QUANTITATIVE(Performed 03/21/2022) Performed for Recurrent UTI, Immunosuppression ([facility]), Long-term use of immunosuppressant medication, Kidney replaced by transplant ([facility]) * URINALYSIS W/MICROSCOPIC NO CULTURE(Performed 03/21/2022) Performed for Recurrent UTI, Immunosuppression ([facility]), Long-term use of immunosuppressant medication, Kidney replaced by transplant ([facility]) * PHOSPHORUS BLOOD(Performed 03/21/2022) Performed for Recurrent UTI, Immunosuppression ([facility]), Long-term use of immunosuppressant medication, Kidney replaced by transplant ([facility]) * MAGNESIUM BLOOD(Performed 03/21/2022) Performed for Recurrent UTI, Immunosuppression ([facility]), Long-term use of immunosuppressant medication, Kidney replaced by transplant ([facility]) * COMPREHENSIVE METABOLIC PANEL(Performed 03/21/2022) Performed for Recurrent UTI, Immunosuppression ([facility]), Long-term use of immunosuppressant medication, Kidney replaced by transplant ([facility]) * CBC W AUTO DIFFERENTIAL(Performed 03/21/2022) Performed for Recurrent UTI, Immunosuppression (FORM[facility]LY [facility]), Long-term use of immunosuppressant medication, Kidney replaced by transplant ([facility]) * TACROLIMUS LEVEL(Performed 03/21/2022) Performed for Recurrent UTI, Immunosuppression ([facility]), Long-term use of immunosuppressant medication, Kidney replaced by transplant ([facility]) * BK VIRUS PCR QUANTITATIVE(Performed 03/21/2022) Performed for Immunosuppression ([facility]), Long-term use of immunosuppressant medication, Kidney replaced by transplant ([facility]) * CULTURE URINE(Performed 03/21/2022) Performed for Recurrent UTI, Immunosuppression ([facility]), Long-term use of immunosuppressant medication, Kidney replaced by transplant ([facility]) * CYTOMEGALOVIRUS QUANT BLOOD(Performed 03/07/2022) Performed for Immunosuppression ([facility]), Long-term use of immunosuppressant medication, Kidney replaced by transplant ([facility]) * CREATININE URINE RANDOM(Performed 03/07/2022) Performed for Recurrent UTI, Immunosuppression ([facility]), Long-term use of immunosuppressant medication, Kidney replaced by transplant ([facility]) * PROTEIN URINE RANDOM QUANTITATIVE(Performed 03/07/2022) Performed for Recurrent UTI, Immunosuppression ([facility]), Long-term use of immunosuppressant medication, Kidney replaced by transplant ([facility]) * URINALYSIS W/MICROSCOPIC NO CULTURE(Performed 03/07/2022) Performed for Recurrent UTI, Immunosuppression ([facility]), Long-term use of immunosuppressant medication, Kidney replaced by transplant ([facility]) * PHOSPHORUS BLOOD(Performed 03/07/2022) Performed for Recurrent UTI, Immunosuppression ([facility]), Long-term use of immunosuppressant medication, Kidney replaced by transplant ([facility]) * MAGNESIUM BLOOD(Performed 03/07/2022) Performed for Recurrent UTI, Immunosuppression ([facility]), Long-term use of immunosuppressant medication, Kidney replaced by transplant ([facility]) * COMPREHENSIVE METABOLIC PANEL(Performed 03/07/2022) Performed for Recurrent UTI, Immunosuppression ([facility]), Long-term use of immunosuppressant medication, Kidney replaced by transplant ([facility]) * CBC W AUTO DIFFERENTIAL(Performed 03/07/2022) Performed for Recurrent UTI, Immunosuppression ([facility]), Long-term use of immunosuppressant medication, Kidney replaced by transplant ([facility]) * TACROLIMUS LEVEL(Performed 03/07/2022) Performed for Recurrent UTI, Immunosuppression ([facility]), Long-term use of immunosuppressant medication, Kidney replaced by transplant ([facility]) * CULTURE URINE(Performed 03/07/2022) Performed for Recurrent UTI, Immunosuppression ([facility]), Long-term use of immunosuppressant medication, Kidney replaced by transplant ([facility]) * DIFFERENTIAL MANUAL REFLXED III(Performed 02/21/2022) * CREATININE URINE RANDOM(Performed 02/21/2022) Performed for Recurrent UTI, Immunosuppression ([facility]), Long-term use of immunosuppressant medication, Kidney replaced by transplant ([facility]) * PROTEIN URINE RANDOM QUANTITATIVE(Performed 02/21/2022) Performed for Recurrent UTI, Immunosuppression ([facility]), Long-term use of immunosuppressant medication, Kidney replaced by transplant ([facility]) * URINALYSIS W/MICROSCOPIC NO CULTURE(Performed 02/21/2022) Performed for Recurrent UTI, Immunosuppression ([facility]), Long-term use of immunosuppressant medication, Kidney replaced by transplant ([facility]) * PHOSPHORUS BLOOD(Performed 02/21/2022) Performed for Recurrent UTI, Immunosuppression ([facility]), Long-term use of immunosuppressant medication, Kidney replaced by transplant ([facility]) * MAGNESIUM BLOOD(Performed 02/21/2022) Performed for Recurrent UTI, Immunosuppression ([facility]), Long-term use of immunosuppressant medication, Kidney replaced by transplant ([facility]) * COMPREHENSIVE METABOLIC PANEL(Performed 02/21/2022) Performed for Recurrent UTI, Immunosuppression ([facility]), Long-term use of immunosuppressant medication, Kidney replaced by transplant ([facility]) * CBC W AUTO DIFFERENTIAL(Performed 02/21/2022) Performed for Recurrent UTI, Immunosuppression ([facility]), Long-term use of immunosuppressant medication, Kidney replaced by transplant ([facility]) * TACROLIMUS LEVEL(Performed 02/21/2022) Performed for Recurrent UTI, Immunosuppression ([facility]), Long-term use of immunosuppressant medication, Kidney replaced by transplant ([facility]) * CULTURE URINE(Performed 02/21/2022) Performed for Recurrent UTI, Immunosuppression ([facility]), Long-term use of immunosuppressant medication, Kidney replaced by transplant ([facility]) * TACROLIMUS (EXTERNAL RESULT ENTRY)(Performed 02/21/2022) * URINALYSIS (EXTERNAL RESULT ENTRY)(Performed 02/21/2022) * CBC W DIFF (EXTERNAL RESULT ENTRY)(Performed 02/21/2022) * CHEM PROFILE (EXTERNAL RESULT ENTRY)(Performed 02/21/2022) * DIFFERENTIAL MANUAL REFLXED III(Performed 02/06/2022) * CREATININE URINE RANDOM(Performed 02/06/2022) Performed for Recurrent UTI, Immunosuppression ([facility]), Long-term use of immunosuppressant medication, Kidney replaced by transplant ([facility]) * PROTEIN URINE RANDOM QUANTITATIVE(Performed 02/06/2022) Performed for Recurrent UTI, Immunosuppression ([facility]), Long-term use of immunosuppressant medication, Kidney replaced by transplant ([facility]) * URINALYSIS W/MICROSCOPIC NO CULTURE(Performed 02/06/2022) Performed for Recurrent UTI, Immunosuppression ([facility]), Long-term use of immunosuppressant medication, Kidney replaced by transplant ([facility]) * PHOSPHORUS BLOOD(Performed 02/06/2022) Performed for Recurrent UTI, Immunosuppression ([facility]), Long-term use of immunosuppressant medication, Kidney replaced by transplant ([facility]) * MAGNESIUM BLOOD(Performed 02/06/2022) Performed for Recurrent UTI, Immunosuppression ([facility]), Long-term use of immunosuppressant medication, Kidney replaced by transplant ([facility]) * COMPREHENSIVE METABOLIC PANEL(Performed 02/06/2022) Performed for Recurrent UTI, Immunosuppression ([facility]), Long-term use of immunosuppressant medication, Kidney replaced by transplant ([facility]) * CBC W AUTO DIFFERENTIAL(Performed 02/06/2022) Performed for Recurrent UTI, Immunosuppression ([facility]), Long-term use of immunosuppressant medication, Kidney replaced by transplant ([facility]) * TACROLIMUS LEVEL(Performed 02/06/2022) Performed for Recurrent UTI, Immunosuppression ([facility]), Long-term use of immunosuppressant medication, Kidney replaced by transplant ([facility]) * CULTURE URINE(Performed 02/06/2022) Performed for Recurrent UTI, Immunosuppression ([facility]), Long-term use of immunosuppressant medication, Kidney replaced by transplant ([facility]) * DIFFERENTIAL MANUAL REFLXED III(Performed 01/23/2022) * CREATININE URINE RANDOM(Performed 01/23/2022) Performed for Recurrent UTI, Immunosuppression ([facility]), Long-term use of immunosuppressant medication, Kidney replaced by transplant ([facility]) * PROTEIN URINE RANDOM QUANTITATIVE(Performed 01/23/2022) Performed for Recurrent UTI, Immunosuppression ([facility]), Long-term use of immunosuppressant medication, Kidney replaced by transplant ([facility]) * URINALYSIS W/MICROSCOPIC NO CULTURE(Performed 01/23/2022) Performed for Recurrent UTI, Immunosuppression ([facility]), Long-term use of immunosuppressant medication, Kidney replaced by transplant ([facility]) * PHOSPHORUS BLOOD(Performed 01/23/2022) Performed for Recurrent UTI, Immunosuppression ([facility]), Long-term use of immunosuppressant medication, Kidney replaced by transplant ([facility]) * MAGNESIUM BLOOD(Performed 01/23/2022) Performed for Recurrent UTI, Immunosuppression ([facility]), Long-term use of immunosuppressant medication, Kidney replaced by transplant ([facility]) * COMPREHENSIVE METABOLIC PANEL(Performed 01/23/2022) Performed for Recurrent UTI, Immunosuppression ([facility]), Long-term use of immunosuppressant medication, Kidney replaced by transplant ([facility]) * CBC W AUTO DIFFERENTIAL(Performed 01/23/2022) Performed for Recurrent UTI, Immunosuppression ([facility]), Long-term use of immunosuppressant medication, Kidney replaced by transplant ([facility]) * TACROLIMUS LEVEL(Performed 01/23/2022) Performed for Recurrent UTI, Immunosuppression ([facility]), Long-term use of immunosuppressant medication, Kidney replaced by transplant ([facility]) * CULTURE URINE(Performed 01/23/2022) Performed for Recurrent UTI, Immunosuppression ([facility]), Long-term use of immunosuppressant medication, Kidney replaced by transplant ([facility]) * BK VIRUS PCR QUANTITATIVE(Performed 01/10/2022) Performed for Recurrent UTI, Immunosuppression ([facility]), Long-term use of immunosuppressant medication, Kidney replaced by transplant ([facility]), Anemia of chronic renal failure, unspecified CKD stage, Vitamin D deficiency, Chronic kidney disease-mineral and bone disorder, Hyperlipidemia, unspecified hyperl ipidemia type, Hyperparathyroidism ([facility]) * PTH INTACT(Performed 01/10/2022) Performed for Recurrent UTI, Immunosuppression ([facility]), Long-term use of immunosuppressant medication, Kidney replaced by transplant ([facility]), Anemia of chronic renal failure, unspecified CKD stage, Vitamin D deficiency, Chronic kidney disease-mineral and bone disorder, Hyperlipidemia, unspecified hyperl ipidemia type, Hyperparathyroidism ([facility]) * DIFFERENTIAL MANUAL REFLXED III(Performed 01/10/2022) * CYTOMEGALOVIRUS QUANT BLOOD(Performed 01/10/2022) Performed for Recurrent UTI, Immunosuppression ([facility]), Long-term use of immunosuppressant medication, Kidney replaced by transplant ([facility]), Anemia of chronic renal failure, unspecified CKD stage, Vitamin D deficiency, Chronic kidney disease-mineral and bone disorder, Hyperlipidemia, unspecified hyperl ipidemia type, Hyperparathyroidism ([facility]) * CREATININE URINE RANDOM(Performed 01/10/2022) Performed for Recurrent UTI, Immunosuppression ([facility]), Long-term use of immunosuppressant medication, Kidney replaced by transplant ([facility]), Anemia of chronic renal failure, unspecified CKD stage, Vitamin D deficiency, Chronic kidney disease-mineral and bone disorder, Hyperlipidemia, unspecified hyperl ipidemia type, Hyperparathyroidism ([facility]) * PROTEIN URINE RANDOM QUANTITATIVE(Performed 01/10/2022) Performed for Recurrent UTI, Immunosuppression ([facility]), Long-term use of immunosuppressant medication, Kidney replaced by transplant ([facility]), Anemia of chronic renal failure, unspecified CKD stage, Vitamin D deficiency, Chronic kidney disease-mineral and bone disorder, Hyperlipidemia, unspecified hyperl ipidemia type, Hyperparathyroidism ([facility]) * URINALYSIS W/MICROSCOPIC NO CULTURE(Performed 01/10/2022) Performed for Recurrent UTI, Immunosuppression ([facility]), Long-term use of immunosuppressant medication, Kidney replaced by transplant ([facility]), Anemia of chronic renal failure, unspecified CKD stage, Vitamin D deficiency, Chronic kidney disease-mineral and bone disorder, Hyperlipidemia, unspecified hyperl ipidemia type, Hyperparathyroidism ([facility]) * PHOSPHORUS BLOOD(Performed 01/10/2022) Performed for Recurrent UTI, Immunosuppression ([facility]), Long-term use of immunosuppressant medication, Kidney replaced by transplant ([facility]), Anemia of chronic renal failure, unspecified CKD stage, Vitamin D deficiency, Chronic kidney disease-mineral and bone disorder, Hyperlipidemia, unspecified hyperl ipidemia type, Hyperparathyroidism ([facility]) * MAGNESIUM BLOOD(Performed 01/10/2022) Performed for Recurrent UTI, Immunosuppression ([facility]), Long-term use of immunosuppressant medication, Kidney replaced by transplant ([facility]), Anemia of chronic renal failure, unspecified CKD stage, Vitamin D deficiency, Chronic kidney disease-mineral and bone disorder, Hyperlipidemia, unspecified hyperl ipidemia type, Hyperparathyroidism ([facility]) * COMPREHENSIVE METABOLIC PANEL(Performed 01/10/2022) Performed for Recurrent UTI, Immunosuppression ([facility]), Long-term use of immunosuppressant medication, Kidney replaced by transplant ([facility]), Anemia of chronic renal failure, unspecified CKD stage, Vitamin D deficiency, Chronic kidney disease-mineral and bone disorder, Hyperlipidemia, unspecified hyperl ipidemia type, Hyperparathyroidism ([facility]) * CBC W AUTO DIFFERENTIAL(Performed 01/10/2022) Performed for Recurrent UTI, Immunosuppression ([facility]), Long-term use of immunosuppressant medication, Kidney replaced by transplant ([facility]), Anemia of chronic renal failure, unspecified CKD stage, Vitamin D deficiency, Chronic kidney disease-mineral and bone disorder, Hyperlipidemia, unspecified hyperl ipidemia type, Hyperparathyroidism ([facility]) * TACROLIMUS LEVEL(Performed 01/10/2022) Performed for Recurrent UTI, Immunosuppression ([facility]), Long-term use of immunosuppressant medication, Kidney replaced by transplant ([facility]), Anemia of chronic renal failure, unspecified CKD stage, Vitamin D deficiency, Chronic kidney disease-mineral and bone disorder, Hyperlipidemia, unspecified hyperl ipidemia type, Hyperparathyroidism ([facility]) * CULTURE URINE(Performed 01/10/2022) Performed for Recurrent UTI, Immunosuppression ([facility]), Long-term use of immunosuppressant medication, Kidney replaced by transplant ([facility]), Anemia of chronic renal failure, unspecified CKD stage, Vitamin D deficiency, Chronic kidney disease-mineral and bone disorder, Hyperlipidemia, unspecified hyperl ipidemia type, Hyperparathyroidism ([facility]) * BK VIRUS DNA PCR (EXTERNAL RESULT ENTRY)(Performed 01/10/2022) * CMV DNA PCR (EXTERNAL RESULT ENTRY)(Performed 01/10/2022) * TACROLIMUS (EXTERNAL RESULT ENTRY)(Performed 01/10/2022) * URINALYSIS (EXTERNAL RESULT ENTRY)(Performed 01/10/2022) * CBC W DIFF (EXTERNAL RESULT ENTRY)(Performed 01/10/2022) * PROTEIN RANDOM UR (EXTERNAL RESULT ENTRY)(Performed 01/10/2022) * CREATININE BLOOD (EXTERNAL RESULT ENTRY)(Performed 01/10/2022) * CHEM PROFILE (EXTERNAL RESULT ENTRY)(Performed 01/10/2022) * PTH (EXTERNAL RESULT ENTRY)(Performed 01/10/2022) * DIFFERENTIAL MANUAL REFLXED III(Performed 01/02/2022) * PROTEIN URINE RANDOM QUANTITATIVE(Performed 01/02/2022) Performed for Recurrent UTI, Immunosuppression ([facility]), Long-term use of immunosuppressant medication, Kidney replaced by transplant ([facility]), Anemia of chronic renal failure, unspecified CKD stage, Vitamin D deficiency, Chronic kidney disease-mineral and bone disorder, Hyperlipidemia, unspecified hyperl ipidemia type, Hyperparathyroidism ([facility]) * URINALYSIS W/MICROSCOPIC NO CULTURE(Performed 01/02/2022) Performed for Recurrent UTI, Immunosuppression ([facility]), Long-term use of immunosuppressant medication, Kidney replaced by transplant ([facility]), Anemia of chronic renal failure, unspecified CKD stage, Vitamin D deficiency, Chronic kidney disease-mineral and bone disorder, Hyperlipidemia, unspecified hyperl ipidemia type, Hyperparathyroidism ([facility]) * PHOSPHORUS BLOOD(Performed 01/02/2022) Performed for Recurrent UTI, Immunosuppression ([facility]), Long-term use of immunosuppressant medication, Kidney replaced by transplant ([facility]), Anemia of chronic renal failure, unspecified CKD stage, Vitamin D deficiency, Chronic kidney disease-mineral and bone disorder, Hyperlipidemia, unspecified hyperl ipidemia type, Hyperparathyroidism ([facility]) * COMPREHENSIVE METABOLIC PANEL(Performed 01/02/2022) Performed for Recurrent UTI, Immunosuppression ([facility]), Long-term use of immunosuppressant medication, Kidney replaced by transplant ([facility]), Anemia of chronic renal failure, unspecified CKD stage, Vitamin D deficiency, Chronic kidney disease-mineral and bone disorder, Hyperlipidemia, unspecified hyperl ipidemia type, Hyperparathyroidism ([facility]) * CBC W AUTO DIFFERENTIAL(Performed 01/02/2022) Performed for Recurrent UTI, Immunosuppression ([facility]), Long-term use of immunosuppressant medication, Kidney replaced by transplant ([facility]), Anemia of chronic renal failure, unspecified CKD stage, Vitamin D deficiency, Chronic kidney disease-mineral and bone disorder, Hyperlipidemia, unspecified hyperl ipidemia type, Hyperparathyroidism ([facility]) * TACROLIMUS LEVEL(Performed 01/02/2022) Performed for Recurrent UTI, Immunosuppression ([facility]), Long-term use of immunosuppressant medication, Kidney replaced by transplant ([facility]), Anemia of chronic renal failure, unspecified CKD stage, Vitamin D deficiency, Chronic kidney disease-mineral and bone disorder, Hyperlipidemia, unspecified hyperl ipidemia type, Hyperparathyroidism ([facility]) * CREATININE URINE RANDOM(Performed 01/02/2022) Performed for Recurrent UTI, Immunosuppression ([facility]), Long-term use of immunosuppressant medication, Kidney replaced by transplant ([facility]), Anemia of chronic renal failure, unspecified CKD stage, Vitamin D deficiency, Chronic kidney disease-mineral and bone disorder, Hyperlipidemia, unspecified hyperl ipidemia type, Hyperparathyroidism ([facility]) * MAGNESIUM BLOOD(Performed 01/02/2022) Performed for Recurrent UTI, Immunosuppression ([facility]), Long-term use of immunosuppressant medication, Kidney replaced by transplant ([facility]), Anemia of chronic renal failure, unspecified CKD stage, Vitamin D deficiency, Chronic kidney disease-mineral and bone disorder, Hyperlipidemia, unspecified hyperl ipidemia type, Hyperparathyroidism ([facility]) * CULTURE URINE(Performed 01/02/2022) Performed for Recurrent UTI, Immunosuppression ([facility]), Long-term use of immunosuppressant medication, Kidney replaced by transplant ([facility]), Anemia of chronic renal failure, unspecified CKD stage, Vitamin D deficiency, Chronic kidney disease-mineral and bone disorder, Hyperlipidemia, unspecified hyperl ipidemia type, Hyperparathyroidism ([facility]) * TACROLIMUS (EXTERNAL RESULT ENTRY)(Performed 12/26/2021) * URINALYSIS (EXTERNAL RESULT ENTRY)(Performed 12/26/2021) * CBC W DIFF (EXTERNAL RESULT ENTRY)(Performed 12/26/2021) * PROTEIN RANDOM UR (EXTERNAL RESULT ENTRY)(Performed 12/26/2021) * CREATININE RAND UR (EXTERNAL RESULT ENTRY)(Performed 12/26/2021) * CHEM PROFILE (EXTERNAL RESULT ENTRY)(Performed 12/26/2021) * VITAMIN D HYDROXY (EXTERNAL RESULT)(Performed 12/21/2021) * TACROLIMUS (EXTERNAL RESULT ENTRY)(Performed 12/21/2021) * URINALYSIS (EXTERNAL RESULT ENTRY)(Performed 12/21/2021) * CBC W DIFF (EXTERNAL RESULT ENTRY)(Performed 12/21/2021) * PROTEIN RANDOM UR (EXTERNAL RESULT ENTRY)(Performed 12/21/2021) * CREATININE RAND UR (EXTERNAL RESULT ENTRY)(Performed 12/21/2021) * PTH (EXTERNAL RESULT ENTRY)(Performed 12/21/2021) * HEMOGLOBIN A1C (EXTERNAL RESULT ENTRY)(Performed 12/21/2021) * CHEM PROFILE (EXTERNAL RESULT ENTRY)(Performed 12/21/2021) * LIPID PROFILE (EXTERAL RESULT ENTRY)(Performed 12/21/2021) * HEMOGLOBIN A1C (EXTERNAL RESULT ENTRY)(Performed 12/12/2021) * CMV DNA PCR (EXTERNAL RESULT ENTRY)(Performed 12/12/2021) * VITAMIN D HYDROXY (EXTERNAL RESULT)(Performed 12/12/2021) * BK VIRUS DNA PCR (EXTERNAL RESULT ENTRY)(Performed 12/12/2021) * TACROLIMUS (EXTERNAL RESULT ENTRY)(Performed 12/12/2021) * URINALYSIS (EXTERNAL RESULT ENTRY)(Performed 12/12/2021) * CBC W DIFF (EXTERNAL RESULT ENTRY)(Performed 12/12/2021) * PROTEIN RANDOM UR (EXTERNAL RESULT ENTRY)(Performed 12/12/2021) * CREATININE RAND UR (EXTERNAL RESULT ENTRY)(Performed 12/12/2021) * PTH (EXTERNAL RESULT ENTRY)(Performed 12/12/2021) * CHEM PROFILE (EXTERNAL RESULT ENTRY)(Performed 12/12/2021) * LIPID PROFILE (EXTERAL RESULT ENTRY)(Performed 12/12/2021) * CMV DNA PCR (EXTERNAL RESULT ENTRY)(Performed 12/05/2021) * VITAMIN D HYDROXY (EXTERNAL RESULT)(Performed 12/05/2021) * BK VIRUS DNA PCR (EXTERNAL RESULT ENTRY)(Performed 12/05/2021) * TACROLIMUS (EXTERNAL RESULT ENTRY)(Performed 12/05/2021) * URINALYSIS (EXTERNAL RESULT ENTRY)(Performed 12/05/2021) * PTH (EXTERNAL RESULT ENTRY)(Performed 12/05/2021) * PROTEIN RANDOM UR (EXTERNAL RESULT ENTRY)(Performed 12/05/2021) * CREATININE RAND UR (EXTERNAL RESULT ENTRY)(Performed 12/05/2021) * CBC W DIFF (EXTERNAL RESULT ENTRY)(Performed 12/05/2021) * HEMOGLOBIN A1C (EXTERNAL RESULT ENTRY)(Performed 12/05/2021) * CHEM PROFILE (EXTERNAL RESULT ENTRY)(Performed 12/05/2021) * LIPID PROFILE (EXTERAL RESULT ENTRY)(Performed 12/05/2021) * VITAMIN D HYDROXY (EXTERNAL RESULT)(Performed 11/28/2021) * TACROLIMUS (EXTERNAL RESULT ENTRY)(Performed 11/28/2021) * URINALYSIS (EXTERNAL RESULT ENTRY)(Performed 11/28/2021) * CBC W DIFF (EXTERNAL RESULT ENTRY)(Performed 11/28/2021) * PROTEIN RANDOM UR (EXTERNAL RESULT ENTRY)(Performed 11/28/2021) * CREATININE RAND UR (EXTERNAL RESULT ENTRY)(Performed 11/28/2021) * PTH (EXTERNAL RESULT ENTRY)(Performed 11/28/2021) * HEMOGLOBIN A1C (EXTERNAL RESULT ENTRY)(Performed 11/28/2021) * CHEM PROFILE (EXTERNAL RESULT ENTRY)(Performed 11/28/2021) * LIPID PROFILE (EXTERAL RESULT ENTRY)(Performed 11/28/2021) * VITAMIN D HYDROXY (EXTERNAL RESULT)(Performed 11/22/2021) * TACROLIMUS (EXTERNAL RESULT ENTRY)(Performed 11/22/2021) * URINALYSIS (EXTERNAL RESULT ENTRY)(Performed 11/22/2021) * CBC W DIFF (EXTERNAL RESULT ENTRY)(Performed 11/22/2021) * PROTEIN RANDOM UR (EXTERNAL RESULT ENTRY)(Performed 11/22/2021) * CREATININE RAND UR (EXTERNAL RESULT ENTRY)(Performed 11/22/2021) * PTH (EXTERNAL RESULT ENTRY)(Performed 11/22/2021) * HEMOGLOBIN A1C (EXTERNAL RESULT ENTRY)(Performed 11/22/2021) * CHEM PROFILE (EXTERNAL RESULT ENTRY)(Performed 11/22/2021) * LIPID PROFILE (EXTERAL RESULT ENTRY)(Performed 11/22/2021) * CMV DNA PCR (EXTERNAL RESULT ENTRY)(Performed 11/14/2021) * VITAMIN D HYDROXY (EXTERNAL RESULT)(Performed 11/14/2021) * BK VIRUS DNA PCR (EXTERNAL RESULT ENTRY)(Performed 11/14/2021) * TACROLIMUS (EXTERNAL RESULT ENTRY)(Performed 11/14/2021) * URINALYSIS (EXTERNAL RESULT ENTRY)(Performed 11/14/2021) * CBC W DIFF (EXTERNAL RESULT ENTRY)(Performed 11/14/2021) * PROTEIN RANDOM UR (EXTERNAL RESULT ENTRY)(Performed 11/14/2021) * CREATININE RAND UR (EXTERNAL RESULT ENTRY)(Performed 11/14/2021) * PTH (EXTERNAL RESULT ENTRY)(Performed 11/14/2021) * HEMOGLOBIN A1C (EXTERNAL RESULT ENTRY)(Performed 11/14/2021) * CHEM PROFILE (EXTERNAL RESULT ENTRY)(Performed 11/14/2021) * LIPID PROFILE (EXTERAL RESULT ENTRY)(Performed 11/14/2021) * PROTEIN URINE RANDOM QUANTITATIVE(Performed 11/14/2021) Performed for Recurrent UTI, Immunosuppression ([facility]LY [facility]), Long-term use of immunosuppressant medication, Kidney replaced by transplant ([facility]), Anemia of chronic renal failure, unspecified CKD stage, Vitamin D deficiency, Chronic kidney disease-mineral and bone disorder, Hyperlipidemia, unspecified hyperl ipidemia type, Hyperparathyroidism ([facility]) * CMV DNA PCR (EXTERNAL RESULT ENTRY)(Performed 11/10/2021) * VITAMIN D HYDROXY (EXTERNAL RESULT)(Performed 11/10/2021) * BK VIRUS DNA PCR (EXTERNAL RESULT ENTRY)(Performed 11/10/2021) * TACROLIMUS (EXTERNAL RESULT ENTRY)(Performed 11/10/2021) * URINALYSIS (EXTERNAL RESULT ENTRY)(Performed 11/10/2021) * CBC W DIFF (EXTERNAL RESULT ENTRY)(Performed 11/10/2021) * PROTEIN RANDOM UR (EXTERNAL RESULT ENTRY)(Performed 11/10/2021) * CREATININE RAND UR (EXTERNAL RESULT ENTRY)(Performed 11/10/2021) * PTH (EXTERNAL RESULT ENTRY)(Performed 11/10/2021) * HEMOGLOBIN A1C (EXTERNAL RESULT ENTRY)(Performed 11/10/2021) * CHEM PROFILE (EXTERNAL RESULT ENTRY)(Performed 11/10/2021) * LIPID PROFILE (EXTERAL RESULT ENTRY)(Performed 11/10/2021) * VITAMIN D HYDROXY (EXTERNAL RESULT)(Performed 11/07/2021) * TACROLIMUS (EXTERNAL RESULT ENTRY)(Performed 11/07/2021) * URINALYSIS (EXTERNAL RESULT ENTRY)(Performed 11/07/2021) * CBC W DIFF (EXTERNAL RESULT ENTRY)(Performed 11/07/2021) * CREATININE RAND UR (EXTERNAL RESULT ENTRY)(Performed 11/07/2021) * PROTEIN RANDOM UR (EXTERNAL RESULT ENTRY)(Performed 11/07/2021) * PTH (EXTERNAL RESULT ENTRY)(Performed 11/07/2021) * HEMOGLOBIN A1C (EXTERNAL RESULT ENTRY)(Performed 11/07/2021) * CHEM PROFILE (EXTERNAL RESULT ENTRY)(Performed 11/07/2021) * LIPID PROFILE (EXTERAL RESULT ENTRY)(Performed 11/07/2021) * CMV DNA PCR (EXTERNAL RESULT ENTRY)(Performed 11/03/2021) * VITAMIN D HYDROXY (EXTERNAL RESULT)(Performed 11/03/2021) * BK VIRUS DNA PCR (EXTERNAL RESULT ENTRY)(Performed 11/03/2021) * TACROLIMUS (EXTERNAL RESULT ENTRY)(Performed 11/03/2021) * URINALYSIS (EXTERNAL RESULT ENTRY)(Performed 11/03/2021) * CBC W DIFF (EXTERNAL RESULT ENTRY)(Performed 11/03/2021) * PROTEIN RANDOM UR (EXTERNAL RESULT ENTRY)(Performed 11/03/2021) * CREATININE RAND UR (EXTERNAL RESULT ENTRY)(Performed 11/03/2021) * PTH (EXTERNAL RESULT ENTRY)(Performed 11/03/2021) * HEMOGLOBIN A1C (EXTERNAL RESULT ENTRY)(Performed 11/03/2021) * CHEM PROFILE (EXTERNAL RESULT ENTRY)(Performed 11/03/2021) * LIPID PROFILE (EXTERAL RESULT ENTRY)(Performed 11/03/2021) * ME CYSTOSCOPY,REMV CALCULUS,SIMPLE(Performed 11/02/2021) Performed for Kidney transplant recipient (HCC) * CMV DNA PCR (EXTERNAL RESULT ENTRY)(Performed 10/31/2021) * VITAMIN D HYDROXY (EXTERNAL RESULT)(Performed 10/31/2021) * BK VIRUS DNA PCR (EXTERNAL RESULT ENTRY)(Performed 10/31/2021) * TACROLIMUS (EXTERNAL RESULT ENTRY)(Performed 10/31/2021) * URINALYSIS (EXTERNAL RESULT ENTRY)(Performed 10/31/2021) * CBC W DIFF (EXTERNAL RESULT ENTRY)(Performed 10/31/2021) * PROTEIN RANDOM UR (EXTERNAL RESULT ENTRY)(Performed 10/31/2021) * CREATININE RAND UR (EXTERNAL RESULT ENTRY)(Performed 10/31/2021) * PTH (EXTERNAL RESULT ENTRY)(Performed 10/31/2021) * HEMOGLOBIN A1C (EXTERNAL RESULT ENTRY)(Performed 10/31/2021) * CHEM PROFILE (EXTERNAL RESULT ENTRY)(Performed 10/31/2021) * LIPID PROFILE (EXTERAL RESULT ENTRY)(Performed 10/31/2021) * CMV DNA PCR (EXTERNAL RESULT ENTRY)(Performed 10/27/2021) * VITAMIN D HYDROXY (EXTERNAL RESULT)(Performed 10/27/2021) * BK VIRUS DNA PCR (EXTERNAL RESULT ENTRY)(Performed 10/27/2021) * TACROLIMUS (EXTERNAL RESULT ENTRY)(Performed 10/27/2021) * URINALYSIS (EXTERNAL RESULT ENTRY)(Performed 10/27/2021) * CBC W DIFF (EXTERNAL RESULT ENTRY)(Performed 10/27/2021) * CREATININE RAND UR (EXTERNAL RESULT ENTRY)(Performed 10/27/2021) * PROTEIN RANDOM UR (EXTERNAL RESULT ENTRY)(Performed 10/27/2021) * PTH (EXTERNAL RESULT ENTRY)(Performed 10/27/2021) * HEMOGLOBIN A1C (EXTERNAL RESULT ENTRY)(Performed 10/27/2021) * CHEM PROFILE (EXTERNAL RESULT ENTRY)(Performed 10/27/2021) * LIPID PROFILE (EXTERAL RESULT ENTRY)(Performed 10/27/2021) * URINALYSIS (EXTERNAL RESULT ENTRY)(Performed 10/27/2021) * CBC W DIFF (EXTERNAL RESULT ENTRY)(Performed 10/27/2021) * VITAMIN D HYDROXY (EXTERNAL RESULT)(Performed 10/24/2021) * TACROLIMUS (EXTERNAL RESULT ENTRY)(Performed 10/24/2021) * URINALYSIS (EXTERNAL RESULT ENTRY)(Performed 10/24/2021) * CBC W DIFF (EXTERNAL RESULT ENTRY)(Performed 10/24/2021) * PROTEIN RANDOM UR (EXTERNAL RESULT ENTRY)(Performed 10/24/2021) * CREATININE RAND UR (EXTERNAL RESULT ENTRY)(Performed 10/24/2021) * PTH (EXTERNAL RESULT ENTRY)(Performed 10/24/2021) * HEMOGLOBIN A1C (EXTERNAL RESULT ENTRY)(Performed 10/24/2021) * CHEM PROFILE (EXTERNAL RESULT ENTRY)(Performed 10/24/2021) * LIPID PROFILE (EXTERAL RESULT ENTRY)(Performed 10/24/2021) * CMV DNA PCR (EXTERNAL RESULT ENTRY)(Performed 10/20/2021) * VITAMIN D HYDROXY (EXTERNAL RESULT)(Performed 10/20/2021) * BK VIRUS DNA PCR (EXTERNAL RESULT ENTRY)(Performed 10/20/2021) * TACROLIMUS (EXTERNAL RESULT ENTRY)(Performed 10/20/2021) * URINALYSIS (EXTERNAL RESULT ENTRY)(Performed 10/20/2021) * CBC W DIFF (EXTERNAL RESULT ENTRY)(Performed 10/20/2021) * CREATININE RAND UR (EXTERNAL RESULT ENTRY)(Performed 10/20/2021) * PROTEIN RANDOM UR (EXTERNAL RESULT ENTRY)(Performed 10/20/2021) * PTH (EXTERNAL RESULT ENTRY)(Performed 10/20/2021) * HEMOGLOBIN A1C (EXTERNAL RESULT ENTRY)(Performed 10/20/2021) * CHEM PROFILE (EXTERNAL RESULT ENTRY)(Performed 10/20/2021) * LIPID PROFILE (EXTERAL RESULT ENTRY)(Performed 10/20/2021) * HEMOGLOBIN A1C (EXTERNAL RESULT ENTRY)(Performed 10/18/2021) * CMV DNA PCR (EXTERNAL RESULT ENTRY)(Performed 10/18/2021) * VITAMIN D HYDROXY (EXTERNAL RESULT)(Performed 10/18/2021) * BK VIRUS DNA PCR (EXTERNAL RESULT ENTRY)(Performed 10/18/2021) * TACROLIMUS (EXTERNAL RESULT ENTRY)(Performed 10/18/2021) * URINALYSIS (EXTERNAL RESULT ENTRY)(Performed 10/18/2021) * CBC W DIFF (EXTERNAL RESULT ENTRY)(Performed 10/18/2021) * PROTEIN RANDOM UR (EXTERNAL RESULT ENTRY)(Performed 10/18/2021) * CREATININE RAND UR (EXTERNAL RESULT ENTRY)(Performed 10/18/2021) * PTH (EXTERNAL RESULT ENTRY)(Performed 10/18/2021) * CHEM PROFILE (EXTERNAL RESULT ENTRY)(Performed 10/18/2021) * LIPID PROFILE (EXTERAL RESULT ENTRY)(Performed 10/18/2021) * HEMOGLOBIN A1C (EXTERNAL RESULT ENTRY)(Performed 10/13/2021) * TACROLIMUS (EXTERNAL RESULT ENTRY)(Performed 10/13/2021) * URINALYSIS (EXTERNAL RESULT ENTRY)(Performed 10/13/2021) * CBC W DIFF (EXTERNAL RESULT ENTRY)(Performed 10/13/2021) * CHEM PROFILE (EXTERNAL RESULT ENTRY)(Performed 10/13/2021) * HEMOGLOBIN A1C (EXTERNAL RESULT ENTRY)(Performed 10/13/2021) * URINALYSIS (EXTERNAL RESULT ENTRY)(Performed 10/13/2021) * CBC W DIFF (EXTERNAL RESULT ENTRY)(Performed 10/13/2021) * CHEM PROFILE (EXTERNAL RESULT ENTRY)(Performed 10/13/2021) * TACROLIMUS (EXTERNAL RESULT ENTRY)(Performed 10/11/2021) * URINALYSIS (EXTERNAL RESULT ENTRY)(Performed 10/11/2021) * CBC W DIFF (EXTERNAL RESULT ENTRY)(Performed 10/11/2021) * PROTEIN RANDOM UR (EXTERNAL RESULT ENTRY)(Performed 10/11/2021) * CREATININE RAND UR (EXTERNAL RESULT ENTRY)(Performed 10/11/2021) * CHEM PROFILE (EXTERNAL RESULT ENTRY)(Performed 10/11/2021) * URINALYSIS (EXTERNAL RESULT ENTRY)(Performed 10/06/2021) * CBC W DIFF (EXTERNAL RESULT ENTRY)(Performed 10/06/2021) * CHEM PROFILE (EXTERNAL RESULT ENTRY)(Performed 10/06/2021) * TACROLIMUS (EXTERNAL RESULT ENTRY)(Performed 10/03/2021) * URINALYSIS (EXTERNAL RESULT ENTRY)(Performed 10/03/2021) * PROTEIN RANDOM UR (EXTERNAL RESULT ENTRY)(Performed 10/03/2021) * CREATININE RAND UR (EXTERNAL RESULT ENTRY)(Performed 10/03/2021) * CBC W DIFF (EXTERNAL RESULT ENTRY)(Performed 10/03/2021) * CHEM PROFILE (EXTERNAL RESULT ENTRY)(Performed 10/03/2021) * DIFFERENTIAL MANUAL FLUID(Performed 09/30/2021) Performed for Perinephric fluid collection of kidney transplant ([facility]LY [facility]) * PH BODY FLUID ([facility] ONLY)(Performed 09/30/2021) Performed for Perinephric fluid collection of kidney transplant ([facility]) * CREATININE BODY FLUID(Performed 09/30/2021) Performed for Perinephric fluid collection of kidney transplant ([facility]) * CELL COUNT W DIFFERENTIAL FLUID(Performed 09/30/2021) Performed for Perinephric fluid collection of kidney transplant ([facility]) * TRIGLYCERIDES BODY FLUID(Performed 09/30/2021) Performed for Perinephric fluid collection of kidney transplant ([facility]) * CULTURE FLUID+GRAM STAIN(Performed 09/30/2021) Performed for Perinephric fluid collection of kidney transplant ([facility]) * IR DRAIN W CATH PLACEMENT(Performed 09/30/2021) Performed for S/P living-donor kidney transplantation ([facility]) * US RENAL TRANSPLANT(Performed 09/29/2021) Performed for Acute renal failure, unspecified acute renal failure type ([facility]), Kidney replaced by transplant ([facility]) * PTH INTACT W/O CALCIUM(Performed 09/29/2021) Performed for Kidney replaced by transplant ([facility]) * CYTOMEGALOVIRUS (CMV) QUANTITATIVE PLASMA(Performed 09/29/2021) Performed for Immunosuppressive management encounter following kidney transplant ([facility]), Kidney replaced by transplant ([facility]) * BK VIRUS PCR QUANT BLOOD STL(Performed 09/29/2021) Performed for Immunosuppressive management encounter following kidney transplant ([facility]), Kidney replaced by transplant ([facility]) * URIC ACID BLOOD(Performed 09/29/2021) Performed for Recurrent UTI, Immunosuppression ([facility]), Long-term use of immunosuppressant medication, Kidney replaced by transplant ([facility]), Vitamin D deficiency, Chronic kidney disease-mineral and bonedisorder, Hyperlipidemia, unspecified hyperlipidemia type, Hyperparathyroidism ([facility]) * VITAMIN D 25-HYDROXY(Performed 09/29/2021) Performed for Recurrent UTI, Immunosuppression ([facility]), Long-term use of immunosuppressant medication, Kidney replaced by transplant ([facility]), Vitamin D deficiency, Chronic kidney disease-mineral and bonedisorder, Hyperlipidemia, unspecified hyperlipidemia type, Hyperparathyroidism ([facility]) * LIPID PROFILE(Performed 09/29/2021) Performed for Recurrent UTI, Immunosuppression ([facility]), Long-term use of immunosuppressant medication, Kidney replaced by transplant ([facility]), Vitamin D deficiency, Chronic kidney disease-mineral and bonedisorder, Hyperlipidemia, unspecified hyperlipidemia type, Hyperparathyroidism ([facility]) * PHOSPHORUS BLOOD(Performed 09/29/2021) Performed for Recurrent UTI, Immunosuppression ([facility]), Long-term use of immunosuppressant medication, Kidney replaced by transplant ([facility]) * MAGNESIUM BLOOD(Performed 09/29/2021) Performed for Recurrent UTI, Immunosuppression ([facility]), Long-term use of immunosuppressant medication, Kidney replaced by transplant ([facility]) * COMPREHENSIVE METABOLIC PANEL(Performed 09/29/2021) Performed for Recurrent UTI, Immunosuppression ([facility]), Long-term use of immunosuppressant medication, Kidney replaced by transplant ([facility]) * CBC W AUTO DIFFERENTIAL(Performed 09/29/2021) Performed for Recurrent UTI, Immunosuppression ([facility]), Long-term use of immunosuppressant medication, Kidney replaced by transplant ([facility]) * TACROLIMUS LEVEL(Performed 09/29/2021) Performed for Recurrent UTI, Immunosuppression ([facility]), Long-term use of immunosuppressant medication, Kidney replaced by transplant ([facility]) * CREATININE URINE RANDOM(Performed 09/29/2021) Performed for Recurrent UTI, Immunosuppression ([facility]), Long-term use of immunosuppressant medication, Kidney replaced by transplant ([facility]) * PROTEIN URINE RANDOM QUANTITATIVE(Performed 09/29/2021) Performed for Recurrent UTI, Immunosuppression ([facility]), Long-term use of immunosuppressant medication, Kidney replaced by transplant ([facility]) * URINALYSIS W/MICROSCOPIC NO CULTURE(Performed 09/29/2021) Performed for Recurrent UTI, Immunosuppression ([facility]), Long-term use of immunosuppressant medication, Kidney replaced by transplant ([facility]) * CULTURE URINE(Performed 09/29/2021) Performed for Recurrent UTI, Immunosuppression ([facility]), Long-term use of immunosuppressant medication, Kidney replaced by transplant ([facility]) * TACROLIMUS LEVEL(Performed 09/27/2021) Performed for Kidney replaced by transplant ([facility]), Immunosuppressive management encounter followingkidney transplant ([facility]) * TACROLIMUS (EXTERNAL RESULT ENTRY)(Performed 09/26/2021) * URINALYSIS (EXTERNAL RESULT ENTRY)(Performed 09/26/2021) * CBC W DIFF (EXTERNAL RESULT ENTRY)(Performed 09/26/2021) * PROTEIN RANDOM UR (EXTERNAL RESULT ENTRY)(Performed 09/26/2021) * CREATININE RAND UR (EXTERNAL RESULT ENTRY)(Performed 09/26/2021) * CHEM PROFILE (EXTERNAL RESULT ENTRY)(Performed 09/26/2021) * URINALYSIS (EXTERNAL RESULT ENTRY)(Performed 09/22/2021) * CBC W DIFF (EXTERNAL RESULT ENTRY)(Performed 09/22/2021) * PROTEIN RANDOM UR (EXTERNAL RESULT ENTRY)(Performed 09/22/2021) * CREATININE RAND UR (EXTERNAL RESULT ENTRY)(Performed 09/22/2021) * CHEM PROFILE (EXTERNAL RESULT ENTRY)(Performed 09/22/2021) * CARDIAC EKG ORDER(Performed 09/20/2021) * GLUCOSE - POINT OF CARE(Performed 09/19/2021) * GLUCOSE - POINT OF CARE(Performed 09/19/2021) * BASIC METABOLIC PANEL (CALCIUM TOTAL)(Performed 09/19/2021) * PHOSPHORUS BLOOD(Performed 09/19/2021) * MAGNESIUM BLOOD(Performed 09/19/2021) * CBC W AUTO DIFFERENTIAL(Performed 09/19/2021) * TACROLIMUS LEVEL(Performed 09/19/2021) * CALCIUM IONIZED WHOLE BLOOD(Performed 09/19/2021) * GLUCOSE - POINT OF CARE(Performed 09/19/2021) * GLUCOSE - POINT OF CARE(Performed 09/18/2021) * GLUCOSE - POINT OF CARE(Performed 09/18/2021) * PHOSPHORUS BLOOD(Performed 09/18/2021) * GLUCOSE - POINT OF CARE(Performed 09/18/2021) * GLUCOSE - POINT OF CARE(Performed 09/18/2021) * BASIC METABOLIC PANEL (CALCIUM TOTAL)(Performed 09/18/2021) * PHOSPHORUS BLOOD(Performed 09/18/2021) * MAGNESIUM BLOOD(Performed 09/18/2021) * CBC W AUTO DIFFERENTIAL(Performed 09/18/2021) * TACROLIMUS LEVEL(Performed 09/18/2021) * CALCIUM IONIZED WHOLE BLOOD(Performed 09/18/2021) * GLUCOSE - POINT OF CARE(Performed 09/18/2021) * GLUCOSE - POINT OF CARE(Performed 09/17/2021) * GLUCOSE - POINT OF CARE(Performed 09/17/2021) * PHOSPHORUS BLOOD(Performed 09/17/2021) * GLUCOSE - POINT OF CARE(Performed 09/17/2021) * CULTURE BLOOD(Performed 09/17/2021) * GLUCOSE - POINT OF CARE(Performed 09/17/2021) * BASIC METABOLIC PANEL (CALCIUM TOTAL)(Performed 09/17/2021) * PHOSPHORUS BLOOD(Performed 09/17/2021) * MAGNESIUM BLOOD(Performed 09/17/2021) * CBC W AUTO DIFFERENTIAL(Performed 09/17/2021) * TACROLIMUS LEVEL(Performed 09/17/2021) * CALCIUM IONIZED WHOLE BLOOD(Performed 09/17/2021) * CULTURE BLOOD(Performed 09/17/2021) * GLUCOSE - POINT OF CARE(Performed 09/17/2021) * PHOSPHORUS BLOOD(Performed 09/16/2021) * GLUCOSE - POINT OF CARE(Performed 09/16/2021) * GLUCOSE - POINT OF CARE(Performed 09/16/2021) * GLUCOSE - POINT OF CARE(Performed 09/16/2021) * BASIC METABOLIC PANEL (CALCIUM TOTAL)(Performed 09/16/2021) * PHOSPHORUS BLOOD(Performed 09/16/2021) * MAGNESIUM BLOOD(Performed 09/16/2021) * CBC W AUTO DIFFERENTIAL(Performed 09/16/2021) * TACROLIMUS LEVEL(Performed 09/16/2021) * CALCIUM IONIZED WHOLE BLOOD(Performed 09/16/2021) * GLUCOSE - POINT OF CARE(Performed 09/16/2021) * GLUCOSE - POINT OF CARE(Performed 09/15/2021) * PT EVAL AND TREAT(Performed 09/15/2021) * OT EVAL AND TREAT(Performed 09/15/2021) * GLUCOSE - POINT OF CARE(Performed 09/15/2021) * PT EVAL AND TREAT(Performed 09/15/2021) * OT EVAL AND TREAT(Performed 09/15/2021) * GLUCOSE - POINT OF CARE(Performed 09/15/2021) * MAGNESIUM BLOOD(Performed 09/15/2021) * CBC W AUTO DIFFERENTIAL(Performed 09/15/2021) * BASIC METABOLIC PANEL (CALCIUM TOTAL)(Performed 09/15/2021) Performed for S/P living-donor kidney transplantation (HCC) * PHOSPHORUS BLOOD(Performed 09/15/2021) * GLUCOSE - POINT OF CARE(Performed 09/15/2021) * GLUCOSE - POINT OF CARE(Performed 09/15/2021) * HEPATIC FUNCTION PANEL(Performed 09/15/2021) * PHOSPHORUS BLOOD(Performed 09/15/2021) * MAGNESIUM BLOOD(Performed 09/15/2021) * CBC W AUTO DIFFERENTIAL(Performed 09/15/2021) * BASIC METABOLIC PANEL (CALCIUM TOTAL)(Performed 09/15/2021) * CALCIUM IONIZED WHOLE BLOOD(Performed 09/15/2021) * GLUCOSE - POINT OF CARE(Performed 09/15/2021) * BASIC METABOLIC PANEL (CALCIUM TOTAL)(Performed 09/15/2021) * EKG 12-LEAD(Performed 09/14/2021) Performed for ESRD (end stage renal disease) ([facility]) * PHOSPHORUS BLOOD(Performed 09/14/2021) * MAGNESIUM BLOOD(Performed 09/14/2021) * CBC W AUTO DIFFERENTIAL(Performed 09/14/2021) * BASIC METABOLIC PANEL (CALCIUM TOTAL)(Performed 09/14/2021) * US RENAL TRANSPLANT(Performed 09/14/2021) Performed for ESRD (end stage renal disease) ([facility]) * PHOSPHORUS BLOOD(Performed 09/14/2021) * MAGNESIUM BLOOD(Performed 09/14/2021) * COMPREHENSIVE METABOLIC PANEL(Performed 09/14/2021) * CBC W AUTO DIFFERENTIAL(Performed 09/14/2021) * XR CHEST 1VW PORTABLE(Performed 09/14/2021) Performed for ESRD (end stage renal disease) ([facility]) * XR ABDOMEN KUB PORTABLE(Performed 09/14/2021) Performed for ESRD (end stage renal disease) ([facility]) * BLOOD GAS+COOX+ELECTROLYTES+METAB ARTERIAL(Performed 09/14/2021) Performed for ESRD (end stage renal disease) ([facility]) * CENTRAL LINE NOTE(Performed 09/14/2021) * BLOOD GAS+COOX+ELECTROLYTES+METAB ARTERIAL(Performed 09/14/2021) Performed for ESRD (end stage renal disease) ([facility]) * BLOOD GASES ART + COOX PANEL(Performed 09/14/2021) Performed for ESRD (end stage renal disease) ([facility]) * ENDOTRACHEAL TUBE NOTE(Performed 09/14/2021) * ME RENAL ALLOTPLNT IMPLNT GRAFT; W/O RECIP NEPHRECT(Performed 09/14/2021) Performed for End stage renal disease on dialysis ([facility]) * ARTERIAL LINE NOTE(Performed 09/14/2021) * TYPE + SCREEN PANEL(Performed 09/14/2021) Performed for Pre-op evaluation * POTASSIUM WHOLE BLD(Performed 09/14/2021) Performed for Pre-op evaluation * HIV-1 HIV-2 ANTIBODY + HIV P24 AG PANEL(Performed 09/14/2021) Performed for Kidney transplant candidate * HCV AB DONOR(Performed 09/14/2021) Performed for Kidney transplant candidate * HEPATITIS C RNA QUANTITATIVE(Performed 09/14/2021) Performed for Kidney transplant candidate * HEPATITIS B SURFACE ANTIGEN W RFLX CONFIRMATION(Performed 09/14/2021) Performed for Kidney transplant candidate * HEPATITIS B SURFACE ANTIBODY QUANT(Performed 09/14/2021) Performed for Kidney transplant candidate * HEPATITIS B CORE ANTIBODY TOTAL(Performed 09/14/2021) Performed for Kidney transplant candidate * CALCIUM IONIZED WHOLE BLOOD(Performed 09/14/2021) Performed for ESRD (end stage renal disease) (HCC) * MAGNESIUM BLOOD(Performed 09/14/2021) Performed for ESRD (end stage renal disease) (HCC) * BASIC METABOLIC PANEL (CALCIUM TOTAL)(Performed 09/14/2021) Performed for ESRD (end stage renal disease) (HCC) * CARDIAC EKG ORDER(Performed 09/13/2021) * SARS-COV-2 (COVID-19) IN HOUSE(Performed 09/12/2021) Performed for Pre-kidney transplant, listed * CT ABDOMEN PELVIS WO CONTRAST(Performed 09/05/2021) Performed for Pre-kidney transplant, listed * HLA ANTIBODY SCREEN LUM CLASS 2 SAB(Performed 09/05/2021) Performed for Pre-transplant evaluation for kidney transplant * HLA ANTIBODY SCREEN LUM CLASS 1 SAB(Performed 09/05/2021) Performed for Pre-transplant evaluation for kidney transplant * URINALYSIS W/MICROSCOPIC NO CULTURE(Performed 09/05/2021) Performed for Pre-kidney transplant, listed * CREATININE URINE RANDOM(Performed 09/05/2021) Performed for Pre-kidney transplant, listed * PROTEIN URINE RANDOM QUANTITATIVE(Performed 09/05/2021) Performed for Pre-kidney transplant, listed * CULTURE URINE(Performed 09/05/2021) Performed for Pre-kidney transplant, listed * FLOW HLA XM LIVING DONOR(Performed 09/05/2021) Performed for Pre-kidney transplant, listed * HIV-1 HIV-2 ANTIBODY + HIV P24 AG PANEL(Performed 09/05/2021) Performed for Pre-transplant evaluation for kidney transplant * PT-INR SLH(Performed 09/05/2021) Performed for Pre-transplant evaluation for kidney transplant * MAGNESIUM BLOOD(Performed 09/05/2021) Performed for Pre-kidney transplant, listed * STRONGYLOIDES ANTIBODY IGG(Performed 09/05/2021) Performed for Pre-kidney transplant, listed * TOXOPLASMA GONDII ANTIBODY IGG(Performed 09/05/2021) Performed for Pre-kidney transplant, listed * PTH INTACT W/O CALCIUM(Performed 09/05/2021) Performed for Pre-kidney transplant, listed * HEPATITIS A ANTIBODY(Performed 09/05/2021) Performed for Pre-kidney transplant, listed * PROSTATE SPECIFIC ANTIGEN SCREEN(Performed 09/05/2021) Performed for Pre-kidney transplant, listed * CANNABINOID SCREEN BLOOD(Performed 09/05/2021) Performed for Pre-kidney transplant, listed * IRON BLOOD(Performed 09/05/2021) Performed for Pre-kidney transplant, listed * FERRITIN(Performed 09/05/2021) Performed for Pre-kidney transplant, listed * TRANSFERRIN(Performed 09/05/2021) Performed for Pre-kidney transplant, listed * VITAMIN D 25-HYDROXY(Performed 09/05/2021) Performed for Pre-kidney transplant, listed * URIC ACID BLOOD(Performed 09/05/2021) Performed for Pre-kidney transplant, listed * OPIATES BLOOD(Performed 09/05/2021) Performed for Pre-kidney transplant, listed * COCAINE METABOLITE BLOOD QUANT(Performed 09/05/2021) Performed for Pre-kidney transplant, listed * AMPHETAMINE BLOOD CONFIRMATION(Performed 09/05/2021) Performed for Pre-kidney transplant, listed * NICOTINE + METABOLITES BLOOD(Performed 09/05/2021) Performed for Pre-kidney transplant, listed * ALCOHOL ETHYL BLOOD(Performed 09/05/2021) Performed for Pre-kidney transplant, listed * SYPHILIS ANTIBODY CASCADING REFLEX(Performed 09/05/2021) Performed for Pre-kidney transplant, listed * HEMOGLOBIN A1C(Performed 09/05/2021) Performed for Pre-kidney transplant, listed * CYTOMEGALOVIRUS ANTIBODY IGG BLOOD(Performed 09/05/2021) Performed for Pre-kidney transplant, listed * HEPATITIS C ANTIBODY(Performed 09/05/2021) Performed for Pre-kidney transplant, listed * HEPATITIS B SURFACE ANTIBODY(Performed 09/05/2021) Performed for Pre-kidney transplant, listed * HEPATITIS B CORE ANTIBODY TOTAL(Performed 09/05/2021) Performed for Pre-kidney transplant, listed * HEPATITIS B SURFACE ANTIGEN W RFLX CONFIRMATION(Performed 09/05/2021) Performed for Pre-kidney transplant, listed * LIPID PROFILE(Performed 09/05/2021) Performed for Pre-kidney transplant, listed * PHOSPHORUS BLOOD(Performed 09/05/2021) Performed for Pre-kidney transplant, listed * COMPREHENSIVE METABOLIC PANEL(Performed 09/05/2021) Performed for Pre-kidney transplant, listed * CBC W AUTO DIFFERENTIAL(Performed 09/05/2021) Performed for Pre-kidney transplant, listed * ECHO STRESS W DOBUTAMINE(Performed 09/05/2021) Performed for Pre-kidney transplant, listed * SARS-COV-2 (COVID-19) IN HOUSE(Performed 09/05/2021) Performed for Pre-kidney transplant, listed * XR CHEST 2VW(Performed 09/05/2021) Performed for Pre-kidney transplant, listed * EKG 12-LEAD(Performed 09/05/2021) Performed for Pre-kidney transplant, listed * US RETROPERITONEAL COMPLETE(Performed 08/08/2021) Performed for Pre-kidney transplant, listed * NM PARATHYROID SPECT CT(Performed 06/24/2021) Performed for Pre-transplant evaluation for kidney transplant * FLOW HLA XM LIVING DONOR(Performed 12/08/2020) Performed for Pre-transplant evaluation for kidney transplant * CARDIAC EKG ORDER(Performed 10/11/2020) * VAS BILAT MAPPING FOR HEMODIALYSIS(Performed 10/06/2020) Performed for ESRD (end stage renal disease) (HCC) * XR PANOREX(Performed 10/06/2020) Performed for Pre-transplant evaluation for kidney transplant * XR CHEST 2VW(Performed 10/06/2020) Performed for Pre-transplant evaluation for kidney transplant * URINALYSIS W/MICROSCOPIC NO CULTURE(Performed 10/06/2020) Performed for Pre-transplant evaluation for kidney transplant * CREATININE URINE RANDOM(Performed 10/06/2020) Performed for Pre-transplant evaluation for kidney transplant * PROTEIN URINE RANDOM QUANTITATIVE(Performed 10/06/2020) Performed for Pre-transplant evaluation for kidney transplant * HLA ANTIBODY SCREEN LUM CLASS 2 ID(Performed 10/06/2020) Performed for Pre-transplant evaluation for kidney transplant * HLA ANTIBODY SCREEN LUM CLASS 1 ID(Performed 10/06/2020) Performed for Pre-transplant evaluation for kidney transplant * HLA TYPING DNA LOW RESOLUTION DR,DQ(Performed 10/06/2020) Performed for Pre-transplant evaluation for kidney transplant * HLA TYPING DNA LOW RESOLUTION A,B,C(Performed 10/06/2020) Performed for Pre-transplant evaluation for kidney transplant * BLOOD TYPE ABO+ RH PANEL(Performed 10/06/2020) Performed for Pre-transplant evaluation for kidney transplant * RUBELLA ANTIBODY IGG TITER(Performed 10/06/2020) Performed for Pre-transplant evaluation for kidney transplant * HIV-1 HIV-2 ANTIGEN/ANTIBODY(Performed 10/06/2020) Performed for Pre-transplant evaluation for kidney transplant * HEPATITIS A ANTIBODY(Performed 10/06/2020) Performed for Pre-transplant evaluation for kidney transplant * PTH INTACT W/O CALCIUM(Performed 10/06/2020) Performed for Pre-transplant evaluation for kidney transplant * TOXOPLASMA GONDII ANTIBODY IGG(Performed 10/06/2020) Performed for Pre-transplant evaluation for kidney transplant * STRONGYLOIDES ANTIBODY IGG(Performed 10/06/2020) Performed for Pre-transplant evaluation for kidney transplant * PROSTATE SPECIFIC ANTIGEN SCREEN(Performed 10/06/2020) Performed for Pre-transplant evaluation for kidney transplant * CANNABINOID SCREEN BLOOD(Performed 10/06/2020) Performed for Pre-transplant evaluation for kidney transplant * IRON BLOOD(Performed 10/06/2020) Performed for Pre-transplant evaluation for kidney transplant * FERRITIN(Performed 10/06/2020) Performed for Pre-transplant evaluation for kidney transplant * TRANSFERRIN(Performed 10/06/2020) Performed for Pre-transplant evaluation for kidney transplant * VITAMIN D 25-HYDROXY(Performed 10/06/2020) Performed for Pre-transplant evaluation for kidney transplant * URIC ACID BLOOD(Performed 10/06/2020) Performed for Pre-transplant evaluation for kidney transplant * VARICELLA ZOSTER ANTIBODY IGG(Performed 10/06/2020) Performed for Pre-transplant evaluation for kidney transplant * MUMPS ANTIBODY IGG(Performed 10/06/2020) Performed for Pre-transplant evaluation for kidney transplant * RUBEOLA ANTIBODY IGG(Performed 10/06/2020) Performed for Pre-transplant evaluation for kidney transplant * OPIATES BLOOD(Performed 10/06/2020) Performed for Pre-transplant evaluation for kidney transplant * COCAINE METABOLITE BLOOD QUANT(Performed 10/06/2020) Performed for Pre-transplant evaluation for kidney transplant * AMPHETAMINE BLOOD CONFIRMATION(Performed 10/06/2020) Performed for Pre-transplant evaluation for kidney transplant * NICOTINE + METABOLITES BLOOD(Performed 10/06/2020) Performed for Pre-transplant evaluation for kidney transplant * ALCOHOL ETHYL BLOOD(Performed 10/06/2020) Performed for Pre-transplant evaluation for kidney transplant * SYPHILIS ANTIBODY CASCADING REFLEX(Performed 10/06/2020) Performed for Pre-transplant evaluation for kidney transplant * HEMOGLOBIN A1C(Performed 10/06/2020) Performed for Pre-transplant evaluation for kidney transplant * JAKUB-EVANS VIRUS ANTIBODY TO VCA IGG(Performed 10/06/2020) Performed for Pre-transplant evaluation for kidney transplant * CYTOMEGALOVIRUS ANTIBODY IGG BLOOD(Performed 10/06/2020) Performed for Pre-transplant evaluation for kidney transplant * HEPATITIS C ANTIBODY(Performed 10/06/2020) Performed for Pre-transplant evaluation for kidney transplant * HEPATITIS B SURFACE ANTIBODY(Performed 10/06/2020) Performed for Pre-transplant evaluation for kidney transplant * HEPATITIS B CORE ANTIBODY TOTAL(Performed 10/06/2020) Performed for Pre-transplant evaluation for kidney transplant * HEPATITIS B SURFACE ANTIGEN W RFLX CONFIRMATION(Performed 10/06/2020) Performed for Pre-transplant evaluation for kidney transplant * LIPID PROFILE(Performed 10/06/2020) Performed for Pre-transplant evaluation for kidney transplant * PHOSPHORUS BLOOD(Performed 10/06/2020) Performed for Pre-transplant evaluation for kidney transplant * COMPREHENSIVE METABOLIC PANEL(Performed 10/06/2020) Performed for Pre-transplant evaluation for kidney transplant * CBC W AUTO DIFFERENTIAL(Performed 10/06/2020) Performed for Pre-transplant evaluation for kidney transplant * TYPE + SCREEN PANEL(Performed 10/06/2020) Performed for Pre-transplant evaluation for kidney transplant * ECHO STRESS W DOBUTAMINE(Performed 10/06/2020) Performed for Pre-transplant evaluation for kidney transplant * SKIN TEST PPD - POINT OF CARE(Performed 06/20/2019) Performed for Encounter for PPD test * SKIN TEST PPD - POINT OF CARE(Performed 06/04/2019) Performed for Screening for tuberculosis Results * CYTOMEGALOVIRUS QUANT BLOOD (10/28/2024 7:26 AM [facility]) Only the most recent of6 resultswithin the time period is included. Pathologist [facility] Cytomegalovirus DNA Quantitative PCR Not Detected Not Detected IU/mL [facility] Cytomegalovirus DNA Quantitative PCR Not Detected Not Detected Log IU/mL [facility] Comment: (Note) For additional information, please refer to http://education.[employer]ell[employer].The Game Creators/faq/CMVandEBVPCR (This link is being provided for informational/educational purposes only.) [facility] [address] [address],[address] [facility] [address] Memo Schrader MD, PhD Test Performed at: [facility] [address] [address] [address] [place], [place] ??[phone] MEMO SCHRADER MD,PHD Blood BLOOD SPECIMEN / Unknown 10/28/2024 7:26 AM [facility] 10/28/2024 7:27 AM [facility] Melisa Delisa Reyes PRESCHOOL HEAD TEACHER-CHIP WASHER LAB - CHEMISTRY ORDERABLES Performing Organization Address [facility] [place] [address] * URIC ACID BLOOD (10/28/2024 7:26 AM [facility]) Only the most recent of12 resultswithin the time period is included. Uric Acid 6.5 4.0 - 8.0 mg/dL [facility] Comment: Therapeutic target for gout patients: <6.0 mg/dL ?? Test Performed at: [employer] ??[phone] EDISON TROY MD Blood BLOOD SPECIMEN / Unknown 10/28/2024 7:26 AM [facility] 10/28/2024 7:27 AM [facility] Melisa Chambers APRN-CHIP WASHER LAB - CHEMISTRY ORDERABLES Performing Organization Address [facility] [place] [address] * (ABNORMAL) TACROLIMUS LEVEL (10/28/2024 7:26 AM [facility]) Only the most recent of34 resultswithin the time period is included. Tacrolimus 3.8(L) mcg/L [facility] Comment: No definitive therapeutic or toxic ranges have been established. Optimal blood drug levels are influenced by type of transplant, patient response, time post- transplant, co-administration of other drugs, and drug formulation. The following trough range is a suggested guideline: 5.0-20.0 mcg/L. Test Performed at: [facility] [place] ??[phone] EDISON TROY MD Blood BLOOD SPECIMEN / Unknown 10/28/2024 7:26 AM [facility] 10/28/2024 7:27 AM [facility] Melisa DARDEN LAB - THERAPEUT IC DRUG MONITORING ORDERABLES Performing Organization Address [facility] de Phone Number [facility] [address] [place] [address] * MICROALB/CREAT RATIO URINE RANDOM PANEL (10/28/2024 7:26 AM [facility]) Only the most recent of2 resultswithin the time period is included. Creatinine Urine 238 20 - 320 mg/dL [facility] Microalbumin Urine 4.7 mg/dL [facility] Comment: Reference Range Not established Microalbumin/Creat inine Ratio 20 <30 mg/g creat [facility] Comment: The ADA defines abnormalities in albumin excretion as follows: Albuminuria Category ?Result (mg/g creatinine) Normal to Mildly increased ?? <30 Moderately increased ? 30-299 Severely increased ? > OR = 300 The ADA recommends that at least two of three specimens collected within a 3-6 month period be abnormal before considering a patient to be within a diagnostic category. Test Performed at: [facility] ??[phone] EDISON TROY MD Urine URINE SPECIMEN OBTAINED BY CLEAN CATCH PROCEDURE / Unknown 10/28/2024 7:26 AM [facility] 10/28/2024 7:27 AM [facility] Melisa DARDEN LAB - URINE SOFIA CLARE ORDERABLES Performing Organization Address [facility] de Phone Number [facility] [phone] [place] [address] * (ABNORMAL) URINALYSIS REFLEX TO MICROSCOPIC NO CULTURE (10/28/2024 7:26 AM [facility]) Only the most recent of2 resultswithin the time period is included. Color UA YELLOW YELLOW [facility] Appearance CLEAR CLEAR [facility] Specific [place] UA 1.021 1.001 - 1.035 [facility] pH UA < OR = 5.0 5.0 - 8.0 [facility] Glucose UA NEGATIVE NEGATIVE [facility] Bilirubin UA NEGATIVE NEGATIVE [facility] Ketone UA NEGATIVE NEGATIVE [facility] Blood UA NEGATIVE NEGATIVE [facility] Protein UA TRACE(A) NEGATIVE [facility] Nitrite UA NEGATIVE NEGATIVE [facility] Leukocyte UA NEGATIVE NEGATIVE [facility] WBC UA NONE SEEN < OR = 5 /HPF [facility] RBC UA NONE SEEN < OR = 2 /HPF [facility] Epithelial Cell UA NONE SEEN < OR = 5 /HPF [facility] Transitional Epithelial Cells [facility] Renal Epithelial Cells [facility] Bacteria UA NONE SEEN NONE SEEN /HPF [facility] Calcium Oxalate Crystals [facility] Triple Phosphate Crystals [facility] Uric Acid Crystals [facility] Amorphous UA [facility] Crystals UA [facility] Hyaline Casts NONE SEEN NONE SEEN /LPF [facility] Comment: Test Performed at: [facility] [address] [place] [address] ??[phone] EDISON TROY MD Granular Casts [facility] Casts UA [facility] Yeast [facility] Comments [facility] Comment: Test Performed at: [facility] [address] [place] [address] ??[phone] EDISON TROY MD Urine URINE SPECIMEN OBTAINED BY CLEAN CATCH PROCEDURE / Unknown 10/28/2024 7:26 AM [facility] 10/28/2024 7:27 AM [facility] Melisa Chambers PRESCHOOL HEAD TEACHER-CHIP WASHER LAB - URINALYSI S ORDERABLES [facility] [address] [place] [address] * (ABNORMAL) PTH INTACT (10/28/2024 7:26 AM [facility]) Only the most recent of3 resultswithin the time period is included. PTH Intact 82(H) 16 - 77 pg/mL [facility] Comment: Interpretive Guide ?Intact PTH ? Calcium ? ------- Normal Parathyroid ?Normal ? Normal Hypoparathyroidism ?Low or Low Normal ?Low Hyperparathyroidism ?? Primary ?Normal or High ? High ?? Secondary ?High ? Normal or Low ?? Tertiary ? High ? High Non-Parathyroid ?? Hypercalcemia ?Low or Low Normal ?High Test Performed at: [facility] [address] [place], [place] ??[phone] EDISON TROY MD Blood BLOOD SPECIMEN / Unknown 10/28/2024 7:26 AM [facility] 10/28/2024 7:27 AM [facility] Melisa Chambers PRESCHOOL HEAD TEACHER-CHIP WASHER LAB - CHEMISTRY ORDERABLES [facility] [address] [place] [address] * VITAMIN D 25-HYDROXY (10/28/2024 7:26 AM [facility]) Only the most recent of12 resultswithin the time period is included. Vitamin D, 25 Hydroxy 45 30 - 100 ng/mL [facility] Comment: Vitamin D Status ? 25-OH Vitamin D: Deficiency: ?<20 ng/mL Insufficiency: ? 20 - 29 ng/mL Optimal: ? > or = 30 ng/mL For 25-OH Vitamin D testing on patients on D2-supplementation and patients for whom quantitation of D2 and D3 fractions is required, the [facility] 25-OH VIT D, (D2,D3), LC/MS/MS is recommended: order code 79731 (patients >2yrs). See Note 1 Note 1 For additional information, please refer to http://education.Chaordix/faq/GVE121 (This link is being provided for informational/ educational purposes only.) Test Performed at: [facility] [address] [place], [place] ??[phone] EDISON TROY MD Blood BLOOD SPECIMEN / Unknown 10/28/2024 7:26 AM [facility] 10/28/2024 7:27 AM [facility] Melisa Delisa Reyes PRESCHOOL HEAD TEACHER-CHIP WASHER LAB - CHEMISTRY ORDERABLES Performing Organization Address [facility] de Phone Number [facility] [address] [place] [address] * BK VIRUS PCR QUANTITATIVE (10/28/2024 7:26 AM [facility]) Only the most recent of7 resultswithin the time period is included. [facility] BK Virus DNA Quantitative PCR Not Detected Not Detected IU/mL [facility] BK Virus DNA PCR Not Detected Not Detected Log IU/mL [facility] Comment: [facility] [address] [address],[address] [facility] [address] Memo Schrader MD, PhD Test Performed at: [facility] [address] [address] [address] [place], [place] ??[phone] MEMO SCHRADER MD,PHD Blood BLOOD SPECIMEN / Unknown 10/28/2024 7:26 AM [facility] 10/28/2024 7:27 AM [facility] Melisa Chambers PRESCHOOL HEAD TEACHER-CHIP WASHER LAB - CHEMISTRY ORDERABLES Performing Organization Address [facility] de Phone Number [facility] [address] [phone] * CBC WITH DIFFERENTIAL (10/28/2024 7:26 AM [facility]) Only the most recent of38 resultswithin the time period is included. Pathologist [facility] White Blood Cell Count 6.6 3.8 - 10.8 Thousand/u L [facility] RBC 4.76 4.20 - 5.80 Million/uL [facility] Hemoglobin 13.5 13.2 - 17.1 g/dL [facility] Hematocrit 41.7 38.5 - 50.0 % [facility] MCV 87.6 80.0 - 100.0 fL [facility] MCH 28.4 27.0 - 33.0 pg [facility] MCHC 32.4 32.0 - 36.0 g/dL [facility] Comment: For adults, a slight decrease in the calculated MCHC value (in the range of 30 to 32 g/dL) is most likely not clinically significant; however, it should be interpreted with caution in correlation with other red cell parameters and the patient's clinical condition. RDW 13.3 11.0 - 15.0 % [facility] Platelet Count 230 140 - 400 Thousand/u L [facility] MPV 11.3 7.5 - 12.5 fL [facility] Neutrophil Absolute 4719 1500 - 7800 cells/uL [facility] Absolute Bands [facility] Metamyelocytes Absolute [facility] Myelocytes Absolute [facility] Absolute Prolymphocytes [facility] Lymphocytes Absolute 1016 850 - 3900 cells/uL [facility] Absolute Monocytes 574 200 - 950 cells/uL [facility] Eosinophils Absolute 198 15 - 500 cells/uL [facility] Basophils Absolute 92 0 - 200 cells/uL [facility] Absolute Blasts [facility] nRBC Absolute [facility] Granulocytes % 71.5 % [facility] Band Neutrophil [facility] Metamyelocytes [facility] Myelocytes [facility] Promyelocytes [facility] Lymphocytes % 15.4 % [facility] Lymphocyte Reactive [facility] Monocytes % 8.7 % [facility] Eosinophils % 3.0 % [facility] Basophils % 1.4 % [facility] Comment: Test Performed at: [place] ??[phone] EDISON TROY MD Blasts [facility] nRBC [facility] Comments [facility] Comment: Test Performed at: [place] ??[phone] EDISON TROY MD Blood BLOOD SPECIMEN / Unknown 10/28/2024 7:26 AM [facility] 10/28/2024 7:27 AM [facility] Melisa Chambers PRESCHOOL HEAD TEACHER-CHIP WASHER LAB - HEMATOLOG Y ORDERABLES Performing Organization Address City/State/[facility] Co de Phone Number [facility] [address] [place] [address] * (ABNORMAL) COMPREHENSIVE METABOLIC PANEL (10/28/2024 7:26 AM [facility]) Only the most recent of32 resultswithin the time period is included. Glucose 105(H) 65 - 99 mg/dL [facility] Comment: ? Fasting reference interval For someone without known diabetes, a glucose value between 100 and 125 mg/dL is consistent with prediabetes and should be confirmed with a follow-up test. BUN 20 7 - 25 mg/dL [facility] Creatinine 1.82(H) 0.70 - 1.30 mg/dL [facility] eGFR by Cystatin C 44(L) > OR = 60 mL/min/1.7 3m2 [facility] BUN/Creatinine Ratio 11 6 - 22 (calc) [facility] Sodium 136 135 - 146 mmol/L [facility] Potassium 3.9 3.5 - 5.3 mmol/L [facility] Chloride 102 98 - 110 mmol/L [facility] CO2 26 20 - 32 mmol/L [facility] Calcium 9.4 8.6 - 10.3 mg/dL [facility] Protein Total 7.1 6.1 - 8.1 g/dL [facility] Albumin 4.4 3.6 - 5.1 g/dL [facility] Globulin Total 2.7 1.9 - 3.7 g/dL (calc) [facility] Albumin/Globulin Ratio 1.6 1.0 - 2.5 (calc) [facility] Bilirubin Total 0.6 0.2 - 1.2 mg/dL [facility] Alkaline Phosphatase 56 35 - 144 U/L [facility] AST 11 10 - 35 U/L [facility] ALT 15 9 - 46 U/L [facility] Comment: Test Performed at: [employer] [place], [place] ??[phone] EDISON TROY MD Blood BLOOD SPECIMEN / Unknown 10/28/2024 7:26 AM [facility] 10/28/2024 7:27 AM [facility] Melisa FAYCHIP WASHER LAB - CHEMISTRY ORDERABLES Performing Organization Address [facility] Co de Phone Number [facility] [address] [place] [address] * PHOSPHORUS BLOOD (10/28/2024 7:26 AM [facility]) Only the most recent of41 resultswithin the time period is included. Phosphorus 2.7 2.5 - 4.5 mg/dL [facility] Comment: Test Performed at: [employer] [place] ??[phone] EDISON TROY MD Blood BLOOD SPECIMEN / Unknown 10/28/2024 7:26 AM [facility] 10/28/2024 7:27 AM [facility] Melisa FAYCHIP WASHER LAB - CHEMISTRY ORDERABLES [facility] [address] [place] [address] * MAGNESIUM BLOOD (10/28/2024 7:26 AM [facility]) Only the most recent of38 resultswithin the time period is included. Magnesium 1.8 1.5 - 2.5 mg/dL [facility] Comment: Test Performed at: [facility] [place] ??[phone] EDISON TROY MD Blood BLOOD SPECIMEN / Unknown 10/28/2024 7:26 AM [facility] 10/28/2024 7:27 AM [facility] Melisa Chambers APRN-CHIP WASHER LAB - CHEMISTRY ORDERABLES Performing Organization Address [facility] de Phone Number [facility] [address] [place] [address] * LIPID PROFILE (10/28/2024 7:26 AM [facility]) Only the most recent of12 resultswithin the time period is included. Cholesterol 129 <200 mg/dL [facility] HDL Cholesterol 43 > OR = 40 mg/dL [facility] Triglycerides 114 <150 mg/dL [facility] LDL Calculated 66 mg/dL (calc) [facility] Comment: Reference range: <100 Desirable range <100 mg/dL for primary prevention; ?? <70 mg/dL for patients with CHD or diabetic patients with > or = 2 CHD risk factors. LDL-C is now calculated using the Yogi-Stewart calculation, which is a validated novel method providing better accuracy than the Friedewald equation in the estimation of LDL-C. Yogi ROJAS et al. FRANDY. 2013;310(19): 9904-4747 (http://education.INVIDI Technologies.The Game Creators/faq/FAD778) CHOL/HDLC RATIO 3.0 <5.0 (calc) [facility] Non HDL Cholesterol 86 <130 mg/dL (calc) [facility] Comment: For patients with diabetes plus 1 major ASCVD risk factor, treating to a non-HDL-C goal of <100 mg/dL (LDL-C of <70 mg/dL) is considered a therapeutic option. Test Performed at: [facility] [place] ??[phone] EDISON TROY MD Blood BLOOD SPECIMEN / Unknown 10/28/2024 7:26 AM [facility] 10/28/2024 7:27 AM [facility] Melisa Chambers PRESCHOOL HEAD TEACHER-CHIP WASHER LAB - CHEMISTRY ORDERABLES [facility] [address] [place] [address] * URINALYSIS W/MICROSCOPIC REFLEX TO CULTURE (05/19/2024 7:57 AM [facility]) Only the most recent of4 resultswithin the time period is included. Color UA Yellow Straw, Yellow 05/19/2024 9:14 AM [facility] Clarity UA Clear Clear 05/19/2024 9:14 AM [facility] Specific [place] UA 1.016 1.005 - 1.030 05/19/2024 9:14 AM [facility] pH UA 5.0 5.0 - 8.0 pH 05/19/2024 9:14 AM [facility] Protein UA Negative Negative 05/19/2024 9:14 AM [facility] Glucose UA Negative Negative 05/19/2024 9:14 AM [facility] Ketone UA Negative Negative 05/19/2024 9:14 AM [facility] Bilirubin UA Negative Negative 05/19/2024 9:14 AM [facility] Blood UA Negative Negative 05/19/2024 9:14 AM [facility] Nitrite UA Negative Negative 05/19/2024 9:14 AM [facility] Leukocyte Esterase Negative Negative 05/19/2024 9:14 AM [facility] Urobilinogen UA Negative Negative mg/dL 05/19/2024 9:14 AM [facility] RBC UA 0-2 None Seen, 0-2, 3-5 /HPF 05/19/2024 9:14 AM [facility] WBC UA 0-5 None Seen, 0-5 /HPF 05/19/2024 9:14 AM [facility] Squamous Epithelial Cells UA None Seen None Seen, 0-2, 3-5 /HPF 05/19/2024 9:14 AM CDT [facility] Urine URINE SPECIMEN OBTAINED BY CLEAN CATCH PROCEDURE / Unknown Collection / Unknown 05/19/2024 7:57 AM CDT 05/19/2024 9:03 AM CDT Narrative [facility] - 05/19/2024 9:14 AM CDT Culture Not Indicated Gustavo Kent MD LAB - URINALYSIS ORD ERABLES Performing Organization Address City/[facility]/ZIP Co de Phone Number [address] [address], [facility] [phone] * PROTEIN CREATININE RATIO URINE RANDOM PNL (05/19/2024 7:57 AM CDT) Only the most recent of4 resultswithin the time period is included. Protein Urine 14 Not Established mg/dL 05/19/2024 9:44 AM CDT [facility] Creatinine Urine 175.24 Not Established mg/dL 05/19/2024 9:44 AM CDT [facility] Protein/Creati nine Ratio Urine 0.08 <0.10 05/19/2024 9:44 AM CDT [facility] Urine URINE SPECIMEN OBTAINED BY CLEAN CATCH PROCEDURE / Unknown Collection / Unknown 05/19/2024 7:57 AM CDT 05/19/2024 9:03 AM CDT Gustavo Kent MD LAB - URINE CHEMISTR Y ORDERABLES Performing Organization Address City/[facility]/ZIP Co de Phone Number [address] [address], [facility] [phone] * CYTOMEGALOVIRUS (CMV) QUANTITATIVE PLASMA (05/19/2024 7:47 AM CDT) Only the most recent of14 resultswithin the time period is included. CMV Quant by PCR, Interp Not detected Not detected 05/19/2024 1:21 PM CDT [facility] Blood BLOOD SPECIMEN / Unknown Lab Venipuncture / Unknown 05/19/2024 7:47 AM CDT 05/19/2024 7:51 AM CDT Narrative [facility] MICROBIOLOG[facility] - 05/19/2024 1:21 PM CDT The CMV DNA analysis utilized real-time PCR, and is reported as Not Detected, Detected (< 30 IU/mL) [or Detected (< 1.48 log IU/mL)], Detected (30 - 100,000,000 IU/mL) [or Detected 1.48 to 8.00 log IU/mL)], or Detected (> 100,000,000 IU/mL) [or Detected (> 8.00 log IU/mL)]. The analytical sensitivity (LOD) of the assay is 30.00 IU/mL [1.48 log IU/mL], (100% of samples with this CMV/DNA level were detected). Linear range of the assay is 30 - 100,000,000 IU/mL [or 1.48 to 8.00 log IU/mL]. The detection/quantitation of CMV DNA is plasma is based on the isolation of CMV DNA followed by real-time PCR in the presence of reference standard DNA. The standard ensures that DNA was isolated, and that no general significant inhibitors of the real-time PCR process were present. Absolute CMV values or breakpoints for symptomatic disease have not been established and appear to be different between populations and laboratories. Therefore, it is important to monitor patients and to follow increases and/or decreases in the level of CMV in multiple blood specimens. The analysis was performed using an [place] FDA approved test methodology. Gustavo Kent MD LAB - CHEMISTRY PIEP [facility] Organization Address City/State/ZIP Co de Phone Number [facility]CRO[facility] [address] [place] [address], [facility] [phone] * BK VIRUS PCR QUANT BLOOD STL (05/19/2024 7:47 AM CDT) Only the most recent of14 resultswithin the time period is included. BK Virus Quant by PCR, Interp Not detected Not detected 05/20/2024 1:58 PM CDT [facility]CRO[facility] Specimen Type Plasma 05/20/2024 1:58 PM CDT [facility] Blood BLOOD SPECIMEN / Unknown Lab Venipuncture / Unknown 05/19/2024 7:47 AM CDT 05/19/2024 7:51 AM CDT Narrative [facility]CROBIOLOG[facility] - 05/20/2024 1:58 PM CDT DNA isolated from the plasma was analyzed in a qPCR assay to detect and quantify BK virus DNA. An internal control is included to evaluate for PCR inhibition. The quantitative range of this assay is 200 IU/mL to 20,000,000 IU/mL. Values below 200 IU/mL will be reported as (Detected <200 IU/mL). 1 copy equals 0.32 IU. This test was developed and its performance characteristics determined by [facility]. ??It has not been cleared or approved by the U.S. Food and Drug Administration. ??The FDA has determined that such clearance or approval is not necessary. ??The test is used for clinical purposes. ??It should not be regarded as investigational or for research. ??This laboratory is certified under the Clinical Laboratory. Gustavo Kent MD LAB - CHEMISTRY PIPE ZELAYA Performing Organization Address City/[facility]/ZIP Co de Phone Number [facility] [address] [place] [id number], [facility] [phone] * (ABNORMAL) PTH INTACT W/O CALCIUM (05/19/2024 7:47 AM CDT) Only the most recent of10 resultswithin the time period is included. Pathologist [facility] PTH Intact 168.1(H) 8.0 - 77.0 pg/mL 05/19/2024 8:33 AM CDT [facility] Blood BLOOD SPECIMEN / Unknown Lab Venipuncture / Unknown 05/19/2024 7:47 AM CDT 05/19/2024 7:56 AM CDT Gustavo Kent MD LAB - CHEMISTRY PIPE ZELAYA [facility] [address] [place] [address], [facility] [phone] * URINALYSIS COMPLETE W MICROSCOPIC (08/14/2023 7:21 AM CDT) Only the most recent of24 resultswithin the time period is included. Color UA Yellow Straw, Yellow 08/14/2023 8:16 AM [facility] Clarity UA Clear Clear 08/14/2023 8:16 AM [facility] Specific [place] UA 1.017 1.005 - 1.030 08/14/2023 8:16 AM [facility] pH UA 7.0 5.0 - 8.0 pH 08/14/2023 8:16 AM [facility] Protein UA Negative Negative 08/14/2023 8:16 AM [facility] Glucose UA Negative Negative 08/14/2023 8:16 AM [facility] Ketone UA Negative Negative 08/14/2023 8:16 AM [facility] Bilirubin UA Negative Negative 08/14/2023 8:16 AM [facility] Blood UA Negative Negative 08/14/2023 8:16 AM [facility] Nitrite UA Negative Negative 08/14/2023 8:16 AM [facility] Leukocyte Esterase Negative Negative 08/14/2023 8:16 AM [facility] Urobilinogen UA Negative Negative mg/dL 08/14/2023 8:16 AM [facility] RBC UA 3-5 None Seen, 0-2, 3-5 /HPF 08/14/2023 8:16 AM [facility] WBC UA 0-5 None Seen, 0-5 /HPF 08/14/2023 8:16 AM [facility] Squamous Epithelial Cells UA 0-2 None Seen, 0-2, 3-5 /HPF 08/14/2023 8:16 AM [facility] Urine URINE SPECIMEN OBTAINED BY CLEAN CATCH PROCEDURE / Unknown Collection / Unknown 08/14/2023 7:21 AM T 08/14/2023 7:29 AM [facility] - 08/14/2023 8:16 AM [facility] Melisa Chambers PRESCHOOL HEAD TEACHER-CHIP WASHER LAB - URINALYSI S ORDERABLES [address] [address], [facility] [phone] * PROTEIN URINE RANDOM QUANTITATIVE (08/14/2023 7:21 AM CDT) Only the most recent of25 resultswithin the time period is included. Protein Urine 16 Not Established mg/dL 08/14/2023 8:00 AM CDT [facility] Urine URINE SPECIMEN OBTAINED BY CLEAN CATCH PROCEDURE / Unknown Collection / Unknown 08/14/2023 7:21 AM CDT 08/14/2023 7:29 AM CDT Melisa Chambers PRESCHOOL HEAD TEACHER-CHIP WASHER LAB - URINE SOFIA CLARE ORDERABLES [facility] [address] [place] [address], [place] [phone] * CREATININE URINE RANDOM (08/14/2023 7:21 AM CDT) Only the most recent of24 resultswithin the time period is included. Creatinine Urine 161.26 Not Established mg/dL 08/14/2023 8:00 AM CDT [facility] Urine URINE SPECIMEN OBTAINED BY CLEAN CATCH PROCEDURE / Unknown Collection / Unknown 08/14/2023 7:21 AM CDT 08/14/2023 7:29 AM CDT Melisa Chambers PRESCHOOL HEAD TEACHER-CHIP WASHER LAB - URINE SOFIA CLARE ORDERABLES [facility] [address] [place] [address], [place] [phone] * CULTURE URINE (04/19/2023 7:59 AM CDT) Only the most recent of22 resultswithin the time period is included. Culture Urine <10,000 CFU/mL [facility] 04/20/2023 11:03 AM CDT [facility]CRO[facility] Urine URINE SPECIMEN OBTAINED BY CLEAN CATCH PROCEDURE / Unknown Collection / Unknown 04/19/2023 7:59 AM CDT 04/19/2023 8:19 AM CDT Gustavo Kent MD LAB - MICROBIOLOGY O RDERABLES [facility] [address] [place], [address] [phone] * TESTOSTERONE TOTAL MALE (02/12/2023 6:58 AM CDT) Testosterone Adult Male 440 300 - 890 ng/dL 02/13/2023 3:14 PM CDT [facility] jaeyos ([facility]) Comment: INTERPRETIVE INFORMATION: Testosterone by Immunoassay Testosterone immunoassays are both imprecise and inaccurate at low testosterone concentrations, such as those found in children and cisgender females. For these individuals, testing by mass spectrometry is recommended; refer to Testosterone (Adult Females, Children, or Individuals on Testosterone-Suppressing Hormone Therapy) (HITigerstripe test code [id number]). Free or bioavailable testosterone measurements may provide supportive information. For individuals on testosterone hormone therapy, refer to cisgender male reference intervals. No reference intervals have been established for males younger than 14 years or for cisgender females. For a complete set of all established reference intervals, refer to [email or web address]. Performed By: [employer] [address] [place] [address] Pump House Operator: Nicholas Acuña MD, PhD Blood BLOOD SPECIMEN / Unknown Lab Venipuncture / Unknown 02/12/2023 6:58 AM CDT 02/12/2023 7:56 AM CDT Noris León APRN-CHIP WASHER LAB - INFORMATION RESOURCES MANAGER RY ORDERABLES Performing Organization Address City/[facility]/ZIP Co de Phone Number [facility] jaeyos [facility]) [address] * URINALYSIS AUTO - POINT OF CARE (AMB) [facility] (12/21/2022) Glucose UA - Bilirubin UA POCT - Ketones UA POCT - Specific [place] UA 1.015 Blood Urine POCT +- pH UA 6.0 Protein UA +- Urobilinogen UA - Nitrite UA - WBC UA - Urine URINE / Unknown 12/21/2022 Noris M Mau PRESCHOOL HEAD TEACHER-CHIP WASHER LAB - POINT O F CARE ORDERABLES * TRANSFERRIN (12/19/2022 8:50 AM [employer]) Only the most recent of4 resultswithin the time period is included. Transferrin 239 174 - 382 mg/dL 12/19/2022 10:11 AM [employer] [facility] Blood BLOOD SPECIMEN / Unknown Lab Venipuncture / Unknown 12/19/2022 8:50 AM [employer] 12/19/2022 9:29 AM [facility] [employer] [facility] Mirza Hunt MD LAB - CHEMISTRY PIPE ZELAYA Performing Organization Address City/[facility]/ZIP Co de Phone Number [address] [address], [place] [phone] * IRON BLOOD (12/19/2022 8:50 AM [employer]) Only the most recent of4 resultswithin the time period is included. Iron 95 50 - 175 ug/dL 12/19/2022 10:11 AM [employer] [facility] Blood BLOOD SPECIMEN / Unknown Lab Venipuncture / Unknown 12/19/2022 8:50 AM [employer] 12/19/2022 9:29 AM [employer] Mirza Hunt MD LAB - CHEMISTRY PIPE ZELAYA Performing Organization Address [facility]/ZIP Co de Phone Number [address] [address], [place] [phone] * FERRITIN (12/19/2022 8:50 AM [employer]) Only the most recent of4 resultswithin the time period is included. Ferritin 50 22 - 275 ng/mL 12/19/2022 10:28 AM [employer] [facility] Blood BLOOD SPECIMEN / Unknown Lab Venipuncture / Unknown 12/19/2022 8:50 AM [employer] 12/19/2022 9:29 AM [employer] Mirza Hunt MD LAB - CHEMISTRY PIPE ZELAYA Performing Organization Address City/State/[facility] Co de Phone Number [facility] [address] [place] [address], [facility] [phone] * CMV T CELL IMMUNITY PANEL (VIRACOR) (07/18/2022 7:09 AM CDT) Only the most recent of3 resultswithin the time period is included. CMV T Cell Immunity Panel See scanned report. 07/21/2022 2:43 PM CDT [facility] REF LAB NON INTERF Microbiology BLOOD SPECIMEN / Unknown Collection / Unknown 07/18/2022 7:09 AM CDT 07/18/2022 7:33 AM CDT Melisa DARDEN LAB - MICROBIOL OGY ORDERABLES Performing Organization Address [facility] de Phone Number [facility] REF LAB NON INTERF [address] [place] [address], [facility] [phone] * (ABNORMAL) TACROLIMUS (EXTERNAL RESULT ENTRY) (06/13/2022) Only the most recent of23 resultswithin the time period is included. Pathologist [facility] Tacrolimus Level (EXTERNAL RESULT) 3.2(L) [facility] Blood BLOOD SPECIMEN / Unknown 06/13/2022 Historical Provider LAB - CHEMISTRY O KARLIE Performing Organization Address [facility] Co de Phone Number [facility] [address] [place] [address], [facility] [phone] * (ABNORMAL) CHEM PROFILE (EXTERNAL RESULT ENTRY) (06/13/2022) Only the most recent of26 resultswithin the time period is included. Glucose (EXTERNAL RESULT) 93 mg/dl [facility] BUN (EXTERNAL RESULT) 24 mg/dl [facility] Creatinine (EXTERNAL RESULT) 2.14(H) mg/dl [facility] Sodium (EXTERNAL RESULT) 139 mmol/L [facility] Potassium (EXTERNAL RESULT) 4.0 mmol/L [facility] Chloride (EXTERNAL RESULT) 105 mmol/L [facility] Carbon Dioxide (EXTERNAL RESULT) 26 mmol/L [facility] Calcium (EXTERNAL RESULT) 9.8 mg/dl [facility] Phosphorus (EXTERNAL RESULT) [facility] Total Protein (EXTERNAL RESULT) 7.2 g/dl [facility] Albumin (EXTERNAL RESULT) 4.4 g/dl [facility] Alkaline Phosphatase (EXTERNAL RESULT) 58 U/L [facility] ALT (EXTERNAL RESULT) 11 units/L [facility] AST (EXTERNAL RESULT) 10 units/L [facility] Bilirubin Total (EXTERNAL RESULT) 0.8 mg/dl [facility] Bilirubin Direct (EXTERNAL RESULT) [facility] Bilirubin Indirect (EXTERNAL RESULT) [facility] Magnesium (EXTERNAL RESULT) [facility] Blood BLOOD SPECIMEN / Unknown 06/13/2022 Historical Provider LAB - CHEMISTRY O RDERABLES [facility] [address] [place] [address] [phone] * (ABNORMAL) DIFFERENTIAL MANUAL (05/17/2022 8:31 AM CDT) WBC (corrected for NRBC) 4.6 10? 3 /uL 05/17/2022 9:32 AM [facility] Total Cell Count 100 05/17/2022 9:32 AM T [facility] Neutrophils Absolute Manual 3.54 1.60 - 7.00 10? 3 /uL 05/17/2022 9:32 AM T [facility] Comment:(BANDS+SEGS) x WBC = NEUT # (ANC) Lymphocyte Absolute Manual 0.60(L) 1.10 - 3.90 10? 3 /uL 05/17/2022 9:32 AM CDT [facility] Monocytes Absolute Manual 0.41 0.26 - 1.07 10? 3 /uL 05/17/2022 9:32 AM CDT [facility] Eosinophils Absolute Manual 0.05 0.00 - 0.47 10? 3 /uL 05/17/2022 9:32 AM CDT [facility] Band % Manual 10 0 - 10 % 05/17/2022 9:32 AM [facility] Neutrophil % Manual 67 35 - 70 % 05/17/2022 9:32 AM [facility] Lymphocyte % Manual 13(L) 20 - 43 % 05/17/2022 9:32 AM [facility] Monocytes % Manual 9 5 - 13 % 05/17/2022 9:32 AM [facility] Eosinophils % Manual 1 0 - 6 % 05/17/2022 9:32 AM [facility] Platelet Estimate Adequate Adequate 05/17/2022 9:32 AM [facility] Ovalocytes 1+(A) None 05/17/2022 9:32 AM [facility] Edgarton Cells Occasional(A ) None 05/17/2022 9:32 AM [facility] Tear Drop Cells Rare(A) None 9:32 AM [facility] Blood BLOOD SPECIMEN / Unknown Lab Venipuncture / Unknown 05/17/2022 8:31 AM CDT 05/17/2022 8:44 AM CDT Mirza Hunt MD LAB - HEMATOLOGY ORD ERABLES [facility] [address] [place] [address], [facility] [phone] * (ABNORMAL) DIFFERENTIAL MANUAL REFLXED III (04/28/2022 7:33 AM CDT) Only the most recent of8 resultswithin the time period is included. Neutrophil Absolute 2339 1500 - 7800 cells/uL [facility] Absolute Bands 67 0 - 750 cells/uL [facility] Myelocytes Absolute 35(H) 0 cells/uL [facility] Lymphocytes Absolute 448(L) 850 - 3900 cells/uL [facility] Absolute Monocytes 310 200 - 950 cells/uL [facility] Eosinophils Absolute 0(L) 15 - 500 cells/uL [facility] Basophils Absolute 0 0 - 200 cells/uL [facility] Granulocytes % 73.1 % [facility] Band Neutrophil 2.1 % [facility] Myelocytes 1.1(H) % [facility] Lymphocytes % 14.0 % [facility] Monocytes % 9.7 % [facility] Eosinophils % 0 % [facility] Basophils % 0 % [facility] See Note See Below [facility] Comment: Although an automated CBC was ordered, our instrumentation detected an abnormality on your patient's specimen requiring us to perform a manual review. Test Performed at: [facility] [id number] [place] [address] ??[phone] NAVDEEP SINGH DO,MPH 04/28/2022 7:33 AM CDT 04/28/2022 7:35 AM CDT Mirza Hunt MD LAB - HEMATOLOGY ORD ERABLES Performing Organization Address City/[facility]/ZIP Co de Phone Number [employer] [address] [place] [address] * (ABNORMAL) CBC W DIFF (EXTERNAL RESULT ENTRY) (04/18/2022) Only the most recent of26 resultswithin the time period is included. WBC (EXTERNAL RESULT) 4.1 10^3/ul [facility] Hemoglobin (EXTERNAL RESULT) 11.6(L) g/dl [facility] Hematocrit (EXTERNAL RESULT) 36.7(L) % [facility] Platelets (EXTERNAL RESULT) 204 10^3/ul [facility] Neutrophil Absolute (EXTERNAL RESULT) 2,460 10^3/ul [facility] Blood BLOOD SPECIMEN / Unknown 04/18/2022 Historical Provider LAB - HEMATOLOGY ORDERABLES Performing Organization Address [facility] Co de Phone Number [facility] [address] [place] [address], [facility] [phone] * (ABNORMAL) URINALYSIS (EXTERNAL RESULT ENTRY) (04/18/2022) Only the most recent of26 resultswithin the time period is included. pH UA (EXTERNAL RESULT) 5.5 [facility] Specific [place] Urine (EXTERNAL RESULT) 1.027 [facility] Protein UA (EXTERNAL RESULT) 1+(A) [facility] Blood UA (EXTERNAL RESULT) Negative [facility] Nitrite UA (EXTERNAL RESULT) Negative [facility] RBC UA (EXTERNAL RESULT) None Seen /HPF [facility] WBC UA (EXTERNAL RESULT) None Seen /HPF [facility] Leukocyte Esterase (EXTERNAL RESULT) Negative [facility] Bacteria UA (EXTERNAL RESULT) None Seen [facility] Urine URINE / Unknown 04/18/2022 Historical Provider LAB - CHEMISTRY O RDERABLES Performing Organization Address City/[facility]/ZIP Co de Phone Number [facility] [address] [place] [address], [place] [phone] * CREATININE RAND UR (EXTERNAL RESULT ENTRY) (04/18/2022) Only the most recent of20 resultswithin the time period is included. Creatinine Random Urine (EXTERNAL RESULT) 253 mg/dl [facility] Urine URINE / Unknown 04/18/2022 Historical Provider LAB - CHEMISTRY O RDERABLES Performing Organization Address [facility] Co de Phone Number [address] [address], [place] [phone] * (ABNORMAL) PROTEIN RANDOM UR (EXTERNAL RESULT ENTRY) (04/18/2022) Only the most recent of21 resultswithin the time period is included. Protein Urine (EXTERNAL RESULT) 58(H) mg/dl [facility] Urine URINE / Unknown 04/18/2022 Historical Provider LAB - CHEMISTRY O RDERABLES Performing Organization Address [facility] Co de Phone Number [address] [address], [place] [phone] * HLA ANTIBODY SCREEN LUM CLASS 2 SAB (03/22/2022 10:07 AM CDT) Only the most recent of2 resultswithin the time period is included. % PRA 1 03/23/2022 1:03 PM CDT [facility] HLA LABORATORY (Senior Moments) Class 2 LUM SAB Specificity Possible Donor Specific: NONE DETECTED Other Specificiti es: [id number] DQA PRESENT 03/23/2022 1:03 PM CDT [facility] HLA LABORATORY (Senior Moments) Class 2 LUM SAB Moderate Risk - 03/23/2022 1:03 PM CDT [facility] HLA LABORATORY ([facility]) Class 2 LUM SAB Reportable Comments - 03/23/2022 1:03 PM CDT [facility] HLA LABORATORY ([facility]) Class 2 SAB Test Date 03/23/2022 03/23/2022 1:03 PM CDT [facility] HLA LABORATORY ([facility]) Comment: This test was developed and its performance characteristics determined by the [facility]. ??It has not been cleared or approved by the U.S. Food and Drug Administration. ??The FDA has determined that such clearance or approval is not necessary. ??This test is used for clinical purposes. ??It should not be regarded as investigational or for research. This laboratory is certified under the Clinical Laboratory Improvement Amendments of 1988 (CLIA-88) as qualified to perform high complexity clinical laboratory testing. ??CLIA ID# [id number] Performed at: [facility], [address] [place] [address] ??[id number] Security Clerk:Dr. Cristhian Luna, PhD, Blood BLOOD SPECIMEN / Unknown Lab Venipuncture / Unknown 03/22/2022 10:07 AM CDT 03/22/2022 10:39 AM CDT Melisa Chambers PRESCHOOL HEAD TEACHER-CHIP WASHER LAB - BLOOD BAN K ORDERABLES [facility] ([facility]) [facility] [place] [address], [facility] * HLA ANTIBODY SCREEN LUM CLASS 1 SAB (03/22/2022 10:07 AM CDT) Only the most recent of2 resultswithin the time period is included. % PRA 2 03/23/2022 1:03 PM CDT [facility] HLA LABORATORY ([facility]) Class 1 LUM SAB Specificity Possible Donor Specific: NONE DETECTED Other Specificiti es: B1512/76, B4601 03/23/2022 1:03 PM CDT [facility] HLA LABORATORY ([facility]) Class 1 LUM SAB Moderate Risk B1402/65 03/23/2022 1:03 PM CDT [facility] HLA [facility]ORATORY ([facility]) Class 1 LUM SAB Reportable Comments - 03/23/2022 1:03 PM CDT [facility] ([facility]) Class 1 SAB Test Date 03/23/2022 03/23/2022 1:03 PM CDT [facility] ([facility]) Comment: This test was developed and its performance characteristics determined by the [facility]. ??It has not been cleared or approved by the U.S. Food and Drug Administration. ??The FDA has determined that such clearance or approval is not necessary. ??This test is used for clinical purposes. ??It should not be regarded as investigational or for research. This laboratory is certified under the Clinical Laboratory Improvement Amendments of 1988 (CLIA-88) as qualified to perform high complexity clinical laboratory testing. ??CLIA ID# [id number] Performed at: [facility], [address] [place] [address] ??[phone] Security Clerk:Dr. Cristhian Luna, PhD, Blood BLOOD SPECIMEN / Unknown Lab Venipuncture / Unknown 03/22/2022 10:07 AM CDT 03/22/2022 10:39 AM CDT Melisa Chambers PRESCHOOL HEAD TEACHER-CHIP WASHER LAB - BLOOD BAN K ORDERABLES Performing Organization Address City/[facility]/ZIP Co de Phone Number [facility] ([facility]) [address] [place] [address], [facility] * BK VIRUS DNA PCR (EXTERNAL RESULT ENTRY) (01/10/2022) Only the most recent of10 resultswithin the time period is included. BK Virus DNA Quant PCR (EXTERNAL RESULT) Not Detected [facility] Blood BLOOD SPECIMEN / Unknown 01/10/2022 Historical Provider LAB - CHEMISTRY O RDERABLES Performing Organization Address City/[facility]/ZIP Co de Phone Number [facility] [address] [place] [address], [place] [phone] * CMV DNA PCR (EXTERNAL RESULT ENTRY) (01/10/2022) Only the most recent of10 resultswithin the time period is included. CMV DNA Quantitative by PCR (EXTERNAL RESULT) Not Detected [facility] Blood BLOOD SPECIMEN / Unknown 01/10/2022 Historical Provider LAB - CHEMISTRY O RDERABLES Performing Organization Address City/[facility] Co de Phone Number [address] [address], [facility] [phone] * (ABNORMAL) PTH (EXTERNAL RESULT ENTRY) (01/10/2022) Only the most recent of15 resultswithin the time period is included. PTH Intact (EXTERNAL RESULT) 202(H) pg/ml [facility] Blood BLOOD SPECIMEN / Unknown 01/10/2022 Historical Provider LAB - CHEMISTRY O RDERAKAILEY Performing Organization Address [facility] Co de Phone Number [address] [address], [place] [phone] * CREATININE BLOOD (EXTERNAL RESULT ENTRY) (01/10/2022) Creatinine (EXTERNAL RESULT) 106 mg/dl [facility] Blood BLOOD SPECIMEN / Unknown 01/10/2022 Historical Provider LAB - CHEMISTRY O RDERAKAILEY Performing Organization Address [facility] Co de Phone Number [address] [address], [place] [phone] * VITAMIN D HYDROXY (EXTERNAL RESULT) (12/21/2021) Only the most recent of14 resultswithin the time period is included. Vitamin D Hydroxy (External Result) 56 [facility] Blood 12/21/2021 Historical Provider LAB - CHEMISTRY O RDERAKAILEY Performing Organization Address City/[facility] Co de Phone Number [address] [place] [address], [facility] [phone] * LIPID PROFILE (EXTERAL RESULT ENTRY) (12/21/2021) Only the most recent of14 resultswithin the time period is included. Cholesterol (EXTERNAL RESULT) 129 mg/dL [facility] Triglycerides (EXTERNAL RESULT) 79 mg/dL [facility] HDL (EXTERNAL RESULT) 43 mg/dL [facility] LDL (EXTERNAL RESULT) 70 mg/dL [facility] VLDL (EXTERNAL RESULT) [facility] Chol HDL Ratio (External Result) 3.0 [facility] Blood BLOOD SPECIMEN / Unknown 12/21/2021 Historical Provider LAB - CHEMISTRY O RDERAKAILEY Performing Organization Address City/[facility]/ZIP Co de Phone Number [address] [address], [facility] [phone] * HEMOGLOBIN A1C (EXTERNAL RESULT ENTRY) (12/21/2021) Only the most recent of16 resultswithin the time period is included. Hemoglobin A1c (EXTERNAL RESULT) 5.3 % [facility] Blood BLOOD SPECIMEN / Unknown 12/21/2021 Historical Provider LAB - CHEMISTRY O RDERAKAILEY Performing Organization Address City/[facility]/ZIP Co de Phone Number [phone] [place] [address], [facility] [phone] * ME CYSTOSCOPY,REMV CALCULUS,SIMPLE (11/02/2021 2:49 PM [facility]) Narrative Emiliano Arnett MD - 11/02/2021 2:49 PM [facility] Emiliano Arnett MD ? 11/02/2021 ??2:55 PM Cystoscopy procedure note Indication for Procedure: stent removal after transplant Description: Pt placed on the procedure table in supine position. he ??was prepped/draped in standard fashion. ??Pt correctly identified and time out performed. ??A flexible cystoscope was introduced per urethra withthe following findings. Urethra: ??Normal caliber, no stricture. ??No masses. ??Urethral sphincter with good coaptation Prostate - positive mild prostatic hyperplasia present Verumontanum in normal position Bladder neck patent without contracture Bladder - normal mucosa without tumor/stone/erythema. ??No FB present other than transplant stent. ??No trabeculation. ??No cellules or diverticula. ??No fistula. ??Stent removed entirely under direct vision. IMPRESSION: ??S/P renal tx PLAN: F/U with transplant surgery as directed Emiliano Arnett MD ?? Emiliano Arnett MD PROCEDURE/MINOR ACEVEDO RGICAL ORDERABLES * TRIGLYCERIDES BODY FLUID ([facility] ONLY) (09/30/2021 4:46 PM [facility]) Triglycerides Fluid <12 Not Established For Fluids mg/dL 09/30/2021 5:50 PM [facility] Comment:The analytical perfo rmance of this test has been independently validated by [facility]. A reference range has not been established. Comparison of this result with the concentration in blood, serum or plasma is recommended. Fluid PERITONEAL FLUID / Unknown Collection / Unknown 09/30/2021 4:46 PM [facility] 09/30/2021 4:53 PM [facility] Navneet Renteria MD LAB - BODY FLUID ORD ERABLES [address] [address], [facility] [phone] * PH BODY FLUID ([facility] ONLY) (09/30/2021 4:46 PM [facility]) pH Fluid 7.64 Not Established for Fluids pH 09/30/2021 5:58 PM [facility] Body Fluid Type Peritoneal Fluid 09/30/2021 5:58 PM [facility] Fluid PERITONEAL FLUID / Unknown Collection / Unknown 09/30/2021 4:46 PM [facility] 09/30/2021 4:53 PM [facility] Navneet Renteria MD LAB - BODY FLUID ORD ERABLES Performing Organization Address [facility]/ZIP Co de Phone Number [address] [address], [facility] [phone] * CREATININE BODY FLUID ([facility] ONLY) (09/30/2021 4:46 PM [facility]) Creatinine Fluid 2.5 Not Established For Fluids mg/dL 09/30/2021 5:50 PM [facility] Comment:The analytical perfo rmance of this test has been independently validated by [facility]. A reference range has not been established. Comparison of this result with the concentration in blood, serum or plasma is recommended. Fluid PERITONEAL FLUID / Unknown Collection / Unknown 09/30/2021 4:46 PM [facility] 09/30/2021 4:53 PM [facility] Navneet Renteria MD LAB - BODY FLUID ORD ERABLES Performing Organization Address [facility] Co de Phone Number [address] [address], [facility] [phone] * (ABNORMAL) CELL COUNT W DIFFERENTIAL FLUID (09/30/2021 4:46 PM [facility]) Color Fluid Other(A) Colorless, Straw 09/30/2021 5:08 PM [facility] Comment:[place] Clarity Fluid Cloudy(A) Clear 09/30/2021 5:08 PM [facility] Volume Fluid 2.0 mL 09/30/2021 5:08 PM [facility] WBC Fluid 211 Reference Range Not Established /uL 09/30/2021 5:08 PM [facility] RBC Fluid 13,000 Reference Range Not Established /uL 09/30/2021 5:08 PM [facility] Differential Manual Differential to follow. 09/30/2021 5:08 PM [facility] Fluid PERITONEAL FLUID / Unknown Collection / Unknown 09/30/2021 4:46 PM [facility] 09/30/2021 4:53 PM [facility] Narrative [facility] - 09/30/2021 5:08 PM [facility] No reference ranges established for body fluid cell counts. The reference ranges provided are derived from published literature. The test results must be integrated into the clinical context for interpretation. Navneet Renteria MD LAB - BODY FLUID ORD ERABLES Performing Organization Address [facility] Co de Phone Number [address] [address], [place] [phone] * DIFFERENTIAL MANUAL FLUID (09/30/2021 4:46 PM [facility]) Segs % Fluid 3 % 09/30/2021 5:43 PM [facility] Lymphocytes % Fluid 97 % 09/30/2021 5:43 PM [facility] Fluid PERITONEAL FLUID / Unknown Collection / Unknown 09/30/2021 4:46 PM [facility] 09/30/2021 4:53 PM [facility] Navneet Renteria MD LAB - BODY FLUID ORD ERABLES Performing Organization Address [facility] Co de Phone Number [address] [address], [place] [phone] * CULTURE FLUID+GRAM STAIN (09/30/2021 4:46 PM [facility]) Culture No growth [facility]O 10/03/2021 10:21 PM [facility] MICROBIOLOGY Gram Stain Rare Polymorphonuclear cells 10/03/2021 10:21 PM [facility] MICROBIOLOGY Gram Stain No organisms seen 021 10:21 PM [facility] MICRO[facility]OLOG[facility] Fluid PERITONEAL FLUID / Unknown Collection / Unknown 09/30/2021 4:46 PM [facility] 09/30/2021 4:53 PM [facility] Navneet Renteria MD LAB - MICROBIOLOGY O RDERABLES Performing Organization Address [facility] Co de Phone Number [facility] MICROBIOLOGY [address] [place] [address], [facility] [phone] * IR DRAIN W CATH PLACEMENT (09/30/2021 4:42 PM [facility]) Anatomical Region Laterality Modality Abdomen X-Ray Angiograph y 10/11/2021 4:03 PM [facility] Impressions 10/11/2021 4:12 PM [facility] Impression: Ultrasound-guided access of the perinephric collection and abscessogram demonstrated no communication to the renal pelvis or ureter aspiration was clear straw-colored and approximately 150 mL of clear straw-colored fluid was aspirated. Findings were communicated to Dr. Renteria. I, Dr. Fabian Ivy, was present and performed/supervised the entire procedure. Moderate sedation on this patient was ordered by me, administered intravenously in my presence, and monitored by the procedure nurse as an independent trained observer who was present throughout the procedure. The following parameters were monitored: oxygen saturation, heart rate, blood pressure, and response to care. Intra-service sedation start time was 1621 and end time was 1637 during which I was present. Total physician intra-service sedation time was 16 minutes. For details on pre moderate sedation and post moderate sedation patient evaluation, please review the evaluation forms in [facility]. For details on monitored clinical parameters during the intra-service sedation time, please review the procedure nurse documentation in [facility]. This report was electronically signed by LISSET IVY M.D. ??on 10/11/2021 4:12 PM . Narrative 10/11/2021 4:12 PM [facility] History: This is a 50-year-old male status post kidney transplant in 09/14/2021. Patient presented with perinephric collection. Patient was referred for urgent aspiration/placement of percutaneous drain. Operators: 1.Dr. Fabian Ivy, Attending Physician Anesthesia: 1.Local anesthesia - 5 mL of 1% lidocaine 2.Intravenous conscious sedation - 1 mg Versed and 50 mcg Fentanyl Procedure: 1.Limited ultrasound evaluation of the transplant kidney in the right lower abdomen. 2.Ultrasound-guided access on the collection and abscessogram. 3.Ultrasound-guided aspiration of perinephric collection. Procedure in detail: The procedure, risks, and possible complications were explained to the patient in detail, and informed consent was obtained. The patient was placed in a supine position on the procedure table and a limited ultrasound evaluation of the transplant kidney in the left lower abdomen was performed, demonstrating known collection around the kidney with multiple septations. The marked site and skin around the region of interest was prepped and draped in sterile fashion. ??Local anesthesia was provided with 1% Lidocaine. ??A 5 [place] coaxial needle system was advanced in stages under real time ultrasound guidance. Upon aspiration, the outer-sheath was advanced within the collection. Contrast was hand injected and an abscessogram was obtained. The abscessogram demonstrated no communication to the renal pelvis are ureter. The collection is limited to the perinephric region. Since the aspirate is clear straw-colored, it was decided not to place a percutaneous drain. Approximately 150 mL of clear straw-colored fluid was aspirated and sent to the laboratory for ordered studies including creatinine. Post aspiration ultrasound demonstrated significant interval reduction with small residual collection. The patient tolerated the procedure well and was transferred to the holding area in stable condition. There were no immediate complications associated with the procedure. Procedure Note Lisset Ivy MD - 10/11/2021 History: This is a 50-year-old male status post kidney transplant in 09/14/2021. Patient presented with perinephric collection. Patient was referred for urgent aspiration/placement of percutaneous drain. Operators: 1.Dr. Fabian Ivy, Attending Physician Anesthesia: 1.Local anesthesia - 5 mL of 1% lidocaine 2.Intravenous conscious sedation - 1 mg Versed and 50 mcg Fentanyl Procedure: 1.Limited ultrasound evaluation of the transplant kidney in the right lower abdomen. 2.Ultrasound-guided access on the collection and abscessogram. 3.Ultrasound-guided aspiration of perinephric collection. Procedure in detail: The procedure, risks, and possible complicationswere explained to the patient in detail, and informed consent was obtained.The patient was placed in a supine position on the procedure table and a limited ultrasound evaluation of the transplant kidney in the left lower abdomen was performed, demonstrating known collection around the kidney with multiple septations. The marked site and skin around the region of interest was prepped and draped in sterile fashion. Local anesthesia was provided with 1% Lidocaine. A 5 [place] coaxial needle system was advanced in stagesunder real time ultrasound guidance. Upon aspiration, the outer-sheath was advanced within the collection. Contrast was hand injected and an abscessogram was obtained. The abscessogram demonstrated nocommunication to the renal pelvis are ureter. The collection is limited to the perinephric region. Since the aspirate is clear straw-colored, it was decided not to place a percutaneous drain. Approximately 150 mL of clear straw-colored fluid was aspirated and sent to the laboratory for ordered studies including creatinine. Post aspiration ultrasound demonstrated significant interval reduction with small residual collection. The patient tolerated the procedure well and was transferred to the holding area in stable condition. There wereno immediate complications associated with the procedure. Impression: Ultrasound-guided access of the perinephric collection and abscessogram demonstrated no communication to the renal pelvis or ureter aspiration was clear straw-colored and approximately 150 mL of clear straw-colored fluid was aspirated. Findings were communicated to Dr. Renteria. I, Dr. Fabian Ivy, was present and performed/supervised the entire procedure. Moderate sedation on this patient was ordered by me, administered intravenously in my presence, and monitored by theformerly [facility] nurse as an independent trained observer who was present throughout the procedure. The following parameters were monitored: oxygen saturation, heart rate, blood pressure, and response to care. Intra-service sedation start time was 1621 and end time was 1637 during which I was present. Total physician intra-service sedation time was 16 minutes. For detailson pre moderate sedation and post moderate sedation patient evaluation, please review the evaluation forms in [facility]. For details on monitored clinical parameters during the intra-service sedation time, pleasereview the procedure nurse documentation in [facility]. This report was electronically signed by LISSET IVY M.D. on 10/11/2021 4:12 PM . Navneet Renteria MD IR ORDERABLES * US RENAL TRANSPLANT (09/29/2021 3:54 PM [facility]) Only the most recent of2 resultswithin the time period is included. Anatomical Region Laterality Modality Abdomen Ultrasound 09/29/2021 4:03 PM [facility] Impressions 09/29/2021 4:23 PM [facility] IMPRESSION: 1. Interval development of a large perinephric collection with internal echogenicities measuring 16.3 x 8.5 x 5.9 cm. Findings may represent hematoma, urinoma, seroma, or lymphocele. 2. Normal sonographic appearance of the transplant kidney however the kidney appears slightly compressed from the surrounding collection. 3. Patent renal transplant vasculature, however there has been interval increase in resistive indices throughout the transplant kidney, renal artery and at the anastomosis. Short-term follow-up is recommended. Dictated by Edi Stratton MD (resident services manager). . I, Dr. PABLO APONTE have personally reviewed and interpreted this examination/study. This report was electronically signed by PABLO APONTE ??on 09/29/2021 4:23 PM . Narrative 09/29/2021 4:23 PM [facility] EXAMINATION: Transplant renal sonogram HISTORY: N17.9: Acute renal failure, unspecified acute renal failure type, Z94.0: Kidney replaced by transplant COMPARISON: Ultrasound Liver Transplant dated 09/14/2021 FINDINGS: Kidney size: 12.1 x 5.3 x 5.8 cm (previously 11.4 x 5.6 x 5.2 cm) Kidney volume: 194 mL (previously 75 mL) Superior pole resistive index: 0.78, previously 0.58 Mid kidney resistive index: 0.78, previously 0.57 Inferior pole resistive index: 0.71-0.73, previously 0.55-0.59 Main renal artery resistive index: 0.89, previously 0.69 Renal artery anastomosis resistive index: 0.88 , previously 0.62 Peak systolic velocity of the main renal artery: 225.1 cm/s Peak systolic velocity of the renal artery anastomosis: 147.5 cm/s Peak systolic velocity of the iliac artery adjacent to the anastomosis: 174.1 cm/s Perfusion is seen in all renal segments. The renal vein is patent. Renal parenchymal echogenicity is normal. There is no evidence of a solid renal mass, renal calculi, or hydronephrosis. There is interval development of large perinephric collection with internal echogenicities. This measures approximately 16.3 x 8.5 x 5.9 cm. Procedure Note Pablo Aponte MD - 09/29/2021 EXAMINATION: Transplant renal sonogram HISTORY: N17.9: Acute renal failure, unspecified acute renal failuretype, Z94.0: Kidney replaced by transplant COMPARISON: Ultrasound Liver Transplant dated 09/14/2021 FINDINGS: Kidney size: 12.1 x 5.3 x 5.8 cm (previously 11.4 x 5.6 x 5.2 cm) Kidney volume: 194 mL (previously 75 mL) Superior pole resistive index: 0.78, previously 0.58 Mid kidney resistive index: 0.78, previously 0.57 Inferior pole resistive index: 0.71-0.73, previously 0.55-0.59 Main renal artery resistive index: 0.89, previously 0.69 Renal artery anastomosis resistive index: 0.88 , previously 0.62 Peak systolic velocity of the main renal artery: 225.1 cm/s Peak systolic velocity of the renal artery anastomosis: 147.5 cm/s Peak systolic velocity of the iliac artery adjacent to the anastomosis: 174.1 cm/s Perfusion is seen in all renal segments. The renal vein is patent. Renal parenchymal echogenicity is normal. There is no evidence of asolid renal mass, renal calculi, or hydronephrosis. There is interval development of large perinephric collection with internalechogenicities. This measures approximately 16.3 x 8.5 x 5.9 cm. IMPRESSION: 1. Interval development of a large perinephric collection with internal echogenicities measuring 16.3 x 8.5 x 5.9 cm. Findings may represent hematoma, urinoma, seroma, or lymphocele. 2. Normal sonographic appearance of the transplant kidney however the kidney appears slightly compressed from the surrounding collection. 3. Patent renal transplant vasculature, however there has been interval increase in resistive indices throughout the transplant kidney, renal artery and at the anastomosis. Short-term follow-up is recommended. Dictated by Edi Stratton MD (resident services manager). . I, Dr. PABLO APONTE have personally reviewed and interpreted this examination/study. This report was electronically signed by PABLO APONTE on 14:23 PM . Jeimy Renteria MD US ORDERABLES * CARDIAC EKG ORDER (09/20/2021 3:05 PM [facility]) Only the most recent of3 resultswithin the time period is included. Narrative 09/20/2021 3:05 PM [facility] Ordered by an unspecified provider. Scanned Document CARDIAC SERVICES ORD ERABLES * (ABNORMAL) GLUCOSE - POINT OF CARE (09/19/2021 12:13 PM [facility]) Only the most recent of23 resultswithin the time period is included. Glucose WB/POC 116(H) 70 - 115 mg/dL 09/19/2021 12:18 PM [facility] Specimen Type Cap Fingerstick 2020 12:18 PM [facility] Blood BLOOD SPECIMEN / Unknown 09/19/2021 12:13 PM [facility] 09/19/2021 12:18 PM [facility] Michelle Fermin MD LAB - POINT OF CARE ORDERABLES Performing Organization Address City/[facility]/ZIP Co de Phone Number [address] [address], [facility] [phone] * (ABNORMAL) CALCIUM IONIZED WHOLE BLOOD (09/19/2021 5:38 AM [facility]) Only the most recent of6 resultswithin the time period is included. Calcium Ionized 1.38 mmol/L 09/19/2021 6:02 AM [facility] pH 7.39 7.35 - 7.45 pH 09/19/2021 6:02 AM [facility] Ionized Calcium pH Adjusted 1.37(H) 1.19 - 1.34 mmol/L 09/19/2021 6:02 AM [facility] Blood BLOOD SPECIMEN / Unknown Lab Venipuncture / Unknown 09/19/2021 5:38 AM [facility] 09/19/2021 5:59 AM [facility] Jeimy Renteria MD LAB - CHEMISTRY ORDE NATHALIE Performing Organization Address City/[facility]/ZIP Co de Phone Number [address] [address], [facility] [phone] * (ABNORMAL) BASIC METABOLIC PANEL (CALCIUM TOTAL) (09/19/2021 5:38 AM [facility]) Only the most recent of9 resultswithin the time period is included. BUN 38(H) 7 - 26 mg/dL 09/19/2021 6:29 AM [facility] Creatinine 2.27(H) 0.71 - 1.16 mg/dL 09/19/2021 6:29 AM [facility] Sodium 139 136 - 145 mmol/L 09/19/2021 6:29 AM [facility] Potassium 4.4 3.5 - 4.5 mmol/L 09/19/2021 6:29 AM [facility] Chloride 113(H) 98 - 107 mmol/L 09/19/2021 6:29 AM [facility] CO2 18(L) 22 - 29 mmol/L 09/19/2021 6:29 AM [facility] Glucose 87 70 - 115 mg/dL 09/19/2021 6:29 AM [facility] Calcium 9.7 8.4 - 10.2 mg/dL 09/19/2021 6:29 AM [facility] Anion Gap 12 8 - 18 09/19/2021 6:29 AM [facility] BUN/Creatinine Ratio 17 7 - 23 09/19/2021 6:29 AM [facility] Osmolality Calculated 296 270 - 300 mOsm/kg 09/19/2021 6:29 AM [facility] eGFR by CKD-EPI 32(L) >=90 mL/min/1.7 3 m2 09/19/2021 6:29 AM [facility] Blood BLOOD SPECIMEN / Unknown Lab Venipuncture / Unknown 09/19/2021 5:38 AM [facility] 09/19/2021 6:01 AM [facility] Ricky Estes PA-C LAB - CHEMISTRY ORD ERABLES [facility] [address] [place] [address], [facility] [phone] * CULTURE BLOOD (09/17/2021 8:18 AM [facility]) Only the most recent of2 resultswithin the time period is included. Culture No growth day 5 BI[facility]ENIDO 09/22/2021 11:30 AM [facility] MICROBIOLOGY Blood PERIPHERAL BLOOD / Unknown Lab Venipuncture / Unknown 09/17/2021 8:18 AM [facility] 09/17/2021 8:21 AM [facility] Michelle Fermin MD LAB - MICROBIO LOGY ORDERABLES [facility] [address] [place] [address], [facility] [phone] * (ABNORMAL) HEPATIC FUNCTION PANEL (09/15/2021 4:47 AM [facility]) [facility] Protein Total 6.3 6.0 - 8.3 g/dL 8:12 AM [facility] Albumin 3.3(L) 3.4 - 5.0 g/dL 09/15/2021 8:12 AM [facility] Bilirubin Total 0.4 0.2 - 1.2 mg/dL 11/2020 8:12 AM [facility] Bilirubin Conjugated 0.1 0.1 - 0.5 mg/dL 09/15/2021 8:12 AM [facility] Bilirubin Unconjugated 0.3 Unconjugated Bilirubin is a calculated value: Reference ranges have not been established. mg/dL 09/15/2021 8:12 AM [facility] Alkaline Phosphatase 34(L) 40 - 150 U/L 09/15/2021 8:12 AM [facility] ALT 10 5 - 55 U/L 09/15/2021 8:12 AM [facility] AST 16 5 - 34 U/L 09/15/2021 8:12 AM [facility] Albumin/Globulin Ratio 1.1 1.1 - 2.3 09/15/2021 8:12 AM [facility] Blood BLOOD SPECIMEN / Unknown Venipuncture / Unknown 09/15/2021 4:47 AM [facility] 09/15/2021 7:47 AM [facility] Jeimy Renteria MD LAB - CHEMISTRY PIPE ZELAYA [facility] [address] [place] [address], [place] [phone] * EKG 12-LEAD (09/14/2021 11:30 PM [facility]) Only the most recent of2 resultswithin the time period is included. [facility] Ventricular Rate 85 BPM [facility] MUSE Atrial Rate 85 BPM [facility] MUSE P-R Interval 194 ms [facility] QRS Duration ms 86 ms [facility] Q-T Interval ms 358 ms [facility] QTC Calculation (Bezet) 426 ms [facility] Calculated P [place] 25 degrees [facility] Calculated R [place] 16 degrees [facility] Calculated T [place] 20 degrees [facility] Interpretation EKG NORMAL SINUS RHYTHM WITH SINUS ARRHYTHMIA NONSPECIFIC T WAVE ABNORMALITY OTHERWISE NORMAL ECG WHEN COMPARED WITH ECG OF 05-SEP-2021 08:07, T WAVE ABNORMALITIES NOW PRESENT IN ??INFERIOR LEADS Confirmed by Reji Hernandez ([id number]) on 09/19/2021 3:26:50 PM [facility]USE 09/14/2021 11:3 0 PM [facility] 09/19/2021 3:26 PM [facility] Jeimy Renteria MD ECG ORDERABLES [facility] MUSE * XR CHEST 1VW PORTABLE (09/14/2021 4:58 PM [facility]) Anatomical Region Laterality Modality Chest Radiographic Shahnaz ging 09/15/2021 8:06 AM [facility] Impressions 09/15/2021 3:31 PM [facility] FINDINGS/IMPRESSION: The extreme lateral cost phrenic angles are not included on this examination. Lines and tubes: *A right internal jugular approach dialysis catheter terminates at the cavoatrial junction. *A left internal jugular approach central venous catheter terminates in the superior vena cava. Perihilar predominant interstitial and airspace opacities are favored to represent mild pulmonary edema. There is no pleural effusion or pneumothorax. The cardiomediastinal silhouette is normal. Dictated by Raymond Mark DO (resident services manager). I, Dr. ELDA DOOLEY have personally reviewed and interpreted this examination/study. This report was electronically signed by ELDA DOOLEY ??on 09/15/2021 3:31 PM . Narrative 09/15/2021 3:31 PM [facility] EXAMINATION: XR CHEST 1VW PORTABLE HISTORY: N18.6: ESRD (end stage renal disease) COMPARISON: 09/05/2021 Procedure Note Elda Dooley MD - 09/15/2021 EXAMINATION: XR CHEST 1VW PORTABLE HISTORY: N18.6: ESRD (end stage renal disease) COMPARISON: 09/05/2021 FINDINGS/IMPRESSION: The extreme lateral cost phrenic angles are not included on this examination. Lines and tubes: *A right internal jugular approach dialysis catheter terminates at the cavoatrial junction. *A left internal jugular approach central venous catheter terminates in the superior vena cava. Perihilar predominant interstitial and airspace opacities are favored to represent mild pulmonary edema. There is no pleural effusion or pneumothorax. The cardiomediastinal silhouette is normal. Dictated by Raymond Mark DO (resident services manager). IDr. ELDA have personally reviewed and interpreted this examination/study. This report was electronically signed by ELDA DOOLEY on 09/15/2021 3:31PM . Samantha Broussard MD DIAGNOSTIC IMAGING O RDERABLES * XR ABDOMEN KUB PORTABLE (09/14/2021 4:13 PM [facility]) Anatomical Region Laterality Modality Abdomen Radiographic Shahnaz ging 09/15/2021 12:5 9 PM [facility] Impressions 09/15/2021 3:24 PM [facility] FINDINGS/IMPRESSION: Metallic clips, double-J stent, and a surgical drain projects over the pelvis. Partially visualized catheter projects over the region of the right atrium. In the first image a metallic instrument overlies the left lower pelvis and a thin linear radiodensity projects over the right ischial tuberosity. In the second image a thin linear radiodensity projects over the right lesser trochanter. Report drafted by Hailee Carmen MD (Livestock Inspector). I, Dr. ELDA DOOLEY have personally reviewed and interpreted this examination/study. This report was electronically signed by ELDA DOOLEY ??on 09/15/2021 3:24 PM . Narrative 09/15/2021 3:24 PM [facility] EXAMINATION: XR ABDOMEN KUB PORTABLE HISTORY: N18.6: ESRD (end stage renal disease) surgical instrument counts COMPARISON: No prior study is available for comparison. Procedure Note Elda Dooley MD - 09/15/2021 EXAMINATION: XR ABDOMEN KUB PORTABLE HISTORY: N18.6: ESRD (end stage renal disease) surgical instrumentcounts COMPARISON: No prior study is available for comparison. FINDINGS/IMPRESSION: Metallic clips, double-J stent, and a surgical drain projects over the pelvis. Partially visualized catheter projects over the region of the right atrium. In the first image a metallic instrument overlies the left lower pelvis and a thin linear radiodensity projects over the right ischialtuberosity. In the second image a thin linear radiodensity projects over the right lesser trochanter. Report drafted by Hailee Carmen MD (Livestock Inspector). I, Dr. ELDA DOOLEY have personally reviewed and interpreted this examination/study. This report was electronically signed by ELDA DOOLEY on 09/15/2021 3:24PM . Jeimy Renteria MD DIAGNOSTIC IMAGING O RDERABLES * (ABNORMAL) BLOOD GAS+COOX+ELECTROLYTES+METAB ARTERIAL (09/14/2021 2:17 PM [facility]) Only the most recent of2 resultswithin the time period is included. pH Arterial 7.35 7.35 - 7.45 pH 09/14/2021 2:29 PM [facility] pO2 Arterial 351(H) 80 - 100 mmHg 09/14/2021 2:29 PM [facility] pCO2 Arterial 35 35 - 45 mmHg 2:29 PM [facility] HCO3 Arterial 19(L) 20 - 30 mmol/l 09/14/2021 2:29 PM [facility] BE Arterial -5.7(L) -2.0 - 2.0 mmol/L 09/14/2021 2:29 PM [facility] Oxyhemoglobin Arterial 97.8 % 09/14/2021 2:29 PM [facility] Dexoyhemoglobin (HHB) % 1.3 % 09/14/2021 2:29 PM [facility] Methemoglobin <0.8 0.0 - 2.0 % 09/14/2021 2:29 PM [facility] Carboxyhemoglobin 0.8 0.0 - 2.0 % 2020 2:29 PM [facility] O2 Content Arterial 12.7 Interpret within clinical context mg/dL 09/14/2021 2:29 PM [facility] Hemoglobin by COOX 8.5(L) 12.0 - 17.6 g/dL 09/14/2021 2:29 PM [facility] O2 Saturation Arterial 99 90 - 100 % 09/14/2021 2:29 PM [facility] Sodium Whole Blood 141 135 - 145 mmol/L 09/14/2021 2:29 PM [facility] Potassium Whole Blood 5.1 3.5 - 5.5 mmol/L 09/14/2021 2:29 PM [facility] Chloride WB 109 101 - 111 mmol/L 09/14/2021 2:29 PM [facility] Calcium Ionized 1.22 mmol/L 2:29 PM [facility] Ionized Calcium pH Adjusted 1.20 1.19 - 1.34 mmol/L 09/14/2021 2:29 PM [facility] Anion Gap (AG) Arterial 18 8 - 18 mmol/L 09/14/2021 2:29 PM [facility] Glucose WB 98 70 - 105 mg/dL 09/14/2021 2:29 PM [facility] Lactic Acid Whole Blood 1.1 <=2.0 mmol/L 09/14/2021 2:29 PM [facility] Blood, arterial ARTERIAL BLOOD SPECIMEN / Unknown Arterial Puncture / Unknown 09/14/2021 2:17 PM [facility] 09/14/2021 2:22 PM [facility] - 09/14/2021 2:29 PM [facility] Carboxyhemoglobin Normal Concentration: Non-smokers: 0-2%; Smokers: 0-9%; Toxic: >20% Samantha Broussard MD LAB - BLOOD GASES OR DERABLES [facility] [address] [place] [address], [facility] [phone] * CENTRAL LINE PERFORMABLE (09/14/2021 2:00 PM [facility]) Narrative Gene Juan MD - 09/14/2021 2:00 PM [facility] Gene Juan MD ? 09/14/2021 ??2:01 PM Central Line Placement Procedure Note/LDA ?? Procedure Section: ?? Indications: IV access and CVP monitoring. Patient Sedated? ??Yes ? Sedation Type: ??general anesthesia Patient Position: ??Trendelenburg Site: ??internal jugular Skin Prep: Chloraprep. Local Anesthetic Used? ??No Site Identification: ultrasound guided with sterile sleeve and gel. Seldinger Technique Used? ??Yes Wire Verification: verified by ultrasound. Intravenous Verification: verified by ultrasound, ultrasound image stored/saved and all ports aspirated/flushed easily. Lumens: ??triple lumen Size (Fr): 6. Length (cm): 20. Secured at (cm): 20. Port Insertion: guidewire removed intact, all ports aspirated/flushed, sutured in place and dressing applied. Number of Attempts: 2. Procedure Tolerance: ??performed while patient under general anesthesia Maximal Sterile Barriers: ??Cap, mask, sterile gloves, a large sterile sheet, hand hygiene, and chlorhexidine for cutaneous antisepsis (6030F) Procedure Start Time: 09/14/2021 10:47 AM. Staff Section ? Anesthesia Provider: Gene Juan MD, Performed the procedure Additional Comments: First attempt complicated by inability to advance wire, re-attempted proximally without issue. Samantha Broussard MD GENERAL ANESTHESIA O RDERABLES * (ABNORMAL) BLOOD GASES ART + COOX PANEL (09/14/2021 11:40 AM [facility]) pH Arterial 7.36 7.35 - 7.45 pH 09/14/2021 11:49 AM [facility] pO2 Arterial 199(H) 80 - 100 mmHg 09/14/2021 11:49 AM [facility] pCO2 Arterial 36 35 - 45 mmHg 11:49 AM [facility] HCO3 Arterial 20 20 - 30 mmol/l 09/14/2021 11:49 AM [facility] BE Arterial -4.6(L) -2.0 - 2.0 mmol/L 09/14/2021 11:49 AM [facility] Oxyhemoglobin Arterial 97.8 % 09/14/2021 11:49 AM [facility] Dexoyhemoglobin (HHB) % 1.7 % 09/14/2021 11:49 AM [facility] Methemoglobin <0.8 0.0 - 2.0 % 09/14/2021 11:49 AM [facility] Carboxyhemoglobin 0.5 0.0 - 2.0 % 2020 11:49 AM [facility] O2 Content Arterial 13.1 Interpret within clinical context mg/dL 09/14/2021 11:49 AM [facility] Hemoglobin by COOX 9.2(L) 12.0 - 17.6 g/dL 09/14/2021 11:49 AM [facility] O2 Saturation Arterial 98 90 - 100 % 09/14/2021 11:49 AM [facility] FI O2 Arterial 40.0 % 09/14/2021 11:49 AM [facility] Blood, arterial ARTERIAL BLOOD SPECIMEN / Unknown Arterial Puncture / Unknown 09/14/2021 11:40 AM [facility] 09/14/2021 11:44 AM [facility] Narrative [facility] - 09/14/2021 11:49 AM [facility] Carboxyhemoglobin Normal Concentration: Non-smokers: 0-2%; Smokers: 0-9%; Toxic: >20% Samantha Broussard MD LAB - BLOOD GASES OR DERABLES [facility] [address] [place] [address], [facility] [phone] * ETT LINE PERFORMABLE (09/14/2021 11:35 AM [facility]) Narrative Gene Juan MD - 09/14/2021 11:35 AM [facility] Gene Juan MD ? 09/14/2021 11:35 AM Endotracheal Tube Placement: ? Patient Location: OR. Intubation Event Date/Time: ??09/14/2021 10:41 AM Procedure: intubation ([id number]). Procedure Section: ?? Sedation: IV sedation. Indications for Airway Management: ??airway protection Induction: standard IV Patient Position: ??sniffing Mask Ventilation: difficult and required 2 people (2 handed). Blade Type: Video (non-reassuring airway exam) Blade Size: 4 Laryngoscopy View: grade 1 (full cords) Intubation Adjuncts: stylet Tube: endotracheal tube Placement: oral Tube type: cuff - inflated Tube Size (MM): 8 Measured From: teeth Cuff Inflated With: air Number of Attempts: 1. Placement Verified By: direct visualization, bilateral breath sounds, chest auscultation and CO2 monitor CXR Findings: ETT in proper place. Tube secured with: ??adhesive tape. Difficult Airway? ??No. Procedure Start Time: 09/14/2021 10:41 AM. Staff Section ? Provider #1: Gene Juan MD, Performed the procedure. Samantha Broussard MD GENERAL ANESTHESIA O RDERABLES * ARTERIAL LINE PERFORMABLE (09/14/2021 10:51 AM [facility]) Narrative Gene Juan MD - 09/14/2021 10:51 AM [facility] Gene Juna MD ? 09/14/2021 10:52 AM Arterial Line Placement Procedure Note Patient Location: OR. Procedure: Arterial Line ([id number]). Procedure Section ?? Indications: continuous blood pressure monitoring, renal failure and blood sampling needed. Consent: informed consent was obtained for the procedure, including sedation. Skin Prep: Chloraprep. Location: radial. Site Identification: palpation. Sterile Technique: cap and mask. Gauge: 20. Catheter Length: 1 and 1/4 inch. Catheter Type: Arrow. Seldinger Technique Used? ??Yes Number of Attempts: 1. Line Secured with: tape and Tegaderm. Procedure Tolerance: tolerated well. Events: none. Procedure Start Time: 09/14/2021 10:44 AM. Staff Section ? Anesthesia Provider: Samantha Broussard MD ? Provider #1: Navdeep Miller DO, Performed the procedure. Samantha Broussard MD GENERAL ANESTHESIA O RDERABLES * TYPE + SCREEN PANEL (09/14/2021 8:05 AM [facility]) Only the most recent of2 resultswithin the time period is included. Antibody Screen NEG 9:08 AM [facility] ABO Rh O POS 09/14/2021 9:08 AM [facility] Blood Bank BLOOD SPECIMEN / Unknown Venipuncture / Unknown 09/14/2021 8:05 AM [facility] 09/14/2021 8:28 AM [facility] Kathryn Coles APRN-MANAGER STUDIO LAB - BLO OD BANK ORDERABLES [facility] [address] [place] [address], [facility] [phone] * HCV AB DONOR (09/14/2021 8:04 AM [facility]) Hepatitis C Antibody Negative Negative 09/18/2021 6:07 PM [facility] ([facility]) Comment:Test performed with [employer] Hepatitis C Virus Antibody kit version 3.0. Blood BLOOD SPECIMEN / Unknown Venipuncture / Unknown 09/14/2021 8:04 AM [facility] 09/14/2021 8:26 AM [facility] Narrative [facility] ([facility]) - 09/18/2021 6:07 PM [facility] Performed at: ??01 - [facility] [address] [place] [address] ??[id number] Security Clerk: Eleni Decker PhD, Phone: ??[phone] Ricky Estes PA-C LAB - CHEMISTRY ORD ERABLES Performing Organization Address City/[facility] Co de Phone Number [facility] ([facility]) [phone] * HIV-1 HIV-2 ANTIBODY + HIV P24 AG PANEL (09/14/2021 8:04 AM [facility]) Only the most recent of2 resultswithin the time period is included. HIV Antigen/Antibod y 1 & 2 Non-reacti ve Non-react heather 09/14/2021 9:37 AM [facility] Comment:No Laboratory eviden ce of HIV infection. Blood BLOOD SPECIMEN / Unknown Venipuncture / Unknown 09/14/2021 8:04 AM [facility] 09/14/2021 8:26 AM [facility] Ricky Estes PA-C LAB - CHEMISTRY ORD ERABLES [facility] [address] [place] [address], [facility] [phone] * HEPATITIS B SURFACE ANTIBODY QUANT (09/14/2021 8:04 AM [facility]) Pathologist [facility] Hepatitis B Virus Surface Antibody 20.13 IU/L 09/16/2021 8:01 AM [facility] [employer] ([facility]) Comment: The anti-HBs is greater than or equal to 10 IU/L. This patient has either had an antibody response to HBV vaccination, received a transfusion, or has recovered from HBV infection. This patient should be considered immune to hepatitis B. An anti-HBs result greater than or equal to 10 IU/L implies immunity. For post-vaccination antibody testing guidelines for the general public refer to MMWR October 06, 2005/Vol. 54(No. 16);-23, and for healthcare workers refer to MMWR October 03, 2013/Vol. 62(No. 10);-. Reference Interval: anti-HBs 9.99 IU/L or less ....... Negative 10.00 IU/L or greater .... Positive Results greater than 1,000.00 IU/L are reported as greater than 1,000.00 IU/L. This assay should not be used for blood donor screening, associated re-entry protocols, or for screening Human Cell, Tissues and Cellular and Tissue-Based Products (HCT/P). Performed By: [facility] [address] [place] [address] Pump House Operator: Mckayla Loomis MD Blood BLOOD SPECIMEN / Unknown Venipuncture / Unknown 09/14/2021 8:04 AM [facility] 09/14/2021 8:26 AM [facility] Ricky Estes PA-C LAB - SEROLOGY PIPE ZELAYA [employer] [facility]) [address] * HEPATITIS C RNA QUANTITATIVE (09/14/2021 8:04 AM [facility]) Pathologist [facility] Hepatitis C RNA PCR, Interp Not detected Not detected 09/15/2021 3:53 PM [facility] Blood BLOOD SPECIMEN / Unknown Venipuncture / Unknown 09/14/2021 8:04 AM [facility] 09/14/2021 8:26 AM [facility] Narrative [facility] - 09/15/2021 3:53 PM [facility] The Hepatitis C viral (HCV) RNA analysis utilized a serum sample, real-time reverse arch pad cementer PCR, and is reported as Not Detected, Detected (<12 IU/mL), Quantity (IU/mL) or >30,000,000 IU/mL. The limit of quantitation of the assay is 12 IU/mL (100% of samples with this HCV RNA level were detected). ??The linear range is from 12 IU/mL to 30,000,000 IU/mL. ??Values less than 12 IU/mL are reported as Detected (<12 IU/mL). ??Values greater than 30,000,000 IU/mL are reported as >30,000,000 IU/mL. The detection/quantitation of HCV RNA in serum is based on the isolation of HCV RNA with reverse arch pad cementer of genomic HCV RNA followed by real-time PCR in the presence of an unrelated RNA internal control. ??The internal control ensures that RNA is isolated, and that no general significant inhibitors of the RT-PCR process are present. The analysis was performed using a U.S. FDA approved test methodology ([employer] Real Time HCV). Ricky Estes PA-C LAB - CHEMISTRY ORD JAYANT [facility] [address] [place], [place] [address], [facility] [phone] * POTASSIUM WHOLE BLD (09/14/2021 8:04 AM [facility]) Potassium Whole Blood 4.8 3.5 - 5.5 mmol/L 09/14/2021 8:35 AM [facility] Blood WHOLE BLOOD SPECIMEN / Unknown Venipuncture / Unknown 09/14/2021 8:04 AM [facility] 09/14/2021 8:32 AM [facility] Jeimy Renteria MD LAB - CHEMISTRY ORDDelisa ZELAYA [address] [address], [facility] [phone] * HEPATITIS B CORE ANTIBODY (09/14/2021 8:04 AM [facility]) Only the most recent of3 resultswithin the time period is included. Pathologist [facility] HBc Antibody Total Non-reacti ve Non-reacti ve 09/14/2021 9:37 AM [facility] Blood BLOOD SPECIMEN / Unknown Venipuncture / Unknown 09/14/2021 8:04 AM [facility] 09/14/2021 8:26 AM [facility] Ricky Estes PA-C LAB - CHEMISTRY ORD ERABLES [address] [address], [facility] [phone] * HEPATITIS B SURFACE ANTIGEN W RFLX CONFIRMATION (09/14/2021 8:04 AM [facility]) Only the most recent of3 resultswithin the time period is included. [facility] Hepatitis B Virus Surface Antigen Non-reacti ve Non-reacti ve 09/14/2021 9:37 AM [facility] Blood BLOOD SPECIMEN / Unknown Venipuncture / Unknown 09/14/2021 8:04 AM [facility] 09/14/2021 8:26 AM [facility] Ricky Estes PA-C LAB - CHEMISTRY ORD ERABLES [address] [address], [facility] [phone] * SARS-COV-2 (COVID-19) PRE-SURGICAL/PROCEDURE (09/12/2021 8:42 AM [facility]) Only the most recent of2 resultswithin the time period is included. [facility] COVID-19 PCR Not detected Not detected 09/12/2021 5:18 PM [facility] Microbiology SPECIMEN FROM NASOPHARYNGEAL STRUCTURE / Unknown Collection / Unknown 09/12/2021 8:42 AM [facility] 09/12/2021 9:33 AM [facility] Narrative [facility] - 09/12/2021 5:18 PM [facility] This nucleic acid amplification assay performance was validated by [facility]. This test has been authorized by the Food and Drug administration (FDA)under an Emergency??Use Authorization (EUA). This test has been validated in accordance with the FDA's guidance document Policy for Diagnostic Testing in Laboratories Certified to perform High Complexity Testing under CLIA prior to Emergency Use Authorization for Coronavirus Disease-2019 during the Public Health Emergency issued on December 13, 2019. FDA independent review of this validation is pending. This test is only authorized for the duration of time the declaration that circumstances exist justifying the authorization of emergency use of in vitro diagnostic tests for detection of SARS-CoV-2 virus and/or diagnosis of COVID-19 infection under section 564(b)(1) of the Act, 21 U.S.C 360bbb-3 (b)(1), unless the authorization is terminated or revoked sooner. Fact Sheets for this EUA assay are available upon request. Jeimy Renteria MD LAB - MICROBIOLOGY O RDERABLES [facility] [address] [place] [address], [facility] [phone] * CT ABDOMEN PELVIS WO CONTRAST (09/05/2021 3:09 PM [facility]) Anatomical Region Laterality Modality Abdomen, Pelvis Computed Tomogra phy 09/05/2021 3:27 PM [facility] Impressions 09/05/2021 4:33 PM [facility] Impression: 1.Bilateral atrophic kidneys consistent with end-stage renal disease. 2.Unremarkable other abdominal viscera. No suggestion of intra-abdominal fluid collection or infection. Report drafted by Mookie Blas (resident) Dr. ENZO Esparza MD, [facility] have personally reviewed and interpreted this examination/study. This report was electronically signed by ENZO PAULSON MD, FRCR ??on 09/05/2021 4:33 PM . Narrative 09/05/2021 4:33 PM [facility] Procedure Information DATE: 09/05/2021 3:09 PM EXAMINATION: Computed tomography (CT) of the abdomen and pelvis without contrast TECHNIQUE: CT of the abdomen and pelvis was performed without contrast according to standard protocol. Clinical Information HISTORY: Z76.82: Pre-kidney transplant, listed COMPARISON: None. Findings Evaluation of visceral and vascular structures is degraded due to lack of intravenous contrast administration. Lower Chest: Normal. Hepatobiliary: Normal. Pancreas: Normal. Spleen: Normal. Kidneys: Bilateral atrophic kidneys with soft tissue stranding surrounding the kidneys. There is no nephrolithiasis. Adrenals: Normal. Retroperitoneum: Normal. Peritoneum: Normal. Gastrointestinal: The stomach and visualized loops of bowel are unremarkable. Appendix: Normal. Pelvic Structures: Normal. Vasculature: Normal Bones: Severe degenerative changes are seen in the lumbar spine. There is mild anterolisthesis of L3 on L4. There is a chronic pars defect at the left L3. Degenerative changes noted in both hip joints. No bony cyst is noted in the right iliac bone. Soft tissues: Normal. Procedure Note Enzo Paulson MD - 09/05/2021 Procedure Information DATE: 09/05/2021 3:09 PM EXAMINATION: Computed tomography (CT) of the abdomen and pelvis without contrast TECHNIQUE: CT of the abdomen and pelvis was performed without contrast according to standard protocol. Clinical Information HISTORY: Z76.82: Pre-kidney transplant, listed COMPARISON: None. Findings Evaluation of visceral and vascular structures is degraded due to lackof intravenous contrast administration. Lower Chest: Normal. Hepatobiliary: Normal. Pancreas: Normal. Spleen: Normal. Kidneys: Bilateral atrophic kidneys with soft tissue stranding surrounding the kidneys. There is no nephrolithiasis. Adrenals: Normal. Retroperitoneum: Normal. Peritoneum: Normal. Gastrointestinal: The stomach and visualized loops of bowel are unremarkable. Appendix: Normal. Pelvic Structures: Normal. Vasculature: Normal Bones: Severe degenerative changes are seen in the lumbar spine. There is mild anterolisthesis of L3 on L4. There is a chronic pars defect at the left L3. Degenerative changes noted in both hip joints. No bony cyst is noted in the right iliac bone. Soft tissues: Normal. Impression: 1.Bilateral atrophic kidneys consistent with end-stage renal disease. 2.Unremarkable other abdominal viscera. No suggestion of intra-abdominal fluid collection or infection. Report drafted by Mookie Blas (resident) IDr. ENZO MD, [facility] have personally reviewedand interpreted this examination/study. This report was electronically signed by ENZO PAULSON MD, [facility] on 09/05/2021 4:33 PM . Jeimy Renteria MD CT ORDERABLES * PT-INR [facility] (09/05/2021 12:17 PM [facility] [facility]) PT 14.4 12.1 - 14.8 Seconds 09/05/2021 1:57 PM [facility] [facility] INR 1.1 See Comment 09/05/2021 1:57 PM [facility] [employer] Comment:The suggested therap eutic range for standard coumadin (warfarin) therapy is an INR of 2.0-3.0. For high-risk patients (Mechanical Mitral Valve Prosthesis, etc.), the suggested prophylactic therapeutic range is an INR of 2.5-3.5. Blood BLOOD SPECIMEN / Unknown Lab Venipuncture / Unknown 09/05/2021 12:17 PM [facility] 09/05/2021 12:36 PM [facility] Farhat Johnson MD LAB - COAGULATION OR DERABLES Performing Organization Address [facility]/State/ZIP Co de Phone Number [facility] [address] [place] [phone], [facility] [phone] * FLOW HLA XM LIVING DONOR (09/05/2021 12:17 PM [facility] [facility]) Only the most recent of2 resultswithin the time period is included. Flow XM Donor First Name Talisha 09/07/2021 1:53 PM [facility] [facility]OR[facility] ([facility]) Flow XM Donor Last Name JOSUE 09/07/2021 1:53 PM [facility] [facility] ([facility]) Flow XM Relation Cousin 09/07/20 1:53 PM [facility] ([facility]) Flow XM T Cell Neg MCS 6 09/07/2021 1:53 PM [employer] [facility] ([facility]) Flow XM Serum Date 09/05/20212020 1:53 PM [facility] ([facility]) Flow XM Test Date 09/07/2021 021 1:53 PM [facility] ([facility]) Comment: This test was developed and its performance characteristics determined by the [facility]. ??It has not been cleared or approved by the U.S. Food and Drug Administration. ??The FDA has determined that such clearance or approval is not necessary. ??This test is used for clinical purposes. ??It should not be regarded as investigational or for research. This laboratory is certified under the Clinical Laboratory Improvement Amendments of 1988 (CLIA-88) as qualified to perform high complexity clinical laboratory testing. ??CLIA ID# [id number] Performed at: [facility], [address] [place], [place] ??[phone] Security Clerk:Dr. Cristhian Luna, PhD, Flow XM B Cell Neg MCS -39 09/07/2021 1:53 PM [facility] ([facility]) Blood BLOOD SPECIMEN / Unknown Lab Venipuncture / Unknown 09/05/2021 12:17 PM [facility] 09/05/2021 12:41 PM [facility] [employer] [facility] Farhat Johnson MD LAB - PATHOLOGY/CYTO LOGY ORDERABLES [facility] ([facility]) [address] [place] [address], [facility] * CANNABINOID SCREEN BLOOD (09/05/2021 12:17 PM [facility] [facility]) Only the most recent of2 resultswithin the time period is included. Marijuana Metabolites Negative 09/14/2021 10:06 PM [facility] [facility] ([facility]) Comment:REFERENCE RANGE: thr shold: 5 ng/mL Specimen Type Comment 09/14/2021 10:06 PM [facility] ([facility]) Comment: WHOLE BLOOD This specimen was screened by immunoassay at the thresholds listed above. Presumptive positive results have not been confirmed by an alternate method; results are intended for clinical medical purposes. Please contact the laboratory if confirmatory testing is desired. This test was developed and its performance characteristics determined by [employer]. It has not been cleared or approved by the Food and Drug Administration. Blood BLOOD SPECIMEN / Unknown Lab Venipuncture / Unknown 09/05/2021 12:17 PM [facility] 09/05/2021 12:41 PM [facility] [employer] [facility] Narrative [facility] ([facility]) - 09/14/2021 10:06 PM [facility] Performed at: ??01 - [employer] [address] [place] [address] ??[id number] Security Clerk: Donya Peck [facility], Phone: ??[phone] Farhat Johnson MD LAB - CHEMISTRY PIPE [facility] ([facility]) [address] [place] [address], [facility] * COCAINE METABOLITE QUANT (09/05/2021 12:17 PM [facility] [facility]) Only the most recent of2 resultswithin the time period is included. [facility] Cocaine and Metabolite Blood <20 ng/mL 09/08/2021 4:29 PM [facility] [facility] ([facility]) Comment: INTERPRETIVE INFORMATION: Cocaine Metabolite, Serum or ?Plasma, Quantitative Methodology: Quantitative Gas Chromatography- Mass Spectrometry/Quantitative Liquid Chromatography-Tandem Mass Spectrometry Positive cutoff: 20 ng/mL ?? For medical purposes only; not valid for forensic use. The concentration value must be greater than or equal to the cutoff to be reported as positive. Interpretive questions should be directed to the laboratory. This test was developed and its performance characteristics determined by [employer]. It has not been cleared or approved by the US Food and Drug Administration. This test was performed in a CLIA certified laboratory and is intended for clinical purposes. Performed By: [facility] [address] [place] [id number] Pump House Operator: Mckayla Loomis MD Blood BLOOD SPECIMEN / Unknown Lab Venipuncture / Unknown 09/05/2021 12:17 PM [facility] [facility] 09/05/2021 12:39 PM [employer] Farhat Johnson MD LAB - CHEMISTRY ORDE NATHALIE [employer] [facility]) [address] [place] [address], [facility] * SYPHILIS ANTIBODY CASCADING REFLEX (09/05/2021 12:17 PM [facility]) Only the most recent of2 resultswithin the time period is included. Treponema pallidum Antibody Non-react heather Non-react heather 09/05/2021 2:16 PM [employer] [facility] Comment: No Laboratory evidence of syphilis infection. ?? Note: ??Circulating antibodies may be low or undetectable in early infection. ??If recent exposure is suspected, re-draw sample in 2-4 weeks and repeat testing. Blood BLOOD SPECIMEN / Unknown Lab Venipuncture / Unknown 09/05/2021 12:17 PM [facility] [facility] 09/05/2021 12:39 PM [facility] Farhat Johnson MD LAB - SEROLOGY ORDER MICHAEL Performing Organization Address City/[facility]/ZIP Co de Phone Number [facility] [address] [place] [address], [facility] [phone] * AMPHETAMINE BLOOD CONFIRMATION (09/05/2021 12:17 PM [facility] [facility]) Only the most recent of2 resultswithin the time period is included. Amphetamines Confirmation <20 ng/mL 09/09/2021 10:55 PM [employer] ([facility]) Comment: INTERPRETIVE INFORMATION: Amphetamines, Serum or ?Plasma, Quantitative Methodology: Quantitative Liquid Chromatography-Tandem Mass Spectrometry Positive cutoff: 20 ng/mL For medical purposes only; not valid for forensic use. The absence of expected drug(s) and/or drug metabolite(s) may indicate non-compliance, inappropriate timing of specimen collection relative to drug administration, poor drug absorption, or limitations of testing. ??The concentration value must be greater than or equal to the cutoff to be reported as positive. Interpretive questions should be directed to the laboratory. This test was developed and its performance characteristics determined by [employer]. It has not been cleared or approved by the US Food and Drug Administration. This test was performed in a CLIA certified laboratory and is intended for clinical purposes. Methamphetamine Confirmation <20 ng/mL 09/09/2021 10:55 PM [facility] ([facility]) MDA Confirmation <20 ng/mL 09/09/20 21 10:55 PM [facility] [employer] [facility] ([facility]) MDMA Confirm <20 ng/mL 09/09/2021 10:55 PM [facility] [facility] ([facility]) MDEA Confirmation <20 ng/mL 021 10:55 PM [employer] [facility] ([facility]) Comment: Performed By: [facility] [address] [place] [address] Pump House Operator: Mckayla Loomis MD Blood BLOOD SPECIMEN / Unknown Lab Venipuncture / Unknown 09/05/2021 12:17 PM [facility] [employer] [facility] 09/05/2021 12:39 PM [employer] Farhat Johnson MD LAB - CHEMISTRY PIPE ZELAYA [facility] [employer] [facility]) [address] [place] [address], [facility] * OPIATES BLOOD (09/05/2021 12:17 PM [facility]) Only the most recent of2 resultswithin the time period is included. [facility] Opiates Screen Negative 09/14/2021 10:10 AM [facility] ([facility]) Comment:REFERENCE RANGE: thr shold: 10 ng/mL Oxycodone Screen Negative 09/14/20 10:10 AM [facility] [facility] ([facility]) Comment:REFERENCE RANGE: thr shold: 10 ng/mL Specimen Type Comment 09/14/2021 10:10 AM [facility] ([facility]) Comment: WHOLE BLOOD This specimen was screened by immunoassay at the thresholds listed above. Presumptive positive results have not been confirmed by an alternate method; results are intended for clinical medical purposes. Please contact the laboratory if confirmatory testing is desired. This test was developed and its performance characteristics determined by [facility]. It has not been cleared or approved by the Food and Drug Administration. Blood BLOOD SPECIMEN / Unknown Lab Venipuncture / Unknown 09/05/2021 12:17 PM [facility] [facility] 09/05/2021 12:41 PM [facility] Narrative [facility] ([facility]) - 09/14/2021 10:10 AM [facility] [employer] Performed at: ??01 - [employer] [address] [place] [address] ??[phone] Security Clerk: Donya Chaparro, Phone: ??[phone] Farhat Johnson MD LAB - CHEMISTRY PIPE ZELAYA [facility] ([facility]) [address] [place] [address] * STRONGYLOIDES ANTIBODY IGG (09/05/2021 12:17 PM [facility] [facility]) Only the most recent of2 resultswithin the time period is included. Strongyloides Antibody IgG 0.2 <=0.9 IV 09/08/2021 1:57 PM [employer] ([facility]) Comment: INTERPRETIVE INFORMATION: Strongyloides Ab, IgG by MATTHEW ??0.9 IV or less....... Negative - No significant ?level of Strongyloides IgG ?antibody detected. ??1.0 IV................Equivocal - The Strongyloides IgG ?antibody result is borderline and ?therefore inconclusive. Recommend ?retesting the patient in 2-4 weeks, ?if clinically indicated. ??1.1 IV or greater ... Positive - IgG antibodies to ?Strongyloides detected, which ?may suggest current or past ?infection. False-positive results may occur with prior exposure to other helminth infections. Testing low-prevalence populations may also result in false-positive results. Performed By: [facility] [address] [place] [address] Pump House Operator: Mckayla Loomis MD Blood BLOOD SPECIMEN / Unknown Lab Venipuncture / Unknown 09/05/2021 12:17 PM [facility] [facility] 09/05/2021 12:39 PM [employer] Farhat Johnson MD LAB - SEROLOGY ORDER MICHAEL [employer] ([facility]) [address] [place] [address], [facility] * CYTOMEGALOVIRUS ANTIBODY IGG BLOOD (09/05/2021 12:17 PM [facility] [facility]) Only the most recent of2 resultswithin the time period is included. Cytomegalovirus Antibody IgG <0.20 U/mL 09/07/2021 4:16 AM [facility] ([facility]) Comment: INTERPRETIVE INFORMATION: Cytomegalovirus Antibody, IgG ??0.59 U/mL or less......... Not Detected ??0.6 - 0.69 U/mL........... Indeterminate-Repeat testing in ? 10-14 days may be helpful. ??0.70 U/mL or greater...... Detected In immunocompromised patients, CMV serology (IgG or IgM antibody titers) may not be reliable and may be misleading in the diagnosis of acute or reactivation CMV disease. The preferred method for diagnosis is culture of virus and/or demonstration of viral antigen in peripheral white cells (buffy coat), bronchoalveolar lavage (BAL) cells, or tissue biopsies. This test should not be used for blood donor screening, associated re-entry protocols, or for screening Human Cell, Tissues and Cellular and Tissue-Based Products (HCT/P). The best evidence for current infection is a significant change on two appropriately timed specimens, where both tests are done in the same laboratory at the same time. Performed By: [facility] [address] [place] [address] Pump House Operator: Mckayla Loomis MD Blood BLOOD SPECIMEN / Unknown Lab Venipuncture / Unknown 09/05/2021 12:17 PM [facility] 09/05/2021 12:40 PM [employer] Farhat Johnson MD LAB - CHEMISTRY PIPE ZELAYA [employer] ([facility]) [address] [place] [address], [facility] * TOXOPLASMA GONDII ANTIBODY IGG (09/05/2021 12:17 PM [facility]) Only the most recent of2 resultswithin the time period is included. [facility] Toxoplasma Antibody IgG <3.0 IU/mL 09/10/2021 4:43 AM [employer] [facility] [employer] ([facility]) Comment: INTERPRETIVE INFORMATION: Toxoplasma Ab, IgG ??7.1 IU/mL or less....... Not Detected ??7.2-8.7 IU/mL .......... Indeterminate-Repeat testing in ? 10-14 days may be helpful. ??8.8 IU/mL or greater ... Detected The best evidence for current infection is a significant change on two appropriately timed specimens, where both tests are done in the same laboratory at the same time. This test should not be used for blood donor screening, associated re-entry protocols, or for screening Human Cell, Tissues and Cellular and Tissue-Based Products (HCT/P). The magnitude of the measured result is not indicative of the amount of antibody present. Performed By: [facility] [address] [place] [address] Pump House Operator: Mckayla Loomis MD Blood BLOOD SPECIMEN / Unknown Lab Venipuncture / Unknown 09/05/2021 12:17 PM [facility] 09/05/2021 12:39 PM [employer] Farhat Johnson MD LAB - CHEMISTRY PIPE ZELAYA [facility] [employer] ([facility]) [address] [place] [address], [facility] * HEMOGLOBIN A1C (09/05/2021 12:17 PM [facility]) Only the most recent of2 resultswithin the time period is included. Hemoglobin A1c 5.2 4.4 - 6.3 % 09/06/2021 10:27 AM [employer] [facility] Estimated Average Glucose 103 mg/dL 09/06/2021 10:27 AM [employer] [facility] Comment: HbA1c Interpretation: Treatment target values recommended by ADA and other clinical organizations should be used to evaluate metabolic control in patients. Treatment Target Values: Normal : < 5.7% Pre-diabetes: 5.7-6.4% Diabetes: Equal to or greater than 6.5% Reference: [place] Diabetes Association Standards of Care in Diabetes -2014 In patients 70 years and older consider HbA1c target range of 7.0-7.5% Reference: ??Diabetes Mellitus in Older People: Position Statement on behalf of the International Association of Gerontology and Geriatrics (IAGG), the Diabetes Working Green Party for Older People (EDWPOP), and the International Task Force of Experts in Diabetes. ??Salomón Calvillo, et al. J [place] [employer]. 2012 Test results diagnostic of diabetes should be repeated for confirmation. The Sebia Capillary 2 assay for the measurement of HbA1c is a National Glycohemoglobin Standardization Program (NGSP)certified method. Blood BLOOD SPECIMEN / Unknown Lab Venipuncture / Unknown 09/05/2021 12:17 PM [facility] 09/05/2021 12:51 PM [employer] Farhat Johnson MD LAB - CHEMISTRY PIPE ZELAYA [facility] [address] [place] [address], [facility] [phone] * NICOTINE + METABOLITES BLOOD (09/05/2021 12:17 PM [facility]) Only the most recent of2 resultswithin the time period is included. Nicotine <2 ng/mL 09/08/2021 2:25 PM [employer] ([facility]) Comment: Consistent with abstinence from nicotine-containing products for at least 1 week. INTERPRETIVE INFORMATION: Nicotine and Metabolites, ?Serum or Plasma, ?Quantitative Methodology: Quantitative Liquid Chromatography-Tandem Mass Spectrometry Positive cutoff: 2 ng/mL For medical purposes only; not valid for forensic use. This test is designed to evaluate recent use of nicotine-containing products. ??Passive and active exposure cannot be discriminated definitively, although a cutoff of 10 ng/mL cotinine is frequently used for surgery qualification purposes. ?? For smoking cessation programs or compliance testing, the absence of expected drug(s) and/or drug metabolite(s) may indicate non-compliance, inappropriate timing of specimen collection relative to drug administration, poor drug absorption, or limitations of testing. This test cannot distinguish between use of tobacco and purified nicotine products. The concentration value must be greater than or equal to the cutoff to be reported as positive. ?? This test was developed and its performance characteristics determined by [facility]. It has not been cleared or approved by the US Food and Drug Administration. This test was performed in a CLIA certified laboratory and is intended for clinical purposes. Performed By: [facility] [address] [place] [address] Pump House Operator: Mckayla Loomis MD 3-Hydroxy Cotinine <2 ng/mL 2020 2:25 PM [employer] [facility] [employer] [facility]) Cotinine <2 ng/mL 09/08/2021 2:25 PM [employer] [facility] [employer]) Blood BLOOD SPECIMEN / Unknown Lab Venipuncture / Unknown 09/05/2021 12:17 PM [employer] 09/05/2021 12:39 PM [employer] Farhat Johnson MD LAB - CHEMISTRY PIPE ZELAYA [facility] [employer] [facility]) [address] * PROSTATE SPECIFIC ANTIGEN SCREEN (09/05/2021 12:17 PM [employer]) Only the most recent of2 resultswithin the time period is included. [facility] PSA Total 1.0 0.0 - 4.0 ng/mL 09/05/2021 1:41 PM [employer] [facility] Blood BLOOD SPECIMEN / Unknown Lab Venipuncture / Unknown 09/05/2021 12:17 PM [employer] 09/05/2021 12:50 PM [employer] Farhat Johnson MD LAB - CHEMISTRY PIPE ZELAYA Performing Organization Address [facility]/ZIP Co de Phone Number [facility] [address] [place] [phone], [facility] [phone] * (ABNORMAL) HEPATITIS B SURFACE ANTIBODY (09/05/2021 12:17 PM [employer]) Only the most recent of2 resultswithin the time period is included. [facility] Hepatitis B Virus Surface Antibody Reactive( A) Non-react heather 09/05/2021 2:16 PM [facility] Comment: > 12 mIU/mL Hepatitis B surface Antibody (HBsAb). Reactive for HBsAb - individual is considered immune to Hepatitis B Virus infection. Hepatitis B Surface Antibody Quantitative 21.3(H) <8.0 mIU/mL 09/05/2021 2:16 PM [facility] Comment: Hepatitis B Surface Antibody Numeric Result Interpretation: ? Nonreactive: ?<8.0 mIU/mL ? Indeterminate: ??8.0 - 12.0 mIU/mL ? Reactive: ?>12.0 mIU/mL ? Blood BLOOD SPECIMEN / Unknown Lab Venipuncture / Unknown 09/05/2021 12:17 PM [employer] 09/05/2021 12:39 PM [employer] Farhat Johnson MD LAB - CHEMISTRY PIPE ZELAYA Performing Organization Address [facility]/ZIP Co de Phone Number [facility] [address] [place] [phone], [facility] [phone] * ALCOHOL ETHYL BLOOD (09/05/2021 12:17 PM [facility]) Only the most recent of2 resultswithin the time period is included. Ethanol (mg/dL) <10 <10 mg/dL 2:41 PM [employer] [facility] Ethanol Calculated (g/dL) <0.010 <0.010 g/dL 09/05/2021 2:41 PM [employer] [facility] Blood BLOOD SPECIMEN / Unknown Lab Venipuncture / Unknown 09/05/2021 12:17 PM [employer] 09/05/2021 12:50 PM [employer] Narrative [facility] - 09/05/2021 2:41 PM [employer] Ethanol Interp <10: None Detected. Depression of MANAGER STUDIO: >100 mg/dl Potentially Critical: >250 mg/dl Potentially Fatal >400 mg/dl Ethanol in the patient's blood will contribute to the osmolar gap. Ethanol's contribution to the osmolar gap can be estimated by dividing the concentration of ethanol in mg/dL by 4.6. This test is for clinical use only and does not equal a LILLY for legal purposes. Farhat Johnson MD LAB - CHEMISTRY PIPE ZELAYA [address] [address], [facility] [phone] * HEPATITIS C ANTIBODY (09/05/2021 12:17 PM [employer]) Only the most recent of2 resultswithin the time period is included. Hepatitis C Antibody Non-react heather Non-reac tive 09/05/2021 2:16 PM [employer] [facility] Comment:Hepatitis C Antibody screen indicates no serologic evidence of past or current infection with Hepatitis C Virus. Patients with unexplained liver disease who are immunocompromised or suspected of having acute Hepatitis C infection may benefit from Nucleic Acid Test (TOBIAS) for Hepatitis C Viral RNA to confirm Hepatitis C status. Blood BLOOD SPECIMEN / Unknown Lab Venipuncture / Unknown 09/05/2021 12:17 PM [employer] 09/05/2021 12:39 PM [employer] Farhat Johnson MD LAB - CHEMISTRY PIPE ZELAYA [facility] [address] [place] [address], [facility] [phone] * HEPATITIS A ANTIBODY (09/05/2021 12:17 PM [employer]) Only the most recent of2 resultswithin the time period is included. Hepatitis A Virus Antibody Total Negative Negative 09/07/2021 10:49 AM [employer] ([facility]) Comment: Performed by [facility], [address] [place] [address] [email or web address], Mckayla Loomis MD, Lab. Director Blood BLOOD SPECIMEN / Unknown Lab Venipuncture / Unknown 09/05/2021 12:17 PM [employer] 09/05/2021 12:39 PM [employer] Farhat Johnson MD LAB - CHEMISTRY PIPE ZELAYA Performing Organization Address [facility] Co de Phone Number [employer] [facility]) [address] * ECHO STRESS TEST W DOBUTAMINE (09/05/2021 11:35 AM K[employer]) Only the most recent of2 resultswithin the time period is included. Anatomical Region Laterality Modality Chest Echo 09/05/2021 10:3 6 AM [employer] Narrative Procedure Note Radha Augustin MD - 09/05/2021 Farhat Johnson MD ECHOCARDIOGRAPHY RAD IANT * XR CHEST PA AND LATERAL (09/05/2021 8:21 AM [employer]) Only the most recent of2 resultswithin the time period is included. Anatomical Region Laterality Modality Chest Radiographic Shahnaz ging 09/05/2021 2:05 PM [employer] Impressions 09/05/2021 5:58 PM [employer] FINDINGS/IMPRESSION: Lines and tubes: Right internal jugular approach dialysis catheter is present with the tip positioned at the cavoatrial junction. There is no focal consolidation or pneumothorax. No evidence of pleural effusion, however the right lateral costophrenic angle is only partially included in the [id number]. The cardiomediastinal silhouette is normal. The visible bony thorax is intact. Report drafted by Hailee Carmen MD (Livestock Inspector). I, Dr. ELDA DOOLEY have personally reviewed and interpreted this examination/study. This report was electronically signed by ELDA DOOLEY ??on 09/05/2021 5:58 PM . Narrative 09/05/2021 5:58 PM [employer] EXAMINATION: XR CHEST 2VW HISTORY: Z76.82: Pre-kidney transplant, listed COMPARISON: Chest x-ray of 10/06/2020 Procedure Note Elda Dooley MD - 09/05/2021 EXAMINATION: XR CHEST 2VW HISTORY: Z76.82: Pre-kidney transplant, listed COMPARISON: Chest x-ray of 10/06/2020 FINDINGS/IMPRESSION: Lines and tubes: Right internal jugular approach dialysis catheter is present with thetip positioned at the cavoatrial junction. There is no focal consolidation or pneumothorax. No evidence of pleural effusion, however the right lateral costophrenic angle is only partially included in the wmhfy-[id number]. The cardiomediastinal silhouette isnormal. The visible bony thorax is intact. Report drafted by Hailee Carmen MD (Livestock Inspector). I, Dr. ELDA DOOLEY have personally reviewed and interpreted this examination/study. This report was electronically signed by ELDA DOOLEY on 09/05/2021 5:58 PM . Farhat Johnson MD DIAGNOSTIC IMAGING O RDERABLES * US RETROPERITONEAL COMPLETE (08/08/2021 7:53 AM CDT) Anatomical Region Laterality Modality Abdomen Ultrasound 08/08/2021 8:21 AM CDT Impressions 08/08/2021 9:23 AM CDT IMPRESSION: 1.Atrophic echogenic right kidney consistent with end-stage renal disease. 2.The left kidney is not visualized. Dictated by Chris Delaney DO (resident services manager). I, Dr. PABLO APONTE have personally reviewed and interpreted this examination/study. This report was electronically signed by PABLO APONTE ??on 08/08/2021 9:23 AM . Narrative 08/08/2021 9:23 AM CDT EXAMINATION: Complete retroperitoneal sonogram HISTORY: Z76.82: Pre-kidney transplant, listed COMPARISON: No prior study is available for comparison at the time of this dictation. FINDINGS: The right kidney is atrophic and measures 6.5 x 2.7 x 3.1 cm. The echogenicity of the right kidney is increased. There is no mass, calculi, or hydronephrosis. Blood flow is seen in the right renal artery and vein. The left kidney is not visualized. The urinary bladder is distended and appears normal. Procedure Note Pablo Aponte MD - 08/08/2021 EXAMINATION: Complete retroperitoneal sonogram HISTORY: Z76.82: Pre-kidney transplant, listed COMPARISON: No prior study is available for comparison at the time ofthis dictation. FINDINGS: The right kidney is atrophic and measures 6.5 x 2.7 x 3.1 cm. The echogenicity of the right kidney is increased. There is no mass,calculi, or hydronephrosis. Blood flow is seen in the right renal artery andvein. The left kidney is not visualized. The urinary bladder is distended and appears normal. IMPRESSION: 1.Atrophic echogenic right kidney consistent with end-stage renaldisease. 2.The left kidney is not visualized. Dictated by Chris Delaney DO (resident services manager). I, Dr. PABLO APONTE have personally reviewed and interpreted this examination/study. This report was electronically signed by PABLO APONTE on 19:23 AM . Farhat Johnson MD US ORDERABLES * NM PARATHYROID SPECT CT (06/24/2021 11:20 AM CDT) Anatomical Region Laterality Modality Neck Nuclear Medicine 06/24/2021 9:38 AM CDT Impressions 06/24/2021 1:51 PM CDT IMPRESSION: 1.The planar images are unremarkable, however; there are two foci of subtle uptake in the posterior and inferior aspects of the left thyroid lobe may represent sites of parathyroid adenomas. 2.Additional subtle focus in the mid posterior aspect of the right thyroid lobe, maybe represent additional adenoma. This report was approved ??by Rin Mancuso ?? on 06/24/2021 12:19 PM . I, Dr. JIL BRUCE M.D. have personally reviewed and interpreted this examination/study. This report was electronically signed by JIL BRUCE M.D. ??on 06/24/2021 1:51 PM . Narrative 06/24/2021 1:51 PM CDT PROCEDURE: Parathyroid imaging with SPECT-CT. HISTORY: 50-year-old male with history of elevated PTH (most recent PTH on 10/06/2020 was 1318.3 pg/mL). This study was ordered as a part of prerenal transplant evaluation. Patient's BMI 29.58 kg/m2. TECHNIQUE: 21.2 mCi of Tc99m sestamibi was injected IV in the left antecubital fossa. Immediate and delayed planar images on the neck and chest were obtained. Tomographic SPECT-CT images of the neck and upper chest were obtained 120 minutes after injection. COMPARISON: No prior similar study is available for comparison. FINDINGS: Planar immediate images of the neck and upper chest revealed asymmetric uptake in the thyroid gland that is more intense in the left lobe. There is physiologic uptake in the salivary gland and myocardium. Delayed images show partial radiotracer washout from the left thyroid lobe and complete washout from the right. SPECT-CT images of the neck and upper chest showed two foci of uptake fusing on fullness in the posterior and inferior aspect of the left thyroid lobe likely representing parathyroid adenomas in these locations. There is a subtle focal increased uptake posteromedial to the mid right thyroid, abutting and indenting the posterior aspect of the trachea. Procedure Note Jil Bruce MD - 06/24/2021 PROCEDURE: Parathyroid imaging with SPECT-CT. HISTORY: 50-year-old male with history of elevated PTH (most recent PTHon 10/06/2020 was 1318.3 pg/mL). This study was ordered as a part ofprerenal transplant evaluation. Patient's BMI 29.58 kg/m2. TECHNIQUE: 21.2 mCi of Tc99m sestamibi was injected IV in the left antecubital fossa. Immediate and delayed planar images on the neck and chest were obtained. Tomographic SPECT-CT images of the neck and upper chest were obtained 120 minutes after injection. COMPARISON: No prior similar study is available for comparison. FINDINGS: Planar immediate images of the neck and upper chest revealed asymmetric uptake in the thyroid gland that is more intense in the left lobe. There is physiologic uptake in the salivary gland and myocardium. Delayedimages show partial radiotracer washout from the left thyroid lobe and complete washout from the right. SPECT-CT images of the neck and upper chest showed two foci of uptake fusing on fullness in the posterior and inferior aspect of the left thyroid lobe likely representing parathyroid adenomas in theselocations. There is a subtle focal increased uptake posteromedial to the mid right thyroid, abutting and indenting the posterior aspect of the trachea. IMPRESSION: 1.The planar images are unremarkable, however; there are two foci of subtle uptake in the posterior and inferior aspects of the left thyroid lobe may represent sites of parathyroid adenomas. 2.Additional subtle focus in the mid posterior aspect of the rightthyroid lobe, maybe represent additional adenoma. This report was approved by Rin Mancuso on 06/24/2021 12:19 PM . IDr. JIL M.D. have personally reviewed and interpreted this examination/study. This report was electronically signed by JIL BRUCE M.D. on06/24/2021 1:51 PM . Michelle Fermin MD NM ORDERABLES * VAS BILAT MAPPING FOR HEMODIALYSIS (10/06/2020 12:33 PM [employer]TER [employer]) Anatomical Region Laterality Modality Lower Extremity, Upper Extremity Echo 10/06/2020 10:4 8 AM [employer] Narrative Procedure Note She Magana MD - 10/06/2020 She Magana MD VASCULAR LAB ORDER MICHAEL * XR PANOREX (10/06/2020 10:36 AM [employer]) Anatomical Region Laterality Modality Head Radiographic Shahnaz ging 10/06/2020 10:4 7 AM [employer] Impressions 10/06/2020 3:13 PM [employer] IMPRESSION: No evidence of periapical abscess. Dictated by Anna Fuentes MD (resident services manager). Dr. SHE Esparza have personally reviewed and interpreted this examination/study. This report was electronically signed by SHE MEZA ??on 10/06/2020 3:13 PM . Narrative 10/06/2020 3:13 PM [employer] EXAMINATION: Panorex HISTORY: Z01.818: Pre-transplant evaluation for kidney transplant COMPARISON: No prior study is available for comparison. FINDINGS: Multiple dental restorations are identified and numerous teeth are absent. There is no evidence of fracture of the mandible. The temporomandibular joints are intact bilaterally. There is no evidence of any periosteal reaction. No lytic or blastic lesions seen. No periapical lucency is present. Procedure Note She Meza MD - 10/06/2020 EXAMINATION: Panorex HISTORY: Z01.818: Pre-transplant evaluation for kidney transplant COMPARISON: No prior study is available for comparison. FINDINGS: Multiple dental restorations are identified and numerous teeth areabsent. There is no evidence of fracture of the mandible. The temporomandibular joints are intact bilaterally. There is no evidence of any periosteal reaction. No lytic or blastic lesions seen. No periapical lucency is present. IMPRESSION: No evidence of periapical abscess. Dictated by Anna Fuentes MD (resident services manager). I, Dr. SHE MEZA have personally reviewed and interpreted this examination/study. This report was electronically signed by SHE MEZA on 10/06/2020 3:13 PM . Ambrose Pradhan MD DIAGNOSTIC IMAG ING ORDERABLES * HLA TYPING DNA LOW RESOLUTION DR,DQ (10/06/2020 10:19 AM KNITTER WIRE MESH) DR DQ Low Resolution DRB1-1 13 10/21/2020 5:25 PM [employer]TER [employer] [facility] ([facility]) DR DQ Low Resolution DRB1-2 15 10/21/2020 5:25 PM [employer] [facility] ([facility]) DR DQ Low Resolution DQB1-1 06 10/21/2020 5:25 PM [employer] [facility] ([facility]) DR DQ Low Resolution DQB1-2 - 10/21/2020 5:25 PM [employer] [facility] ([facility]) DR DQ Low Resolution DRB3-1 03 10/21/2020 5:25 PM [employer] [facility] ([facility]) DR DQ Low Resolution DRB3-2 Negative 10/21/2020 5:25 PM [employer] [facility] ([facility]) DR DQ Low Resolution DRB4-1 Negative 10/21/2020 5:25 PM [employer] [facility] ([facility]) DR DQ Low Resolution DRB4-2 Negative 10/21/2020 5:25 PM [employer] [facility] ([facility]) DR DQ Low Resolution DRB5-1 01 10/21/2020 5:25 PM [employer] [facility] ([facility]) DR DQ Low Resolution DRB5-2 Negative 10/21/2020 5:25 PM [employer] [facility] ([facility]) DR DQ Low Resolution Methodology SSOP 10/21/2020 5:25 PM [employer] [facility] ([facility]) Comment DR DQ Low Resolution - 10/21/2020 5:25 PM K[employer]ITTER [employer]IRE M[employer] [facility] ([facility]) DR DQ Low Resolution test date 10/21/2020 10/21/2020 5:25 PM [employer] [facility] ([facility]) Comment: This test was developed and its performance characteristics determined by the [facility]. ??It has not been cleared or approved by the U.S. Food and Drug Administration. ??The FDA has determined that such clearance or approval is not necessary. ??This test is used for clinical purposes. ??It should not be regarded as investigational or for research. This laboratory is certified under the Clinical Laboratory Improvement Amendments of 1988 (CLIA-88) as qualified to perform high complexity clinical laboratory testing. ??CLIA ID# [id number] Performed at: ??[facility], [address] @ [place], [place] ??[address] Security Clerk: Cornelio Brenner MD, Blood BLOOD SPECIMEN / Unknown Lab Venipuncture / Unknown 10/06/2020 10:19 AM [employer] 10/06/2020 10:11 PM [employer]ESH Ambrose Pradhan MD LAB - BLOOD BAN K ORDERABLES [facility] ([facility]) [address] [place] [address] * HLA TYPING DNA LOW RESOLUTION A,B,C (10/06/2020 10:19 AM K[employer]TER [employer]) ABC DNA A1 23 10/21/2020 5:25 PM [employer] [facility] ([facility]) ABC DNA A2 33 10/21/2020 5:25 PM [employer] [facility] ([facility]) ABC DNA B1 37 10/21/2020 5:25 PM [employer] [facility] ([facility]) ABC DNA B2 49 10/21/2020 5:25 PM [employer] [facility] ([facility]) ABC DNA BW1 4 10/21/2020 5:25 PM [employer] [facility] ([facility]) ABC DNA BW2 4 10/21/2020 5:25 PM [employer] [facility] ([facility]) ABC DNA C1 02 10/21/2020 5:25 PM [employer] [facility] ([facility]) ABC DNA C2 07 10/21/2020 5:25 PM [employer] [facility] ([facility]) ABC DNA Methodology SSOP 10/21 5:25 PM [employer] [facility] ([facility]) Comment ABC DNA - 5:25 PM [employer] [facility] ([facility]) ABC DNA Test Date 1 10/21/2020 5:25 PM [employer] [facility] ([facility]) Comment: This test was developed and its performance characteristics determined by the [facility]. ??It has not been cleared or approved by the U.S. Food and Drug Administration. ??The FDA has determined that such clearance or approval is not necessary. ??This test is used for clinical purposes. ??It should not be regarded as investigational or for research. This laboratory is certified under the Clinical Laboratory Improvement Amendments of 1988 (CLIA-88) as qualified to perform high complexity clinical laboratory testing. ??CLIA ID# [id number] Performed at: ??[facility], [address] @ [place], [place] ??[address] Security Clerk: Cornelio Brenner MD, Blood BLOOD SPECIMEN / Unknown Lab Venipuncture / Unknown 10/06/2020 10:19 AM [employer] 10/06/2020 10:11 PM [employer] MESH Ambrose Pradhan MD LAB - BLOOD BAN K ORDERABLES [facility] ([place]) [address] [place] [address], [place] * HLA ANTIBODY SCREEN LUM CLASS 2 ID (10/06/2020 10:19 AM K[employer]TER [employer] M[employer]) % PRA 1 10/21/2020 5:25 PM [employer]ESH [facility] ([facility]) Class 2 LUM Specificity DQ8 10/21/2020 5:25 PM [employer] MESH [facility] ([facility]) Class 2 LUM Test Date 10/21/2020 5:25 PM [employer]TER [employer] MESH [facility] ([facility]) Comment: This test was developed and its performance characteristics determined by the [facility]. ??It has not been cleared or approved by the U.S. Food and Drug Administration. ??The FDA has determined that such clearance or approval is not necessary. ??This test is used for clinical purposes. ??It should not be regarded as investigational or for research. This laboratory is certified under the Clinical Laboratory Improvement Amendments of 1988 (CLIA-88) as qualified to perform high complexity clinical laboratory testing. ??CLIA ID# [id number] Performed at: ??[facility], [address] @ [place], [place] ??[phone] Security Clerk: Cornelio Brenner MD, Blood BLOOD SPECIMEN / Unknown Lab Venipuncture / Unknown 10/06/2020 10:19 AM [employer] 10/06/2020 10:11 PM K[employer]ITTER W[employer] MESH Ambrose Pradhan MD LAB - BLOOD BAN K ORDERABLES [facility] ([facility]) [address] [place] [address], [place] * HLA ANTIBODY SCREEN LUM CLASS 1 ID (10/06/2020 10:19 AM K[employer]) % PRA 3 10/21/2020 5:25 PM [employer] [facility] ([facility]) Class 1 LUM Specificity B46, B65, B76 10/21/2020 5:25 PM K[employer]ITTER WIRE MESH [facility] ([facility]) Class 1 LUM Test Date 10/21/2020 5:25 PM [employer]TER [employer] MESH [facility] ([facility]) Comment: This test was developed and its performance characteristics determined by the [facility]. ??It has not been cleared or approved by the U.S. Food and Drug Administration. ??The FDA has determined that such clearance or approval is not necessary. ??This test is used for clinical purposes. ??It should not be regarded as investigational or for research. This laboratory is certified under the Clinical Laboratory Improvement Amendments of 1988 (CLIA-88) as qualified to perform high complexity clinical laboratory testing. ??CLIA ID# [id number] Performed at: ??[facility], [address] @ [place], [place] ??[phone] Security Clerk: Cornelio Brenner MD, Blood BLOOD SPECIMEN / Unknown Lab Venipuncture / Unknown 10/06/2020 10:19 AM [employer] 10/06/2020 10:11 PM K[employer]ITTER W[employer] MESH Ambrose Pradhan MD LAB - BLOOD BAN K ORDERABLES [facility] ([facility]) [address] [place] [address], [facility] * HIV-1 HIV-2 ANTIGEN/ANTIBODY (10/06/2020 10:19 AM K[employer]) HIV Antigen/Antibod y 1 & 2 Non-reacti ve Non-react heather 10/06/2020 11:27 AM [employer]ESH [facility] Comment:Neither HIV-1 p24 An tigen nor HIV-1/HIV-2 Antibodies are detected. Blood BLOOD SPECIMEN / Unknown Lab Venipuncture / Unknown 10/06/2020 10:19 AM [employer] 10/06/2020 10:54 AM K[employer] MESH Ambrose Pradhan MD LAB - HEMATOLOG Y ORDERABLES Performing Organization Address [facility] Co de Phone Number [place] [phone] [place] [address], [facility] [phone] * RUBELLA ANTIBODY IGG TITER (10/06/2020 10:19 AM [employer]) Rubella Antibody IgG 231.0 IU/mL 10/07/2020 4:16 PM K[employer]TER WIRE MESH [facility] [employer]os ([facility]) Comment: INTERPRETIVE INFORMATION: Rubella Antibody, IgG ??Less than 9 IU/mL ........ Not Detected ??9 - 9.9 IU/mL ............ Indeterminate-Repeat testing in ? 10-14 days may be helpful. ??10 IU/mL or Greater ...... Detected The best evidence for current infection is a significant change on two appropriately timed specimens, where both tests are done in the same laboratory at the same time. The magnitude of the measured result is not indicative of the amount of antibody present. Performed By: [facility] [address] [place] [address] Pump House Operator: Mckayla Loomis MD Blood BLOOD SPECIMEN / Unknown Lab Venipuncture / Unknown 10/06/2020 10:19 AM [employer] 10/06/2020 11:19 AM K[employer] MESH Ambrose Pradhan MD LAB - SEROLOGY ORDERABLES Performing Organization Address [facility] de Phone Number [facility] [employer]eyos [facility]) [address] * RUBEOLA ANTIBODY IGG (10/06/2020 10:19 AM [employer]) Measles (Rubeola) Antibody IgG >300.0 AU/mL 10/07/2020 4:14 PM [employer] MESH [facility] [employer] ([facility]) Comment: INTERPRETIVE INFORMATION: Measles (Rubeola) Antibody, IgG ??13.4 AU/mL or less........ Negative - No significant level ? of detectable measles (rubeola) ? IgG antibody. ??13.5-16.4 AU/mL .......... Equivocal - Repeat testing in ? 10-14 days may be helpful. ??16.5 AU/mL or greater .... Positive - IgG antibody to ? measles (rubeola) detected ? which may indicate a current ? or past exposure/immunization ? to measles (rubeola). The best evidence for current infection is a significant change on two appropriately timed specimens, where both tests are done in the same laboratory at the same time. Performed By: [facility] [address] [place] [address] Pump House Operator: Mckayla Loomis MD Blood BLOOD SPECIMEN / Unknown Lab Venipuncture / Unknown 10/06/2020 10:19 AM [employer] 10/06/2020 11:19 AM K[employer]ITTER WIRE MESH Ambrose Pradhan MD LAB - CHEMISTRY ORDERABLES [facility] jaeyos [facility]) [address] [place] [address], [facility] * MUMPS ANTIBODY IGG (10/06/2020 10:19 AM K[employer] M[employer]) Mumps Virus Antibody IgG >300.0 AU/mL 10/07/2020 4:28 PM K[employer]TER WIRE MESH [facility] [employer] ([facility]) Comment: INTERPRETIVE INFORMATION: Mumps Ab, IgG by JAVED ??8.9 AU/mL or less .... Negative - No significant level of ? detectable IgG mumps virus antibody ??9.0-10.9 AU/mL ....... Equivocal - Repeat testing in 07-28 ? days may be helpful ??11.0 AU/mL or greater: Positive - IgG antibody to mumps ? virus detected, which may indicate ? a current or past exposure/ ? immunization to mumps virus. The best evidence for current infection is a significant change on two appropriately timed specimens, where both tests are done in the same laboratory at the same time. Performed By: [facility] [address] [place] [address] Pump House Operator: Mckayla Loomis MD Blood BLOOD SPECIMEN / Unknown Lab Venipuncture / Unknown 10/06/2020 10:19 AM [employer] 10/06/2020 11:19 AM K[employer]TER WIRE MESH Ambrose Pradhan MD LAB - CHEMISTRY ORDERABLES Performing Organization Address City/State/[facility] Co de Phone Number [employer] [facility]) [address] [place] [address], [facility] * VARICELLA ZOSTER ANTIBODY IGG (10/06/2020 10:19 AM [employer]) Varicella zoster Virus Antibody IgG 2535.0 IV 10/07/2020 5:05 PM [facility] [facility] ([facility]) Comment: INTERPRETIVE INFORMATION: VZV Ab, IgG 134.9 IV or less ....... Negative - No significant level of ? detectable IgG varicella-zoster ? antibody. 135.0 - 164.9 IV ....... Equivocal - Repeat testing in ? 10-14 days may be helpful. 165.0 IV or greater .... Positive - IgG antibody to ? varicella-zoster detected, which ? may indicate a current or past ? varicella-zoster infection. The best evidence for current infection is a significant change on two appropriately timed specimens, where both tests are done in the same laboratory at the same time. Performed By: [facility] [address] [place] [address] Pump House Operator: Mckayla Loomis MD Blood BLOOD SPECIMEN / Unknown Lab Venipuncture / Unknown 10/06/2020 10:19 AM [employer] 10/06/2020 10:54 AM [employer] Ambrose Pradhan MD LAB - CHEMISTRY ORDERABLES Performing Organization Address City/State/[facility] Co de Phone Number [employer] ([facility]) [address] [place] [address], [facility] * (ABNORMAL) JAKUB-EVANS VIRUS ANTIBODY TO VCA IGG (10/06/2020 10:19 AM [employer]) Jakub-Evans Virus Antibody IgG Viral Capsid Antigen >750.0(H) 0.0 - 21.9 U/mL 10/07/2020 4:56 PM [employer] ([facility]) Comment: INTERPRETIVE INFORMATION: Jakub-Evans Virus Antibody to ?Viral Capsid Antigen, IgG ??17.9 U/mL or less.......Not Detected ??18.0-21.9 U/mL..........Indeterminate - Repeat testing in ?10-14 days may be helpful. ??22.0 U/mL or greater....Detected Performed By: [facility] [address] [place] [address] Pump House Operator: Mckayla Loomis MD Blood BLOOD SPECIMEN / Unknown Lab Venipuncture / Unknown 10/06/2020 10:19 AM [employer] 10/06/2020 10:54 AM [employer] Ambrose Pradhan MD LAB - CHEMISTRY ORDERABLES [employer] ([facility]) [address] [place], [place] [address] * BLOOD TYPE ABO+ RH PANEL (10/06/2020 10:19 AM [employer]) ABO Rh O POS 10/06/2020 11:36 AM [employer] [facility] BLOOD BANK LAB Blood BLOOD SPECIMEN / Unknown Lab Venipuncture / Unknown 10/06/2020 10:19 AM [employer] 10/06/2020 10:46 AM [employer] Ambrose Pradhan MD LAB - BLOOD BAN K ORDERABLES [facility] BLOOD B[facility] LAB [address] [place] [address], [facility] [phone] * SKIN TEST PPD - POINT OF CARE (06/20/2019 4:00 PM CDT) Only the most recent of2 resultswithin the time period is included. PPD Other MISCELLANEOUS SAMPLE S / Unknown 06/20/2019 4:00 PM CDT Jamilah Montgomery APRN-[employer] LAB - POINT OF CA RE ORDERABLES Care Teams Top Frame Fitter Relationship Specialty Start Date End Date Unknown, Provider PCP - General 12/18/23 Zi Lim MD [place] [facility] [address] [address] Diesel Plant Operator Nephrology 07/28/20
--- OUTSIDE RECORDS SUMMARY | 2024-11-12 12:57 | XMS_ITS | Continuity of Care Document ---
Author Organization [facility] Address [address] [place] [address] Phone Care Team Providers Care Field Training Manager Name Role Phone Pietro CASTELLON, May Unavailable Unavailable Advance Directives Directive Yes / No Effective Date File Name No Information Encounters Encounter Description Practice Location Reason(s) For Visit Diagnoses Date Provider Providers Copied on Encounter [facility], [address] [place], [place], [address], tel:[phone] Maia [place] No Information Pietro CASTELLON May. [address] [facility], [address], [place], [place], [id number] , [place]. tel:[phone] Referring Provider: Jaswinder Lynn, [address] [place], [address]. tel:[phone] Family History Family Member Type Diagnosis Age At Onset No Information Payers Payer name Insurance type Covered alliance party ID Gabbie cox(s) [employer] CI [id number] Social History Type Description Quantity Date Captured Comments Sex Male Smoking Status No Information Chief Complaint And Reason For Visit No Information History Of Present Illness Encounter Date Complaint History Of Prese nt Illness No Information Instructions Date Instruction Additional Infor mation No Information Assessments Type Assessment Date No Information
--- OUTSIDE RECORDS SUMMARY | 2024-11-12 12:57 | XMS_ITS | Referral Summary ---
Author Organization [facility] Address [address] [place] [address] Care Team Providers Care Lamp Stack Developer Name Role Phone Zi Lim MD Unavailable Unknown, Provider Primary Care Provider Unavaila ble Source Comments [facility] Affiliates and Associated Physician Practices is amultiple site organization consisting of ambulatory clinics and hospital sitesin [place], [place], [place] and [place]. This disclosure is being madepursuant to the Care Everywhere program and may not contain all information available regarding this patient. Last updated 18.[facility] Encounters Date Type Department Care Team Description 11/10/2024 Orders Only [facility] - Nephrology [address] [place] [phone] Melisa Chambers APRN-AIRCRAFT LAYOUT WORKER 10/31/2024 Orders Only [facility] - Nephrology [address] [place] [phone] Mychart, Generic Provider S/P living-donor kidney transplantation (HCC); Anemia in chronic kidney disease (CODE); Vitamin D deficiency; Long-term use of immunosuppressant medication; Other oil heaterman (current) drug therapy; Chronic kidney disease-mineral and bone disorder 10/28/2024 Orders Only [facility] [address] [place] [phone] Melisa Chambers APRN-AIRCRAFT LAYOUT WORKER 10/25/2024 Refill [facility] - Nephrology [address] [place] [address] [phone] ReyesMelisa west, RN FIRST ASSISTANT-AIRCRAFT LAYOUT WORKER MEDICATION REFILL 10/24/2024 Orders Only [facility] - Nephrology [address] [place] [address] [phone] ReyesJuan westa E, RN FIRST ASSISTANT-AIRCRAFT LAYOUT WORKER Chronic kidney disease-mineral and bone disorder; S/P living-donor kidney transplantation ([facility]) 10/14/2024 Travel 10/14/2024 8:40 AM MAIL MANAGER Office Visit [facility] - Nephrology [address] [place] [address] [phone] Unknown, Provider Disorder of mineral metabolism, unspecified (Primary Dx); Chronic kidney disease-mineral and bone disorder; Long-term use of immunosuppressant medication; Metabolic acidosis; Hyperglycemia 10/03/2024 Orders Only [facility] - Nephrology [address] [place] [address] [phone] Mychart, Generic Provider S/P living-donor kidney transplantation ([facility]); Anemia in chronic kidney disease (CODE); Vitamin D deficiency; Long-term use of immunosuppressant medication; Other long-term (current) drug therapy; Chronic kidney disease-mineral and bone disorder 09/29/2024 Telephone [facility] - Nephrology [address] [place] [address] [phone] ReyesMelisa west, RN FIRST ASSISTANT-AIRCRAFT LAYOUT WORKER Follow-up 09/29/2024 Orders Only [facility] - Nephrology [address] [place] [address] [phone] ReyesJavad westMelisa E, RN FIRST ASSISTANT-AIRCRAFT LAYOUT WORKER Chronic kidney disease-mineral and bone disorder ; S/P living-donor kidney transplantation ([facility]) 09/25/2024 Telephone [facility] - Nephrology [address] [place] [address] [phone] ReyesJuan westa Delisa, RN FIRST ASSISTANT-AIRCRAFT LAYOUT WORKER Follow-up 09/24/2024 Telephone [facility] - GI [address] [place] [address] [phone] Melisa Chambers APRN-CNP Epistaxis 09/22/2024 Refill [facility] - Nephrology [address] [place] [phone] Melisa Chambers APRN-CNP MEDICATION REFILL 09/17/2024 Refill [facility] - Ne[facility] [address] [place] [address] [phone] Mirza Hunt MD MEDICATION REFILL from Last 3 Months Allergies Active Allergy Reactions Criticality Noted Date Comments Fish Allergy Other High 10/11/2020 Eyes red and puffy and mouth itch. can eat shrimp Live Vaccines (Immunodeficiency) Other Low 09/15/2021 Kidney transplant 09/14/21 Medications * Be aware that medications may not be up to date on this document. Alwaysverify current medications with the patient. Medication Sig Dispensed Refills Start Date End Date Status aspirin (Aspirin) 81 MG chew tabletIndications:Syste mandie Lupus Erythematosus Take 1 (one) tablet by mouth once daily Reasons: Systemic Lupus Erythematosus 30 tablet 11 08/23/20 22 Active Vitamin D3, cholecalciferol, 50 MCG (1999) tablet Take 1 (one) tablet by mouth once daily 90 tablet 11/08/19 23 Active predniSONE (Deltasone) 5 MG tablet Take 1 (one) tablet by mouth once daily 30 tablet 01/15/20 24 Active mycophenolate EC (Myfortic) 180 MG tablet Take 1 (one) tablet by mouth 2 times daily 180 tablet 02/15/20 24 Active atorvastatin (Lipitor) 20 MG tablet Take 1 (one) tablet by mouth at bedtime 30 tablet 02/27/20 24 Active cinacalcet (Sensipar) 30 MG tablet Take 1 (one) tablet by mouth daily with breakfast 90 tablet 03/04/20 24 Active amLODIPine (Norvasc) 5 MG tablet Take 1 (one) tablet by mouth once daily 90 tablet 4 09/17/20 24 Active losartan - hydroCHLOROthiazide (Hyzaar) 50-12.5 MG tabletIndications:S/P living-donor kidney transplantation (HCC),Hypertensive chronic kidney disease with stage 5 chronic kidney disease or end stage renal disease (HCC) Take 1 (one) tablet by mouth once daily 90 tablet 3 09/22/20 24 Active carvedilol (Coreg) 6.25 MG tablet Take 1 (one) tablet by mouth 2 times daily with morning and evening meal 180 tablet 3 10/29/19 25 026 Active calcitriol (Rocaltrol) 0.25 MCG capsule Take 1 (one) capsule by mouth every Sunday, Sunday & Sunday 36 capsule 4 10/29/19 25 Active tacrolimus ER 24hr (Envarsus XR) 0.75 MG tablet Take 5 (five) tablets by mouth once daily Swallow whole. Do not crush or chew tablets. 150 tablet 11 11/10/19 25 Active carvedilol (Coreg) 6.25 MG tablet Take 1 (one) tablet by mouth 2 times daily with morning and evening meal 180 tablet 3 12/03/19 24 025 Discontin ued(Reord er) calcitriol (Rocaltrol) 0.25 MCG capsule Take 1 (one) capsule by mouth every Sunday, Sunday & Sunday 36 capsule 4 04/09/20 24 025 Discontin ued(Reord er) tacrolimus ER 24hr (Envarsus XR) 0.75 MG tablet Take 4 (four) tablets by mouth once daily Swallow whole. Do not crush or chew tablets. 120 tablet 08/01/20 24 025 Discontin ued(Reord er) Active Problems Problem Noted Date Diagnosed Date Hypomagnesemia 01/11/2022 Hypophosphatemia 01/11/2022 Kidney transplant candidate 09/14/2021 S/P living-donor kidney greene splantation, S/P LR-TXP in 09/14/2021 09/14/2021 Overview (01/11/2022): Referring Physician: Dr. Lim Transplant Date: 09/14/2021 Donor:UNOS ID [id number], Related (first cousin) living donor criteria donor CMV D+/R-, EBV D+/R+ HLA: 1A, 1B, 0DR mismatch Recipient: A: 23, 33 B: 37, 49 DR: 13, 15 Donor: A: 23, 74 B: 15, 49 DR: 13, - CPRA: 3% Pre-Transplant Summary: Diagnosis: He was listed on 07/29/21 Kidney Transplant: Dr. Renteria Immunosuppression: 1. Anti-thymocyte globulin 225 mg IV POD 0, 175 mg POD 1, and 175 mg POD 2 (total 5 mg/kg ), (pre-medicate with diphenhydramine and acetaminophen 30-60 minutes prior to each dose) 2. Methylprednisolone IV 500 mg POD 0, 250 mg POD 1, 125 mg POD 2, 60 mg POD 3, 30 mg POD 4. Then prednisone 5 mg PO daily starting POD 5 3. Myfortic 720 mg PO x 1 pre-op, then Myfortic 360 mg PO every 12 hours 4. Tacrolimus IR 6 mg (0.05 mg/kg) PO BID dose adjusted to goal trough level 8- 10 ng/mL ?? Anticipated Opportunistic Infectious Prophylaxis: 1. PJP: Sulfamethoxazole/trimethoprim 800mg/160mg PO daily x 6 months 2. CMV Risk status: High risk. Start Valganciclovir 900 mg daily for a total of 6 months post-transplant on POD7 or discharge. (May require renal dose adjustment) 3. Antifungal prophylaxis: Not indicated Adjustments: Readmissions: Biopsies: Current immunosuppression: Stent Removed: Scheduled for 10/26/20 PD Catheter Removed: Pre-transplant evaluation for kidney transplant 10/05/2020 Overview (09/13/2021): Images from the original note were not included. Ron Sky 1970 Referring Manager Sharepoint: Zi Lim Dialysis Info: Type: HD T, Th, Sat Time: 67 days (07/30/2020) Listed: 07/29/2021 Blood Type: O POS Body mass index is 29.35 kg/m??. ALERTS: Pt may need parathyroidectomy post txp d/t elevated PTH levels and high doses of senispar and hecterol LD transplant surgery scheduled 09/14/2021 Induction Method: Immunosuppression Induction Method/Plan: Antithymocyte globulin (rabbit) (Thymoglobulin) 5 mg/kg Past Medical History: Diagnosis Date ? ? ESRD on hemodialysis ? ? Hypertension dx at age 19 Past Surgical History: Procedure Laterality Date ? ? OTHER SURGERY cyst in jaw, removed at hospital in [facility], pt doesn't remember which hospital but states benign Transplant Surgery Clinic Appt w/: Dr. Renteria Date: 09/05/2021 A/P: Note pending Transplant Surgery Clinic Appt w/: Dr. Fremin Date: 10/11/2020 A/P: Assessment/Plan: 49 year old male with unknown etiology of renal disease presenting for renal transplant evaluation. ?? I spent 60 minutes with Mr. Sky discussing the risks and benefits of kidney transplant including the need for lifelong immunotherapy, the need for the patient to be compliant with the immunotherapy, the need for a lifelong relationship with a health care provider and the need to have labs checked frequently. We also talked about the risks of surgery including but not limited to the following: ?? Anesthetic concerns including heart attack, stroke, or Need for endotracheal intubation and possibility of prolonged intubation Intraoperative and postoperative bleeding Postoperative hematoma or wound infection requiring return to OR Renal artery and vein thrombosis requiring return to OR and possible explantation Ureteric stricture or leak requiring interventional procedures and/or reoperation ?? Delayed graft function ?? Risk of primary nonfunction Increased risk of infection and malignancy remotely ?? We discussed the possibility of receiving an HCV+ organ. We discussed the antiviral treatment and need for compliance to achieve SVR; the cure rate of 98% with DAA and the possibility of repeating a course if not cured; and the possibility of complications prior to and while undergoing treatment. These include headaches, nausea, cryoglobulinemia and FARAZ, and encephalitis as well as possible hepatitis-induced injury to the graft. At this time the patient is NOT amenable. ?? We discussed the possibility of receiving an increased risk organ. We discussed the risk factors that place kidneys in this category and the relative risk of transmission from an increased risk donor. We compared that risk with the risk of remaining on dialysis and the risk of hepatitis transmission on dialysis. At this time the patient is amenable. ?? We discussed the possibility of receiving an organ with a KDPI of >85%. We discussed the lower mean survival for these organs and the increased rates of delayed graft function. At this time the patient is NOT amenable. ?? I believe Mr. Sky is an Excellent candidate for kidney transplant. ?? At this time the patient needs the following prior to committee presentation: Colonoscopy Renasight panel Control of PTH levels, although this should not preclude listing Nephrology Clinic Appt: w/ Dr. Kent Date: 09/05/2021 Assessments and Recommendations: Ron Sky was seen today for kidney transplant evaluation. 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 I discussed with the patient over 60 minutes the evaluation process. I also explained the risks and the benefits of kidney transplant. He understands that he will be treated with lymphocyte depleting agents, which will increase the risk of infections and certain malignancies ( explained as cancers). His cancer screening is Up-To-Date and he will be treated with prophylactic antibiotics and antivirals for 3-6 months after the procedure. ?? Regarding his cardiovascular morbidity, he is considered at low to moderate risk. His Echo did not show PHTN and his EF was 65% ?? He has no hx of lung disease. His body habitus indicates that he is overweight. We discussed the risk of diabetes and gaining weight after transplant. ?? He has secondary hyperparathyroidism. His most recent PTH is 715. I explained that he might require surgery after transplant if he becomes hypercalcemic or if his PTH level climbs up. ?? The patient will be discussed in our weekly selection committee, and it will be the responsibility of the committee to decide on listing him. But overall I think he is a good Candidate. ? Gustavo Kent MD Reservations Manager of Transplant Nephology. [facility]. ? Nephrology Clinic Appt w/: Dr. Orta and Dr. Tsai Date: 10/11/2020 A/P: Assessments and Recommendations: Ron Sky was seen today for kidney transplant evaluation. Risks and benefits of transplant were discussed including the benefits of living kidney transplant. We discussed increased risk kidneys and high KDPI kidneys. All questions and concerns were addressed. ?? 1. ESKD of undefined etiology: Attributed to hypertension but not evaluated by biopsy; + history of proteinuria and hypertension since his 20s, + family history (cousin with ESKD), and current urine PCR 11.3 g/g raises concern for an undiagnosed glomerular disease. This could include APOL1-related sclerosing glomerulopathy/FSGS in a family of ancestry. ?? We discussed that some primary kidney diseases can recur in the allograft such as FSGS. We also discussed that a heritable kidney disease can have implications for evaluation of related living donor candidates. ?? We discussed the availability of new genetic renal panels such as Renasight (screens for 382 genes associated with kidney disease, using on blood or saliva, with turnaround time of ~3 weeks). Such screening would not impact transplant candidacy, but could guide prognostication for disease recurrence after transplant and screening living donor candidates - the patient expressed interest in the test, and we will look into logistics of ordering, and the genetics counseling offered with the product ?? 2. Transplant options discussion ?? Patient is actively pursuing living donor transplantation and states that several family members and friends have expressed interest in serving as his living donor, including his sister who participated in the evaluation discussion by phone ?? He demonstrated good retention of the treatment options discussion from Education, including: high KPDI, PHS increased, and kidneys from hepatitis C+ donors. At this time, he? s most interested in LDKT to facilitate prompt transplant, compared to nonstandard DDKT. ?? 3. Cardiovascular risk screening ?? Functional status: No limitations a. DSE / echocardiography (age >40) ?? RVSP: No pulmonary hypertension, estimated pulmonary arterial systolic pressure is 25 mmHg. ?? Valves: without abnormalities ?? EF / wall motion: Borderline concentric LVH. Normal VL wall motion, and LV systolic function, with EF 65% b. Coronary angiography: without indication c. Lower Extremity Arterial Doppler Ultrasound: without indication d. Carotid doppler: without indication ?? 4. BMI / metabolic ?? BMI 29 kg/m2 - Acceptable for candidacy. ?? Underwent Nutrition Evaluation 10/06/20, with recommendations for incorporation of protein in meals and exercise. 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 5. Renal bone disease: ?? Uncontrolled hyperparathyroidism & hyperphosphatemia: iPTH 1318, Phos 7.8. Programmatic criteria requires PTH <800, patients may be on calcimimetic. ?? Currently receiving Tums for a phosphorus binder. Recently was prescribed Sensipar 30 mg PO at Dialysis, but the medication was not covered by his insurance and the high co-pay was not affordable. He was also concerned he experienced restless legs with the medication, although that symptoms persisted after stopping. ?? We discussed the importance of this issue at length. He will work with his primary warehouse inventory clerk, both on phosphorus control, which will help lower the PTH, and consideration of a calcimimetic. Options may include Intravenous etelcalcetide at the dialysis unit, or copayment assistance application which can be facilitated by social work. We discussed the importance of compliance with medical management to avoid the need for a surgical parathyroidectomy ?? 6. COVID-02 August 2020 ?? Clinically recovered; now > 2 months after recovery ?? We discussed the importance of avoiding reinfection, and our protocol for screening for COVID-19 prior to transplant surgery. We also discussed the emergence of COVID-19 vaccine under EUA and that as vaccine becomes available, we agree with the recommendations of the [place] [employer] of [employer] (AST) for vaccination of transplant candidates on the waiting list. With regard to planned LDKT, if vaccine is available, we recommend vaccination of planned donor and recipient, ideally completed 1 month before surgery and no later than 2 weeks before surgery ?? 7. Routine screening & other required testing: follow-up all pending tests before [facility] ?? 8. Support / Psychosocial ?? SW evaluation 10/06/20: Deemed to be a reasonable candidate. Patient in the process of applying for Medicare, as he recently started dialysis. ?? Care partners: and Sister. ?? Expressed ? dislike of swallowing pills? : The importance of posttransplant medication compliance was discussed at length, including the vital role of immunosuppression and medications to prevent infection, and average pill burden. He stated understanding and agreement. ?? Idalia Orta MD, PhD steamfitter apprentice Attestation signed by Esthela Tsai MD at 10/12/2020 9:55 AM Nephrology Attending Note: ?? Patient seen and examined by me as per Dr Orta and verified by me. I confirm and concur with physical exam, assessment and plan with the following additions/deletions. 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 Other Consults: none Pertinent Previous Committee Presentations: [facility]: 07/28/2021 Induction Method: Immunosuppression Induction Method/Plan: Antithymocyte globulin (rabbit) (Thymoglobulin) 5 mg/kg Committee Discussion Details: Pt's case presented at [facility] for approval to list. HH and evaluation testing reviewed but not limited to: - team aware pt is willing to get parathyroidectomy post txp if needed and there is no cost for sensipar post txp - pt with RIJ access noted on CXR, Dr. Pradhan wants follow up to see if pt still has this access or a different access - Gaston discussed scheduling on LD surgery with team, she states that his cousin Chitra, has agreed to proceed, LD surgery date of 09/14/21 Per team, ok to list. [facility]: 07/21/2021 Committee Discussion Details: Pt's case was presented at [facility] to discuss his recent ENT visit with Dr. Peck and his input on parathyroidectomy. Reviewed pt's PTH levels since 09/2020 - 06/2021 along with pt's treatment plan. Team aware both Dr. Fermin and Dr. Orta spoke with Dr. Peck yesterday, Dr. Fermin discussed his input with the team: nuc med sestamibi scan is not a diagnostic test for adenomas, he believes they are not adenomas as is it not likely to see them with PTH levels this high, he believes pt has secondary hyperparathyroidism r/t his kidney disease, he is not recommending parathyroidectomy prior to txp. Per team, we are ok to move forward with txp without having a parathyroidectomy, with the understanding that is it likely that pt will need this post txp and has to be agreeable to completing if necessary. Team aware sensipar was a financial issue with pt initially when first started on it, Gaston had assisted with finding a place for him to go - [facility], where they accepted Good Rx and this decreased his OOP expense to get sensipar. Jesika, Pharmacist, to follow up on his insurance to see what cost would be for him OOP post txp as pt will still need to be on it and the dose could potentially increase as well. Team aware pt with LD and will want to schedule surgery soon. Per team, ok on scheduling as long as he is agreeable to the possibility of needing parathyroidectomy post txp and will be able to afford senispar post txp. [facility]: 06/30/2021 Committee Discussion Details: Pt's case was represented at [facility] today to review his Sestamibi scan we had him complete. Reviewed results, discussed pt's current medication treatment: 90mg sensipar daily, 12mcg hecterol, pt's most recent PTH level at from 06/23/21 was 542. After review, team feels that pt needs to see ENT and complete parathyroidectomy. Dr. Orta asked Dr. Fermin to call pt to discuss further with him. Dr. Fermin to follow up with both pt and sister. [facility]: 06/09/2021 Committee Discussion Details: Pt's case was presented at [facility] again today to discuss his potential plan of care for his elevated PTH level. Reviewed medications with team again, sensipar 90mg daily and hecterol 12mcg on dialysis days. Reviewed PTH levels from 09/[address] Orta spoke to team in regards to her conversations she had with both the pt and warehouse inventory clerk, she also talked about medical management with PTH under 700 and surgical management which pt is hesitant to complete. Team aware pt did not go to his scheduled ENT appt likely d/t his PTH being under 700. Per team, lets have him complete a nuc med sestimebi scan then represent to team, team is in favor of him having parathyroidectomy (if warranted) prior to txp surgery than afterwards. Dr. Orta also asked if Txp surgeon could call and discuss with pt, Dr. Fermin to call pt [facility]: 05/26/2021 Committee Discussion Details: Pt's case was represented to [facility] to discuss his recent PTH level and to see if we are ok with continued medication management or if we want to proceed with parathyroidectomy Team aware that pt has been presented at prior [facility] to discuss his levels, treatment and plan of care. Team aware that Dr. Orta has also been in contact with Dr. Lim in regards to pt's care. Team aware that pt PTH has been elevated since 09/2020 when he first came through evaluation and his highest PTH level has been in the 1900s. Team aware pt was started on sensipar, per [facility], he was increased to 90mg sensipar on 03/03 and is also currently on 15mcg hecterol. Discussed possible non-compliance with medication as now pt's PTH level from 05/2021 is 619. Team aware pt was to see ENT for evaluation and potential parathyroidectomy. After much discussion, it was decided that pt still needs to move forward with parathyroidectomy d/t control after txp and potential stones forming post txp. [facility]: 02/24/21 Committee Discussion Details: Pt's case presented at [facility] to discuss his current PTH level with team and see what our next step to help optimize his level. Team aware we went up on sensipar on 01/24 from 30mg to 60mg qday. Pt had missed 2 doses in the beginning of this change d/t his insurance and refill. PTH level from 02/17/2021 was 1447. Team aware this is down from when he was in the 1900s. Pt responded a little bit to 30mg but not really responding to 60mg. Dr. Orta to talk to Dr. Lim in regards to maybe any other medication changes and or potential parathyroidectomy. [facility]: 01/20/21 Committee Discussion Details: Pt's case was discussed at [facility] to review his current PTH level, treatment and plan of care. Team aware pt's PTH down to 1327 from 190, he is still currently on sensipar 30mg daily. Per team, ok to have him increase his sensipar to 60mg daily, we will need to increase his dose slowly d/t potential of causing n/v. We will recheck in a few weeks to make sure it does continue to come down, if not, then we will need to discuss a parathyroidectomy. Gaston also talked about pt having a secondary insurance, will follow up with SWer at Labs: 09/05/2021 PTH: 714.5 (OK per nephrology & surgery) A1c: 5.2 Glucose: 85 GFR: 3 PSA: 1.0 Serologies: +HepBsAb, all others negative CMV Igg: Negative EBV Igg: Positive 2019 Varicella: Immune MMR: Immune Albumin: 3.9 Tox Screen: MJ and opiates pending, all others negative PT: 14.4 INR: 1.1 Urine Cx: Negative Phos: 7.1 Magnesium: 2.1 Potassium: 6.1 (warehouse inventory clerk notified for treatment; DU to lower K bath with dialysis 09/13/21) Final Cross-match to Talisha Min: Negative SARS COV-2 09/05/2021: Negative SARS COV-2 09/12/2021: Negative Renasight panel: Kidney Biopsy: None EK09/05/2021 Component Ref Range & Units 08:07 Ventricular Rate BPM 75 Atrial Rate BPM 75 P-R Interval ms 192 QRS Duration ms ms 82 Q-T Interval ms ms 380 QTC Calculation (Bezet) ms 424 Calculated P [place] degrees 62 Calculated R [place] degrees 50 Calculated T [place] degrees 50 Interpretation EKG NORMAL SINUS RHYTHM NORMAL ECG NO PREVIOUS ECGS AVAILABLE DSE/Echo: 09/05/2021 Summary Normal augmentation of all wall segments without evidence of ischemia with pharmacologic stress. Stress EKG is negative for ischemic changes. The left ventricle is normal size. Left ventricular segmental wall motion is normal. Left ventricular systolic function is normal with an ejection fraction by Biplane Method of Discs of 70 %. The left ventricular diastolic function is normal, consistent with normal left ventricle filling pressures. The left atrium is mildly enlarged. The right atrium is mildly enlarged. There is mild aortic regurgitation. Stress Echo Normal augmentation of all wall segments without evidence of ischemia with pharmacologic stress. ECG Stress EKG is negative for ischemic changes. Right Ventricle The right ventricular cavity size is normal. Normal right ventricular systolic function. Left Atrium The left atrium is mildly enlarged. Right Atrium The right atrium is mildly enlarged. Aortic Valve There is mild aortic regurgitation. The aortic valve is trileaflet. There is no aortic stenosis with a peak velocity of 1.6 m/sec, mean gradient of 6 mmHg, aortic valve area of 3.0 cm??, and an NSDI of 0.76. Pulmonary Valve The pulmonic valve is normal to two-dimensional, color and Doppler interrogation. Mitral Valve There is mild mitral regurgitation. The mitral valve leaflets are structurally normal. Tricuspid Valve There is mild tricuspid regurgitation. The tricuspid valve leaflets are structurally normal. No pulmonary hypertension, estimated pulmonary arterial systolic pressure is < 35 mmHg. Aorta The aortic root at the sinus of valsalva is normal in size . The proximal ascending aorta is normal in size measuring 3.99 cm with an index of 1.57 cm/m2. Inferior Vena Cava The IVC is normal in size (< 2.1 cm), > 50% respiratory variance, RA pressure normal at 3 mmHg. Pericardium / Pleural Effusion No pericardial effusion. Max Pred HR:85 % LHC: n/a CXR: 09/05/2021 FINDINGS/IMPRESSION: ?? Lines and tubes: ?? Right internal jugular approach dialysis catheter is present with the tip positioned at the cavoatrial junction. ?? There is no focal consolidation or pneumothorax. No evidence of pleural effusion, however the right lateral costophrenic angle is only partially included in the [id number]. The cardiomediastinal silhouette is normal. The visible bony thorax is intact. Rest Echo Findings Left Ventricle There is no left ventricular hypertrophy. The left ventricle is normal size. Left ventricular segmental wall motion is normal. Left ventricular systolic function is normal with an ejection fraction by Biplane Method of Discs of 70 %. The left ventricular diastolic function is normal, consistent with normal left ventricle filling pressures. CT a/p: 09/05/2021 Findings ?? Evaluation of visceral and vascular structures is degraded due to lack of intravenous contrast administration. ?? Lower Chest: Normal. ?? Hepatobiliary: Normal. ?? Pancreas: Normal. ?? Spleen: Normal. ?? Kidneys: Bilateral atrophic kidneys with soft tissue stranding surrounding the kidneys. There is no nephrolithiasis. ?? Adrenals: Normal. ?? Retroperitoneum: Normal. ?? Peritoneum: Normal. ?? Gastrointestinal: The stomach and visualized loops of bowel are unremarkable. ?? Appendix: Normal. ?? Pelvic Structures: Normal. ?? Vasculature: Normal ?? Bones: Severe degenerative changes are seen in the lumbar spine. There is mild anterolisthesis of L3 on L4. There is a chronic pars defect at the left L3. Degenerative changes noted in both hip joints. No bony cyst is noted in the right iliac bone. ?? Soft tissues: Normal. ? Impression: ?? 1.Bilateral atrophic kidneys consistent with end-stage renal disease. 2.Unremarkable other abdominal viscera. No suggestion of intra-abdominal fluid collection or infection. Renal US: 08/08/2021 FINDINGS: ?? The right kidney is atrophic and measures 6.5 x 2.7 x 3.1 cm. The echogenicity of the right kidney is increased. There is no mass, calculi, or hydronephrosis. Blood flow is seen in the right renal artery and vein. The left kidney is not visualized. ?? The urinary bladder is distended and appears normal. ? IMPRESSION: ?? 1.Atrophic echogenic right kidney consistent with end-stage renal disease. 2.The left kidney is not visualized. ?? Renal US: 08/03/2020 PPD: Colonoscopy: 05/23/2021 Completed at [facility] Pathology report: 05/23/2021 Panorex/Dental: 10/06/2020 FINDINGS: Multiple dental restorations are identified and numerous teeth are absent. There is no evidence of fracture of the mandible. The temporomandibular joints are intact bilaterally. There is no evidence of any periosteal reaction. No lytic or blastic lesions seen. No periapical lucency is present. ?? IMPRESSION: No evidence of periapical abscess. ?? SW: 09/05/2021 Angelica Renee MSW Light, Jennifer K, RN Annual assessment complete. ??Tox results pending.. no concerns anticipated. Clinical Social Work Impression: It is the impression of this social scientist that Ron Sky has several positive factors for Kidney transplant candidacy from a psychosocial perspective. Patient appears to have appropriate knowledge of illness. Patient has sufficient insurance coverage and stable financial situation for post transplant needs. No concerns regarding substance abuse, legal issues, or mental health needs. Patient has adequate support system and appropriate discharge plan. ? Plan: web worker to provide supportive services as needed. Patient remains a reasonable candidate for transplant from a psychosocial perspective pending: - negative toxicology screening (no concerns anticipated) Psychiatric Consult Recommended: No ?? Transplant Informatics Spec: EDISON Wilkes Abdominal Transplant Informatics Spec [phone] ?? CUSTOMER MARKETING INTERN forms: RD: 09/05/2021 Transplant Nutrition Evaluation Date of Interview:??09/05/2021 ??Interviewed in person or over the phone:??person ?? 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 Current Diet:??renal ??Previously educated on diet???no ? Appetite:??good ??Meals per day:??3 + snacks ??ETOH Intake:??none Recent n/v???no Recent taste changes???no ?? Type of Dialysis:??HD Comments re: labs:??K+ = 6.1, Phos = 7.3, A1C = 5.2, labs came back after RD appt Pt self-checks BG levels? Yes/No?? How often (if Diabetic)? BMI=??30, Overweight??Pt remains a good candidate for a Kidney Transplant from a Nutrition standpoint. ?? Recommendations/Interventions/Pt Instructed to:? Will send Nutrient content of K+ and Phos foods in mail with RD contact. ? Items Still Pending: ESRD (end stage renal disease) 09/28/2020 Hypertensive [...] Comments Blood Pressure 115/83 10/14/2024 8:55 AM MAIL MANAGER Pulse 68 10/14/2024 8:55 AM MAIL MANAGER Temperature 36.9 ??C (98.4 ??F) 04/08/2024 8:37 AM CD T Respiratory Rate 20 12/19/2022 9:10 AM MAIL MANAGER Oxygen Saturation 98% 10/14/2024 8:55 AM MAIL MANAGER Inhaled Oxygen Concentration - - Weight 131.5 kg (290 lb) 10/14/2024 8:55 AM MAIL MANAGER Height 198.1 cm (6' 6 ) 06/19/2023 8:23 AM CDT Body Mass Index 33.51 06/19/2023 8:23 AM CDT Functional Status Functional Status Response Date of [...] person have difficulty concentrating/remembering/making decisions? No 09/30/2021 Plan of Treatment Upcoming Encounters Date Type Department Care Team (Late st Contact Info) Description 04/21/2025 8:40 AM CDT Office Visit [facility] - Nephrology [address] [place] [address] Goals Goal Patient Goal Type Associated Problems Recent Progress Patient-Stated? Author Medication Management General No Rashmi Fernandez, RN Note: Expected end date: on going Interventions: Take all medications as prescribed Let your doctor know right away about any changes in your medications Make sure to request a refill of your medication at least one week prior to your last dose Medical Devices Implanted Type Area Electric Engine Mechanic Device Identifier Shelf Expiration Date Model / Serial / Lot Stent Uret 6fr 12cm 100cm .028in 1 Stp Implanted:Qty: 1 on 09/14/2021 by Jeimy Renteria MD at [facility] N/A: Ureter Beetail[employer] Nathaly Of Anne 05/16/2026 [id number] / / [id number] 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 Procedures Procedure Name Priority Date/Time Associated Diagnosis Comments REF LAB-NOTE 10/28/2024 7:26 AM MAIL MANAGER MICROALB/CREAT RATIO URINE RANDOM PANEL Routine 10/28/2024 7:26 AM MAIL MANAGER Chronic kidney disease-mineral and bone disorder S/P living-donor kidney transplantation (HCC) URINALYSIS REFLEX TO MICROSCOPIC NO CULTURE Routine 10/28/2024 7:26 AM MAIL MANAGER Chronic kidney disease-mineral and bone disorder S/P living-donor kidney transplantation (HCC) TACROLIMUS LEVEL Routine 10/28/2024 7:26 AM MAIL MANAGER Chronic kidney disease-mineral and bone disorder S/P living-donor kidney transplantation (HCC) PHOSPHORUS BLOOD Routine 10/28/2024 7:26 AM MAIL MANAGER Chronic kidney disease-mineral and bone disorder S/P living-donor kidney transplantation (HCC) MAGNESIUM BLOOD Routine 10/28/2024 7:26 AM MAIL MANAGER Chronic kidney disease-mineral and bone disorder S/P living-donor kidney transplantation (HCC) COMPREHENSIVE METABOLIC PANEL Routine 10/28/2024 7:26 AM MAIL MANAGER Chronic kidney disease-mineral and bone disorder S/P living-donor kidney transplantation (HCC) CBC W AUTO DIFFERENTIAL Routine 10/28/2024 7:26 AM MAIL MANAGER Chronic kidney disease-mineral and bone disorder S/P living-donor kidney transplantation ([facility]) PTH INTACT Routine 10/28/2024 7:26 AM MAIL MANAGER Chronic kidney disease-mineral and bone disorder S/P living-donor kidney transplantation ([facility]) URIC ACID BLOOD Routine 10/28/2024 7:26 AM MAIL MANAGER Chronic kidney disease-mineral and bone disorder S/P living-donor kidney transplantation ([facility]) VITAMIN D 25-HYDROXY Routine 10/28/2024 7:26 AM MAIL MANAGER Chronic kidney disease-mineral and bone disorder S/P living-donor kidney transplantation ([facility]) CYTOMEGALOVIRUS QUANT BLOOD Routine 10/28/2024 7:26 AM MAIL MANAGER Chronic kidney disease-mineral and bone disorder S/P living-donor kidney transplantation (HCC) BK VIRUS PCR QUANTITATIVE Routine 10/28/2024 7:26 AM MAIL MANAGER Chronic kidney disease-mineral and bone disorder S/P living-donor kidney transplantation ([facility]) LIPID PROFILE Routine 10/28/2024 7:26 AM MAIL MANAGER Chronic kidney disease-mineral and bone disorder S/P living-donor kidney transplantation ([facility]) REF LAB-NOTE 09/30/2024 7:25 AM MAIL MANAGER MICROALB/CREAT RATIO URINE RANDOM PANEL Routine 09/30/2024 7:25 AM MAIL MANAGER Chronic kidney disease-mineral and bone disorder S/P living-donor kidney transplantation (HCC) URINALYSIS REFLEX TO MICROSCOPIC NO CULTURE Routine 09/30/2024 7:25 AM MAIL MANAGER Chronic kidney disease-mineral and bone disorder S/P living-donor kidney transplantation (HCC) TACROLIMUS LEVEL Routine 09/30/2024 7:25 AM MAIL MANAGER Chronic kidney disease-mineral and bone disorder S/P living-donor kidney transplantation (HCC) PHOSPHORUS BLOOD Routine 09/30/2024 7:25 AM MAIL MANAGER Chronic kidney disease-mineral and bone disorder S/P living-donor kidney transplantation ([facility]) MAGNESIUM BLOOD Routine 09/30/2024 7:25 AM MAIL MANAGER Chronic kidney disease-mineral and bone disorder S/P living-donor kidney transplantation ([facility]) COMPREHENSIVE METABOLIC PANEL Routine 09/30/2024 7:25 AM MAIL MANAGER Chronic kidney disease-mineral and bone disorder S/P living-donor kidney transplantation ([facility]) CBC W AUTO DIFFERENTIAL Routine 09/30/2024 7:25 AM MAIL MANAGER Chronic kidney disease-mineral and bone disorder S/P living-donor kidney transplantation ([facility]) PTH INTACT Routine 09/30/2024 7:25 AM MAIL MANAGER Chronic kidney disease-mineral and bone disorder S/P living-donor kidney transplantation ([facility]) URIC ACID BLOOD Routine 09/30/2024 7:25 AM MAIL MANAGER Chronic kidney disease-mineral and bone disorder S/P living-donor kidney transplantation ([facility]) VITAMIN D 25-HYDROXY Routine 09/30/2024 7:25 AM MAIL MANAGER Chronic kidney disease-mineral and bone disorder S/P living-donor kidney transplantation ([facility]) CYTOMEGALOVIRUS QUANT BLOOD Routine 09/30/2024 7:25 AM MAIL MANAGER Chronic kidney disease-mineral and bone disorder S/P living-donor kidney transplantation ([facility]) BK VIRUS PCR QUANTITATIVE Routine 09/30/2024 7:25 AM MAIL MANAGER Chronic kidney disease-mineral and bone disorder S/P living-donor kidney transplantation (HCC) LIPID PROFILE Routine 09/30/2024 7:25 AM MAIL MANAGER Chronic kidney disease-mineral and bone disorder S/P living-donor kidney transplantation (HCC) HEPATITIS C RNA QUANTITATIVE STAT 09/14/2021 8:04 AM MAIL MANAGER Kidney transplant candidate HIV-1 HIV-2 ANTIBODY + HIV P24 AG PANEL STAT 09/14/2021 8:04 AM MAIL MANAGER Kidney transplant candidate from Last 3 Months or Most Recently Relevant to Health Maintenance Results * CYTOMEGALOVIRUS QUANT BLOOD (10/28/2024 7:26 AM MAIL MANAGER) Only the most recent of2 resultswithin the time period is included. Cytomegalovirus DNA Quantitative PCR Not Detected Not Detected IU/mL [facility] Cytomegalovirus DNA Quantitative PCR Not Detected Not Detected Log IU/mL [facility] Comment: (Note) For additional information, please refer to http://education.[place].ufindads/faq/CMVandEBVPCR (This link is being provided for informational/educational purposes only.) [facility] [address] [address],[address] [place] [id number] Memo Schrader MD, PhD Test Performed at: [facility] [address] [place] [address] [place] [address] ??[phone] MEMO SCHRADER MD,PHD Blood BLOOD SPECIMEN / Unknown 10/28/2024 7:26 AM MAIL MANAGER 10/28/2024 7:27 AM MAIL MANAGER Melisa Chambers RN FIRST ASSISTANT-AIRCRAFT LAYOUT WORKER LAB - CHEMISTRY ORDERABLES [facility] [address] [place] [address] * URIC ACID BLOOD (10/28/2024 7:26 AM MAIL MANAGER) Only the most recent of2 resultswithin the time period is included. Uric Acid 6.5 4.0 - 8.0 mg/dL [facility] Comment: Therapeutic target for gout patients: <6.0 mg/dL ?? Test Performed at: [facility] [place] ??[phone] EDISON TROY MD Blood BLOOD SPECIMEN / Unknown 10/28/2024 7:26 AM MAIL MANAGER 10/28/2024 7:27 AM MAIL MANAGER Melisa Chambers APRN-[facility] LAB - CHEMISTRY ORDERABLES Performing Organization Address [facility] de Phone Number [facility] [phone] [place], [place] [id number] * (ABNORMAL) TACROLIMUS LEVEL (10/28/2024 7:26 AM MAIL MANAGER) Only the most recent of2 resultswithin the time period is included. Tacrolimus 3.8(L) mcg/L [facility] Comment: No definitive therapeutic or toxic ranges have been established. Optimal blood drug levels are influenced by type of transplant, patient response, time post- transplant, co-administration of other drugs, and drug formulation. The following trough range is a suggested guideline: 5.0-20.0 mcg/L. Test Performed at: [place], [place] ??[address] EDISON TROY MD Blood BLOOD SPECIMEN / Unknown 10/28/2024 7:26 AM MAIL MANAGER 10/28/2024 7:27 AM MAIL MANAGER Melisa FAYAIRCRAFT LAYOUT WORKER LAB - THERAPEUT IC DRUG MONITORING ORDERABLES Performing Organization Address [facility] de Phone Number [facility] [phone] [place] [phone] * MICROALB/CREAT RATIO URINE RANDOM PANEL (10/28/2024 7:26 AM MAIL MANAGER) Only the most recent of2 resultswithin the [...] within a diagnostic category. Test Performed at: [facility] ??[phone] EDISON TROY MD Urine URINE SPECIMEN OBTAINED BY CLEAN CATCH PROCEDURE / Unknown 10/28/2024 7:26 AM MAIL MANAGER 10/28/2024 7:27 AM MAIL MANAGER Melisa Chambers RN FIRST ASSISTANT-AIRCRAFT LAYOUT WORKER LAB - URINE SOFIA CLARE ORDERABLES Performing Organization Address City/State/[facility] Co de Phone Number [facility] [address] [place] [address] * (ABNORMAL) URINALYSIS REFLEX TO MICROSCOPIC NO CULTURE (10/28/2024 7:26 AM MAIL MANAGER) Only the most recent of2 resultswithin the time period is included. Color UA YELLOW YELLOW [facility] Appearance CLEAR CLEAR [facility] Specific [place] UA 1.021 1.001 - 1.035 [facility] pH [...] SEEN /LPF [facility] Comment: Test Performed at: [place], [place] ??[address] EDISON TROY MD Granular Casts [facility] Casts UA [facility] Yeast [facility] Comments [facility] Comment: Test Performed at: [facility] [address] [place], [place] ??[address] EDISON TROY MD Urine URINE SPECIMEN OBTAINED BY CLEAN CATCH PROCEDURE / Unknown 10/28/2024 7:26 AM MAIL MANAGER 10/28/2024 7:27 AM MAIL MANAGER Melisa Chambers APRN-AIRCRAFT LAYOUT WORKER LAB - URINALYSI S ORDERABLES Performing Organization Address [facility] de Phone Number [facility] [address] [place] [address] * (ABNORMAL) PTH INTACT (10/28/2024 7:26 AM MAIL MANAGER) Only the most recent of2 resultswithin the time period is included. PTH [...] or Low Normal ?High Test Performed at: [facility] ??[phone] EDISON TROY MD Blood BLOOD SPECIMEN / Unknown 10/28/2024 7:26 AM MAIL MANAGER 10/28/2024 7:27 AM MAIL MANAGER Melisa Chambesr RN FIRST ASSISTANT-AIRCRAFT LAYOUT WORKER LAB - CHEMISTRY ORDERABLES Performing Organization Address [facility] de Phone Number [facility] [address] [place] [address] * VITAMIN D 25-HYDROXY (10/28/2024 7:26 AM MAIL MANAGER) Only the most recent of2 resultswithin the time period is included. Pathologist [facility] Vitamin D, 25 Hydroxy 45 30 - 100 ng/mL [facility] Comment: Vitamin D Status ? 25-OH Vitamin D: Deficiency: ?<20 ng/mL Insufficiency: ? 20 - 29 ng/mL Optimal: ? > or = 30 ng/mL For 25-OH Vitamin D testing on patients on D2-supplementation and patients for whom quantitation of D2 and D3 fractions is required, the QuestAssureD(TM) 25-OH VIT D, (D2,D3), LC/MS/MS is recommended: order code 63930 (patients >2yrs). See Note 1 Note 1 For additional information, please refer to http://education.Offermatic/faq/QQT877 (This link is being provided for informational/ educational purposes only.) Test Performed at: [facility] [address] [facility] [place] ??[phone] EDISON TROY MD Blood BLOOD SPECIMEN / Unknown 10/28/2024 7:26 AM MAIL MANAGER 10/28/2024 7:27 AM MAIL MANAGER Melisa Chambers RN FIRST ASSISTANT-AIRCRAFT LAYOUT WORKER LAB - CHEMISTRY ORDERABLES [facility] [address] [place] [address] * BK VIRUS PCR QUANTITATIVE (10/28/2024 7:26 AM MAIL MANAGER) Only the most recent of2 resultswithin the time period is included. [facility] BK Virus DNA Quantitative PCR Not Detected Not Detected IU/mL [facility] BK Virus DNA PCR Not Detected Not Detected Log IU/mL [facility] Comment: [facility] [address] [facility] [address] [facility] [address] Memo Schrader MD, PhD Test Performed at: [facility] [address] [facility] [address] [place], [place] ??[phone] MEMO SCHRADER MD,PHD Blood BLOOD SPECIMEN / Unknown 10/28/2024 7:26 AM MAIL MANAGER 10/28/2024 7:27 AM MAIL MANAGER Melisa Chambers RN FIRST ASSISTANT-AIRCRAFT LAYOUT WORKER LAB - CHEMISTRY ORDERABLES [facility] [address] [place] [address] * CBC WITH DIFFERENTIAL (10/28/2024 7:26 AM MAIL MANAGER) Only the most recent of2 resultswithin the time period is included. White Blood Cell Count 6.6 3.8 - [...] 1.4 % [facility] Comment: Test Performed at: [facility] [address] [place], [place] ??[address] EDISON TROY MD Blasts [facility] nR [facility] Comments [facility] Comment: Test Performed at: [facility] [address] [place], [place] ??[address] EDISON TROY MD Blood BLOOD SPECIMEN / Unknown 10/28/2024 7:26 AM MAIL MANAGER 10/28/2024 7:27 AM MAIL MANAGER Melisa Atkinsonp RN FIRST ASSISTANT-AIRCRAFT LAYOUT WORKER LAB - HEMATOLOG Y ORDERABLES [facility] [address] [place] [address] * (ABNORMAL) COMPREHENSIVE METABOLIC PANEL (10/28/2024 7:26 AM MAIL MANAGER) Only the most recent of2 resultswithin the time period is included. Glucose [...] 46 U/L [facility] Comment: Test Performed at: [place] ??[address] EDISON TROY MD Blood BLOOD SPECIMEN / Unknown 10/28/2024 7:26 AM MAIL MANAGER 10/28/2024 7:27 AM MAIL MANAGER Melisa Chambers APRN-AIRCRAFT LAYOUT WORKER LAB - CHEMISTRY ORDERABLES Performing Organization Address [facility] Co de Phone Number [place] [phone] * PHOSPHORUS BLOOD (10/28/2024 7:26 AM MAIL MANAGER) Only the most recent of2 resultswithin the time period is included. Phosphorus 2.7 2.5 - 4.5 mg/dL [facility] Comment: Test Performed at: [facility] ??[phone] EDISON TROY MD Blood BLOOD SPECIMEN / Unknown 10/28/2024 7:26 AM MAIL MANAGER 10/28/2024 7:27 AM MAIL MANAGER Melisa Chambers APRN-AIRCRAFT LAYOUT WORKER LAB - CHEMISTRY ORDERABLES Performing Organization Address [facility] de Phone Number [place] [phone] * MAGNESIUM BLOOD (10/28/2024 7:26 AM MAIL MANAGER) Only the most recent of2 resultswithin the time period is included. Magnesium 1.8 1.5 - 2.5 mg/dL [facility] Comment: Test Performed at: [facility] [address] [place], [place] ??[address] EDISON TROY MD Blood BLOOD SPECIMEN / Unknown 10/28/2024 7:26 AM MAIL MANAGER 10/28/2024 7:27 AM MAIL MANAGER Melisa Chambers APRN-AIRCRAFT LAYOUT WORKER LAB - CHEMISTRY ORDERABLES Performing Organization Address [facility] [place] [address] * LIPID PROFILE (10/28/2024 7:26 AM MAIL MANAGER) Only the most recent of2 resultswithin the time period is included. Cholesterol [...] factors. LDL-C is now calculated using the Carlos calculation, which is a validated novel method providing better accuracy than the Friedewald equation in the estimation of LDL-C. Yogi SS et al. FRANDY. 2013;310(58): 2903-4855 (http://education.Offermatic/faq/BHV130) CHOL/HDLC RATIO 3.0 <5.0 (calc) [facility] Non HDL Cholesterol 86 <130 mg/dL (calc) [facility] Comment: For patients with diabetes plus 1 major ASCVD risk factor, treating to a non-HDL-C goal of <100 mg/dL (LDL-C of <70 mg/dL) is considered a therapeutic option. Test Performed at: [facility] [id number] ??[id number] EDISON TROY MD Blood BLOOD SPECIMEN / Unknown 10/28/2024 7:26 AM MAIL MANAGER 10/28/2024 7:27 AM MAIL MANAGER Melisa Chambers RN FIRST ASSISTANT-AIRCRAFT LAYOUT WORKER LAB - CHEMISTRY ORDERABLES [facility] [address] [place] [address] * HIV-1 HIV-2 ANTIBODY + HIV P24 AG PANEL (09/14/2021 8:04 AM MAIL MANAGER) HIV Antigen/Antibod y 1 & 2 Non-reacti ve Non-react heather 09/14/2021 9:37 AM MAIL MANAGER [facility] Comment:No Laboratory eviden ce of HIV infection. Blood BLOOD SPECIMEN / Unknown Venipuncture / Unknown 09/14/2021 8:04 AM MAIL MANAGER 09/14/2021 8:26 AM MAIL MANAGER Ricky Estes PA-C LAB - CHEMISTRY ORD ERABLES [facility] [address] [place] [address], [place] [phone] * HEPATITIS C RNA QUANTITATIVE (09/14/2021 8:04 AM MAIL MANAGER) Pathologist [facility] Hepatitis C RNA PCR, Interp Not detected Not detected 09/15/2021 3:53 PM MAIL MANAGER [facility] Blood BLOOD SPECIMEN / Unknown Venipuncture / Unknown 09/14/2021 8:04 AM MAIL MANAGER 09/14/2021 8:26 AM MAIL MANAGER Narrative [facility] - 09/15/2021 3:53 PM MAIL MANAGER The Hepatitis C viral (HCV) RNA analysis utilized a serum sample, real-time reverse dredge engineer PCR, and is reported as Not Detected, [...] the isolation of HCV RNA with reverse dredge engineer of genomic HCV RNA followed by real-time PCR in the presence of an unrelated RNA internal control. ??The internal control ensures that RNA is isolated, and that no general significant inhibitors of the RT-PCR process are present. The analysis was performed using a [place] FDA approved test methodology ([employer] Real Time HCV). 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
--- OUTSIDE RECORDS SUMMARY | 2024-11-12 12:57 | XMS_ITS | Clinical Summary ---
Author Organization [facility] [employer] Address [address] [place] [address] Care Team Providers Care Coroner Transport Technician Name Role Phone Zi Lim MD Unavailable [phone] Unknown, Provider Primary Care Provider Unavaila ble Source Comments [facility],non-owned Affiliates and Associated Physician Practices is amultiple site organization consisting of ambulatory clinics and hospital sitesin [place], [place], [place] and [place]. This disclosure is being madepursuant to the Care Everywhere program and may not contain all information available regarding this patient. Last updated 18.[facility] [employer] Allergies Active Allergy Reactions Criticality Noted Date [...] by mouth once daily 90 tablet 4 11/08/19 23 Active predniSONE (Deltasone) 5 MG tablet Take 1 (one) tablet by mouth once daily 30 tablet 11 01/15/20 24 Active mycophenolate EC (Myfortic) 180 MG tablet Take 1 (one) tablet by mouth 2 times daily 180 tablet 4 02/15/20 24 Active atorvastatin (Lipitor) 20 MG tablet Take 1 (one) tablet by mouth at bedtime 30 tablet 11 02/27/20 24 Active cinacalcet (Sensipar) 30 MG tablet Take 1 (one) tablet by mouth daily with breakfast 90 tablet 4 03/04/20 24 Active amLODIPine (Norvasc) 5 MG [...] Dr. Lim Transplant Date: 09/14/2021 Donor:UNOS ID [id number], Related (first cousin) living donor criteria donor [...] were not included. Ron Sky 1970 Referring Engraver Apprentice Decorative: Zi Lim Dialysis Info: Type: HD T, [...] cyst in jaw, removed at hospital in [place], pt doesn't remember which hospital but states benign Transplant Surgery Clinic Appt w/: Dr. Renteria Date: 09/05/2021 A/P: Note pending Transplant Surgery Clinic Appt w/: Dr. Fermin Date: 10/11/2020 A/P: Assessment/Plan: 49 year old [...] a good Candidate. ? Gustavo Kent MD Senior Engineering Specialist of Transplant Nephology. [facility]. ? Nephrology Clinic Appt w/: Dr. 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 He will work with his primary client project coordinator, both on phosphorus control, which will help [...] we agree with the recommendations of the [place] [employer] [employer] of [employer]plantation (AST) for vaccination of transplant candidates on the waiting list. With regard to planned LDKT, if vaccine is available, we recommend vaccination of planned donor and recipient, ideally completed 1 month before surgery and no later than 2 weeks before surgery ?? 7. Routine screening & other required testing: follow-up all pending tests before PSC ?? 8. Support / Psychosocial ?? SW [...] He stated understanding and agreement. ?? Idalia rOta MD, PhD education technician Attestation signed by Esthela Tsai MD at [...] Other Consults: none Pertinent Previous Committee Presentations: [facility]: 07/28/2021 Induction Method: Immunosuppression Induction Method/Plan: Antithymocyte globulin (rabbit) (Thymoglobulin) 5 mg/kg Committee Discussion Details: Pt's case presented at [facility] for approval to list. HH and [...] of 09/14/21 Per team, ok to list. [facility]: 07/21/2021 Committee Discussion Details: Pt's case was presented at [facility] to discuss his recent ENT visit [...] a place for him to go - [facility], where they accepted Good Rx and [...] be able to afford senispar post txp. [facility]: 06/30/2021 Committee Discussion Details: Pt's case was represented at [facility] today to review his Sestamibi scan [...] follow up with both pt and sister. [facility]: 06/09/2021 Committee Discussion Details: Pt's case was presented at [facility] again today to discuss his potential plan of care for his elevated PTH level. Reviewed medications with team again, sensipar 90mg daily and hecterol 12mcg on dialysis days. Reviewed PTH levels from 09/[address] Orta spoke to team in regards to her conversations she had with both the pt and client project coordinator, she also talked about medical management with [...] Discussion Details: Pt's case was represented to [facility] to discuss his recent PTH level and to see if we are ok with continued medication management or if we want to proceed with parathyroidectomy Team aware that pt has been presented at prior [facility] to discuss his levels, treatment and plan [...] Committee Discussion Details: Pt's case presented at [facility] to discuss his current PTH level [...] other medication changes and or potential parathyroidectomy. PSC: 01/20/21 Committee Discussion Details: Pt's case was discussed at [facility] to review his current PTH level, treatment and plan of care. Team aware pt's PTH down to 1327 from 1899s, he is still currently on sensipar 30mg [...] Negative Phos: 7.1 Magnesium: 2.1 Potassium: 6.1 (client project coordinator notified for treatment; DU to lower K [...] QTC Calculation (Bezet) ms 424 Calculated P Vernon degrees 62 Calculated R Vernon degrees 50 Calculated T Vernon degrees 50 Interpretation EKG NORMAL SINUS RHYTHM [...] angle is only partially included in the [id number]. The cardiomediastinal silhouette is normal. The visible [...] US: 08/03/2020 PPD: Colonoscopy: 05/23/2021 Completed at [facility] Pathology report: 05/23/2021 Panorex/Dental: 10/06/2020 FINDINGS: Multiple [...] It is the impression of this social media coordinator that Ron Sky has several positive factors for Kidney transplant candidacy from a psychosocial perspective. Patient appears to have appropriate knowledge of illness. Patient has sufficient insurance coverage and stable financial situation for post transplant needs. No concerns regarding substance abuse, legal issues, or mental health needs. Patient has adequate support system and appropriate discharge plan. ? Plan: can worker to provide supportive services as needed. Patient remains a reasonable candidate for transplant from a psychosocial perspective pending: - negative toxicology screening (no concerns anticipated) Psychiatric Consult Recommended: No ?? Transplant Industrial Eng: EDISON Wilkes Abdominal Transplant Industrial Eng [phone] ?? CREDIT ADMINISTRATION OFFICER forms: RD: 09/05/2021 Transplant Nutrition Evaluation Date of Interview:??09/05/2021 ??Interviewed in person or over the phone:??person ?? 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 ?Nutrition Related PMH:??HTN, ESRD newly [...] disease (CODE) Secondary hyperparathyroidism of renal origin Encounters Date Type Department Care Team Description 11/10/2024 Orders Only [facility] - Nephrology [address] [place] [phone] Melisa Chambers APRN-PAINTER AND DECORATOR 10/31/2024 Orders Only [facility]rology [address] [place] [phone] Mychart, Generic Provider S/P living-donor kidney transplantation (HCC); Anemia in chronic kidney disease (CODE); Vitamin D deficiency; Long-term use of immunosuppressant medication; Other oysterman (current) drug therapy; Chronic kidney disease-mineral and bone disorder 10/28/2024 Orders Only [facility] [address] [place] [phone] Melisa Chambers WATER QUALITY MANAGER-PAINTER AND DECORATOR 10/25/2024 Refill [facility] - Nephrology [address] [place] [phone] Melisa Chambers, WATER QUALITY MANAGER-PAINTER AND DECORATOR MEDICATION REFILL 10/24/2024 Orders Only [facility] - Nephrology [address] [place] [phone] Melisa Chambers, WATER QUALITY MANAGER-PAINTER AND DECORATOR Chronic kidney disease-mineral and bone disorder; S/P living-donor kidney transplantation ([facility]) 10/14/2024 8:40 AM WASTEWATER PLANT OPERATOR Office Visit [facility] - Nephrology [address] [place] [phone] Unknown, Provider Disorder of mineral metabolism, unspecified (Primary Dx); Chronic kidney disease-mineral and bone disorder; Long-term use of immunosuppressant medication; Metabolic acidosis; Hyperglycemia 10/14/2024 Travel 10/03/2024 Orders Only [facility] - Nephrology [address] [place] [phone] Mychart, Generic Provider S/P living-donor kidney transplantation (HCC); Anemia in chronic kidney disease (CODE); Vitamin D deficiency; Long-term use of immunosuppressant medication; Other senior living (current) drug therapy; Chronic kidney disease-mineral and bone disorder 09/29/2024 Telephone [facility] - Nephrology [address] [place] [phone] Melisa Chambers, WATER QUALITY MANAGER-PAINTER AND DECORATOR Follow-up 09/29/2024 Orders Only [facility] - Nephrology [address] [place] [phone] Melisa Chambers, WATER QUALITY MANAGER-PAINTER AND DECORATOR Chronic kidney disease-mineral and bone disorder ; S/P living-donor kidney transplantation ([facility]) 09/25/2024 Telephone [facility] - Nephrology [address] [place] [phone] Melisa Chambers, WATER QUALITY MANAGER-PAINTER AND DECORATOR Follow-up 09/24/2024 Telephone [facility] - GI [address] [place] [address], [place] [phone] Melisa Cahmbers APRN-PAINTER AND DECORATOR [employer] 09/22/2024 Refill [facility] - Nephrology [address] [place] [phone] Melisa Chambers WATER QUALITY MANAGER-PAINTER AND DECORATOR MEDICATION REFILL 09/17/2024 Refill [facility] - Nephrology [address] [place] [phone] Mirza Hunt MD MEDICATION REFILL from Last 3 Months Family History Medical History Relation Name Comments COPD - Chronic Obstructive Pulmonary Disease Father Cancer - Lung Father Hypertension Father Other - Pulmonary/Lung Father Cancer - Breast Mother Hypertension Sister Relation Name Status Comments Daughter Alive Father Alive Mother Alive Sister Alive Son Alive Social History Tobacco Use Types Packs/Day Years [...] Comments Blood Pressure 115/83 10/14/2024 8:55 AM WASTEWATER PLANT OPERATOR Pulse 68 10/14/2024 8:55 AM WASTEWATER PLANT OPERATOR Temperature 36.9 ??C (98.4 ??F) 04/08/2024 8:37 AM CD T Respiratory Rate 20 12/19/2022 9:10 AM WASTEWATER PLANT OPERATOR Oxygen Saturation 98% 10/14/2024 8:55 AM WASTEWATER PLANT OPERATOR Inhaled Oxygen Concentration - - Weight 131.5 kg (290 lb) 10/14/2024 8:55 AM WASTEWATER PLANT OPERATOR Height 198.1 cm (6' 6 ) 06/19/2023 8:23 AM CDT Body Mass Index 33.51 06/19/2023 8:23 AM CDT Plan of Treatment Upcoming Encounters Date Type Department Care Team (Late st Contact Info) Description 04/21/2025 8:40 AM CDT Office Visit [facility] - Nephrology [address] [place] [address] Health Maintenance Due Date Last Done Comments COLOGUARD (AGES 45-75) - COLON CA SCREENING 1970 COLON MONITORING 1970 COLONOSCOPY - COLON CA SCREENING 1970 CT COLONOGRAPHY - COLON CA SCREENING 1970 Colorectal Cancer Screening 1970 FIT - COLON CA SCREENING 1970 FLEX SIG - COLON CA SCREENING 1970 MEDICARE AWV ? 12 MONTHS 1970 DTAP/TDAP/TD VACCINES (1 - Tdap) 1989 HEPATITIS B VACCINE (1 of 3 - 19+ 3-dose series) 1989 PNEUMOCOCCAL VACCINE 50+ (1 of 2 - PCV) 1989 ZOSTER VACCINE (1 of 2) 1989 COVID-19 VACCINE (4 - 2023- season) 2024 12/13/2021, 03/31/2021, 03/10/2021 INFLUENZA VACCINE (#1) 2024 DEPRESSION SCREENING 10/15/2024 HEPATITIS C SCREENING Completed 09/14/2021 , 09/14/2021, 09/05/2021, Additional history exists HIV SCREENING Completed 09/14/2021, 08/16, 10/06/2020 HIB VACCINE Aged Out No longer eligi ble based on patient's age to complete this topic HPV VACCINE Aged Out No longer eligi ble based on patient's age to complete this topic MENINGOCOCCAL (Group B) VACCINE Aged Out No longer eligible based on patient's age to complete this topic MENINGOCOCCAL VACCINE Aged Out No mario alberto todd eligible based on patient's age to complete this topic Goals Goal Patient Goal Type Associated Problems [...] last dose Medical Devices Implanted Type Area Finger Buffs Assembler Device Identifier Shelf Expiration Date Model / Serial / Lot Stent Uret 6fr 12cm 100cm .028in 1 Stp Implanted:Qty: 1 on 09/14/2021 by Jeimy Renteria MD at 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 Procedures Procedure Name Priority Date/Time Associated Diagnosis Comments REF LAB-NOTE 10/28/2024 7:26 AM WASTEWATER PLANT OPERATOR MICROALB/CREAT RATIO URINE RANDOM PANEL Routine 10/28/2024 7:26 AM WASTEWATER PLANT OPERATOR Chronic kidney disease-mineral and bone disorder S/P living-donor kidney transplantation ([facility]) URINALYSIS REFLEX TO MICROSCOPIC NO CULTURE Routine 10/28/2024 7:26 AM WASTEWATER PLANT OPERATOR Chronic kidney disease-mineral and bone disorder S/P living-donor kidney transplantation ([facility]) TACROLIMUS LEVEL Routine 10/28/2024 7:26 AM WASTEWATER PLANT OPERATOR Chronic kidney disease-mineral and bone disorder S/P living-donor kidney transplantation ([facility]) PHOSPHORUS BLOOD Routine 10/28/2024 7:26 AM WASTEWATER PLANT OPERATOR Chronic kidney disease-mineral and bone disorder S/P living-donor kidney transplantation ([facility]) MAGNESIUM BLOOD Routine 10/28/2024 7:26 AM WASTEWATER PLANT OPERATOR Chronic kidney disease-mineral and bone disorder S/P living-donor kidney transplantation ([facility]) COMPREHENSIVE METABOLIC PANEL Routine 10/28/2024 7:26 AM WASTEWATER PLANT OPERATOR Chronic kidney disease-mineral and bone disorder S/P living-donor kidney transplantation ([facility]) CBC W AUTO DIFFERENTIAL Routine 10/28/2024 7:26 AM WASTEWATER PLANT OPERATOR Chronic kidney disease-mineral and bone disorder S/P living-donor kidney transplantation ([facility]) PTH INTACT Routine 10/28/2024 7:26 AM WASTEWATER PLANT OPERATOR Chronic kidney disease-mineral and bone disorder S/P living-donor kidney transplantation ([facility]) URIC ACID BLOOD Routine 10/28/2024 7:26 AM WASTEWATER PLANT OPERATOR Chronic kidney disease-mineral and bone disorder S/P living-donor kidney transplantation (HCC) VITAMIN D 25-HYDROXY Routine 10/28/2024 7:26 AM WASTEWATER PLANT OPERATOR Chronic kidney disease-mineral and bone disorder S/P living-donor kidney transplantation (HCC) CYTOMEGALOVIRUS QUANT BLOOD Routine 10/28/2024 7:26 AM WASTEWATER PLANT OPERATOR Chronic kidney disease-mineral and bone disorder S/P living-donor kidney transplantation ([facility]) BK VIRUS PCR QUANTITATIVE Routine 10/28/2024 7:26 AM WASTEWATER PLANT OPERATOR Chronic kidney disease-mineral and bone disorder S/P living-donor kidney transplantation ([facility]) LIPID PROFILE Routine 10/28/2024 7:26 AM WASTEWATER PLANT OPERATOR Chronic kidney disease-mineral and bone disorder S/P living-donor kidney transplantation ([facility]) REF LAB-NOTE 09/30/2024 7:25 AM WASTEWATER PLANT OPERATOR MICROALB/CREAT RATIO URINE RANDOM PANEL Routine 09/30/2024 7:25 AM WASTEWATER PLANT OPERATOR Chronic kidney disease-mineral and bone disorder S/P living-donor kidney transplantation ([facility]) URINALYSIS REFLEX TO MICROSCOPIC NO CULTURE Routine 09/30/2024 7:25 AM WASTEWATER PLANT OPERATOR Chronic kidney disease-mineral and bone disorder S/P living-donor kidney transplantation ([facility]) TACROLIMUS LEVEL Routine 09/30/2024 7:25 AM WASTEWATER PLANT OPERATOR Chronic kidney disease-mineral and bone disorder S/P living-donor kidney transplantation ([facility]) PHOSPHORUS BLOOD Routine 09/30/2024 7:25 AM WASTEWATER PLANT OPERATOR Chronic kidney disease-mineral and bone disorder S/P living-donor kidney transplantation ([facility]) MAGNESIUM BLOOD Routine 09/30/2024 7:25 AM WASTEWATER PLANT OPERATOR Chronic kidney disease-mineral and bone disorder S/P living-donor kidney transplantation ([facility]) COMPREHENSIVE METABOLIC PANEL Routine 09/30/2024 7:25 AM WASTEWATER PLANT OPERATOR Chronic kidney disease-mineral and bone disorder S/P living-donor kidney transplantation (HCC) CBC W AUTO DIFFERENTIAL Routine 09/30/2024 7:25 AM WASTEWATER PLANT OPERATOR Chronic kidney disease-mineral and bone disorder S/P living-donor kidney transplantation (HCC) PTH INTACT Routine 09/30/2024 7:25 AM WASTEWATER PLANT OPERATOR Chronic kidney disease-mineral and bone disorder S/P living-donor kidney transplantation (HCC) URIC ACID BLOOD Routine 09/30/2024 7:25 AM WASTEWATER PLANT OPERATOR Chronic kidney disease-mineral and bone disorder S/P living-donor kidney transplantation (HCC) VITAMIN D 25-HYDROXY Routine 09/30/2024 7:25 AM WASTEWATER PLANT OPERATOR Chronic kidney disease-mineral and bone disorder S/P living-donor kidney transplantation (HCC) CYTOMEGALOVIRUS QUANT BLOOD Routine 09/30/2024 7:25 AM WASTEWATER PLANT OPERATOR Chronic kidney disease-mineral and bone disorder S/P living-donor kidney transplantation (HCC) BK VIRUS PCR QUANTITATIVE Routine 09/30/2024 7:25 AM WASTEWATER PLANT OPERATOR Chronic kidney disease-mineral and bone disorder S/P living-donor kidney transplantation ([facility]) LIPID PROFILE Routine 09/30/2024 7:25 AM WASTEWATER PLANT OPERATOR Chronic kidney disease-mineral and bone disorder S/P living-donor kidney transplantation ([facility]) HEPATITIS C RNA QUANTITATIVE STAT 09/14/2021 8:04 AM WASTEWATER PLANT OPERATOR Kidney transplant candidate HIV-1 HIV-2 ANTIBODY + HIV P24 AG PANEL STAT 09/14/2021 8:04 AM WASTEWATER PLANT OPERATOR Kidney transplant candidate from Last 3 Months or Most Recently Relevant to Health Maintenance Results * CYTOMEGALOVIRUS QUANT BLOOD (10/28/2024 7:26 AM WASTEWATER PLANT OPERATOR) Only the most recent of2 resultswithin the time period is included. Cytomegalovirus DNA Quantitative PCR Not Detected Not Detected IU/mL [facility] Cytomegalovirus DNA Quantitative PCR Not Detected Not Detected Log IU/mL [facility] Comment: (Note) For additional information, please refer to [email or web address]/[email or web address] (This link is being provided for informational/educational purposes only.) [facility] [address] [facility] [address] Memo Schrader MD, PhD Test Performed at: [facility] [address] [address] [address] [place], [place] ??[phone] MEMO SCHRADER MD,PHD Blood BLOOD SPECIMEN / Unknown 10/28/2024 7:26 AM WASTEWATER PLANT OPERATOR 10/28/2024 7:27 AM WASTEWATER PLANT OPERATOR Melisa Chambers WATER QUALITY MANAGER-[facility] - CHEMISTRY ORDERABLES Performing Organization Address [facility] Co de Phone Number [address] [address] * URIC ACID BLOOD (10/28/2024 7:26 AM WASTEWATER PLANT OPERATOR) Only the most recent of2 resultswithin the time period is included. Uric Acid 6.5 4.0 - 8.0 mg/dL [facility] Comment: Therapeutic target for gout patients: <6.0 mg/dL ?? Test Performed at: [facility] ??[phone] EDISON TROY MD Blood BLOOD SPECIMEN / Unknown 10/28/2024 7:26 AM WASTEWATER PLANT OPERATOR 10/28/2024 7:27 AM WASTEWATER PLANT OPERATOR Melisa Chambers WATER QUALITY MANAGER-[facility] - CHEMISTRY ORDERABLES Performing Organization Address [facility] Co de Phone Number [address] [address] * (ABNORMAL) TACROLIMUS LEVEL (10/28/2024 7:26 AM WASTEWATER PLANT OPERATOR) Only the most recent of2 resultswithin the time period is included. Tacrolimus 3.8(L) mcg/L [facility] Comment: No definitive therapeutic or toxic ranges have been established. Optimal blood drug levels are influenced by type of transplant, patient response, time post- transplant, co-administration of other drugs, and drug formulation. The following trough range is a suggested guideline: 5.0-20.0 mcg/L. Test Performed at: [facility] [place], [place] ??[phone] EDISON TROY MD Blood BLOOD SPECIMEN / Unknown 10/28/2024 7:26 AM WASTEWATER PLANT OPERATOR 10/28/2024 7:27 AM WASTEWATER PLANT OPERATOR Melisa Chambers APRN-PAINTER AND DECORATOR LAB - THERAPEUT IC DRUG MONITORING ORDERABLES Performing Organization Address [facility] de Phone Number [facility] [address] [place] [address] * MICROALB/CREAT RATIO URINE RANDOM PANEL (10/28/2024 7:26 AM WASTEWATER PLANT OPERATOR) Only the most recent of2 resultswithin the [...] within a diagnostic category. Test Performed at: [facility] [place], [place] ??[phone] EDISON TROY MD Urine URINE SPECIMEN OBTAINED BY CLEAN CATCH PROCEDURE / Unknown 10/28/2024 7:26 AM WASTEWATER PLANT OPERATOR 10/28/2024 7:27 AM WASTEWATER PLANT OPERATOR Melisa Chambers APRN-PAINTER AND DECORATOR LAB - URINE SOFIA CLARE ORDERABLES Performing Organization Address [facility] Co de Phone Number [facility] [address] [place] [address] * (ABNORMAL) URINALYSIS REFLEX TO MICROSCOPIC NO CULTURE (10/28/2024 7:26 AM WASTEWATER PLANT OPERATOR) Only the most recent of2 resultswithin the time period is included. Color UA YELLOW YELLOW [facility] Appearance CLEAR CLEAR [facility] Specific Romeo UA 1.021 1.001 - 1.035 [facility] pH [...] SEEN /LPF [facility] Comment: Test Performed at: [facility] [place], [place] ??[phone] EDISON TROY MD Granular Casts [facility] Casts UA [facility] Yeast [facility] Comments [facility] Comment: Test Performed at: [facility] [place], [place] ??[phone] EDISON TROY MD Urine URINE SPECIMEN OBTAINED BY CLEAN CATCH PROCEDURE / Unknown 10/28/2024 7:26 AM WASTEWATER PLANT OPERATOR 10/28/2024 7:27 AM WASTEWATER PLANT OPERATOR Melisa Chambers WATER QUALITY MANAGER-PAINTER AND DECORATOR LAB - URINALYSI S ORDERABLES Performing Organization Address City/State/[facility] Co de Phone Number [facility] [address] [place] [address] * (ABNORMAL) PTH INTACT (10/28/2024 7:26 AM WASTEWATER PLANT OPERATOR) Only the most recent of2 resultswithin the [...] or Low Normal ?High Test Performed at: [facility] [place] [address] [place], [place] ??[phone] EDISON TROY MD Blood BLOOD SPECIMEN / Unknown 10/28/2024 7:26 AM WASTEWATER PLANT OPERATOR 10/28/2024 7:27 AM WASTEWATER PLANT OPERATOR Melisa Chambers WATER QUALITY MANAGER-PAINTER AND DECORATOR LAB - CHEMISTRY ORDERABLES [facility] [address] [place] [address] * VITAMIN D 25-HYDROXY (10/28/2024 7:26 AM WASTEWATER PLANT OPERATOR) Only the most recent of2 resultswithin the time period is included. Vitamin D, 25 Hydroxy 45 30 - 100 ng/mL [facility] Comment: Vitamin D Status ? 25-OH Vitamin D: Deficiency: ?<20 ng/mL Insufficiency: ? 20 - 29 ng/mL Optimal: ? > or = 30 ng/mL For 25-OH Vitamin D testing on patients on D2-supplementation and patients for whom quantitation of D2 and D3 fractions is required, the QuestAssureD() 25-OH VIT D, (D2,D3), LC/MS/MS is recommended: order code 78290 (patients >2yrs). See Note 1 Note 1 For additional information, please refer to http://education.trend.ly.ReaLync/faq/RNV529 (This link is being provided for informational/ educational purposes only.) Test Performed at: [facility] [address] [place], [place] ??[phone] EDISON TROY MD Blood BLOOD SPECIMEN / Unknown 10/28/2024 7:26 AM WASTEWATER PLANT OPERATOR 10/28/2024 7:27 AM WASTEWATER PLANT OPERATOR Melisa Chambers WATER QUALITY MANAGER-PAINTER AND DECORATOR LAB - CHEMISTRY ORDERABLES Performing Organization Address [facility] Co de Phone Number [facility] [phone] [place] [phone] * BK VIRUS PCR QUANTITATIVE (10/28/2024 7:26 AM WASTEWATER PLANT OPERATOR) Only the most recent of2 resultswithin the time period is included. [facility] BK Virus DNA Quantitative PCR Not Detected Not Detected IU/mL [facility] BK Virus DNA PCR Not Detected Not Detected Log IU/mL [facility] Comment: [facility] [address] [address],[address] [facility] [address] Memo Schrader MD, PhD Test Performed at: [facility] [address] [address] [address] [place], [place] ??[phone] MEMO SCHRADER MD,PHD Blood BLOOD SPECIMEN / Unknown 10/28/2024 7:26 AM WASTEWATER PLANT OPERATOR 10/28/2024 7:27 AM WASTEWATER PLANT OPERATOR Melisa Chambers WATER QUALITY MANAGER-PAINTER AND DECORATOR LAB - CHEMISTRY ORDERABLES Performing Organization Address [facility] Co de Phone Number [facility] [address] [place] [address] * CBC WITH DIFFERENTIAL (10/28/2024 7:26 AM WASTEWATER PLANT OPERATOR) Only the most recent of2 resultswithin the time period is included. Pathologist [facility] White Blood Cell Count 6.6 3.8 - [...] 1.4 % [facility] Comment: Test Performed at: [facility] [place], [place] ??[phone] EDISON TROY MD Blasts [facility] nRBC [facility] Comments [facility] Comment: Test Performed at: [facility] [place], [place] ??[address] EDISON TRYO MD Blood BLOOD SPECIMEN / Unknown 10/28/2024 7:26 AM WASTEWATER PLANT OPERATOR 10/28/2024 7:27 AM WASTEWATER PLANT OPERATOR Melisa Chambers WATER QUALITY MANAGER-PAINTER AND DECORATOR LAB - HEMATOLOG Y ORDERABLES [facility] [address] [place] [address] * (ABNORMAL) COMPREHENSIVE METABOLIC PANEL (10/28/2024 7:26 AM WASTEWATER PLANT OPERATOR) Only the most recent of2 resultswithin the [...] 46 U/L [facility] Comment: Test Performed at: [facility] [place], [place] ??[phone] EDISON TROY MD Blood BLOOD SPECIMEN / Unknown 10/28/2024 7:26 AM WASTEWATER PLANT OPERATOR 10/28/2024 7:27 AM WASTEWATER PLANT OPERATOR Melisa Chambers WATER QUALITY MANAGER-PAINTER AND DECORATOR LAB - CHEMISTRY ORDERABLES [facility] [address] [place] [address] * PHOSPHORUS BLOOD (10/28/2024 7:26 AM WASTEWATER PLANT OPERATOR) Only the most recent of2 resultswithin the time period is included. Phosphorus 2.7 2.5 - 4.5 mg/dL [facility] Comment: Test Performed at: [employer] [facility] [address] [place], [place] ??[phone] EDISON TROY MD Blood BLOOD SPECIMEN / Unknown 10/28/2024 7:26 AM WASTEWATER PLANT OPERATOR 10/28/2024 7:27 AM WASTEWATER PLANT OPERATOR Melisa DARDEN LAB - CHEMISTRY ORDERABLES Performing Organization Address [facility] de Phone Number [facility] [phone] [place] [address] * MAGNESIUM BLOOD (10/28/2024 7:26 AM WASTEWATER PLANT OPERATOR) Only the most recent of2 resultswithin the time period is included. Magnesium 1.8 1.5 - 2.5 mg/dL [facility] Comment: Test Performed at: [facility] ??[phone] EDISON TROY MD Blood BLOOD SPECIMEN / Unknown 10/28/2024 7:26 AM WASTEWATER PLANT OPERATOR 10/28/2024 7:27 AM WASTEWATER PLANT OPERATOR Melisa DARDEN LAB - CHEMISTRY ORDERABLES Performing Organization Address [facility] de Phone Number [address] [place] [phone] * LIPID PROFILE (10/28/2024 7:26 AM WASTEWATER PLANT OPERATOR) Only the most recent of2 resultswithin the [...] LDL-C. Yogi ROJAS et al. FRANDY. 2013;310(19): 0032-3775 (http://education.trend.ly.ReaLync/faq/MUJ613) CHOL/HDLC RATIO 3.0 <5.0 (calc) [facility] Non HDL Cholesterol 86 <130 mg/dL (calc) [facility] Comment: For patients with diabetes plus 1 major ASCVD risk factor, treating to a non-HDL-C goal of <100 mg/dL (LDL-C of <70 mg/dL) is considered a therapeutic option. Test Performed at: [employer] [address] [facility] [place] [place] ??[phone] EDISON TROY MD Blood BLOOD SPECIMEN / Unknown 10/28/2024 7:26 AM WASTEWATER PLANT OPERATOR 10/28/2024 7:27 AM WASTEWATER PLANT OPERATOR Melisa Chambers WATER QUALITY MANAGER-PAINTER AND DECORATOR LAB - CHEMISTRY ORDERABLES Performing Organization Address City/[facility]/ZIP Co de Phone Number [facility] [address] [place] [address] * HIV-1 HIV-2 ANTIBODY + HIV P24 AG PANEL (09/14/2021 8:04 AM WASTEWATER PLANT OPERATOR) [facility] HIV Antigen/Antibod y 1 & 2 Non-reacti ve Non-react heather 09/14/2021 9:37 AM WASTEWATER PLANT OPERATOR [facility] Comment:No Laboratory eviden ce of HIV infection. Blood BLOOD SPECIMEN / Unknown Venipuncture / Unknown 09/14/2021 8:04 AM WASTEWATER PLANT OPERATOR 09/14/2021 8:26 AM WASTEWATER PLANT OPERATOR Ricky Estes PA-C LAB - CHEMISTRY ORD ERABLES Performing Organization Address City/[facility]/ZIP Co de Phone Number [facility] [address] [place] [address], [facility] [phone] * HEPATITIS C RNA QUANTITATIVE (09/14/2021 8:04 AM WASTEWATER PLANT OPERATOR) Pathologist [facility] Hepatitis C RNA PCR, Interp Not detected Not detected 09/15/2021 3:53 PM WASTEWATER PLANT OPERATOR [facility] Blood BLOOD SPECIMEN / Unknown Venipuncture / Unknown 09/14/2021 8:04 AM WASTEWATER PLANT OPERATOR 09/14/2021 8:26 AM WASTEWATER PLANT OPERATOR Narrative [facility] MICRO[facility] - 09/15/2021 3:53 PM WASTEWATER PLANT OPERATOR The Hepatitis C viral (HCV) RNA analysis utilized a serum sample, real-time reverse hospice clinical marketer PCR, and is reported as Not Detected, [...] the isolation of HCV RNA with reverse hospice clinical marketer of genomic HCV RNA followed by real-time PCR in the presence of an unrelated RNA internal control. ??The internal control ensures that RNA is isolated, and that no general significant inhibitors of the RT-PCR process are present. The analysis was performed using a U.S. FDA approved test methodology (iMER Real Time HCV). Ricky Estes PA-C LAB - CHEMISTRY ORD ERABLES [facility] MICRO[facility] [address] [place] [address], [facility] [phone] from Last 3 Months or Most Recently Relevant to Health Maintenance Advance Directives * Full Code (Latest Code Status on File) Date Activated Date Inactivated Comments 09/14/2021 4:47 PM 09/19/2021 3:07 PM Care Teams Coroner Transport Technician Relationship Specialty Start Date End Date Unknown, Provider PCP - General 12/18/23 Zi Lim MD [address] [facility], [facility] [address] [place] [address] Engraver Apprentice Decorative Nephrology 07/28/20
--- OUTSIDE RECORDS SUMMARY | 2024-11-12 12:57 | XMS_ITS | Clinical Summary ---
Author Organization [facility] Virtual Care Address [address] [place] [phone] Phone Care Team Providers Care Customs Officer Name Role Phone Unknown, Notinfile Primary Care Provider Unavail able Allergies No known active allergies Medications aspirin 81 mg chewable tablet Take 1 tablet (81 mg total) by mouth daily 08/23/2022 Active atorvastatin (LIPITOR) 20 mg tablet Take 1 tablet (20 mg total) by mouth nightly 02/27/2024 Active calcitRIOL (ROCALTROL) 0.25 mcg capsule Take 1 capsule (0.25 mcg total) by mouth 04/09/2024 Active amLODIPine (NORVASC) 5 mg tablet Take 1 tablet (5 mg total) by mouth daily 11/30/2023 Active calcium acetate,phospha t bind, (PHOSLO) 667 mg tablet Take by mouth 10/28/2020 Active carvediloL (COREG) 6.25 mg tablet Take 1 tablet (6.25 mg total) by mouth 12/03/2023 Active cholecalciferol (VITAMIN D-3) 2000 unit tablet Take 1 tablet (2,000 Units total) by mouth daily 11/08/2022 Active cinacalcet (SENSIPAR) 30 mg tablet Take 1 tablet (30 mg total) by mouth daily 03/04/2024 Active losartan-hydroC HLOROthiazide (HYZAAR) 50-12.5 mg per tablet Take 1 tablet by mouth daily 06/19/[address] (MYFORTIC) 180 mg EC tablet Take 1 tablet (180 mg total) by mouth 2 (two) times a day 02/15/2024 Active ondansetron (ZOFRAN) 4 mg tablet Take by mouth every 12 (twelve) hours as needed 05/21/2021 Active predniSONE (DELTASONE) 5 mg tablet Take 1 tablet (5 mg) by mouth daily 01/15/2024 Active tacrolimus XR (ENVARSUS XR) 0.75 mg tablet extended release 24 hr Take 4 tablets (3 mg total) by mouth daily 03/05/2024 Active Active Problems No known active problems Social History Tobacco Use Types Packs/Day Years Used Date Smoking Tobacco: Never Assessed Sex and Gender Information Value Date Recorded Sex Assigned at Not on file Legal Sex Male 8:44 PM CDT Gender Identity Not on file Sexual Orientation Not on file Obstetrics History Last Filed Vital Signs Vital Sign Reading Time Taken Comments Blood Pressure 114/79 04/14/2024 12:29 PM CDT Pulse 72 04/14/2024 12:29 PM CDT Temperature 36.6 ??C (97.8 ??F) 04/14/2024 1 2:29 PM CDT Respiratory Rate 18 04/14/2024 12:2 9 PM CDT Oxygen Saturation 97% 04/14/2024 12: 29 PM CDT Inhaled Oxygen Concentration - - Weight 131.2 kg (289 lb 4.8 oz) 024 12:29 PM CDT Height 198.1 cm (6' 6 ) 04/14/2024 12:2 9 PM CDT Body Mass Index 33.43 04/14/2024 12:29 PM CDT Plan of Treatment Health Maintenance Due Date Last Done Comments Colon Cancer Screening-Colonoscopy 1970 Depression Screening 1970 Hepatitis C Screening 1970 Prostate Cancer Screening-PSA 1970 Pneumococcal vaccine <65 (1 of 2 - PCV) 1976 DTaP/Tdap/Td Vaccine (1 - Tdap) 1981 Hepatitis B Screening 1988 Regular Well Visit/Exam 18-64 1988 Zoster Vaccine (1 of 2) 1989 Covid-19 Vaccine (4 - season) 2024 12/13/2021, 03/31/2021, 03/10/2021 Influenza Vaccine (#1) 2024 Insurance [facility] [employer] MEDIC[employer] Care Teams Customs Officer Relationship Specialty Start Date End Date Unknown, Notinfile PCP - General 04/14/24
--- OUTSIDE RECORDS SUMMARY | 2024-11-12 12:57 | XMS_ITS ---
Author Organization [facility] tisha (HIE interaction) Address [address] [place] [address] Care Team Providers Care Supervisor Hydrochloric Area Name Role Phone Unavailable Unavailable Unavailable Allergies, Adverse Reactions, Alerts This patient has no known allergies or adverse reactions. Problems This patient has no known problems.
--- OUTSIDE RECORDS SUMMARY | 2024-11-12 12:57 | XMS_ITS ---
Author Organization [facility] Address [address] [place] [address] Care Team Providers Care Wood Stock Blank Handler Name Role Phone Zi Lim MD Unavailable Unknown, Provider Primary Care Provider Unavaila ble Transplant Episode Kidney Recipient [facility] ([place], [place]) - [facility] Organ Received: Left Kidney Transplanted on 09/14/2021 Marked as Active Follow-up on 09/14/2021 Kidney CoordinatorS NEPH KYP Phone: N/A Fax: N/A Email: N/A [place] Organ Diagnosis Organ Primary Contributory Kidney Hypertensive Nephrosclerosis Donor Information Organ ABO Source Meets Risk Criteria HLA Match Mismatches Cross Match Left Kidney Transplanted O NEG Live No A: 1 B: 1 DR: 1 T cell (Negative, flow: 6) B cell (Negative, flow: -39) Left Kidney Donor Serology Results Anti-CMV CMV IgG: >10.00 CMV IgM: <30.0 EBV IgG EBV VCA IgM: <36.0 EBV VCA IgG: >600.0 Anti-HBcAb No results on file HBsAg No results on file HBV DNA No results on file Anti-HCV No results on file Anti-HIV I/II No results on file RPR/VDRL No results on file EBV IgM EBV VCA IgM: <36.0 HBsAb HBsAb: Non-reactive Toxoplasm a No results on file SARS CoV-2 SARS CoV-2 RNA: Not detected Care Team Name Role Phone Fax Email [facility] TXP Kidney Coordinator N/A N/A N/A EDISON Reynolds Control Tower Radio Operator N/A N/A N/A Doris Armas Dietitian N/A N/A N/A Jewels Hernandez Sheeter Helper N/A N/A N/A Zi Lim MD Referring Physician N/A N/A N/A Events Post-Transplant Pre-Transplant Admitted: 09/14/2021 Referred: 07/23/2020 Transplanted: 09/14/2021 Evaluation began: 0 Discharged: 09/19/2021 Committee: 07/28/2021 UNOS qualified: 07/30/2020 Center waitlisted: 1 Dialysis History Dialysis History Start End Type Comments Center 07/30/2020 09/14/2021 In-center Hemodialysis [facility] Dialysis Center Information Center Phone Fax Address [facility] [phone] [address] [facility] [address]
--- OUTSIDE RECORDS SUMMARY | 2024-11-12 12:57 | XMS_ITS | Referral Summary ---
Author Organization [facility] Virtual Care Address [address] [place] [phone] Phone Care Team Providers Care Harvest Worker Field Crop Name Role Phone Unknown, Notinfile Primary Care [...] 04/14/2024 12:29 PM CDT Plan of Treatment Not on file Insurance [facility] [employer] MEDICARE Care Teams Harvest Worker Field Crop Relationship Specialty Start Date End Date Unknown, Notinfile PCP - General 04/14/24
--- NOTE | 2024-11-12 15:16 | ED.WEAKNESS ---
HPI - Weakness General Chief complaint: Weakness Stated complaint: sick and weak Time Seen by Provider: 11/12/24 19:43 Focused HPI: 53-year-old male with history of hypertension, kidney transplant in 2021 at [facility] presents to the emergency department for generalized malaise, fatigue, cough and congestion for 1 day. Patient reports associated headache. Denies fevers. GENERAL: Well-appearing, well-nourished, and in no acute distress. HEAD: Normocephalic, atraumatic. CHEST: Clear to auscultation. ?No respiratory distress. HEART: Regular rate and rhythm.? NEURO: ?Alert and oriented x3. Patient screened in triage and initial orders placed.? ?Additional care and disposition to be based upon?diagnostic testing and treatment. Related Data Home Medications ?Medication ?Instructions ?Recorded ?Confirmed ?Last Taken ?Type amlodipine 5 mg tablet 10 mg PO DAILY 05/11/21 05/11/21 05/22/21 History cinacalcet 90 mg tablet 90 mg PO DAILY 05/11/21 05/11/21 05/22/21 History mg lisinopril 10 mg tablet 10 mg PO DAILY 05/11/21 05/11/21 05/22/21 History sevelamer carbonate 800 mg tablet 800 mg PO DIRECTED 05/11/21 05/11/21 05/22/21 History vitamin B complex-vitamin C-folic 1 tablet PO DAILY 05/11/21 05/11/21 05/22/21 History acid 0.8 mg tablet (Sonya-Shayne) tablet calcium acetate(phosphat bind) 667 mg 09/09/21 Unknown History mg tablet Allergies Allergy/AdvReac Type Severity Reaction Status Date / Time No Known Allergies [facility]ergy Verified 09/09/21 02:57 [facility] Past Medical History Medical History Colon cancer screening Dialysis patient Tues/Th/Sat End stage renal disease Obesity Hyperkalemia COVID-19 Chronic hypertension Family History Family History Grandparent Diabetes mellitus, Onset Age: 75 Father Hypertension Family history of elevated blood lipids Cerebrovascular accident Family history of coronary artery disease Social History Social History Smoking status: Never smoker Second hand tobacco smoke exposure: No Alcohol intake: current Drinks per week: 1 Substance use: never Substance use type: does not use Living arrangements: with family Occupation/Education: occupation Gender identity (if verbalized by the patient): Male Sexual Orientation (if Verbalized by the Patient): Straight or Heterosexual Spiritual care concerns: No Agree to blood products: No Course Vital Signs Vital signs: Vital Signs Temperature 99.2 F 11/12/24 11:42 Pulse Rate 82 11/12/24 11:42 Respiratory Rate 20 11/12/24 11:42 Blood Pressure 161/88 H 11/12/24 11:42 Pulse Oximetry 100 11/12/24 11:42 Oxygen Delivery Room Air 11/12/24 11:42 Temperature 99.2 F 11/12/24 11:42 Pulse Rate 76 11/12/24 22:36 Respiratory Rate 14 11/12/24 22:36 Blood Pressure 164/96 H 11/12/24 22:36 Pulse Oximetry 96 11/12/24 22:36 Oxygen Delivery Room Air 11/12/24 11:42 MDM - Weakness Lab Data 11/12/24 20:35 11/12/24 20:36 Labs: Lab Results 11/12/24 11/12/24 Range/Units 20:35 20:36 WBC 6.1 (4.5-10.0) K/mm3 RBC 5.04 (4.6-6.20) M/mm3 Hgb 14.1 D (14.0-18.0) g/dL Hct 43.4 (42.0-52.0) % MCV 86.1 (80-100) fl MCH 28.0 (26-34) pg MCHC 32.5 (32-36) g/dl RDW 12.8 (11.5-14.5) % Plt Count 177 (150-375) k/mm3 MPV 9.9 (7.4-10.4) fl Immature Gran % (Auto) 0.5 (0-0.5) % Neut % (Auto) 77.0 H (45.5-73.1) % Lymph % (Auto) 6.4 L (18.3-44.2) % Wise % (Auto) 14.6 H (2.6-8.5) % Eos % (Auto) 0.8 (0-4.4) % Baso % (Auto) 0.7 (0.2-1.2) % Lymph # (Auto) 0.39 L (0.9-3.2) K/mm3 Wise # (Auto) 0.9 H (0.1-0.6) K/mm3 Eos # (Auto) 0.1 (0-0.3) K/mm3 Baso # (Auto) 0.0 (0.0-0.1) K/mm3 Abs Immat Gran (auto) 0.03 (0.00-0.031) K/mm3 Absolute Neuts (auto) 4.7 (1.3-6.7) K/mm3 Absolute Nucleated RBC 0.000 (0.0-0.012) K/mm3 Nucleated RBC % 0.0 (0.0-0.2) % Sodium 138 (137-145) mmol/L Potassium 3.8 (3.4-5.0) mmol/L Chloride 99 (98-107) mmol/L Carbon Dioxide 24 (22-30) mmol/L Anion Gap 15 H (4-12) mmol/L BUN 20 D (9-20) mg/dL Creatinine 1.96 H (0.7-1.3) mg/dL Estim Creat Clear Calc 60 ml/min Estimated GFR 44 L (59 - ) Glucose 117 H (65-110) mg/dL Calcium 9.3 (8.4-10.2) mg/dL Total Bilirubin 1.0 (0.2-1.3) mg/dL AST 24 (17-59) U/L ALT 22 (6-50) U/L Alkaline Phosphatase 65 (38-126) U/L Total Protein 9.0 H (6.3-8.2) g/dL Albumin 4.7 (3.5-5.1) g/dL Influenza A (RT-PCR) Positive A (Negative) Influenza B (RT-PCR) Negative (Negative) RSV (RT-PCR) Negative (Negative) SARS-CoV-2 RNA (RT-PCR) Negative (Negative) Discharge Plan Discharge Clinical Impression: Influenza A, Headache, migraine, Kidney transplanted Patient Disposition: Home, Self-Care Condition: Stable Instructions: Antibiotic Form, Influenza (DC) Additional Instructions: Follow-up with your regular primary doctor and sheep farm worker, talk to them about starting Tamiflu therapy for your influenza. Return if you have any developing chest discomfort, shortness of breath, inability to tolerate p.o. intake. Tylenol and ibuprofen around the clock and any of the ulgu-mdg-ruoueyl flu medications as needed. Patient Language: Belarusian Prescriptions: No Action ondansetron HCl [Zofran] 4 mg tablet 4 mg PO Q8H Qty: 20 0RF amlodipine 5 mg tablet 10 mg PO DAILY lisinopril 10 mg tablet 10 mg PO DAILY Sonya-Shayne 0.8 mg tablet 1 tablet PO DAILY cinacalcet 90 mg tablet 90 mg PO DAILY sevelamer carbonate 800 mg tablet 800 mg PO DIRECTED Rx Instructions: 2 tabs with meals and 1 tab with snacks calcium acetate(phosphat bind) 667 mg tablet Follow-up/Referrals: Paul,Eric Martin MD [Non-Staff] - Time of Disposition: 22:24
[2024-11-12 19:37] VITALS: BP 154/91; PULSE 90; RESP 18; O2SAT 99
--- OUTSIDE RECORDS SUMMARY | 2024-11-12 20:18 | XMS_ITS | Encounter Summary ---
Author Organization [facility] Address [address] [place] [phone] Phone Care Team Providers Care Senior Media Director Name Role Phone Sean Davis DO Primary Care Provider [phone] Reason for Visit * Reason Comments Med Refill Encounter Details Date Type Department Care Team (Late st Contact Info) Description 04/04/2020 Refill [facility] Nephrology and Hypertension [address] [place] [address], [address] [place] [address] Zi Lim MD [address] [facility], [address] [place] [address] Social History Tobacco Use Types Packs/Day Years [...] on filedocumented in this encounter Care Teams Senior Media Director Relationship Specialty Start Date End Date Sean Davis DO [address] [place] [phone] PCP - General Internal Medicine 01/05/19 07/04/20 documented as of this encounter
--- OUTSIDE RECORDS SUMMARY | 2024-11-12 20:18 | XMS_ITS | Encounter Summary ---
Author Organization [facility] Address [address] [place] [address] Phone Care Team Providers Care Program Scheduler Name Role Phone Unavailable Primary Care Provider Unavailabl e Reason for Visit * Reason Comments Med Refill Encounter Details Date Type Department Care Team (Late st Contact Info) Description 10/28/2020 Refill [facility] Nephrology and Hypertension [address] [facility], [address] [place] [address] Zi Lim MD [address] [facility], SU[address] [facility] [place] [address] Social History Tobacco Use Types Packs/Day Years [...]
--- OUTSIDE RECORDS SUMMARY | 2024-11-12 20:19 | XMS_ITS | Clinical Summary ---
Author Organization [facility] Address [address] [place] [address] Phone Care Team Providers Care Mid Level Provider Name Role Phone Unavailable Primary Care Provider [...] NAUSEA 30 tablet 6 05/21/2021 Active B Noyttiw-W-Wjuso Acid (Sonya-Shayne) tablet TAKE 1 TABLET BY [...]
--- OUTSIDE RECORDS SUMMARY | 2024-11-12 20:19 | XMS_ITS | Encounter Summary ---
Author Organization [facility] Address [address] [place] [phone] Phone Care Team Providers Care Cardboard Cutter Name Role Phone Unavailable Primary Care Provider Unavailabl e Reason for Visit * Reason Comments Med Refill Encounter Details Date Type Department Care Team (Late st Contact Info) Description 05/20/2021 Refill [facility] Nephrology and Hypertension [address] [facility], [address] [place] [address] Zi Lim MD [address] [facility], SU[address] [facility] [place] [address] Social History Tobacco Use Types Packs/Day Years [...]
--- OUTSIDE RECORDS SUMMARY | 2024-11-12 20:20 | XMS_ITS | Patient Health Summary ---
Author Organization [facility] Address [address] [place] [address] Care Team Providers Care [place] Worker Name Role Phone Zi Lim MD Unavailable [phone] Unknown, Provider Primary Care Provider Unavaila ble Note from [facility],non-owned Affiliates and Associated Physician Practices is amultiple site organization consisting of ambulatory clinics and hospital sitesin [place], [place], [place] and [place]. This disclosure is being madepursuant to the Care Everywhere program and may not contain all information available regarding this patient. Last updated 18.[facility] Allergies * Fish Allergy(Other) -High Criticality [...] Comments Blood Pressure 115/83 10/14/2024 8:55 AM DEVELOPMENT INTERN Pulse 68 10/14/2024 8:55 AM DEVELOPMENT INTERN Temperature 36.9 ??C (98.4 ??F) 04/08/2024 8:37 AM CD T Respiratory Rate 20 12/19/2022 9:10 AM DEVELOPMENT INTERN Oxygen Saturation 98% 10/14/2024 8:55 AM DEVELOPMENT INTERN Inhaled Oxygen Concentration - - Weight 131.5 kg (290 lb) 10/14/2024 8:55 AM DEVELOPMENT INTERN Height 198.1 cm (6' 6 ) 06/19/2023 8:23 AM CDT Body Mass Index 33.51 06/19/2023 8:23 AM CDT Medical Devices Implanted Type Area Interior Decorator Device Identifier Shelf Expiration Date Model / Serial / Lot Stent Uret 6fr 12cm 100cm .028in 1 Stp Implanted:Qty: 1 on 09/14/2021 by Jeimy Renteria MD at [facility] N/A: Ureter [employer] 05/16/2026 [id number] / / 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 Procedures * REF LAB-NOTE(Performed 10/28/2024) * MICROALB/CREAT RATIO URINE RANDOM PANEL(Performed 10/28/2024) Performed for Chronic kidney disease-mineral and bone disorder, S/P living-donor kidney transplantation ([facility]) * URINALYSIS REFLEX TO MICROSCOPIC NO CULTURE(Performed 10/28/2024) Performed for Chronic kidney disease-mineral and bone disorder, S/P living-donor kidney transplantation ([facility]) * TACROLIMUS LEVEL(Performed 10/28/2024) Performed for Chronic kidney disease-mineral and bone disorder, S/P living-donor kidney transplantation ([facility]) * PHOSPHORUS BLOOD(Performed 10/28/2024) Performed for Chronic kidney disease-mineral and bone disorder, S/P living-donor kidney transplantation ([facility]) * MAGNESIUM BLOOD(Performed 10/28/2024) Performed for Chronic kidney disease-mineral and bone disorder, S/P living-donor kidney transplantation ([facility]) * COMPREHENSIVE METABOLIC PANEL(Performed 10/28/2024) Performed for Chronic kidney disease-mineral and bone disorder, S/P living-donor kidney transplantation ([facility]) * CBC W AUTO DIFFERENTIAL(Performed 10/28/2024) Performed for Chronic kidney disease-mineral and bone disorder, S/P living-donor kidney transplantation ([facility]) * PTH INTACT(Performed 10/28/2024) Performed for Chronic kidney disease-mineral and bone disorder, S/P living-donor kidney transplantation ([facility]) * URIC ACID BLOOD(Performed 10/28/2024) Performed for Chronic kidney disease-mineral and bone disorder, S/P living-donor kidney transplantation ([facility]) * VITAMIN D 25-HYDROXY(Performed 10/28/2024) Performed for Chronic kidney disease-mineral and bone disorder, S/P living-donor kidney transplantation ([facility]) * CYTOMEGALOVIRUS QUANT BLOOD(Performed 10/28/2024) Performed for Chronic kidney disease-mineral and bone disorder, S/P living-donor kidney transplantation ([facility]) * BK VIRUS PCR QUANTITATIVE(Performed 10/28/2024) Performed for Chronic kidney disease-mineral and bone disorder, S/P living-donor kidney transplantation ([facility]) * LIPID PROFILE(Performed 10/28/2024) Performed for Chronic kidney disease-mineral and bone disorder, S/P living-donor kidney transplantation ([facility]) * REF LAB-NOTE(Performed 09/30/2024) * MICROALB/CREAT RATIO URINE RANDOM PANEL(Performed 09/30/2024) Performed for Chronic kidney disease-mineral and bone disorder, S/P living-donor kidney transplantation ([facility]) * URINALYSIS REFLEX TO MICROSCOPIC NO CULTURE(Performed 09/30/2024) Performed for Chronic kidney disease-mineral and bone disorder, S/P living-donor kidney transplantation ([facility]) * TACROLIMUS LEVEL(Performed 09/30/2024) Performed for Chronic kidney disease-mineral and bone disorder, S/P living-donor kidney transplantation ([facility]) * PHOSPHORUS BLOOD(Performed 09/30/2024) Performed for Chronic kidney disease-mineral and bone disorder, S/P living-donor kidney transplantation ([facility]) * MAGNESIUM BLOOD(Performed 09/30/2024) Performed for Chronic kidney disease-mineral and bone disorder, S/P living-donor kidney transplantation ([facility]) * COMPREHENSIVE METABOLIC PANEL(Performed 09/30/2024) Performed for Chronic kidney disease-mineral and bone disorder, S/P living-donor kidney transplantation ([facility]) * CBC W AUTO DIFFERENTIAL(Performed 09/30/2024) Performed for Chronic kidney disease-mineral and bone disorder, S/P living-donor kidney transplantation ([facility]) * PTH INTACT(Performed 09/30/2024) Performed for Chronic kidney disease-mineral and bone disorder, S/P living-donor kidney transplantation ([facility]) * URIC ACID BLOOD(Performed 09/30/2024) Performed for Chronic kidney disease-mineral and bone disorder, S/P living-donor kidney transplantation ([facility]) * VITAMIN D 25-HYDROXY(Performed 09/30/2024) Performed for Chronic kidney disease-mineral and bone disorder, S/P living-donor kidney transplantation ([facility]) * CYTOMEGALOVIRUS QUANT BLOOD(Performed 09/30/2024) Performed for Chronic kidney disease-mineral and bone disorder, S/P living-donor kidney transplantation ([facility]) * BK VIRUS PCR QUANTITATIVE(Performed 09/30/2024) Performed for Chronic kidney disease-mineral and bone disorder, S/P living-donor kidney transplantation ([facility]) * LIPID PROFILE(Performed 09/30/2024) Performed for Chronic kidney disease-mineral and bone disorder, S/P living-donor kidney transplantation ([facility]) * URINALYSIS W/MICROSCOPIC REFLEX TO CULTURE(Performed 05/19/2024) [...] RANDOM(Performed 04/19/2023) Performed for Recurrent UTI, Immunosuppression ([facility]), Long-term use of immunosuppressant medication, Kidney replaced by transplant ([facility]) * PROTEIN URINE RANDOM QUANTITATIVE(Performed 04/19/2023) Performed for Recurrent UTI, Immunosuppression ([facility]), Long-term use of immunosuppressant medication, Kidney replaced by transplant ([facility]) * URINALYSIS W/MICROSCOPIC NO CULTURE(Performed 04/19/2023) Performed for Recurrent UTI, Immunosuppression ([facility]), Long-term use of immunosuppressant medication, Kidney replaced by transplant ([facility]) * CULTURE URINE(Performed 04/19/2023) Performed for Recurrent UTI, Immunosuppression ([facility]), Long-term use of immunosuppressant medication, Kidney replaced by transplant ([facility]) * PHOSPHORUS BLOOD(Performed 04/19/2023) Performed for Recurrent UTI, Immunosuppression ([facility]), Long-term use of immunosuppressant medication, Kidney replaced by transplant ([facility]) * MAGNESIUM BLOOD(Performed 04/19/2023) Performed for Recurrent UTI, Immunosuppression ([facility]), Long-term use of immunosuppressant medication, Kidney replaced by transplant ([facility]) * COMPREHENSIVE METABOLIC PANEL(Performed 04/19/2023) Performed for Recurrent UTI, Immunosuppression ([facility]), Long-term use of immunosuppressant medication, Kidney replaced by transplant ([facility]) * CBC W AUTO DIFFERENTIAL(Performed 04/19/2023) Performed for Recurrent UTI, Immunosuppression ([facility]), Long-term use of immunosuppressant medication, Kidney replaced by transplant ([facility]) * TACROLIMUS LEVEL(Performed 04/19/2023) Performed for Recurrent UTI, Immunosuppression ([facility]), Long-term use of immunosuppressant medication, Kidney replaced by transplant ([facility]) * CYTOMEGALOVIRUS (CMV) QUANTITATIVE PLASMA(Performed 03/13/2023) Performed for S/P living-donor kidney transplantation, S/P LR-TXP in 09/14/2021 * BK VIRUS PCR QUANT BLOOD STL(Performed 03/13/2023) Performed for S/P living-donor kidney transplantation, S/P LR-TXP in 09/14/2021 * CREATININE URINE RANDOM(Performed 03/13/2023) Performed for Recurrent UTI, Immunosuppression ([facility]), Long-term use of immunosuppressant medication, Kidney replaced by transplant ([facility]) * PROTEIN URINE RANDOM QUANTITATIVE(Performed 03/13/2023) Performed for Recurrent UTI, Immunosuppression ([facility]), Long-term use of immunosuppressant medication, Kidney replaced by transplant ([facility]) * URINALYSIS W/MICROSCOPIC NO CULTURE(Performed 03/13/2023) Performed for Recurrent UTI, Immunosuppression ([facility]), Long-term use of immunosuppressant medication, Kidney replaced by transplant ([facility]) * PHOSPHORUS BLOOD(Performed 03/13/2023) Performed for Recurrent UTI, Immunosuppression ([facility]), Long-term use of immunosuppressant medication, Kidney replaced by transplant ([facility]) * MAGNESIUM BLOOD(Performed 03/13/2023) Performed for Recurrent UTI, Immunosuppression ([facility]), Long-term use of immunosuppressant medication, Kidney replaced by transplant ([facility]) * COMPREHENSIVE METABOLIC PANEL(Performed 03/13/2023) Performed for Recurrent UTI, Immunosuppression ([facility]), Long-term use of immunosuppressant medication, Kidney replaced by transplant ([facility]) * CBC W AUTO DIFFERENTIAL(Performed 03/13/2023) Performed for Recurrent UTI, Immunosuppression ([facility]), Long-term use of immunosuppressant medication, Kidney replaced by transplant ([facility]) * TACROLIMUS LEVEL(Performed 03/13/2023) Performed for Recurrent UTI, Immunosuppression ([facility]), Long-term use of immunosuppressant medication, Kidney replaced by transplant ([facility]) * CULTURE URINE(Performed 03/13/2023) Performed for Recurrent UTI, Immunosuppression ([facility]), Long-term use of immunosuppressant medication, Kidney replaced by transplant ([facility]) * CYTOMEGALOVIRUS (CMV) QUANTITATIVE PLASMA(Performed 02/12/2023) Performed for Immunosuppression ([facility]) * BK VIRUS PCR QUANT BLOOD STL(Performed 02/12/2023) Performed for Immunosuppression ([facility]) * TESTOSTERONE TOTAL MALE(Performed 02/12/2023) Performed for Other male erectile dysfunction * CREATININE URINE RANDOM(Performed 02/12/2023) Performed for Recurrent UTI, Immunosuppression ([facility]), Long-term use of immunosuppressant medication, Kidney replaced by transplant ([facility]) * PROTEIN URINE RANDOM QUANTITATIVE(Performed 02/12/2023) Performed for Recurrent UTI, Immunosuppression ([facility]), Long-term use of immunosuppressant medication, Kidney replaced by transplant ([facility]) * URINALYSIS W/MICROSCOPIC NO CULTURE(Performed 02/12/2023) Performed for Recurrent UTI, Immunosuppression ([facility]), Long-term use of immunosuppressant medication, Kidney replaced by transplant ([facility]) * PHOSPHORUS BLOOD(Performed 02/12/2023) Performed for Recurrent UTI, Immunosuppression ([facility]), Long-term use of immunosuppressant medication, Kidney replaced by transplant ([facility]) * MAGNESIUM BLOOD(Performed 02/12/2023) Performed for Recurrent UTI, Immunosuppression ([facility]), Long-term use of immunosuppressant medication, Kidney replaced by transplant ([facility]) * COMPREHENSIVE METABOLIC PANEL(Performed 02/12/2023) Performed for Recurrent UTI, Immunosuppression ([facility]), Long-term use of immunosuppressant medication, Kidney replaced by transplant ([facility]) * CBC W AUTO DIFFERENTIAL(Performed 02/12/2023) Performed for Recurrent UTI, Immunosuppression ([facility]), Long-term use of immunosuppressant medication, Kidney replaced by transplant ([facility]) * TACROLIMUS LEVEL(Performed 02/12/2023) Performed for Recurrent UTI, Immunosuppression ([facility]), Long-term use of immunosuppressant medication, Kidney replaced by transplant ([facility]) * CULTURE URINE(Performed 02/12/2023) Performed for Recurrent UTI, Immunosuppression ([facility]), Long-term use of immunosuppressant medication, Kidney replaced by transplant ([facility]) * URINALYSIS AUTO - POINT OF CARE (AMB) SLU(Performed 12/21/2022) Performed for Other male erectile dysfunction * PTH INTACT W/O CALCIUM(Performed 12/19/2022) Performed for Recurrent UTI, Immunosuppression ([facility]), Long-term use of immunosuppressant medication, Kidney replaced by transplant ([facility]), Vitamin D deficiency, Chronic kidney disease-mineral and bonedisorder, Hyperlipidemia, unspecified hyperlipidemia type, Hyperparathyroidism ([facility]) * CYTOMEGALOVIRUS (CMV) QUANTITATIVE PLASMA(Performed 12/19/2022) Performed for Recurrent UTI, Immunosuppression ([facility]), Long-term use of immunosuppressant medication, Kidney replaced by transplant ([facility]) * BK VIRUS PCR QUANT BLOOD STL(Performed 12/19/2022) Performed for Recurrent UTI, Immunosuppression ([facility]), Long-term use of immunosuppressant medication, Kidney replaced by transplant ([facility]) * TRANSFERRIN(Performed 12/19/2022) Performed for Recurrent UTI, Immunosuppression ([facility]), Long-term use of immunosuppressant medication, Kidney replaced by transplant ([facility]), Vitamin D deficiency, Chronic kidney disease-mineral and bonedisorder, Hyperlipidemia, unspecified hyperlipidemia type, Hyperparathyroidism ([facility]) * IRON BLOOD(Performed 12/19/2022) Performed for Recurrent UTI, Immunosuppression ([facility]), Long-term use of immunosuppressant medication, Kidney replaced by transplant ([facility]), Vitamin D deficiency, Chronic kidney disease-mineral and bonedisorder, Hyperlipidemia, unspecified hyperlipidemia type, Hyperparathyroidism ([facility]) * URIC ACID BLOOD(Performed 12/19/2022) Performed for Recurrent UTI, Immunosuppression ([facility]), Long-term use of immunosuppressant medication, Kidney replaced by transplant ([facility]), Vitamin D deficiency, Chronic kidney disease-mineral and bonedisorder, Hyperlipidemia, unspecified hyperlipidemia type, Hyperparathyroidism ([facility]) * FERRITIN(Performed 12/19/2022) Performed for Recurrent UTI, Immunosuppression ([facility]), Long-term use of immunosuppressant medication, Kidney replaced by transplant ([facility]), Vitamin D deficiency, Chronic kidney disease-mineral and bonedisorder, Hyperlipidemia, unspecified hyperlipidemia type, Hyperparathyroidism ([facility]) * VITAMIN D 25-HYDROXY(Performed 12/19/2022) Performed for Recurrent UTI, Immunosuppression ([facility]), Long-term use of immunosuppressant medication, Kidney replaced by transplant ([facility]), Vitamin D deficiency, Chronic kidney disease-mineral and bonedisorder, Hyperlipidemia, unspecified hyperlipidemia type, Hyperparathyroidism ([facility]) * LIPID PROFILE(Performed 12/19/2022) Performed for Recurrent UTI, Immunosuppression ([facility]), Long-term use of immunosuppressant medication, Kidney replaced by transplant ([facility]), Vitamin D deficiency, Chronic kidney disease-mineral and bonedisorder, Hyperlipidemia, unspecified hyperlipidemia type, Hyperparathyroidism ([facility]) * CREATININE URINE RANDOM(Performed 12/19/2022) Performed for Recurrent UTI, Immunosuppression ([facility]), Long-term use of immunosuppressant medication, Kidney replaced by transplant ([facility]) * PROTEIN URINE RANDOM QUANTITATIVE(Performed 12/19/2022) Performed for Recurrent UTI, Immunosuppression ([facility]), Long-term use of immunosuppressant medication, Kidney replaced by transplant ([facility]) * URINALYSIS W/MICROSCOPIC NO CULTURE(Performed 12/19/2022) Performed for Recurrent UTI, Immunosuppression ([facility]), Long-term use of immunosuppressant medication, Kidney replaced by transplant ([facility]) * PHOSPHORUS BLOOD(Performed 12/19/2022) Performed for Recurrent UTI, Immunosuppression ([facility]), Long-term use of immunosuppressant medication, Kidney replaced by transplant ([facility]) * MAGNESIUM BLOOD(Performed 12/19/2022) Performed for Recurrent UTI, Immunosuppression ([facility]), Long-term use of immunosuppressant medication, Kidney replaced by transplant ([facility]) * COMPREHENSIVE METABOLIC PANEL(Performed 12/19/2022) Performed for Recurrent UTI, Immunosuppression ([facility]), Long-term use of immunosuppressant medication, Kidney replaced by transplant ([facility]) * CBC W AUTO DIFFERENTIAL(Performed 12/19/2022) Performed for Recurrent UTI, Immunosuppression ([facility]), Long-term use of immunosuppressant medication, Kidney replaced by transplant ([facility]) * TACROLIMUS LEVEL(Performed 12/19/2022) Performed for Recurrent UTI, Immunosuppression ([facility]), Long-term use of immunosuppressant medication, Kidney replaced by transplant ([facility]) * CULTURE URINE(Performed 12/19/2022) Performed for Recurrent UTI, Immunosuppression ([facility]), Long-term use of immunosuppressant medication, Kidney replaced by transplant ([facility]) * CYTOMEGALOVIRUS (CMV) QUANTITATIVE PLASMA(Performed 09/04/2022) Performed for Recurrent UTI, Immunosuppression ([facility]), Long-term use of immunosuppressant medication, Kidney replaced by transplant ([facility]) * BK VIRUS PCR QUANT BLOOD STL(Performed 09/04/2022) Performed for Recurrent UTI, Immunosuppression ([facility]), Long-term use of immunosuppressant medication, Kidney replaced by transplant ([facility]) * CREATININE URINE RANDOM(Performed 09/04/2022) Performed for Recurrent UTI, Immunosuppression ([facility]), Long-term use of immunosuppressant medication, Kidney replaced by transplant ([facility]) * PROTEIN URINE RANDOM QUANTITATIVE(Performed 09/04/2022) Performed for Recurrent UTI, Immunosuppression ([facility]), Long-term use of immunosuppressant medication, Kidney replaced by transplant ([facility]) * URINALYSIS W/MICROSCOPIC NO CULTURE(Performed 09/04/2022) Performed for Recurrent UTI, Immunosuppression ([facility]), Long-term use of immunosuppressant medication, Kidney replaced by transplant ([facility]) * PHOSPHORUS BLOOD(Performed 09/04/2022) Performed for Recurrent UTI, Immunosuppression ([facility]), Long-term use of immunosuppressant medication, Kidney replaced by transplant ([facility]) * MAGNESIUM BLOOD(Performed 09/04/2022) Performed for Recurrent UTI, Immunosuppression ([facility]), Long-term use of immunosuppressant medication, Kidney replaced by transplant ([facility]) * COMPREHENSIVE METABOLIC PANEL(Performed 09/04/2022) Performed for Recurrent UTI, Immunosuppression ([facility]), Long-term use of immunosuppressant medication, Kidney replaced by transplant ([facility]) * CBC W AUTO DIFFERENTIAL(Performed 09/04/2022) Performed for Recurrent UTI, Immunosuppression ([facility]), Long-term use of immunosuppressant medication, Kidney replaced by transplant ([facility]) * TACROLIMUS LEVEL(Performed 09/04/2022) Performed for Recurrent UTI, Immunosuppression ([facility]), Long-term use of immunosuppressant medication, Kidney replaced by transplant ([facility]) * CULTURE URINE(Performed 09/04/2022) Performed for Recurrent UTI, Immunosuppression ([facility]), Long-term use of immunosuppressant medication, Kidney replaced by transplant ([facility]) * CYTOMEGALOVIRUS (CMV) QUANTITATIVE PLASMA(Performed 08/23/2022) Performed for Recurrent UTI, Immunosuppression ([facility]), Long-term use of immunosuppressant medication, Kidney replaced by transplant ([facility]) * BK VIRUS PCR QUANT BLOOD STL(Performed 08/23/2022) Performed for Recurrent UTI, Immunosuppression ([facility]), Long-term use of immunosuppressant medication, Kidney replaced by transplant ([facility]) * CREATININE URINE RANDOM(Performed 08/23/2022) Performed for Recurrent UTI, Immunosuppression ([facility]), Long-term use of immunosuppressant medication, Kidney replaced by transplant ([facility]) * PROTEIN URINE RANDOM QUANTITATIVE(Performed 08/23/2022) Performed for Recurrent UTI, Immunosuppression ([facility]), Long-term use of immunosuppressant medication, Kidney replaced by transplant ([facility]) * URINALYSIS W/MICROSCOPIC NO CULTURE(Performed 08/23/2022) Performed for Recurrent UTI, Immunosuppression ([facility]), Long-term use of immunosuppressant medication, Kidney replaced by transplant ([facility]) * PHOSPHORUS BLOOD(Performed 08/23/2022) Performed for Recurrent UTI, Immunosuppression ([facility]), Long-term use of immunosuppressant medication, Kidney replaced by transplant ([facility]) * MAGNESIUM BLOOD(Performed 08/23/2022) Performed for Recurrent UTI, Immunosuppression ([facility]), Long-term use of immunosuppressant medication, Kidney replaced by transplant ([facility]) * COMPREHENSIVE METABOLIC PANEL(Performed 08/23/2022) Performed for Recurrent UTI, Immunosuppression ([facility]), Long-term use of immunosuppressant medication, Kidney replaced by transplant ([facility]) * CBC W AUTO DIFFERENTIAL(Performed 08/23/2022) Performed for Recurrent UTI, Immunosuppression ([facility]), Long-term use of immunosuppressant medication, Kidney replaced by transplant ([facility]) * TACROLIMUS LEVEL(Performed 08/23/2022) Performed for Recurrent UTI, Immunosuppression ([facility]), Long-term use of immunosuppressant medication, Kidney replaced by transplant ([facility]) * CULTURE URINE(Performed 08/23/2022) Performed for Recurrent UTI, Immunosuppression ([facility]), Long-term use of immunosuppressant medication, Kidney replaced by transplant ([facility]) * CYTOMEGALOVIRUS (CMV) QUANTITATIVE PLASMA(Performed 07/18/2022) Performed for Recurrent UTI, Immunosuppression ([facility]), Long-term use of immunosuppressant medication, Kidney replaced by transplant ([facility]) * BK VIRUS PCR QUANT BLOOD STL(Performed 07/18/2022) Performed for Recurrent UTI, Immunosuppression ([facility]), Long-term use of immunosuppressant medication, Kidney replaced by transplant ([facility]) * CREATININE URINE RANDOM(Performed 07/18/2022) Performed for Recurrent UTI, Immunosuppression ([facility]), Long-term use of immunosuppressant medication, Kidney replaced by transplant ([facility]) * PROTEIN URINE RANDOM QUANTITATIVE(Performed 07/18/2022) Performed for Recurrent UTI, Immunosuppression ([facility]), Long-term use of immunosuppressant medication, Kidney replaced by transplant ([facility]) * URINALYSIS W/MICROSCOPIC NO CULTURE(Performed 07/18/2022) Performed for Recurrent UTI, Immunosuppression ([facility]), Long-term use of immunosuppressant medication, Kidney replaced by transplant ([facility]) * PHOSPHORUS BLOOD(Performed 07/18/2022) Performed for Recurrent UTI, Immunosuppression ([facility]), Long-term use of immunosuppressant medication, Kidney replaced by transplant ([facility]) * MAGNESIUM BLOOD(Performed 07/18/2022) Performed for Recurrent UTI, Immunosuppression ([facility]), Long-term use of immunosuppressant medication, Kidney replaced by transplant ([facility]) * COMPREHENSIVE METABOLIC PANEL(Performed 07/18/2022) Performed for Recurrent UTI, Immunosuppression ([facility]), Long-term use of immunosuppressant medication, Kidney replaced by transplant ([facility]) * CBC W AUTO DIFFERENTIAL(Performed 07/18/2022) Performed for Recurrent UTI, Immunosuppression ([facility]), Long-term use of immunosuppressant medication, Kidney replaced by transplant ([facility]) * TACROLIMUS LEVEL(Performed 07/18/2022) Performed for Recurrent UTI, Immunosuppression ([facility]), Long-term use of immunosuppressant medication, Kidney replaced by transplant ([facility]) * CULTURE URINE(Performed 07/18/2022) Performed for Recurrent UTI, Immunosuppression ([facility]), Long-term use of immunosuppressant medication, Kidney replaced by transplant ([facility]) * CMV T CELL IMMUNITY PANEL(Performed 07/18/2022) Performed for Immunosuppression ([facility]), Long-term use of immunosuppressant medication, Kidney replaced by transplant ([facility]) * CYTOMEGALOVIRUS (CMV) QUANTITATIVE PLASMA(Performed 06/29/2022) Performed for Recurrent UTI, Immunosuppression ([facility]), Long-term use of immunosuppressant medication, Kidney replaced by transplant ([facility]) * BK VIRUS PCR QUANT BLOOD STL(Performed 06/29/2022) Performed for Recurrent UTI, Immunosuppression ([facility]), Long-term use of immunosuppressant medication, Kidney replaced by transplant ([facility]) * CREATININE URINE RANDOM(Performed 06/29/2022) Performed for Recurrent UTI, Immunosuppression ([facility]), Long-term use of immunosuppressant medication, Kidney replaced by transplant ([facility]) * PROTEIN URINE RANDOM QUANTITATIVE(Performed 06/29/2022) Performed for Recurrent UTI, Immunosuppression ([facility]), Long-term use of immunosuppressant medication, Kidney replaced by transplant ([facility]) * URINALYSIS W/MICROSCOPIC NO CULTURE(Performed 06/29/2022) Performed for Recurrent UTI, Immunosuppression ([facility]), Long-term use of immunosuppressant medication, Kidney replaced by transplant ([facility]) * PHOSPHORUS BLOOD(Performed 06/29/2022) Performed for Recurrent UTI, Immunosuppression ([facility]), Long-term use of immunosuppressant medication, Kidney replaced by transplant ([facility]) * MAGNESIUM BLOOD(Performed 06/29/2022) Performed for Recurrent UTI, Immunosuppression ([facility]), Long-term use of immunosuppressant medication, Kidney replaced by transplant ([facility]) * COMPREHENSIVE METABOLIC PANEL(Performed 06/29/2022) Performed for Recurrent UTI, Immunosuppression ([facility]), Long-term use of immunosuppressant medication, Kidney replaced by transplant ([facility]) * CBC W AUTO DIFFERENTIAL(Performed 06/29/2022) Performed for Recurrent UTI, Immunosuppression ([facility]), Long-term use of immunosuppressant medication, Kidney replaced by transplant ([facility]) * TACROLIMUS LEVEL(Performed 06/29/2022) Performed for Recurrent UTI, Immunosuppression ([facility]), Long-term use of immunosuppressant medication, Kidney replaced by transplant ([facility]) * CULTURE URINE(Performed 06/29/2022) Performed for Recurrent UTI, Immunosuppression ([facility]), Long-term use of immunosuppressant medication, Kidney replaced by transplant ([facility]) * BK VIRUS PCR QUANTITATIVE(Performed 06/13/2022) Performed for BK viremia, Long-term use of immunosuppressant medication, S/P living-donor kidney transplantation ([facility]) * TACROLIMUS LEVEL(Performed 06/13/2022) Performed for BK viremia, Long-term use of immunosuppressant medication, S/P living-donor kidney transplantation ([facility]) * COMPREHENSIVE METABOLIC PANEL(Performed 06/13/2022) Performed for BK viremia, Long-term use of immunosuppressant medication, S/P living-donor kidney transplantation ([facility]) * TACROLIMUS (EXTERNAL RESULT ENTRY)(Performed 06/13/2022) * CHEM PROFILE (EXTERNAL RESULT ENTRY)(Performed 06/13/2022) * BK VIRUS PCR QUANTITATIVE(Performed 05/31/2022) Performed for Immunosuppression ([facility]), Long-term use of immunosuppressant medication, Kidney replaced by transplant ([facility]) * CYTOMEGALOVIRUS QUANT BLOOD(Performed 05/31/2022) Performed for Immunosuppression ([facility]), Long-term use of immunosuppressant medication, Kidney replaced by transplant ([facility]) * CREATININE URINE RANDOM(Performed 05/31/2022) Performed for Recurrent UTI, Immunosuppression ([facility]), Long-term use of immunosuppressant medication, Kidney replaced by transplant ([facility]) * PROTEIN URINE RANDOM QUANTITATIVE(Performed 05/31/2022) Performed for Recurrent UTI, Immunosuppression ([facility]), Long-term use of immunosuppressant medication, Kidney replaced by transplant ([facility]) * URINALYSIS W/MICROSCOPIC NO CULTURE(Performed 05/31/2022) Performed for Recurrent UTI, Immunosuppression ([facility]), Long-term use of immunosuppressant medication, Kidney replaced by transplant ([facility]) * PHOSPHORUS BLOOD(Performed 05/31/2022) Performed for Recurrent UTI, Immunosuppression ([facility]), Long-term use of immunosuppressant medication, Kidney replaced by transplant ([facility]) * MAGNESIUM BLOOD(Performed 05/31/2022) Performed for Recurrent UTI, Immunosuppression ([facility]), Long-term use of immunosuppressant medication, Kidney replaced by transplant ([facility]) * COMPREHENSIVE METABOLIC PANEL(Performed 05/31/2022) Performed for Recurrent UTI, Immunosuppression ([facility]), Long-term use of immunosuppressant medication, Kidney replaced by transplant ([facility]) * CBC W AUTO DIFFERENTIAL(Performed 05/31/2022) Performed for Recurrent UTI, Immunosuppression ([facility]), Long-term use of immunosuppressant medication, Kidney replaced by transplant ([facility]) * TACROLIMUS LEVEL(Performed 05/31/2022) Performed for Recurrent UTI, Immunosuppression ([facility]), Long-term use of immunosuppressant medication, Kidney replaced by transplant ([facility]) * CULTURE URINE(Performed 05/31/2022) Performed for Recurrent UTI, Immunosuppression ([facility]), Long-term use of immunosuppressant medication, Kidney replaced by transplant ([facility]) * DIFFERENTIAL MANUAL(Performed 05/17/2022) Performed for Recurrent UTI, Immunosuppression ([facility]), Long-term use of immunosuppressant medication, Kidney replaced by transplant ([facility]) * CYTOMEGALOVIRUS (CMV) QUANTITATIVE PLASMA(Performed 05/17/2022) Performed for Immunosuppression ([facility]), Kidney replaced by transplant ([facility]) * BK VIRUS PCR QUANT BLOOD STL(Performed 05/17/2022) Performed for Immunosuppression ([facility]), Kidney replaced by transplant ([facility]) * PTH INTACT W/O CALCIUM(Performed 05/17/2022) Performed for Immunosuppression ([facility]), Kidney replaced by transplant ([facility]) * TRANSFERRIN(Performed 05/17/2022) Performed for Recurrent UTI, Immunosuppression ([facility]), Long-term use of immunosuppressant medication, Kidney replaced by transplant ([facility]), Vitamin D deficiency, Chronic kidney disease-mineral and bonedisorder, Hyperlipidemia, unspecified hyperlipidemia type, Hyperparathyroidism ([facility]) * IRON BLOOD(Performed 05/17/2022) Performed for Recurrent UTI, Immunosuppression ([facility]), Long-term use of immunosuppressant medication, Kidney replaced by transplant ([facility]), Vitamin D deficiency, Chronic kidney disease-mineral and bonedisorder, Hyperlipidemia, unspecified hyperlipidemia type, Hyperparathyroidism ([facility]) * URIC ACID BLOOD(Performed 05/17/2022) Performed for Recurrent UTI, Immunosuppression ([facility]), Long-term use of immunosuppressant medication, Kidney replaced by transplant ([facility]), Vitamin D deficiency, Chronic kidney disease-mineral and bonedisorder, Hyperlipidemia, unspecified hyperlipidemia type, Hyperparathyroidism ([facility]) * FERRITIN(Performed 05/17/2022) Performed for Recurrent UTI, Immunosuppression ([facility]), Long-term use of immunosuppressant medication, Kidney replaced by transplant ([facility]), Vitamin D deficiency, Chronic kidney disease-mineral and bonedisorder, Hyperlipidemia, unspecified hyperlipidemia type, Hyperparathyroidism ([facility]) * VITAMIN D 25-HYDROXY(Performed 05/17/2022) Performed for Recurrent UTI, Immunosuppression ([facility]), Long-term use of immunosuppressant medication, Kidney replaced by transplant ([facility]), Vitamin D deficiency, Chronic kidney disease-mineral and bonedisorder, Hyperlipidemia, unspecified hyperlipidemia type, Hyperparathyroidism ([facility]) * LIPID PROFILE(Performed 05/17/2022) Performed for Recurrent UTI, Immunosuppression ([facility]), Long-term use of immunosuppressant medication, Kidney replaced by transplant ([facility]), Vitamin D deficiency, Chronic kidney disease-mineral and bonedisorder, Hyperlipidemia, unspecified hyperlipidemia type, Hyperparathyroidism ([facility]) * CREATININE URINE RANDOM(Performed 05/17/2022) Performed for Recurrent UTI, Immunosuppression ([facility]), Long-term use of immunosuppressant medication, Kidney replaced by transplant ([facility]) * PROTEIN URINE RANDOM QUANTITATIVE(Performed 05/17/2022) Performed for Recurrent UTI, Immunosuppression ([facility]), Long-term use of immunosuppressant medication, Kidney replaced by transplant ([facility]) * URINALYSIS W/MICROSCOPIC NO CULTURE(Performed 05/17/2022) Performed for Recurrent UTI, Immunosuppression ([facility]), Long-term use of immunosuppressant medication, Kidney replaced by transplant ([facility]) * PHOSPHORUS BLOOD(Performed 05/17/2022) Performed for Recurrent UTI, Immunosuppression ([facility]), Long-term use of immunosuppressant medication, Kidney replaced by transplant ([facility]) * MAGNESIUM BLOOD(Performed 05/17/2022) Performed for Recurrent UTI, Immunosuppression ([facility]), Long-term use of immunosuppressant medication, Kidney replaced by transplant ([facility]) * COMPREHENSIVE METABOLIC PANEL(Performed 05/17/2022) Performed for Recurrent UTI, Immunosuppression ([facility]), Long-term use of immunosuppressant medication, Kidney replaced by transplant ([facility]) * CBC W AUTO DIFFERENTIAL(Performed 05/17/2022) Performed for Recurrent UTI, Immunosuppression ([facility]), Long-term use of immunosuppressant medication, Kidney replaced by transplant ([facility]) * TACROLIMUS LEVEL(Performed 05/17/2022) Performed for Recurrent UTI, Immunosuppression ([facility]), Long-term use of immunosuppressant medication, Kidney replaced by transplant ([facility]) * CMV T CELL IMMUNITY PANEL(Performed 05/17/2022) Performed for Long-term use of immunosuppressant medication, Kidney replaced by transplant ([facility]) * CULTURE URINE(Performed 05/17/2022) Performed for Recurrent UTI, Immunosuppression ([facility]), Long-term use of immunosuppressant medication, Kidney replaced by transplant ([facility]) * CULTURE URINE(Performed 05/17/2022) Performed for Recurrent UTI, Immunosuppression ([facility]), Long-term use of immunosuppressant medication, Kidney replaced by transplant ([facility]) * DIFFERENTIAL MANUAL REFLXED III(Performed 04/28/2022) * BK VIRUS PCR QUANTITATIVE(Performed 04/28/2022) Performed for Immunosuppression ([facility]), Long-term use of immunosuppressant medication, Kidney replaced by transplant ([facility]) * CYTOMEGALOVIRUS QUANT BLOOD(Performed 04/28/2022) Performed for Immunosuppression ([facility]), Long-term use of immunosuppressant medication, Kidney replaced by transplant ([facility]) * CREATININE URINE RANDOM(Performed 04/28/2022) Performed for Recurrent UTI, Immunosuppression ([facility]), Long-term use of immunosuppressant medication, Kidney replaced by transplant ([facility]) * PROTEIN URINE RANDOM QUANTITATIVE(Performed 04/28/2022) Performed for Recurrent UTI, Immunosuppression ([facility]), Long-term use of immunosuppressant medication, Kidney replaced by transplant ([facility]) * URINALYSIS W/MICROSCOPIC NO CULTURE(Performed 04/28/2022) Performed for Recurrent UTI, Immunosuppression ([facility]), Long-term use of immunosuppressant medication, Kidney replaced by transplant ([facility]) * PHOSPHORUS BLOOD(Performed 04/28/2022) Performed for Recurrent UTI, Immunosuppression ([facility]), Long-term use of immunosuppressant medication, Kidney replaced by transplant ([facility]) * MAGNESIUM BLOOD(Performed 04/28/2022) Performed for Recurrent UTI, Immunosuppression ([facility]), Long-term use of immunosuppressant medication, Kidney replaced by transplant ([facility]) * COMPREHENSIVE METABOLIC PANEL(Performed 04/28/2022) Performed for Recurrent UTI, Immunosuppression ([facility]), Long-term use of immunosuppressant medication, Kidney replaced by transplant ([facility]) * CBC W AUTO DIFFERENTIAL(Performed 04/28/2022) Performed for Recurrent UTI, Immunosuppression ([facility]), Long-term use of immunosuppressant medication, Kidney replaced by transplant ([facility]) * TACROLIMUS LEVEL(Performed 04/28/2022) Performed for Recurrent UTI, Immunosuppression ([facility]), Long-term use of immunosuppressant medication, Kidney replaced by transplant ([facility]) * CULTURE URINE(Performed 04/28/2022) Performed for Recurrent UTI, Immunosuppression ([facility]), Long-term use of immunosuppressant medication, Kidney replaced by transplant ([facility]) * DIFFERENTIAL MANUAL REFLXED III(Performed 04/18/2022) * CREATININE URINE RANDOM(Performed 04/18/2022) Performed for Recurrent UTI, Immunosuppression ([facility]), Long-term use of immunosuppressant medication, Kidney replaced by transplant ([facility]) * PROTEIN URINE RANDOM QUANTITATIVE(Performed 04/18/2022) Performed for Recurrent UTI, Immunosuppression ([facility]), Long-term use of immunosuppressant medication, Kidney replaced by transplant ([facility]) * URINALYSIS W/MICROSCOPIC NO CULTURE(Performed 04/18/2022) Performed for Recurrent UTI, Immunosuppression ([facility]), Long-term use of immunosuppressant medication, Kidney replaced by transplant ([facility]) * PHOSPHORUS BLOOD(Performed 04/18/2022) Performed for Recurrent UTI, Immunosuppression ([facility]), Long-term use of immunosuppressant medication, Kidney replaced by transplant ([facility]) * MAGNESIUM BLOOD(Performed 04/18/2022) Performed for Recurrent UTI, Immunosuppression ([facility]), Long-term use of immunosuppressant medication, Kidney replaced by transplant ([facility]) * COMPREHENSIVE METABOLIC PANEL(Performed 04/18/2022) Performed for Recurrent UTI, Immunosuppression ([facility]), Long-term use of immunosuppressant medication, Kidney replaced by transplant ([facility]) * CBC W AUTO DIFFERENTIAL(Performed 04/18/2022) Performed for Recurrent UTI, Immunosuppression ([facility]), Long-term use of immunosuppressant medication, Kidney replaced by transplant ([facility]) * TACROLIMUS LEVEL(Performed 04/18/2022) Performed for Recurrent UTI, Immunosuppression ([facility]), Long-term use of immunosuppressant medication, Kidney replaced by transplant ([facility]) * CULTURE URINE(Performed 04/18/2022) Performed for Recurrent UTI, Immunosuppression ([facility]), Long-term use of immunosuppressant medication, Kidney replaced by transplant ([facility]) * TACROLIMUS (EXTERNAL RESULT ENTRY)(Performed 04/18/2022) * URINALYSIS (EXTERNAL RESULT ENTRY)(Performed 04/18/2022) * CBC W DIFF (EXTERNAL RESULT ENTRY)(Performed 04/18/2022) * PROTEIN RANDOM UR (EXTERNAL RESULT ENTRY)(Performed 04/18/2022) * CREATININE RAND UR (EXTERNAL RESULT ENTRY)(Performed 04/18/2022) * CHEM PROFILE (EXTERNAL RESULT ENTRY)(Performed 04/18/2022) * HLA ANTIBODY SCREEN LUM CLASS 2 SAB(Performed 03/22/2022) Performed for Long-term use of immunosuppressant medication, Kidney replaced by transplant ([facility]) * HLA ANTIBODY SCREEN LUM CLASS 1 SAB(Performed 03/22/2022) Performed for Long-term use of immunosuppressant medication, Kidney replaced by transplant ([facility]) * CMV T CELL IMMUNITY PANEL(Performed 03/22/2022) Performed for Immunosuppression ([facility]), Recurrent UTI, Long-term use of immunosuppressant medication * DIFFERENTIAL MANUAL REFLXED III(Performed 03/21/2022) * CREATININE URINE RANDOM(Performed 03/21/2022) Performed for Recurrent UTI, Immunosuppression ([facility]), Long-term use of immunosuppressant medication, Kidney replaced by transplant ([facility]) * PROTEIN URINE RANDOM QUANTITATIVE(Performed 03/21/2022) Performed for Recurrent UTI, Immunosuppression ([facility]), Long-term use of immunosuppressant medication, Kidney replaced by transplant ([facility]) * URINALYSIS W/MICROSCOPIC NO CULTURE(Performed 03/21/2022) Performed for Recurrent UTI, Immunosuppression ([facility]), Long-term use of immunosuppressant medication, Kidney replaced by transplant ([facility]) * PHOSPHORUS BLOOD(Performed 03/21/2022) Performed for Recurrent UTI, Immunosuppression ([facility]), Long-term use of immunosuppressant medication, Kidney replaced by transplant ([facility]) * MAGNESIUM BLOOD(Performed 03/21/2022) Performed for Recurrent UTI, Immunosuppression ([facility]), Long-term use of immunosuppressant medication, Kidney replaced by transplant ([facility]) * COMPREHENSIVE METABOLIC PANEL(Performed 03/21/2022) Performed for Recurrent UTI, Immunosuppression ([facility]), Long-term use of immunosuppressant medication, Kidney replaced by transplant ([facility]) * CBC W AUTO DIFFERENTIAL(Performed 03/21/2022) Performed for Recurrent UTI, Immunosuppression ([facility]), Long-term use of immunosuppressant medication, Kidney replaced by transplant ([facility]) * TACROLIMUS LEVEL(Performed 03/21/2022) Performed for Recurrent UTI, Immunosuppression ([facility]), Long-term use of immunosuppressant medication, Kidney replaced by transplant ([facility]) * BK VIRUS PCR QUANTITATIVE(Performed 03/21/2022) Performed for Immunosuppression ([facility]), Long-term use of immunosuppressant medication, Kidney replaced by transplant ([facility]) * CULTURE URINE(Performed 03/21/2022) Performed for Recurrent UTI, Immunosuppression ([facility]), Long-term use of immunosuppressant medication, Kidney replaced by transplant ([facility]) * CYTOMEGALOVIRUS QUANT BLOOD(Performed 03/07/2022) Performed for Immunosuppression ([facility]), Long-term use of immunosuppressant medication, Kidney replaced by transplant ([facility]) * CREATININE URINE RANDOM(Performed 03/07/2022) Performed for Recurrent UTI, Immunosuppression ([facility]), Long-term use of immunosuppressant medication, Kidney replaced by transplant ([facility]) * PROTEIN URINE RANDOM QUANTITATIVE(Performed 03/07/2022) Performed for Recurrent UTI, Immunosuppression ([facility]), Long-term use of immunosuppressant medication, Kidney replaced by transplant ([facility]) * URINALYSIS W/MICROSCOPIC NO CULTURE(Performed 03/07/2022) Performed for Recurrent UTI, Immunosuppression ([facility]), Long-term use of immunosuppressant medication, Kidney replaced by transplant ([facility]) * PHOSPHORUS BLOOD(Performed 03/07/2022) Performed for Recurrent UTI, Immunosuppression ([facility]), Long-term use of immunosuppressant medication, Kidney replaced by transplant ([facility]) * MAGNESIUM BLOOD(Performed 03/07/2022) Performed for Recurrent UTI, Immunosuppression ([facility]), Long-term use of immunosuppressant medication, Kidney replaced by transplant ([facility]) * COMPREHENSIVE METABOLIC PANEL(Performed 03/07/2022) Performed for Recurrent UTI, Immunosuppression ([facility]), Long-term use of immunosuppressant medication, Kidney replaced by transplant ([facility]) * CBC W AUTO DIFFERENTIAL(Performed 03/07/2022) Performed for Recurrent UTI, Immunosuppression ([facility]), Long-term use of immunosuppressant medication, Kidney replaced by transplant ([facility]) * TACROLIMUS LEVEL(Performed 03/07/2022) Performed for Recurrent UTI, Immunosuppression ([facility]), Long-term use of immunosuppressant medication, Kidney replaced by transplant ([facility]) * CULTURE URINE(Performed 03/07/2022) Performed for Recurrent UTI, Immunosuppression ([facility]), Long-term use of immunosuppressant medication, Kidney replaced by transplant ([facility]) * DIFFERENTIAL MANUAL REFLXED III(Performed 02/21/2022) * CREATININE URINE RANDOM(Performed 02/21/2022) Performed for Recurrent UTI, Immunosuppression ([facility] [facility] Long-term use of immunosuppressant medication, Kidney replaced by transplant ([facility]) * PROTEIN URINE RANDOM QUANTITATIVE(Performed 02/21/2022) Performed for Recurrent UTI, Immunosuppression ([facility]), Long-term use of immunosuppressant medication, Kidney replaced by transplant ([facility]) * URINALYSIS W/MICROSCOPIC NO CULTURE(Performed 02/21/2022) Performed for Recurrent UTI, Immunosuppression ([facility]), Long-term use of immunosuppressant medication, Kidney replaced by transplant ([facility]) * PHOSPHORUS BLOOD(Performed 02/21/2022) Performed for Recurrent UTI, Immunosuppression ([facility]), Long-term use of immunosuppressant medication, Kidney replaced by transplant ([facility]) * MAGNESIUM BLOOD(Performed 02/21/2022) Performed for Recurrent UTI, Immunosuppression ([facility]), Long-term use of immunosuppressant medication, Kidney replaced by transplant ([facility]) * COMPREHENSIVE METABOLIC PANEL(Performed 02/21/2022) Performed for Recurrent UTI, Immunosuppression ([facility]), Long-term use of immunosuppressant medication, Kidney replaced by transplant ([facility]) * CBC W AUTO DIFFERENTIAL(Performed 02/21/2022) Performed for Recurrent UTI, Immunosuppression ([facility]), Long-term use of immunosuppressant medication, Kidney replaced by transplant ([facility]) * TACROLIMUS LEVEL(Performed 02/21/2022) Performed for Recurrent UTI, Immunosuppression ([facility]), Long-term use of immunosuppressant medication, Kidney replaced by transplant ([facility]) * CULTURE URINE(Performed 02/21/2022) Performed for Recurrent UTI, Immunosuppression ([facility]), Long-term use of immunosuppressant medication, Kidney replaced by transplant ([facility]) * TACROLIMUS (EXTERNAL RESULT ENTRY)(Performed 02/21/2022) * URINALYSIS (EXTERNAL RESULT ENTRY)(Performed 02/21/2022) * CBC W DIFF (EXTERNAL RESULT ENTRY)(Performed 02/21/2022) * CHEM PROFILE (EXTERNAL RESULT ENTRY)(Performed 02/21/2022) * DIFFERENTIAL MANUAL REFLXED III(Performed 02/06/2022) * CREATININE URINE RANDOM(Performed 02/06/2022) Performed for Recurrent UTI, Immunosuppression ([facility]), Long-term use of immunosuppressant medication, Kidney replaced by transplant ([facility]) * PROTEIN URINE RANDOM QUANTITATIVE(Performed 02/06/2022) Performed for Recurrent UTI, Immunosuppression ([facility]), Long-term use of immunosuppressant medication, Kidney replaced by transplant ([facility]) * URINALYSIS W/MICROSCOPIC NO CULTURE(Performed 02/06/2022) Performed for Recurrent UTI, Immunosuppression ([facility]), Long-term use of immunosuppressant medication, Kidney replaced by transplant ([facility]) * PHOSPHORUS BLOOD(Performed 02/06/2022) Performed for Recurrent UTI, Immunosuppression ([facility]), Long-term use of immunosuppressant medication, Kidney replaced by transplant ([facility]) * MAGNESIUM BLOOD(Performed 02/06/2022) Performed for Recurrent UTI, Immunosuppression ([facility]), Long-term use of immunosuppressant medication, Kidney replaced by transplant ([facility]) * COMPREHENSIVE METABOLIC PANEL(Performed 02/06/2022) Performed for Recurrent UTI, Immunosuppression ([facility]), Long-term use of immunosuppressant medication, Kidney replaced by transplant ([facility]) * CBC W AUTO DIFFERENTIAL(Performed 02/06/2022) Performed for Recurrent UTI, Immunosuppression ([facility]), Long-term use of immunosuppressant medication, Kidney replaced by transplant ([facility]) * TACROLIMUS LEVEL(Performed 02/06/2022) Performed for Recurrent UTI, Immunosuppression ([facility]), Long-term use of immunosuppressant medication, Kidney replaced by transplant ([facility]) * CULTURE URINE(Performed 02/06/2022) Performed for Recurrent UTI, Immunosuppression ([facility]), Long-term use of immunosuppressant medication, Kidney replaced by transplant ([facility]) * DIFFERENTIAL MANUAL REFLXED III(Performed 01/23/2022) * CREATININE URINE RANDOM(Performed 01/23/2022) Performed for Recurrent UTI, Immunosuppression ([facility]), Long-term use of immunosuppressant medication, Kidney replaced by transplant ([facility]) * PROTEIN URINE RANDOM QUANTITATIVE(Performed 01/23/2022) Performed for Recurrent UTI, Immunosuppression ([facility]), Long-term use of immunosuppressant medication, Kidney replaced by transplant ([facility]) * URINALYSIS W/MICROSCOPIC NO CULTURE(Performed 01/23/2022) Performed for Recurrent UTI, Immunosuppression ([facility]), Long-term use of immunosuppressant medication, Kidney replaced by transplant ([facility]) * PHOSPHORUS BLOOD(Performed 01/23/2022) Performed for Recurrent UTI, Immunosuppression ([facility]), Long-term use of immunosuppressant medication, Kidney replaced by transplant ([facility]) * MAGNESIUM BLOOD(Performed 01/23/2022) Performed for Recurrent UTI, Immunosuppression ([facility]), Long-term use of immunosuppressant medication, Kidney replaced by transplant ([facility]) * COMPREHENSIVE METABOLIC PANEL(Performed 01/23/2022) Performed for Recurrent UTI, Immunosuppression ([facility]), Long-term use of immunosuppressant medication, Kidney replaced by transplant ([facility]) * CBC W AUTO DIFFERENTIAL(Performed 01/23/2022) Performed for Recurrent UTI, Immunosuppression ([facility]), Long-term use of immunosuppressant medication, Kidney replaced by transplant ([facility]) * TACROLIMUS LEVEL(Performed 01/23/2022) Performed for Recurrent UTI, Immunosuppression ([facility]), Long-term use of immunosuppressant medication, Kidney replaced by transplant ([facility]) * CULTURE URINE(Performed 01/23/2022) Performed for Recurrent UTI, Immunosuppression ([facility]), Long-term use of immunosuppressant medication, Kidney replaced by transplant ([facility]) * BK VIRUS PCR QUANTITATIVE(Performed 01/10/2022) Performed for Recurrent UTI, Immunosuppression ([facility]), Long-term use of immunosuppressant medication, Kidney replaced by transplant ([facility]), Anemia of chronic renal failure, unspecified CKD stage, Vitamin D deficiency, Chronic kidney disease-mineral and bone disorder, Hyperlipidemia, unspecified hyperl ipidemia type, Hyperparathyroidism ([facility]) * PTH INTACT(Performed 01/10/2022) Performed for Recurrent UTI, Immunosuppression ([facility]), Long-term use of immunosuppressant medication, Kidney replaced by transplant ([facility]), Anemia of chronic renal failure, unspecified CKD stage, Vitamin D deficiency, Chronic kidney disease-mineral and bone disorder, Hyperlipidemia, unspecified hyperl ipidemia type, Hyperparathyroidism ([facility]) * DIFFERENTIAL MANUAL REFLXED III(Performed 01/10/2022) * CYTOMEGALOVIRUS QUANT BLOOD(Performed 01/10/2022) Performed for Recurrent UTI, Immunosuppression ([facility]), Long-term use of immunosuppressant medication, Kidney replaced by transplant ([facility]), Anemia of chronic renal failure, unspecified CKD stage, Vitamin D deficiency, Chronic kidney disease-mineral and bone disorder, Hyperlipidemia, unspecified hyperl ipidemia type, Hyperparathyroidism ([facility]) * CREATININE URINE RANDOM(Performed 01/10/2022) Performed for Recurrent UTI, Immunosuppression ([facility]), Long-term use of immunosuppressant medication, Kidney replaced by transplant ([facility]), Anemia of chronic renal failure, unspecified CKD stage, Vitamin D deficiency, Chronic kidney disease-mineral and bone disorder, Hyperlipidemia, unspecified hyperl ipidemia type, Hyperparathyroidism ([facility]) * PROTEIN URINE RANDOM QUANTITATIVE(Performed 01/10/2022) Performed for Recurrent UTI, Immunosuppression ([facility]), Long-term use of immunosuppressant medication, Kidney replaced by transplant ([facility]), Anemia of chronic renal failure, unspecified CKD stage, Vitamin D deficiency, Chronic kidney disease-mineral and bone disorder, Hyperlipidemia, unspecified hyperl ipidemia type, Hyperparathyroidism ([facility]) * URINALYSIS W/MICROSCOPIC NO CULTURE(Performed 01/10/2022) Performed for Recurrent UTI, Immunosuppression ([facility]), Long-term use of immunosuppressant medication, Kidney replaced by transplant ([facility]), Anemia of chronic renal failure, unspecified CKD stage, Vitamin D deficiency, Chronic kidney disease-mineral and bone disorder, Hyperlipidemia, unspecified hyperl ipidemia type, Hyperparathyroidism ([facility]) * PHOSPHORUS BLOOD(Performed 01/10/2022) Performed for Recurrent UTI, Immunosuppression ([facility]), Long-term use of immunosuppressant medication, Kidney replaced by transplant ([facility]), Anemia of chronic renal failure, unspecified CKD stage, Vitamin D deficiency, Chronic kidney disease-mineral and bone disorder, Hyperlipidemia, unspecified hyperl ipidemia type, Hyperparathyroidism ([facility]) * MAGNESIUM BLOOD(Performed 01/10/2022) Performed for Recurrent UTI, Immunosuppression ([facility]), Long-term use of immunosuppressant medication, Kidney replaced by transplant ([facility]), Anemia of chronic renal failure, unspecified CKD stage, Vitamin D deficiency, Chronic kidney disease-mineral and bone disorder, Hyperlipidemia, unspecified hyperl ipidemia type, Hyperparathyroidism ([facility]) * COMPREHENSIVE METABOLIC PANEL(Performed 01/10/2022) Performed for Recurrent UTI, Immunosuppression ([facility]), Long-term use of immunosuppressant medication, Kidney replaced by transplant ([facility]), Anemia of chronic renal failure, unspecified CKD stage, Vitamin D deficiency, Chronic kidney disease-mineral and bone disorder, Hyperlipidemia, unspecified hyperl ipidemia type, Hyperparathyroidism ([facility]) * CBC W AUTO DIFFERENTIAL(Performed 01/10/2022) Performed for Recurrent UTI, Immunosuppression ([facility]), Long-term use of immunosuppressant medication, Kidney replaced by transplant ([facility]), Anemia of chronic renal failure, unspecified CKD stage, Vitamin D deficiency, Chronic kidney disease-mineral and bone disorder, Hyperlipidemia, unspecified hyperl ipidemia type, Hyperparathyroidism ([facility]) * TACROLIMUS LEVEL(Performed 01/10/2022) Performed for Recurrent UTI, Immunosuppression ([facility]), Long-term use of immunosuppressant medication, Kidney replaced by transplant ([facility]), Anemia of chronic renal failure, unspecified CKD stage, Vitamin D deficiency, Chronic kidney disease-mineral and bone disorder, Hyperlipidemia, unspecified hyperl ipidemia type, Hyperparathyroidism ([facility]) * CULTURE URINE(Performed 01/10/2022) Performed for Recurrent UTI, Immunosuppression ([facility]), Long-term use of immunosuppressant medication, Kidney replaced by transplant ([facility]), Anemia of chronic renal failure, unspecified CKD stage, Vitamin D deficiency, Chronic kidney disease-mineral and bone disorder, Hyperlipidemia, unspecified hyperl ipidemia type, Hyperparathyroidism ([facility]) * BK VIRUS DNA PCR (EXTERNAL RESULT [...] QUANTITATIVE(Performed 01/02/2022) Performed for Recurrent UTI, Immunosuppression ([facility]), Long-term use of immunosuppressant medication, Kidney replaced by transplant ([facility]), Anemia of chronic renal failure, unspecified CKD stage, Vitamin D deficiency, Chronic kidney disease-mineral and bone disorder, Hyperlipidemia, unspecified hyperl ipidemia type, Hyperparathyroidism ([facility]) * URINALYSIS W/MICROSCOPIC NO CULTURE(Performed 01/02/2022) Performed for Recurrent UTI, Immunosuppression ([facility]), Long-term use of immunosuppressant medication, Kidney replaced by transplant ([facility]), Anemia of chronic renal failure, unspecified CKD stage, Vitamin D deficiency, Chronic kidney disease-mineral and bone disorder, Hyperlipidemia, unspecified hyperl ipidemia type, Hyperparathyroidism ([facility]) * PHOSPHORUS BLOOD(Performed 01/02/2022) Performed for Recurrent UTI, Immunosuppression ([facility]), Long-term use of immunosuppressant medication, Kidney replaced by transplant ([facility]), Anemia of chronic renal failure, unspecified CKD stage, Vitamin D deficiency, Chronic kidney disease-mineral and bone disorder, Hyperlipidemia, unspecified hyperl ipidemia type, Hyperparathyroidism ([facility]) * COMPREHENSIVE METABOLIC PANEL(Performed 01/02/2022) Performed for Recurrent UTI, Immunosuppression ([facility]), Long-term use of immunosuppressant medication, Kidney replaced by transplant ([facility]), Anemia of chronic renal failure, unspecified CKD stage, Vitamin D deficiency, Chronic kidney disease-mineral and bone disorder, Hyperlipidemia, unspecified hyperl ipidemia type, Hyperparathyroidism ([facility]) * CBC W AUTO DIFFERENTIAL(Performed 01/02/2022) Performed for Recurrent UTI, Immunosuppression ([facility]), Long-term use of immunosuppressant medication, Kidney replaced by transplant ([facility]), Anemia of chronic renal failure, unspecified CKD stage, Vitamin D deficiency, Chronic kidney disease-mineral and bone disorder, Hyperlipidemia, unspecified hyperl ipidemia type, Hyperparathyroidism ([facility]) * TACROLIMUS LEVEL(Performed 01/02/2022) Performed for Recurrent UTI, Immunosuppression ([facility]), Long-term use of immunosuppressant medication, Kidney replaced by transplant ([facility]), Anemia of chronic renal failure, unspecified CKD stage, Vitamin D deficiency, Chronic kidney disease-mineral and bone disorder, Hyperlipidemia, unspecified hyperl ipidemia type, Hyperparathyroidism ([facility]) * CREATININE URINE RANDOM(Performed 01/02/2022) Performed for Recurrent UTI, Immunosuppression ([facility]), Long-term use of immunosuppressant medication, Kidney replaced by transplant ([facility]), Anemia of chronic renal failure, unspecified CKD stage, Vitamin D deficiency, Chronic kidney disease-mineral and bone disorder, Hyperlipidemia, unspecified hyperl ipidemia type, Hyperparathyroidism ([facility]) * MAGNESIUM BLOOD(Performed 01/02/2022) Performed for Recurrent UTI, Immunosuppression ([facility]), Long-term use of immunosuppressant medication, Kidney replaced by transplant ([facility]), Anemia of chronic renal failure, unspecified CKD stage, Vitamin D deficiency, Chronic kidney disease-mineral and bone disorder, Hyperlipidemia, unspecified hyperl ipidemia type, Hyperparathyroidism ([facility]) * CULTURE URINE(Performed 01/02/2022) Performed for Recurrent UTI, Immunosuppression ([facility]), Long-term use of immunosuppressant medication, Kidney replaced by transplant ([facility]), Anemia of chronic renal failure, unspecified CKD stage, Vitamin D deficiency, Chronic kidney disease-mineral and bone disorder, Hyperlipidemia, unspecified hyperl ipidemia type, Hyperparathyroidism ([facility]) * TACROLIMUS (EXTERNAL RESULT ENTRY)(Performed 12/26/2021) * [...] QUANTITATIVE(Performed 11/14/2021) Performed for Recurrent UTI, Immunosuppression ([facility]), Long-term use of immunosuppressant medication, Kidney replaced by transplant ([facility]), Anemia of chronic renal failure, unspecified CKD stage, Vitamin D deficiency, Chronic kidney disease-mineral and bone disorder, Hyperlipidemia, unspecified hyperl ipidemia type, Hyperparathyroidism ([facility]) * CMV DNA PCR (EXTERNAL RESULT ENTRY)(Performed [...] LIPID PROFILE (EXTERAL RESULT ENTRY)(Performed 11/03/2021) * TX CYSTOSCOPY,REMV CALCULUS,SIMPLE(Performed 11/02/2021) Performed for Kidney transplant [...] for Perinephric fluid collection of kidney transplant ([facility]) * PH BODY FLUID ([facility] ONLY)(Performed 09/30/2021) Performed for Perinephric fluid collection of kidney transplant ([facility]) * CREATININE BODY FLUID(Performed 09/30/2021) Performed for Perinephric fluid collection of kidney transplant ([facility]) * CELL COUNT W DIFFERENTIAL FLUID(Performed 09/30/2021) Performed for Perinephric fluid collection of kidney transplant ([facility]) * TRIGLYCERIDES BODY FLUID(Performed 09/30/2021) Performed for Perinephric fluid collection of kidney transplant ([facility]) * CULTURE FLUID+GRAM STAIN(Performed 09/30/2021) Performed for Perinephric fluid collection of kidney transplant ([facility]) * IR DRAIN W CATH PLACEMENT(Performed 09/30/2021) Performed for S/P living-donor kidney transplantation ([facility]) * US RENAL TRANSPLANT(Performed 09/29/2021) Performed for Acute renal failure, unspecified acute renal failure type ([facility]), Kidney replaced by transplant ([facility]) * PTH INTACT W/O CALCIUM(Performed 09/29/2021) Performed for Kidney replaced by transplant ([facility]) * CYTOMEGALOVIRUS (CMV) QUANTITATIVE PLASMA(Performed 09/29/2021) Performed for Immunosuppressive management encounter following kidney transplant ([facility]), Kidney replaced by transplant ([facility]) * BK VIRUS PCR QUANT BLOOD STL(Performed 09/29/2021) Performed for Immunosuppressive management encounter following kidney transplant ([facility]), Kidney replaced by transplant ([facility]) * URIC ACID BLOOD(Performed 09/29/2021) Performed for Recurrent UTI, Immunosuppression ([facility]), Long-term use of immunosuppressant medication, Kidney replaced by transplant ([facility]), Vitamin D deficiency, Chronic kidney disease-mineral and bonedisorder, Hyperlipidemia, unspecified hyperlipidemia type, Hyperparathyroidism ([facility]) * VITAMIN D 25-HYDROXY(Performed 09/29/2021) Performed for Recurrent UTI, Immunosuppression ([facility]), Long-term use of immunosuppressant medication, Kidney replaced by transplant ([facility]), Vitamin D deficiency, Chronic kidney disease-mineral and bonedisorder, Hyperlipidemia, unspecified hyperlipidemia type, Hyperparathyroidism ([facility]) * LIPID PROFILE(Performed 09/29/2021) Performed for Recurrent UTI, Immunosuppression ([facility]), Long-term use of immunosuppressant medication, Kidney replaced by transplant ([facility]), Vitamin D deficiency, Chronic kidney disease-mineral and bonedisorder, Hyperlipidemia, unspecified hyperlipidemia type, Hyperparathyroidism ([facility]) * PHOSPHORUS BLOOD(Performed 09/29/2021) Performed for Recurrent UTI, Immunosuppression ([facility]), Long-term use of immunosuppressant medication, Kidney replaced by transplant ([facility]) * MAGNESIUM BLOOD(Performed 09/29/2021) Performed for Recurrent UTI, Immunosuppression ([facility]), Long-term use of immunosuppressant medication, Kidney replaced by transplant ([facility]) * COMPREHENSIVE METABOLIC PANEL(Performed 09/29/2021) Performed for Recurrent UTI, Immunosuppression ([facility]), Long-term use of immunosuppressant medication, Kidney replaced by transplant ([facility]) * CBC W AUTO DIFFERENTIAL(Performed 09/29/2021) Performed for Recurrent UTI, Immunosuppression ([facility]), Long-term use of immunosuppressant medication, Kidney replaced by transplant ([facility]) * TACROLIMUS LEVEL(Performed 09/29/2021) Performed for Recurrent UTI, Immunosuppression ([facility]), Long-term use of immunosuppressant medication, Kidney replaced by transplant ([facility]) * CREATININE URINE RANDOM(Performed 09/29/2021) Performed for Recurrent UTI, Immunosuppression ([facility]), Long-term use of immunosuppressant medication, Kidney replaced by transplant ([facility]) * PROTEIN URINE RANDOM QUANTITATIVE(Performed 09/29/2021) Performed for Recurrent UTI, Immunosuppression ([facility]), Long-term use of immunosuppressant medication, Kidney replaced by transplant ([facility]) * URINALYSIS W/MICROSCOPIC NO CULTURE(Performed 09/29/2021) Performed for Recurrent UTI, Immunosuppression ([facility]), Long-term use of immunosuppressant medication, Kidney replaced by transplant ([facility]) * CULTURE URINE(Performed 09/29/2021) Performed for Recurrent UTI, Immunosuppression ([facility]), Long-term use of immunosuppressant medication, Kidney replaced by transplant ([facility]) * TACROLIMUS LEVEL(Performed 09/27/2021) Performed for Kidney replaced by transplant ([facility]), Immunosuppressive management encounter followingkidney transplant ([facility]) * TACROLIMUS (EXTERNAL RESULT ENTRY)(Performed 09/26/2021) * [...] Performed for ESRD (end stage renal disease) ([facility]) * PHOSPHORUS BLOOD(Performed 09/14/2021) * MAGNESIUM BLOOD(Performed 09/14/2021) * CBC W AUTO DIFFERENTIAL(Performed 09/14/2021) * BASIC METABOLIC PANEL (CALCIUM TOTAL)(Performed 09/14/2021) * US RENAL TRANSPLANT(Performed 09/14/2021) Performed for ESRD (end stage renal disease) ([facility]) * PHOSPHORUS BLOOD(Performed 09/14/2021) * MAGNESIUM BLOOD(Performed 09/14/2021) * COMPREHENSIVE METABOLIC PANEL(Performed 09/14/2021) * CBC W AUTO DIFFERENTIAL(Performed 09/14/2021) * XR CHEST 1VW PORTABLE(Performed 09/14/2021) Performed for ESRD (end stage renal disease) ([facility]) * XR ABDOMEN KUB PORTABLE(Performed 09/14/2021) Performed for ESRD (end stage renal disease) ([facility]) * BLOOD GAS+COOX+ELECTROLYTES+METAB ARTERIAL(Performed 09/14/2021) Performed for ESRD (end stage renal disease) ([facility]) * CENTRAL LINE NOTE(Performed 09/14/2021) * BLOOD GAS+COOX+ELECTROLYTES+METAB ARTERIAL(Performed 09/14/2021) Performed for ESRD (end stage renal disease) ([facility]) * BLOOD GASES ART + COOX PANEL(Performed 09/14/2021) Performed for ESRD (end stage renal disease) ([facility]) * ENDOTRACHEAL TUBE NOTE(Performed 09/14/2021) * TX RENAL ALLOTPLNT IMPLNT GRAFT; W/O RECIP NEPHRECT(Performed 09/14/2021) Performed for End stage renal disease on dialysis ([facility]) * ARTERIAL LINE NOTE(Performed 09/14/2021) * TYPE [...] * CYTOMEGALOVIRUS QUANT BLOOD (10/28/2024 7:26 AM DEVELOPMENT INTERN) Only the most recent of6 resultswithin the time period is included. Pathologist [facility] Cytomegalovirus DNA Quantitative PCR Not Detected Not Detected IU/mL [facility] Cytomegalovirus DNA Quantitative PCR Not Detected Not Detected Log IU/mL [facility] Comment: (Note) For additional information, please refer to [email or web address] (This link is being provided for informational/educational purposes only.) [facility] [address] [address],[address] [facility] [address] Memo Schrader MD, PhD Test Performed at: [facility] [address] [address] [address] [place], [place] ??[phone] MEMO SCHRADER MD,PHD Blood BLOOD SPECIMEN / Unknown 10/28/2024 7:26 AM DEVELOPMENT INTERN 10/28/2024 7:27 AM DEVELOPMENT INTERN Melisa Delisa Reyes ROOF BOLTER-FORM GRADER OPERATOR LAB - CHEMISTRY ORDERABLES Performing Organization Address [facility] [place] [address] * URIC ACID BLOOD (10/28/2024 7:26 AM DEVELOPMENT INTERN) Only the most recent of12 resultswithin the time period is included. Uric Acid 6.5 4.0 - 8.0 mg/dL [facility] Comment: Therapeutic target for gout patients: <6.0 mg/dL ?? Test Performed at: [facility] [place] ??[phone] EDISON TROY MD Blood BLOOD SPECIMEN / Unknown 10/28/2024 7:26 AM DEVELOPMENT INTERN 10/28/2024 7:27 AM DEVELOPMENT INTERN Melisa Chambers APRN-FORM GRADER OPERATOR LAB - CHEMISTRY ORDERABLES Performing Organization Address [facility] [place] [address] * (ABNORMAL) TACROLIMUS LEVEL (10/28/2024 7:26 AM DEVELOPMENT INTERN) Only the most recent of34 resultswithin the time period is included. Tacrolimus 3.8(L) mcg/L [facility] Comment: No definitive therapeutic or toxic ranges have been established. Optimal blood drug levels are influenced by type of transplant, patient response, time post- transplant, co-administration of other drugs, and drug formulation. The following trough range is a suggested guideline: 5.0-20.0 mcg/L. Test Performed at: [facility] [place] ??[phone] EDISON TROY MD Blood BLOOD SPECIMEN / Unknown 10/28/2024 7:26 AM DEVELOPMENT INTERN 10/28/2024 7:27 AM DEVELOPMENT INTERN Melisa DARDEN LAB - THERAPEUT IC DRUG MONITORING ORDERABLES Performing Organization Address [facility] de Phone Number [facility] [address] [place] [address] * MICROALB/CREAT RATIO URINE RANDOM PANEL (10/28/2024 7:26 AM DEVELOPMENT INTERN) Only the most recent of2 resultswithin the [...] within a diagnostic category. Test Performed at: [facility] ??[phone] EDISON TROY MD Urine URINE SPECIMEN OBTAINED BY CLEAN CATCH PROCEDURE / Unknown 10/28/2024 7:26 AM DEVELOPMENT INTERN 10/28/2024 7:27 AM DEVELOPMENT INTERN Melisa DARDEN LAB - URINE SOFIA CLARE ORDERABLES Performing Organization Address [facility] de Phone Number [facility] [address] [place] [address] * (ABNORMAL) URINALYSIS REFLEX TO MICROSCOPIC NO CULTURE (10/28/2024 7:26 AM DEVELOPMENT INTERN) Only the most recent of2 resultswithin the time period is included. Color UA YELLOW YELLOW [facility] Appearance CLEAR CLEAR [facility] Specific [employer] UA 1.021 1.001 - 1.035 [facility] pH [...] SEEN /LPF [facility] Comment: Test Performed at: [facility] [address] [place] [address] ??[phone] EDISON TROY MD Granular Casts [facility] Casts UA [facility] Yeast [facility] Comments [facility] Comment: Test Performed at: [facility] [address] [place] [address] ??[phone] EDISON TROY MD Urine URINE SPECIMEN OBTAINED BY CLEAN CATCH PROCEDURE / Unknown 10/28/2024 7:26 AM DEVELOPMENT INTERN 10/28/2024 7:27 AM DEVELOPMENT INTERN Melisa Chambers ROOF BOLTER-FORM GRADER OPERATOR LAB - URINALYSI S ORDERABLES [facility] [address] [place] [address] * (ABNORMAL) PTH INTACT (10/28/2024 7:26 AM DEVELOPMENT INTERN) Only the most recent of3 resultswithin the [...] or Low Normal ?High Test Performed at: [facility] [address] [place], [place] ??[phone] EDISON TROY MD Blood BLOOD SPECIMEN / Unknown 10/28/2024 7:26 AM DEVELOPMENT INTERN 10/28/2024 7:27 AM DEVELOPMENT INTERN Melisa Chambers ROOF BOLTER-FORM GRADER OPERATOR LAB - CHEMISTRY ORDERABLES [facility] [address] [place] [address] * VITAMIN D 25-HYDROXY (10/28/2024 7:26 AM DEVELOPMENT INTERN) Only the most recent of12 resultswithin the [...] D2 and D3 fractions is required, the [facility]() 25-OH VIT D, (D2,D3), LC/MS/MS is recommended: order code 32599 (patients >2yrs). See Note 1 Note 1 For additional information, please refer to http://education.String Enterprises/faq/RGW076 (This link is being provided for informational/ educational purposes only.) Test Performed at: [facility] [address] [place], [place] ??[phone] EDISON TROY MD Blood BLOOD SPECIMEN / Unknown 10/28/2024 7:26 AM DEVELOPMENT INTERN 10/28/2024 7:27 AM DEVELOPMENT INTERN Melisa Delisa Reyes ROOF BOLTER-FORM GRADER OPERATOR LAB - CHEMISTRY ORDERABLES Performing Organization Address [facility] de Phone Number [facility] [address] [place] [address] * BK VIRUS PCR QUANTITATIVE (10/28/2024 7:26 AM DEVELOPMENT INTERN) Only the most recent of7 resultswithin the time period is included. [facility] BK Virus DNA Quantitative PCR Not Detected Not Detected IU/mL [facility] BK Virus DNA PCR Not Detected Not Detected Log IU/mL [facility] Comment: [facility] [address] [address],[address] [facility] [address] Memo Schrader MD, PhD Test Performed at: [facility] [address] [address] [address] [place], [place] ??[phone] MEMO SCHRADER MD,PHD Blood BLOOD SPECIMEN / Unknown 10/28/2024 7:26 AM DEVELOPMENT INTERN 10/28/2024 7:27 AM DEVELOPMENT INTERN Melisa Chambers ROOF BOLTER-FORM GRADER OPERATOR LAB - CHEMISTRY ORDERABLES Performing Organization Address [facility] de Phone Number [facility] [address] [phone] * CBC WITH DIFFERENTIAL (10/28/2024 7:26 AM DEVELOPMENT INTERN) Only the most recent of38 resultswithin the time period is included. Pathologist [facility] White Blood Cell Count 6.6 3.8 - [...] 1.4 % [facility] Comment: Test Performed at: [place] ??[phone] EDISON TROY MD Blasts [facility] nRBC [facility] Comments [facility] Comment: Test Performed at: [employer] [place], [place] ??[address] EDISON TROY MD Blood BLOOD SPECIMEN / Unknown 10/28/2024 7:26 AM DEVELOPMENT INTERN 10/28/2024 7:27 AM DEVELOPMENT INTERN Melisa Chambers ROOF BOLTER-FORM GRADER OPERATOR LAB - HEMATOLOG Y ORDERABLES Performing Organization Address City/State/[facility] Co de Phone Number [facility] [address] [place] [address] * (ABNORMAL) COMPREHENSIVE METABOLIC PANEL (10/28/2024 7:26 AM DEVELOPMENT INTERN) Only the most recent of32 resultswithin the [...] 46 U/L [facility] Comment: Test Performed at: [place] ??[address] EDISON TROY MD Blood BLOOD SPECIMEN / Unknown 10/28/2024 7:26 AM DEVELOPMENT INTERN 10/28/2024 7:27 AM DEVELOPMENT INTERN Melisa FAYFORM GRADER OPERATOR LAB - CHEMISTRY ORDERABLES Performing Organization Address [facility] Co de Phone Number [facility] [address] [place] [address] * PHOSPHORUS BLOOD (10/28/2024 7:26 AM DEVELOPMENT INTERN) Only the most recent of41 resultswithin the time period is included. Phosphorus 2.7 2.5 - 4.5 mg/dL [facility] Comment: Test Performed at: [place] ??[address] EDISON TROY MD Blood BLOOD SPECIMEN / Unknown 10/28/2024 7:26 AM DEVELOPMENT INTERN 10/28/2024 7:27 AM DEVELOPMENT INTERN Melisa FAYFORM GRADER OPERATOR LAB - CHEMISTRY ORDERABLES [facility] [address] [place] [address] * MAGNESIUM BLOOD (10/28/2024 7:26 AM DEVELOPMENT INTERN) Only the most recent of38 resultswithin the time period is included. Magnesium 1.8 1.5 - 2.5 mg/dL [facility] Comment: Test Performed at: [facility] [place] [place] ??[phone] EDISON TROY MD Blood BLOOD SPECIMEN / Unknown 10/28/2024 7:26 AM DEVELOPMENT INTERN 10/28/2024 7:27 AM DEVELOPMENT INTERN Melisa Chambers APRN-FORM GRADER OPERATOR LAB - CHEMISTRY ORDERABLES Performing Organization Address [facility] de Phone Number [facility] [address] [place] [address] * LIPID PROFILE (10/28/2024 7:26 AM DEVELOPMENT INTERN) Only the most recent of12 resultswithin the [...] LDL-C. Yogi ROJAS et al. FRANDY. 2013;310(19): 7845-6428 (http://education.Nuzzel.Templafy/faq/IYB497) CHOL/HDLC RATIO 3.0 <5.0 (calc) [facility] Non HDL Cholesterol 86 <130 mg/dL (calc) [facility] Comment: For patients with diabetes plus 1 major ASCVD risk factor, treating to a non-HDL-C goal of <100 mg/dL (LDL-C of <70 mg/dL) is considered a therapeutic option. Test Performed at: [facility] [place] ??[phone] EDISON TROY MD Blood BLOOD SPECIMEN / Unknown 10/28/2024 7:26 AM DEVELOPMENT INTERN 10/28/2024 7:27 AM DEVELOPMENT INTERN Melisa Chambers ROOF BOLTER-FORM GRADER OPERATOR LAB - CHEMISTRY ORDERABLES [facility] [address] [place] [address] * URINALYSIS W/MICROSCOPIC REFLEX TO CULTURE (05/19/2024 7:57 AM [facility]) Only the most recent of4 resultswithin the time period is included. Color UA Yellow Straw, Yellow 05/19/2024 9:14 AM [facility] Clarity UA Clear Clear 05/19/2024 9:14 AM [facility] Specific [employer] UA 1.016 1.005 - 1.030 05/19/2024 9:14 AM [facility] pH UA 5.0 5.0 - 8.0 pH 05/19/2024 9:14 AM [facility] Protein UA Negative Negative 05/19/2024 9:14 AM [facility] Glucose UA Negative Negative 05/19/2024 9:14 AM [facility] Ketone UA Negative Negative 05/19/2024 9:14 AM [facility] Bilirubin UA Negative Negative 05/19/2024 9:14 AM [facility] Blood UA Negative Negative 05/19/2024 9:14 AM [facility] Nitrite UA Negative Negative 05/19/2024 9:14 AM [facility] Leukocyte Esterase Negative Negative 05/19/2024 9:14 AM [facility] Urobilinogen UA Negative Negative mg/dL 05/19/2024 9:14 AM [facility] RBC UA 0-2 None Seen, 0-2, 3-5 /HPF 05/19/2024 9:14 AM [facility] WBC UA 0-5 None Seen, 0-5 /HPF 05/19/2024 9:14 AM [facility] Squamous Epithelial Cells UA None Seen None Seen, 0-2, 3-5 /HPF 05/19/2024 9:14 AM CDT [facility] Urine URINE SPECIMEN OBTAINED BY CLEAN CATCH PROCEDURE / Unknown Collection / Unknown 05/19/2024 7:57 AM CDT 05/19/2024 9:03 AM CDT Narrative [facility] - 05/19/2024 9:14 AM CDT Culture Not Indicated Gustavo Kent MD LAB - URINALYSIS ORD ERABLES Performing Organization Address City/[facility]/ZIP Co de Phone Number [address] [address], [facility] [phone] * PROTEIN CREATININE RATIO URINE RANDOM PNL (05/19/2024 7:57 AM CDT) Only the most recent of4 resultswithin the time period is included. Protein Urine 14 Not Established mg/dL 05/19/2024 9:44 AM CDT [facility] Creatinine Urine 175.24 Not Established mg/dL 05/19/2024 9:44 AM CDT [facility] Protein/Creati nine Ratio Urine 0.08 <0.10 05/19/2024 9:44 AM CDT [facility] Urine URINE SPECIMEN OBTAINED BY CLEAN CATCH PROCEDURE / Unknown Collection / Unknown 05/19/2024 7:57 AM CDT 05/19/2024 9:03 AM CDT Gustavo Kent MD LAB - URINE CHEMISTR Y ORDERABLES Performing Organization Address City/[facility]/ZIP Co de Phone Number [address] [address], [facility] [phone] * CYTOMEGALOVIRUS (CMV) QUANTITATIVE PLASMA (05/19/2024 7:47 AM CDT) Only the most recent of14 resultswithin the time period is included. CMV Quant by PCR, Interp Not detected Not detected 05/19/2024 1:21 PM CDT [facility] Blood BLOOD SPECIMEN / Unknown Lab Venipuncture / Unknown 05/19/2024 7:47 AM CDT 05/19/2024 7:51 AM CDT Narrative [facility] - 05/19/2024 1:21 PM CDT [...] methodology. Gustavo Kent MD LAB - CHEMISTRY PIPE ZELAYA [facility] Organization Address City/State/ZIP Co de Phone Number [facility] [address] [place] [address], [facility] [phone] * BK VIRUS PCR QUANT BLOOD STL (05/19/2024 7:47 AM CDT) Only the most recent of14 resultswithin the time period is included. BK Virus Quant by PCR, Interp Not detected Not detected 05/20/2024 1:58 PM CDT [facility] Specimen Type Plasma 05/20/2024 1:58 PM CDT [facility] Blood BLOOD SPECIMEN / Unknown Lab Venipuncture / Unknown 05/19/2024 7:47 AM CDT 05/19/2024 7:51 AM CDT Narrative [facility] - 05/20/2024 1:58 PM CDT [...] developed and its performance characteristics determined by [facility]. ??It has not been cleared or approved by the U.S. Food and Drug Administration. ??The FDA has determined that such clearance or approval is not necessary. ??The test is used for clinical purposes. ??It should not be regarded as investigational or for research. ??This laboratory is certified under the Clinical Laboratory. Gustavo Kent MD LAB - CHEMISTRY PIPE ZELAYA Performing Organization Address City/[facility]/ZIP Co de Phone Number [facility] [address] [id number], [facility] [phone] * (ABNORMAL) PTH INTACT W/O CALCIUM (05/19/2024 7:47 AM CDT) Only the most recent of10 resultswithin the time period is included. Pathologist [facility] PTH Intact 168.1(H) 8.0 - 77.0 pg/mL 05/19/2024 8:[address] [facility] Blood BLOOD SPECIMEN / Unknown Lab Venipuncture / Unknown 05/19/2024 7:47 AM CDT 05/19/2024 7:56 AM CDT Gustavo Kent MD LAB - CHEMISTRY PIPE ZELAYA [facility] [address] [place] [address], [facility] [phone] * URINALYSIS COMPLETE W MICROSCOPIC (08/14/2023 7:21 AM CDT) Only the most recent of24 resultswithin the time period is included. Color UA Yellow Straw, Yellow 08/14/2023 8:16 AM [facility] Clarity UA Clear Clear 08/14/2023 8:16 AM [facility] Specific [employer] UA 1.017 1.005 - 1.030 08/14/2023 8:16 AM [facility] pH UA 7.0 5.0 - 8.0 pH 08/14/2023 8:16 AM [facility] Protein UA Negative Negative 08/14/2023 8:16 AM [facility] Glucose UA Negative Negative 08/14/2023 8:16 AM [facility] Ketone UA Negative Negative 08/14/2023 8:16 AM [facility] Bilirubin UA Negative Negative 08/14/2023 8:16 AM [facility] Blood UA Negative Negative 08/14/2023 8:16 AM [facility] Nitrite UA Negative Negative 08/14/2023 8:16 AM [facility] Leukocyte Esterase Negative Negative 08/14/2023 8:16 AM [facility] Urobilinogen UA Negative Negative mg/dL 08/14/2023 8:16 AM [facility] RBC UA 3-5 None Seen, 0-2, 3-5 /HPF 08/14/2023 8:16 AM [facility] WBC UA 0-5 None Seen, 0-5 /HPF 08/14/2023 8:16 AM [facility] Squamous Epithelial Cells UA 0-2 None Seen, 0-2, 3-5 /HPF 08/14/2023 8:16 AM [facility] Urine URINE SPECIMEN OBTAINED BY CLEAN CATCH PROCEDURE / Unknown Collection / Unknown 08/14/2023 7:21 AM T 08/14/2023 7:29 AM [facility] - 08/14/2023 8:16 AM [facility] Melisa Chambers ROOF BOLTER-FORM GRADER OPERATOR LAB - URINALYSI S ORDERABLES [address] [address], [facility] [phone] * PROTEIN URINE RANDOM QUANTITATIVE (08/14/2023 7:21 AM CDT) Only the most recent of25 resultswithin the time period is included. Protein Urine 16 Not Established mg/dL 08/14/2023 8:00 AM CDT [facility] Urine URINE SPECIMEN OBTAINED BY CLEAN CATCH PROCEDURE / Unknown Collection / Unknown 08/14/2023 7:21 AM CDT 08/14/2023 7:29 AM CDT Melisa Chambers ROOF BOLTER-FORM GRADER OPERATOR LAB - URINE SOFIA CLARE ORDERABLES [facility] [address] [place] [address], [place] [phone] * CREATININE URINE RANDOM (08/14/2023 7:21 AM CDT) Only the most recent of24 resultswithin the time period is included. Creatinine Urine 161.26 Not Established mg/dL 08/14/2023 8:00 AM CDT [facility] Urine URINE SPECIMEN OBTAINED BY CLEAN CATCH PROCEDURE / Unknown Collection / Unknown 08/14/2023 7:21 AM CDT 08/14/2023 7:29 AM CDT Melisa Chambers ROOF BOLTER-FORM GRADER OPERATOR LAB - URINE SOFIA CLARE ORDERABLES [facility] [address] [place] [address], [place] [phone] * CULTURE URINE (04/19/2023 7:59 AM CDT) Only the most recent of22 resultswithin the time period is included. Culture Urine <10,000 CFU/mL [facility] 04/20/2023 11:03 AM CDT [facility] Urine URINE SPECIMEN OBTAINED BY CLEAN CATCH PROCEDURE / Unknown Collection / Unknown 04/19/2023 7:59 AM CDT 04/19/2023 8:19 AM CDT Gustavo Kent MD LAB - MICROBIOLOGY O RDERABLES [facility] [address] [place], [address] [phone] * TESTOSTERONE TOTAL MALE (02/12/2023 6:58 AM CDT) Testosterone Adult Male 440 300 - 890 ng/dL 02/13/2023 3:14 PM CDT [facility] QuickProNotes ([facility]) Comment: INTERPRETIVE INFORMATION: Testosterone by Immunoassay Testosterone immunoassays are both imprecise and inaccurate at low testosterone concentrations, such as those found in children and cisgender females. For these individuals, testing by mass spectrometry is recommended; refer to Testosterone (Adult Females, Children, or Individuals on Testosterone-Suppressing Hormone Therapy) (NMSelligy test code [id number]). Free or bioavailable testosterone measurements may provide supportive information. For individuals on testosterone hormone therapy, refer to cisgender male reference intervals. No reference intervals have been established for males younger than 14 years or for cisgender females. For a complete set of all established reference intervals, refer to [employer]ellio/Tests/Pub/[id number]. Performed By: [facility] [address] [place] [address] Ship Rigger Apprentice: Nicholas Acuña MD, PhD Blood BLOOD SPECIMEN / Unknown Lab Venipuncture / Unknown 02/12/2023 6:58 AM CDT 02/12/2023 7:56 AM CDT Noris León APRN-FORM GRADER OPERATOR LAB - MANAGER TRANSFUSION RY ORDERABLES Performing Organization Address City/[facility]/ZIP Co de Phone Number [facility] QuickProNotes [facility]) [address] * URINALYSIS AUTO - POINT OF CARE (AMB) [facility] (12/21/2022) Glucose UA - Bilirubin UA POCT - Ketones UA POCT - Specific [employer] UA 1.015 Blood Urine POCT +- pH UA 6.0 Protein UA +- Urobilinogen UA - Nitrite UA - WBC UA - Urine URINE / Unknown 12/21/2022 Noris M Mau ROOF BOLTER-FORM GRADER OPERATOR LAB - POINT O F CARE ORDERABLES * TRANSFERRIN (12/19/2022 8:50 AM DEVELOPMENT INTERN) Only the most recent of4 resultswithin the time period is included. Transferrin 239 174 - 382 mg/dL 12/19/2022 10:11 AM DEVELOPMENT INTERN [facility] Blood BLOOD SPECIMEN / Unknown Lab Venipuncture / Unknown 12/19/2022 8:50 AM DEVELOPMENT INTERN 12/19/2022 9:29 AM DEVELOPMENT INTERN Mirza Hunt MD LAB - CHEMISTRY PIPE ZELAYA Performing Organization Address City/[facility]/ZIP Co de Phone Number [address] [address], [place] [phone] * IRON BLOOD (12/19/2022 8:50 AM DEVELOPMENT INTERN) Only the most recent of4 resultswithin the time period is included. Iron 95 50 - 175 ug/dL 12/19/2022 10:11 AM DEVELOPMENT INTERN [facility] Blood BLOOD SPECIMEN / Unknown Lab Venipuncture / Unknown 12/19/2022 8:50 AM DEVELOPMENT INTERN 12/19/2022 9:29 AM DEVELOPMENT INTERN Mirza Hunt MD LAB - CHEMISTRY PIPE ZELAYA Performing Organization Address [facility]/ZIP Co de Phone Number [address] [address], [place] [phone] * FERRITIN (12/19/2022 8:50 AM DEVELOPMENT INTERN) Only the most recent of4 resultswithin the time period is included. Ferritin 50 22 - 275 ng/mL 12/19/2022 10:28 AM DEVELOPMENT INTERN [facility] Blood BLOOD SPECIMEN / Unknown Lab Venipuncture / Unknown 12/19/2022 8:50 AM DEVELOPMENT INTERN 12/19/2022 9:29 AM DEVELOPMENT INTERN Mirza Hunt MD LAB - CHEMISTRY PIPE ZELAYA Performing Organization Address City/State/[facility] Co de Phone Number [facility] [address] [place] [address], [facility] [phone] * CMV T CELL IMMUNITY PANEL (VIRACOR) (07/18/2022 7:09 AM CDT) Only the most recent of3 resultswithin the time period is included. CMV T Cell Immunity Panel See scanned report. 07/21/2022 2:[address] [facility] REF LAB NON INTERF Microbiology BLOOD SPECIMEN / Unknown Collection / Unknown 07/18/2022 7:09 AM CDT 07/18/2022 7:33 AM CDT Melisa DARDEN LAB - MICROBIOL OGY ORDERABLES Performing Organization Address [facility] de Phone Number [facility] REF LAB NON INTERF [address] [place] [phone], [facility] [phone] * (ABNORMAL) TACROLIMUS (EXTERNAL RESULT ENTRY) (06/13/2022) Only the most recent of23 resultswithin the time period is included. Pathologist [facility] Tacrolimus Level (EXTERNAL RESULT) 3.2(L) [facility] Blood BLOOD SPECIMEN / Unknown 06/13/2022 Historical Provider LAB - CHEMISTRY O KARLIE Performing Organization Address [facility] Co de Phone Number [facility] [address] [place] [address], [facility] [phone] * (ABNORMAL) CHEM PROFILE (EXTERNAL RESULT ENTRY) (06/13/2022) Only the most recent of26 resultswithin the time period is included. Glucose (EXTERNAL RESULT) 93 mg/dl [facility] BUN (EXTERNAL RESULT) 24 mg/dl [facility] Creatinine (EXTERNAL RESULT) 2.14(H) mg/dl [facility] Sodium (EXTERNAL RESULT) 139 mmol/L [facility] Potassium (EXTERNAL RESULT) 4.0 mmol/L [facility] Chloride (EXTERNAL RESULT) 105 mmol/L [facility] Carbon Dioxide (EXTERNAL RESULT) 26 mmol/L [facility] Calcium (EXTERNAL RESULT) 9.8 mg/dl [facility] Phosphorus (EXTERNAL RESULT) [facility] Total Protein (EXTERNAL RESULT) 7.2 g/dl [facility] Albumin (EXTERNAL RESULT) 4.4 g/dl [facility] Alkaline Phosphatase (EXTERNAL RESULT) 58 U/L [facility] ALT (EXTERNAL RESULT) 11 units/L [facility] AST (EXTERNAL RESULT) 10 units/L [facility] Bilirubin Total (EXTERNAL RESULT) 0.8 mg/dl [facility] Bilirubin Direct (EXTERNAL RESULT) [facility] Bilirubin Indirect (EXTERNAL RESULT) [facility] Magnesium (EXTERNAL RESULT) [facility] Blood BLOOD SPECIMEN / Unknown 06/13/2022 Historical Provider LAB - CHEMISTRY O RDERABLES [facility] [address] [place] [phone] [phone] * (ABNORMAL) DIFFERENTIAL MANUAL (05/17/2022 8:31 AM CDT) WBC (corrected for NRBC) 4.6 10? 3 /uL 05/17/2022 9:32 AM [facility] Total Cell Count 100 05/17/2022 9:32 AM T [facility] Neutrophils Absolute Manual 3.54 1.60 - 7.00 10? 3 /uL 05/17/2022 9:32 AM T [facility] Comment:(BANDS+SEGS) x WBC = NEUT # (ANC) Lymphocyte Absolute Manual 0.60(L) 1.10 - 3.90 10? 3 /uL 05/17/2022 9:32 AM CDT [facility] Monocytes Absolute Manual 0.41 0.26 - 1.07 10? 3 /uL 05/17/2022 9:32 AM CDT [facility] Eosinophils Absolute Manual 0.05 0.00 - 0.47 10? 3 /uL 05/17/2022 9:32 AM CDT [facility] Band % Manual 10 0 - 10 % 05/17/2022 9:32 AM [facility] Neutrophil % Manual 67 35 - 70 % 05/17/2022 9:32 AM [facility] Lymphocyte % Manual 13(L) 20 - 43 % 05/17/2022 9:32 AM [facility] Monocytes % Manual 9 5 - 13 % 05/17/2022 9:32 AM [facility] Eosinophils % Manual 1 0 - 6 % 05/17/2022 9:32 AM [facility] Platelet Estimate Adequate Adequate 05/17/2022 9:32 AM [facility] Ovalocytes 1+(A) None 05/17/2022 9:32 AM [facility] [place] Cells Occasional(A ) None 05/17/2022 9:32 AM [facility] Tear Drop Cells Rare(A) None 9:32 AM [facility] Blood BLOOD SPECIMEN / Unknown Lab Venipuncture / Unknown 05/17/2022 8:31 AM CDT 05/17/2022 8:44 AM CDT Mirza Hunt MD LAB - HEMATOLOGY ORD ERABLES [facility] [address] [place] [address], [facility] [phone] * (ABNORMAL) DIFFERENTIAL MANUAL REFLXED III (04/28/2022 [...] perform a manual review. Test Performed at: [facility] [id number] [place] [address] ??[phone] NAVDEEP SINGH DO,MPH 04/28/2022 7:33 AM CDT 04/28/2022 7:35 AM CDT Mirza Hunt MD LAB - HEMATOLOGY ORD ERABLES Performing Organization Address City/[facility]/ZIP Co de Phone Number [employer] [address] [place] [address] * (ABNORMAL) CBC W DIFF (EXTERNAL RESULT ENTRY) (04/18/2022) Only the most recent of26 resultswithin the time period is included. WBC (EXTERNAL RESULT) 4.1 10^3/ul [facility] Hemoglobin (EXTERNAL RESULT) 11.6(L) g/dl [facility] Hematocrit (EXTERNAL RESULT) 36.7(L) % [facility] Platelets (EXTERNAL RESULT) 204 10^3/ul [facility] Neutrophil Absolute (EXTERNAL RESULT) 2,460 10^3/ul [facility] Blood BLOOD SPECIMEN / Unknown 04/18/2022 Historical Provider LAB - HEMATOLOGY ORDERABLES Performing Organization Address [facility] Co de Phone Number [facility] [address] [place] [address], [facility] [phone] * (ABNORMAL) URINALYSIS (EXTERNAL RESULT ENTRY) (04/18/2022) Only the most recent of26 resultswithin the time period is included. pH UA (EXTERNAL RESULT) 5.5 [facility] Specific [employer] Urine (EXTERNAL RESULT) 1.027 [facility] Protein UA (EXTERNAL RESULT) 1+(A) [facility] Blood UA (EXTERNAL RESULT) Negative [facility] Nitrite UA (EXTERNAL RESULT) Negative [facility] RBC UA (EXTERNAL RESULT) None Seen /HPF [facility] WBC UA (EXTERNAL RESULT) None Seen /HPF [facility] Leukocyte Esterase (EXTERNAL RESULT) Negative [facility] Bacteria UA (EXTERNAL RESULT) None Seen [facility] Urine URINE / Unknown 04/18/2022 Historical Provider LAB - CHEMISTRY O RDERABLES Performing Organization Address City/[facility]/ZIP Co de Phone Number [facility] [address] [place] [address], [place] [phone] * CREATININE RAND UR (EXTERNAL RESULT ENTRY) (04/18/2022) Only the most recent of20 resultswithin the time period is included. Creatinine Random Urine (EXTERNAL RESULT) 253 mg/dl [facility] Urine URINE / Unknown 04/18/2022 Historical Provider LAB - CHEMISTRY O RDERABLES Performing Organization Address [facility] Co de Phone Number [address] [address], [place] [phone] * (ABNORMAL) PROTEIN RANDOM UR (EXTERNAL RESULT ENTRY) (04/18/2022) Only the most recent of21 resultswithin the time period is included. Protein Urine (EXTERNAL RESULT) 58(H) mg/dl [facility] Urine URINE / Unknown 04/18/2022 Historical Provider LAB - CHEMISTRY O RDERABLES Performing Organization Address [facility] Co de Phone Number [address] [address], [place] [phone] * HLA ANTIBODY SCREEN LUM CLASS 2 SAB (03/22/2022 10:07 AM CDT) Only the most recent of2 resultswithin the time period is included. % PRA 1 03/23/2022 1:03 PM CDT [facility]ORAT[facility] ([facility]) Class 2 LUM SAB Specificity Possible Donor Specific: NONE DETECTED Other Specificiti es: [id number] DQA PRESENT 03/23/2022 1:03 PM CDT [facility]OR[facility] ([facility]) Class 2 LUM SAB Moderate Risk - 03/23/2022 1:03 PM CDT [facility] ([facility]) Class 2 LUM SAB Reportable Comments - 03/23/2022 1:03 PM CDT [facility] ([facility]) Class 2 SAB Test Date 03/23/2022 03/23/2022 1:03 PM CDT [facility] ([facility]) Comment: This test was developed and its performance characteristics determined by the [facility]. ??It has not been cleared [...] high complexity clinical laboratory testing. ??CLIA ID# [id number] Performed at: [facility], [address] [place] [address] ??[phone] Character Impersonator:Dr. Cristhian Luna, PhD, Blood BLOOD SPECIMEN / Unknown Lab Venipuncture / Unknown 03/22/2022 10:07 AM CDT 03/22/2022 10:39 AM CDT Melisa Chambers ROOF BOLTER-FORM GRADER OPERATOR LAB - BLOOD BAN K ORDERABLES [facility] ([facility]) [facility] [place] [address], [facility] * HLA ANTIBODY SCREEN LUM CLASS 1 SAB (03/22/2022 10:07 AM CDT) Only the most recent of2 resultswithin the time period is included. % PRA 2 03/23/2022 1:03 PM CDT [facility] ([facility]) Class 1 LUM SAB Specificity Possible Donor Specific: NONE DETECTED Other Specificiti es: B1512/76, B4601 03/23/2022 1:03 PM CDT [facility] ([facility]) Class 1 LUM SAB Moderate Risk B1402/65 03/23/2022 1:03 PM CDT [facility] ([facility]) Class 1 LUM SAB Reportable Comments - 03/23/2022 1:03 PM CDT [facility] ([facility]) Class 1 SAB Test Date 03/23/2022 03/23/2022 1:03 PM CDT [facility] ([facility]) Comment: This test was developed and its performance characteristics determined by the [facility]. ??It has not been cleared [...] high complexity clinical laboratory testing. ??CLIA ID# [id number] Performed at: [facility], [address] [place] [address] ??[phone] Character Impersonator:Dr. Cristhian Luna, PhD, Blood BLOOD SPECIMEN / Unknown Lab Venipuncture / Unknown 03/22/2022 10:07 AM CDT 03/22/2022 10:39 AM CDT Melisa Chambers ROOF BOLTER-FORM GRADER OPERATOR LAB - BLOOD BAN K ORDERABLES Performing Organization Address City/[facility]/ZIP Co de Phone Number [facility] ([facility]) [address] [place] [address], [facility] * BK VIRUS DNA PCR (EXTERNAL RESULT ENTRY) (01/10/2022) Only the most recent of10 resultswithin the time period is included. BK Virus DNA Quant PCR (EXTERNAL RESULT) Not Detected [facility] Blood BLOOD SPECIMEN / Unknown 01/10/2022 Historical Provider LAB - CHEMISTRY O RDERABLES Performing Organization Address City/[facility]/ZIP Co de Phone Number [facility] [address] [place] [address], [place] [phone] * CMV DNA PCR (EXTERNAL RESULT ENTRY) (01/10/2022) Only the most recent of10 resultswithin the time period is included. CMV DNA Quantitative by PCR (EXTERNAL RESULT) Not Detected [facility] Blood BLOOD SPECIMEN / Unknown 01/10/2022 Historical Provider LAB - CHEMISTRY O RDERABLES Performing Organization Address City/[facility] Co de Phone Number [address] [address], [facility] [phone] * (ABNORMAL) PTH (EXTERNAL RESULT ENTRY) (01/10/2022) Only the most recent of15 resultswithin the time period is included. PTH Intact (EXTERNAL RESULT) 202(H) pg/ml [facility] Blood BLOOD SPECIMEN / Unknown 01/10/2022 Historical Provider LAB - CHEMISTRY O RDERAKAILEY Performing Organization Address [facility] Co de Phone Number [address] [address], [place] [phone] * CREATININE BLOOD (EXTERNAL RESULT ENTRY) (01/10/2022) Creatinine (EXTERNAL RESULT) 106 mg/dl [facility] Blood BLOOD SPECIMEN / Unknown 01/10/2022 Historical Provider LAB - CHEMISTRY O RDERAKAILEY Performing Organization Address [facility] Co de Phone Number [address] [address], [place] [phone] * VITAMIN D HYDROXY (EXTERNAL RESULT) (12/21/2021) Only the most recent of14 resultswithin the time period is included. Vitamin D Hydroxy (External Result) 56 [facility] Blood 12/21/2021 Historical Provider LAB - CHEMISTRY O RDERAKAILEY Performing Organization Address City/[facility] Co de Phone Number [address] [place] [address], [facility] [phone] * LIPID PROFILE (EXTERAL RESULT ENTRY) (12/21/2021) Only the most recent of14 resultswithin the time period is included. Cholesterol (EXTERNAL RESULT) 129 mg/dL [facility] Triglycerides (EXTERNAL RESULT) 79 mg/dL [facility] HDL (EXTERNAL RESULT) 43 mg/dL [facility] LDL (EXTERNAL RESULT) 70 mg/dL [facility] VLDL (EXTERNAL RESULT) [facility] Chol HDL Ratio (External Result) 3.0 [facility] Blood BLOOD SPECIMEN / Unknown 12/21/2021 Historical Provider LAB - CHEMISTRY O RDERAKAILEY Performing Organization Address City/[facility]/ZIP Co de Phone Number [address] [address], [facility] [phone] * HEMOGLOBIN A1C (EXTERNAL RESULT ENTRY) (12/21/2021) Only the most recent of16 resultswithin the time period is included. Hemoglobin A1c (EXTERNAL RESULT) 5.3 % [facility] Blood BLOOD SPECIMEN / Unknown 12/21/2021 Historical Provider LAB - CHEMISTRY O RDERAKAILEY Performing Organization Address City/[facility]/ZIP Co de Phone Number [id number] [place] [address], [facility] [phone] * [place] CYSTOSCOPY,REMV CALCULUS,SIMPLE (11/02/2021 2:49 PM DEVELOPMENT INTERN) Narrative Emiliano Arnett MD - 11/02/2021 2:49 PM DEVELOPMENT INTERN Emiliano Arnett MD ? 11/02/2021 ??2:55 PM [...] ACEVEDO RGICAL ORDERABLES * TRIGLYCERIDES BODY FLUID ([facility]) (09/30/2021 4:46 PM DEVELOPMENT INTERN) Triglycerides Fluid <12 Not Established For Fluids mg/dL 09/30/2021 5:[address] [facility]OR[facility] Comment:The analytical perfo rmance of this test has been independently validated by [facility]. A reference range has not been established. Comparison of this result with the concentration in blood, serum or plasma is recommended. Fluid PERITONEAL FLUID / Unknown Collection / Unknown 09/30/2021 4:46 PM DEVELOPMENT INTERN 09/30/2021 4:53 PM DEVELOPMENT INTERN Navneet Renteria MD LAB - BODY FLUID ORD ERABLES [address] [address], [facility] [phone] * PH BODY FLUID ([facility]) (09/30/2021 4:46 PM DEVELOPMENT INTERN) pH Fluid 7.64 Not Established for Fluids pH 09/30/2021 5:58 PM DEVELOPMENT INTERN [facility] Body Fluid Type Peritoneal Fluid 09/30/2021 5:58 PM DEVELOPMENT INTERN [facility] Fluid PERITONEAL FLUID / Unknown Collection / Unknown 09/30/2021 4:46 PM DEVELOPMENT INTERN 09/30/2021 4:53 PM DEVELOPMENT INTERN Navneet Renteria MD LAB - BODY FLUID ORD ERABLES Performing Organization Address [facility]/ZIP Co de Phone Number [address] [address], [facility] [phone] * CREATININE BODY FLUID ([facility]) (09/30/2021 4:46 PM DEVELOPMENT INTERN) Creatinine Fluid 2.5 Not Established For Fluids mg/dL 09/30/2021 5:50 PM DEVELOPMENT INTERN [facility] Comment:The analytical perfo rmance of this test has been independently validated by [facility]. A reference range has not been established. Comparison of this result with the concentration in blood, serum or plasma is recommended. Fluid PERITONEAL FLUID / Unknown Collection / Unknown 09/30/2021 4:46 PM DEVELOPMENT INTERN 09/30/2021 4:53 PM DEVELOPMENT INTERN Navneet Renteria MD LAB - BODY FLUID ORD ERABLES Performing Organization Address [facility] Co de Phone Number [address] [address], [facility] [phone] * (ABNORMAL) CELL COUNT W DIFFERENTIAL FLUID (09/30/2021 4:46 PM DEVELOPMENT INTERN) Color Fluid Other(A) Colorless, Straw 09/30/2021 5:08 PM [facility] Comment:[place] Clarity Fluid Cloudy(A) Clear 09/30/2021 5:08 PM [facility] Volume Fluid 2.0 mL 09/30/2021 5:08 PM [facility] WBC Fluid 211 Reference Range Not Established /uL 09/30/2021 5:08 PM [facility] RBC Fluid 13,000 Reference Range Not Established /uL 09/30/2021 5:08 PM [facility] Differential Manual Differential to follow. 09/30/2021 5:08 PM [facility] Fluid PERITONEAL FLUID / Unknown Collection / Unknown 09/30/2021 4:46 PM DEVELOPMENT INTERN 09/30/2021 4:53 PM DEVELOPMENT INTERN Narrative [facility] - 09/30/2021 5:08 PM DEVELOPMENT INTERN No reference ranges established for body fluid cell counts. The reference ranges provided are derived from published literature. The test results must be integrated into the clinical context for interpretation. Navneet Renteria MD LAB - BODY FLUID ORD ERABLES Performing Organization Address [facility] Co de Phone Number [address] [address], [place] [phone] * DIFFERENTIAL MANUAL FLUID (09/30/2021 4:46 PM DEVELOPMENT INTERN) Segs % Fluid 3 % 09/30/2021 5:[address] [facility] Lymphocytes % Fluid 97 % 09/30/2021 5:43 PM DEVELOPMENT INTERN [facility] Fluid PERITONEAL FLUID / Unknown Collection / Unknown 09/30/2021 4:46 PM DEVELOPMENT INTERN 09/30/2021 4:53 PM DEVELOPMENT INTERN Navneet Renteria MD LAB - BODY FLUID ORD ERABLES Performing Organization Address [facility] Co de Phone Number [address] [address], [place] [phone] * CULTURE FLUID+GRAM STAIN (09/30/2021 4:46 PM DEVELOPMENT INTERN) Culture No growth [facility] 10/03/2021 10:21 PM DEVELOPMENT INTERN [facility] Gram Stain Rare Polymorphonuclear cells 10/03/2021 10:21 PM DEVELOPMENT INTERN [facility] Gram Stain No organisms seen 021 10:21 PM DEVELOPMENT INTERN [facility] Fluid PERITONEAL FLUID / Unknown Collection / Unknown 09/30/2021 4:46 PM DEVELOPMENT INTERN 09/30/2021 4:53 PM DEVELOPMENT INTERN Navneet Renteria MD LAB - MICROBIOLOGY O RDERABLES Performing Organization Address [facility] Co de Phone Number [facility] [address] [place] [address], [facility] [phone] * IR DRAIN W CATH PLACEMENT (09/30/2021 4:42 PM DEVELOPMENT INTERN) Anatomical Region Laterality Modality Abdomen X-Ray Angiograph y 10/11/2021 4:03 PM DEVELOPMENT INTERN Impressions 10/11/2021 4:12 PM DEVELOPMENT INTERN Impression: Ultrasound-guided access of the perinephric collection [...] evaluation, please review the evaluation forms in [facility]. For details on monitored clinical parameters during the intra-service sedation time, please review the procedure nurse documentation in [facility]. This report was electronically signed by LISSET IVY M.D. ??on 10/11/2021 4:12 PM . Narrative 10/11/2021 4:12 PM DEVELOPMENT INTERN History: This is a 50-year-old male status [...] was provided with 1% Lidocaine. ??A 5 [place]ian coaxial needle system was advanced in stages [...] was provided with 1% Lidocaine. A 5 [place] coaxial needle system was advanced in stagesunder [...] intravenously in my presence, and monitored by thescionhealthcedure nurse as an independent trained observer who [...] evaluation, please review the evaluation forms in [employer]. For details on monitored clinical parameters during the intra-service sedation time, pleasereview the procedure nurse documentation in [employer]. This report was electronically signed by LISSET IVY M.D. on 10/11/2021 4:12 PM . Navneet Renteria MD IR ORDERABLES * US RENAL TRANSPLANT (09/29/2021 3:54 PM DEVELOPMENT INTERN) Only the most recent of2 resultswithin the time period is included. Anatomical Region Laterality Modality Abdomen Ultrasound 09/29/2021 4:03 PM DEVELOPMENT INTERN Impressions 09/29/2021 4:23 PM DEVELOPMENT INTERN IMPRESSION: 1. Interval development of a large [...] is recommended. Dictated by Edi Stratton MD (residential field manager). . I, Dr. PABLO APONTE have personally reviewed and interpreted this examination/study. This report was electronically signed by PABLO APONTE ??on 09/29/2021 4:23 PM . Narrative 09/29/2021 4:23 PM DEVELOPMENT INTERN EXAMINATION: Transplant renal sonogram HISTORY: N17.9: Acute [...] is recommended. Dictated by Edi Stratton MD (residential field manager). . I, Dr. PABLO APONTE have personally reviewed and interpreted this examination/study. This report was electronically signed by PABLO APONTE on 14:23 PM . Jeimy Renteria MD US ORDERABLES * CARDIAC EKG ORDER (09/20/2021 3:05 PM DEVELOPMENT INTERN) Only the most recent of3 resultswithin the time period is included. Narrative 09/20/2021 3:05 PM DEVELOPMENT INTERN Ordered by an unspecified provider. Scanned Document CARDIAC SERVICES ORD ERABLES * (ABNORMAL) GLUCOSE - POINT OF CARE (09/19/2021 12:13 PM DEVELOPMENT INTERN) Only the most recent of23 resultswithin the time period is included. Glucose WB/POC 116(H) 70 - 115 mg/dL 09/19/2021 12:18 PM [facility] Specimen Type Cap Fingerstick 2020 12:18 PM [facility] Blood BLOOD SPECIMEN / Unknown 09/19/2021 12:13 PM DEVELOPMENT INTERN 09/19/2021 12:18 PM DEVELOPMENT INTERN Michelle Fermin MD LAB - POINT OF CARE ORDERABLES Performing Organization Address City/[facility]/ZIP Co de Phone Number [address] [address], [facility] [phone] * (ABNORMAL) CALCIUM IONIZED WHOLE BLOOD (09/19/2021 5:38 AM DEVELOPMENT INTERN) Only the most recent of6 resultswithin the time period is included. Calcium Ionized 1.38 mmol/L 09/19/2021 6:02 AM [facility] pH 7.39 7.35 - 7.45 pH 09/19/2021 6:02 AM [facility] Ionized Calcium pH Adjusted 1.37(H) 1.19 - 1.34 mmol/L 09/19/2021 6:02 AM [facility] Blood BLOOD SPECIMEN / Unknown Lab Venipuncture / Unknown 09/19/2021 5:38 AM DEVELOPMENT INTERN 09/19/2021 5:59 AM DEVELOPMENT INTERN Jeimy Renteria MD LAB - CHEMISTRY ORDE NATHALIE Performing Organization Address City/[facility]/ZIP Co de Phone Number [address] [address], [facility] [phone] * (ABNORMAL) BASIC METABOLIC PANEL (CALCIUM TOTAL) (09/19/2021 5:38 AM DEVELOPMENT INTERN) Only the most recent of9 resultswithin the time period is included. BUN 38(H) 7 - 26 mg/dL 09/19/2021 6:29 AM [facility] Creatinine 2.27(H) 0.71 - 1.16 mg/dL 09/19/2021 6:29 AM [facility] Sodium 139 136 - 145 mmol/L 09/19/2021 6:29 AM [facility] Potassium 4.4 3.5 - 4.5 mmol/L 09/19/2021 6:29 AM [facility] Chloride 113(H) 98 - 107 mmol/L 09/19/2021 6:29 AM [facility] CO2 18(L) 22 - 29 mmol/L 09/19/2021 6:29 AM [facility] Glucose 87 70 - 115 mg/dL 09/19/2021 6:29 AM [facility] Calcium 9.7 8.4 - 10.2 mg/dL 09/19/2021 6:29 AM [facility] Anion Gap 12 8 - 18 09/19/2021 6:29 AM [facility] BUN/Creatinine Ratio 17 7 - 23 09/19/2021 6:29 AM [facility] Osmolality Calculated 296 270 - 300 mOsm/kg 09/19/2021 6:29 AM [facility] eGFR by CKD-EPI 32(L) >=90 mL/min/1.7 3 m2 09/19/2021 6:29 AM [facility] Blood BLOOD SPECIMEN / Unknown Lab Venipuncture / Unknown 09/19/2021 5:38 AM DEVELOPMENT INTERN 09/19/2021 6:01 AM DEVELOPMENT INTERN Ricky Estes PA-C LAB - CHEMISTRY ORD ERABLES [facility] [address] [place] [address], [facility] [phone] * CULTURE BLOOD (09/17/2021 8:18 AM DEVELOPMENT INTERN) Only the most recent of2 resultswithin the time period is included. Culture No growth day 5 [facility] 09/22/2021 11:30 AM [facility] Blood PERIPHERAL BLOOD / Unknown Lab Venipuncture / Unknown 09/17/2021 8:18 AM DEVELOPMENT INTERN 09/17/2021 8:21 AM DEVELOPMENT INTERN Michelle Fermin MD LAB - MICROBIO LOGY ORDERABLES [facility] [address] [place] [address], [facility] [phone] * (ABNORMAL) HEPATIC FUNCTION PANEL (09/15/2021 4:47 AM DEVELOPMENT INTERN) [facility] Protein Total 6.3 6.0 - 8.3 g/dL 8:12 AM [facility] Albumin 3.3(L) 3.4 - 5.0 g/dL 09/15/2021 8:12 AM [facility] Bilirubin Total 0.4 0.2 - 1.2 mg/dL 11/2020 8:12 AM [facility] Bilirubin Conjugated 0.1 0.1 - 0.5 mg/dL 09/15/2021 8:12 AM [facility] Bilirubin Unconjugated 0.3 Unconjugated Bilirubin is a calculated value: Reference ranges have not been established. mg/dL 09/15/2021 8:12 AM [facility] Alkaline Phosphatase 34(L) 40 - 150 U/L 09/15/2021 8:12 AM [facility] ALT 10 5 - 55 U/L 09/15/2021 8:12 AM [facility] AST 16 5 - 34 U/L 09/15/2021 8:12 AM [facility] Albumin/Globulin Ratio 1.1 1.1 - 2.3 09/15/2021 8:12 AM [facility] Blood BLOOD SPECIMEN / Unknown Venipuncture / Unknown 09/15/2021 4:47 AM DEVELOPMENT INTERN 09/15/2021 7:47 AM [facility] Jeimy Renteria MD LAB - CHEMISTRY PIPE ZELAYA [facility] [address] [place] [address], [place] [phone] * EKG 12-LEAD (09/14/2021 11:30 PM DEVELOPMENT INTERN) Only the most recent of2 resultswithin the time period is included. [facility] Ventricular Rate [address] [facility] MUSE Atrial Rate [address] [facility] MUSE P-R Interval 194 ms [facility] QRS Duration ms 86 ms [facility] Q-T Interval ms 358 ms [facility] QTC Calculation (Bezet) 426 ms [facility] Calculated P [place] 25 degrees [facility] Calculated R [place] 16 degrees [facility] Calculated T [place] 20 degrees [facility] Interpretation EKG NORMAL SINUS RHYTHM WITH SINUS ARRHYTHMIA NONSPECIFIC T WAVE ABNORMALITY OTHERWISE NORMAL ECG WHEN COMPARED WITH ECG OF 05-SEP-2021 08:07, T WAVE ABNORMALITIES NOW PRESENT IN ??INFERIOR LEADS Confirmed by Reji Hernandez ([id number]) on 09/19/2021 3:26:50 PM [facility]USE 09/14/2021 11:3 0 PM DEVELOPMENT INTERN 09/19/2021 3:26 PM DEVELOPMENT INTERN Jeimy Renteria MD ECG ORDERABLES [facility] MUSE * XR CHEST 1VW PORTABLE (09/14/2021 4:58 PM DEVELOPMENT INTERN) Anatomical Region Laterality Modality Chest Radiographic Shahnaz ging 09/15/2021 8:06 AM DEVELOPMENT INTERN Impressions 09/15/2021 3:31 PM DEVELOPMENT INTERN FINDINGS/IMPRESSION: The extreme lateral cost phrenic angles [...] is normal. Dictated by Raymond Mark DO (residential field manager). I, Dr. ELDA DOOLEY have personally reviewed and interpreted this examination/study. This report was electronically signed by ELDA DOOLEY ??on 09/15/2021 3:31 PM . Narrative 09/15/2021 3:31 PM DEVELOPMENT INTERN EXAMINATION: XR CHEST 1VW PORTABLE HISTORY: N18.6: [...] is normal. Dictated by Raymond Mark DO (residential field manager). IDr. ELDA have personally reviewed and interpreted this examination/study. This report was electronically signed by ELDA DOOLEY on 09/15/2021 3:31PM . Samantha Broussard MD DIAGNOSTIC IMAGING O RDERABLES * XR ABDOMEN KUB PORTABLE (09/14/2021 4:13 PM DEVELOPMENT INTERN) Anatomical Region Laterality Modality Abdomen Radiographic Shahnaz ging 09/15/2021 12:5 9 PM DEVELOPMENT INTERN Impressions 09/15/2021 3:24 PM DEVELOPMENT INTERN FINDINGS/IMPRESSION: Metallic clips, double-J stent, and a [...] trochanter. Report drafted by Hailee Carmen MD (Mirror Framer). I, Dr. ELDA DOOLEY have personally reviewed and interpreted this examination/study. This report was electronically signed by ELDA DOOLEY ??on 09/15/2021 3:24 PM . Narrative 09/15/2021 3:24 PM DEVELOPMENT INTERN EXAMINATION: XR ABDOMEN KUB PORTABLE HISTORY: N18.6: [...] trochanter. Report drafted by Hailee Carmen MD (Mirror Framer). I, Dr. ELDA DOOLEY have personally reviewed and interpreted this examination/study. This report was electronically signed by ELDA DOOLEY on 09/15/2021 3:24PM . Jeimy Renteria MD DIAGNOSTIC IMAGING O RDERABLES * (ABNORMAL) BLOOD GAS+COOX+ELECTROLYTES+METAB ARTERIAL (09/14/2021 2:17 PM DEVELOPMENT INTERN) Only the most recent of2 resultswithin the time period is included. pH Arterial 7.35 7.35 - 7.45 pH 09/14/2021 2:29 PM [facility] pO2 Arterial 351(H) 80 - 100 mmHg 09/14/2021 2:29 PM [facility] pCO2 Arterial 35 35 - 45 mmHg 2:29 PM [facility] HCO3 Arterial 19(L) 20 - 30 mmol/l 09/14/2021 2:29 PM [facility] BE Arterial -5.7(L) -2.0 - 2.0 mmol/L 09/14/2021 2:29 PM [facility] Oxyhemoglobin Arterial 97.8 % 09/14/2021 2:29 PM [facility] Dexoyhemoglobin (HHB) % 1.3 % 09/14/2021 2:29 PM [facility] Methemoglobin <0.8 0.0 - 2.0 % 09/14/2021 2:29 PM [facility] Carboxyhemoglobin 0.8 0.0 - 2.0 % 2020 2:29 PM [facility] O2 Content Arterial 12.7 Interpret within clinical context mg/dL 09/14/2021 2:29 PM [facility] Hemoglobin by COOX 8.5(L) 12.0 - 17.6 g/dL 09/14/2021 2:29 PM [facility] O2 Saturation Arterial 99 90 - 100 % 09/14/2021 2:29 PM [facility] Sodium Whole Blood 141 135 - 145 mmol/L 09/14/2021 2:29 PM [facility] Potassium Whole Blood 5.1 3.5 - 5.5 mmol/L 09/14/2021 2:29 PM [facility] Chloride WB 109 101 - 111 mmol/L 09/14/2021 2:29 PM [facility] Calcium Ionized 1.22 mmol/L 2:29 PM [facility] Ionized Calcium pH Adjusted 1.20 1.19 - 1.34 mmol/L 09/14/2021 2:29 PM [facility] Anion Gap (AG) Arterial 18 8 - 18 mmol/L 09/14/2021 2:29 PM [facility] Glucose WB 98 70 - 105 mg/dL 09/14/2021 2:29 PM [facility] Lactic Acid Whole Blood 1.1 <=2.0 mmol/L 09/14/2021 2:29 PM [facility] Blood, arterial ARTERIAL BLOOD SPECIMEN / Unknown Arterial Puncture / Unknown 09/14/2021 2:17 PM DEVELOPMENT INTERN 09/14/2021 2:22 PM [facility] - 09/14/2021 2:29 PM [facility] Carboxyhemoglobin Normal Concentration: Non-smokers: 0-2%; Smokers: 0-9%; Toxic: >20% Samantha Broussard MD LAB - BLOOD GASES OR DERABLES [facility] [address] [place] [address], [facility] [phone] * CENTRAL LINE PERFORMABLE (09/14/2021 2:00 PM DEVELOPMENT INTERN) Narrative Gene Juan MD - 09/14/2021 2:00 PM DEVELOPMENT INTERN Gene Juan MD ? 09/14/2021 ??2:01 PM [...] ART + COOX PANEL (09/14/2021 11:40 AM [facility]) pH Arterial 7.36 7.35 - 7.45 pH 09/14/2021 11:49 AM [facility] pO2 Arterial 199(H) 80 - 100 mmHg 09/14/2021 11:49 AM [facility] pCO2 Arterial 36 35 - 45 mmHg 11:49 AM [facility] HCO3 Arterial 20 20 - 30 mmol/l 09/14/2021 11:49 AM [facility] BE Arterial -4.6(L) -2.0 - 2.0 mmol/L 09/14/2021 11:49 AM [facility] Oxyhemoglobin Arterial 97.8 % 09/14/2021 11:49 AM [facility] Dexoyhemoglobin (HHB) % 1.7 % 09/14/2021 11:49 AM [facility] Methemoglobin <0.8 0.0 - 2.0 % 09/14/2021 11:49 AM [facility] Carboxyhemoglobin 0.5 0.0 - 2.0 % 2020 11:49 AM [facility] O2 Content Arterial 13.1 Interpret within clinical context mg/dL 09/14/2021 11:49 AM [facility] Hemoglobin by COOX 9.2(L) 12.0 - 17.6 g/dL 09/14/2021 11:49 AM [facility] O2 Saturation Arterial 98 90 - 100 % 09/14/2021 11:49 AM [facility] FI O2 Arterial 40.0 % 09/14/2021 11:49 AM [facility] Blood, arterial ARTERIAL BLOOD SPECIMEN / Unknown Arterial Puncture / Unknown 09/14/2021 11:40 AM [facility] 09/14/2021 11:44 AM [facility] Narrative [facility] - 09/14/2021 11:49 AM [facility] Carboxyhemoglobin Normal Concentration: Non-smokers: 0-2%; Smokers: 0-9%; Toxic: >20% Samantha Broussard MD LAB - BLOOD GASES OR DERABLES [facility] [address] [place] [address], [facility] [phone] * ETT LINE PERFORMABLE (09/14/2021 11:35 AM [facility]) Narrative Gene Juan MD - 09/14/2021 11:35 AM DEVELOPMENT INTERN Gene Juan MD ? 09/14/2021 11:35 AM Endotracheal Tube Placement: ? Patient Location: OR. Intubation Event Date/Time: ??09/14/2021 10:41 AM Procedure: intubation ([id number]). Procedure Section: ?? Sedation: IV sedation. Indications [...] * ARTERIAL LINE PERFORMABLE (09/14/2021 10:51 AM DEVELOPMENT INTERN) Narrative Gene Juan MD - 09/14/2021 10:51 AM DEVELOPMENT INTERN Gene Juan MD ? 09/14/2021 10:52 AM Arterial Line Placement Procedure Note Patient Location: OR. Procedure: Arterial Line (43277). Procedure Section ?? Indications: continuous blood pressure [...] TYPE + SCREEN PANEL (09/14/2021 8:05 AM DEVELOPMENT INTERN) Only the most recent of2 resultswithin the time period is included. Antibody Screen NEG 9:08 AM [facility] LAB ABO Rh O POS 09/14/2021 9:08 AM [facility] LAB Blood Bank BLOOD SPECIMEN / Unknown Venipuncture / Unknown 09/14/2021 8:05 AM DEVELOPMENT INTERN 09/14/2021 8:28 AM DEVELOPMENT INTERN Kathryn Colse APRN-INTERNET MARKETING MANAGER LAB - BLO OD BANK ORDERABLES [facility] BLOOD [facility] LAB [address] [place] [address], [facility] [phone] * HCV AB DONOR (09/14/2021 8:04 AM DEVELOPMENT INTERN) Hepatitis C Antibody Negative Negative 09/18/2021 6:07 PM DEVELOPMENT INTERN [facility] ([facility]) Comment:Test performed with Ortho Hepatitis C Virus Antibody kit version 3.0. Blood BLOOD SPECIMEN / Unknown Venipuncture / Unknown 09/14/2021 8:04 AM DEVELOPMENT INTERN 09/14/2021 8:26 AM DEVELOPMENT INTERN Narrative [facility] ([facility]) - 09/18/2021 6:07 PM DEVELOPMENT INTERN Performed at: ??01 - [facility] [address] [place] [address] ??[phone] Character Impersonator: Eleni Decker PhD, Phone: ??[phone] Ricky Estes PA-C LAB - CHEMISTRY ORD ERABLES Performing Organization Address City/[facility] Co de Phone Number [facility] ([facility]) [phone] * HIV-1 HIV-2 ANTIBODY + HIV P24 AG PANEL (09/14/2021 8:04 AM DEVELOPMENT INTERN) Only the most recent of2 resultswithin the time period is included. HIV Antigen/Antibod y 1 & 2 Non-reacti ve Non-react heather 09/14/2021 9:[address] [facility] Comment:No Laboratory eviden ce of HIV infection. Blood BLOOD SPECIMEN / Unknown Venipuncture / Unknown 09/14/2021 8:04 AM DEVELOPMENT INTERN 09/14/2021 8:26 AM DEVELOPMENT INTERN Ricky Estes PA-C LAB - CHEMISTRY ORD ERABLES [facility] [address] [place] [address], [facility] [phone] * HEPATITIS B SURFACE ANTIBODY QUANT (09/14/2021 8:04 AM DEVELOPMENT INTERN) Pathologist [facility] Hepatitis B Virus Surface Antibody 20.13 IU/L 09/16/2021 8:01 AM DEVELOPMENT INTERN [employer] ([facility]) Comment: The anti-HBs is greater than or [...] Cellular and Tissue-Based Products (HCT/P). Performed By: [facility] [address] [place] [address] Ship Rigger Apprentice: Mckayla Loomis MD Blood BLOOD SPECIMEN / Unknown Venipuncture / Unknown 09/14/2021 8:04 AM DEVELOPMENT INTERN 09/14/2021 8:26 AM DEVELOPMENT INTERN Ricky Estes PA-C LAB - SEROLOGY PIPE ZELAYA NMJildy [facility]) [address] * HEPATITIS C RNA QUANTITATIVE (09/14/2021 8:04 AM DEVELOPMENT INTERN) Pathologist [facility] Hepatitis C RNA PCR, Interp Not detected Not detected 09/15/2021 3:53 PM DEVELOPMENT INTERN [facility] Blood BLOOD SPECIMEN / Unknown Venipuncture / Unknown 09/14/2021 8:04 AM DEVELOPMENT INTERN 09/14/2021 8:26 AM DEVELOPMENT INTERN Narrative [facility] - 09/15/2021 3:53 PM DEVELOPMENT INTERN The Hepatitis C viral (HCV) RNA analysis utilized a serum sample, real-time reverse fruit canner PCR, and is reported as Not Detected, [...] the isolation of HCV RNA with reverse fruit canner of genomic HCV RNA followed by real-time PCR in the presence of an unrelated RNA internal control. ??The internal control ensures that RNA is isolated, and that no general significant inhibitors of the RT-PCR process are present. The analysis was performed using a U.S. FDA approved test methodology (Diavibe Real Time HCV). Ricky Estes PA-C LAB - CHEMISTRY ORD [facility] [address] [place], [place] [address], [facility] [phone] * POTASSIUM WHOLE BLD (09/14/2021 8:04 AM DEVELOPMENT INTERN) Potassium Whole Blood 4.8 3.5 - 5.5 mmol/L 09/14/2021 8:35 AM DEVELOPMENT INTERN [facility] Blood WHOLE BLOOD SPECIMEN / Unknown Venipuncture / Unknown 09/14/2021 8:04 AM DEVELOPMENT INTERN 09/14/2021 8:32 AM DEVELOPMENT INTERN Jeimy Renteria MD LAB - CHEMISTRY ORDDelisa ZELAYA [address] [address], [facility] [phone] * HEPATITIS B CORE ANTIBODY (09/14/2021 8:04 AM DEVELOPMENT INTERN) Only the most recent of3 resultswithin the time period is included. Pathologist [facility] HBc Antibody Total Non-reacti ve Non-reacti ve 09/14/2021 9:37 AM DEVELOPMENT INTERN [facility] Blood BLOOD SPECIMEN / Unknown Venipuncture / Unknown 09/14/2021 8:04 AM DEVELOPMENT INTERN 09/14/2021 8:26 AM DEVELOPMENT INTERN Ricky Estes PA-C LAB - CHEMISTRY ORD ERABLES [address] [address], [facility] [phone] * HEPATITIS B SURFACE ANTIGEN W RFLX CONFIRMATION (09/14/2021 8:04 AM DEVELOPMENT INTERN) Only the most recent of3 resultswithin the time period is included. [facility] Hepatitis B Virus Surface Antigen Non-reacti ve Non-reacti ve 09/14/2021 9:37 AM DEVELOPMENT INTERN [facility] Blood BLOOD SPECIMEN / Unknown Venipuncture / Unknown 09/14/2021 8:04 AM DEVELOPMENT INTERN 09/14/2021 8:26 AM DEVELOPMENT INTERN Ricky Estes PA-C LAB - CHEMISTRY ORD ERABLES [address] [address], [facility] [phone] * SARS-COV-2 (COVID-19) PRE-SURGICAL/PROCEDURE (09/12/2021 8:42 AM DEVELOPMENT INTERN) Only the most recent of2 resultswithin the time period is included. [facility] COVID-19 PCR Not detected Not detected 09/12/2021 5:18 PM DEVELOPMENT INTERN [facility] Microbiology SPECIMEN FROM NASOPHARYNGEAL STRUCTURE / Unknown Collection / Unknown 09/12/2021 8:42 AM DEVELOPMENT INTERN 09/12/2021 9:33 AM DEVELOPMENT INTERN Narrative [facility] - 09/12/2021 5:18 PM DEVELOPMENT INTERN This nucleic acid amplification assay performance was validated by [facility]. This test has been authorized [...] Renteria MD LAB - MICROBIOLOGY O RDERABLES [facility] [address] [place] [address], [facility] [phone] * CT ABDOMEN PELVIS WO CONTRAST (09/05/2021 3:09 PM DEVELOPMENT INTERN) Anatomical Region Laterality Modality Abdomen, Pelvis Computed Tomogra phy 09/05/2021 3:27 PM DEVELOPMENT INTERN Impressions 09/05/2021 4:33 PM DEVELOPMENT INTERN Impression: 1.Bilateral atrophic kidneys consistent with end-stage renal disease. 2.Unremarkable other abdominal viscera. No suggestion of intra-abdominal fluid collection or infection. Report drafted by Mookie Blas (resident) Dr. ENZO Esparza MD, [facility] have personally reviewed and interpreted this examination/study. This report was electronically signed by ENZO PAULSON MD, FRCR ??on 09/05/2021 4:33 PM . Narrative 09/05/2021 4:33 PM DEVELOPMENT INTERN Procedure Information DATE: 09/05/2021 3:09 PM EXAMINATION: [...] by Mookie Blas (resident) IDr. ENZO MD, [facility] have personally reviewedand interpreted this examination/study. This report was electronically signed by ENZO PAULSON MD, [facility] on 09/05/2021 4:33 PM . Jeimy Renteria MD CT ORDERABLES * PT-INR [facility] (09/05/2021 12:17 PM DEVELOPMENT INTERN) PT 14.4 12.1 - 14.8 Seconds 09/05/2021 1:[address] [facility] INR 1.1 See Comment 09/05/2021 1:[address] [facility] Comment:The suggested therap eutic range for standard coumadin (warfarin) therapy is an INR of 2.0-3.0. For high-risk patients (Mechanical Mitral Valve Prosthesis, etc.), the suggested prophylactic therapeutic range is an INR of 2.5-3.5. Blood BLOOD SPECIMEN / Unknown Lab Venipuncture / Unknown 09/05/2021 12:17 PM DEVELOPMENT INTERN 09/05/2021 12:36 PM DEVELOPMENT INTERN Farhat Johnson MD LAB - COAGULATION OR DERABLES Performing Organization Address [facility]/State/ZIP Co de Phone Number [facility] [address] [place] [address], [facility] [phone] * FLOW HLA XM LIVING DONOR (09/05/2021 12:17 PM DEVELOPMENT INTERN) Only the most recent of2 resultswithin the time period is included. Flow XM Donor First Name Talisha 09/07/2021 1:53 PM DEVELOPMENT INTERN [facility] ([employer]) Flow XM Donor Last Name JOSUE 09/07/2021 1:53 PM DEVELOPMENT INTERN [facility] ([employer]) Flow XM Relation Cousin 09/07/20 1:53 PM DEVELOPMENT INTERN [facility] ([employer]) Flow XM T Cell Neg MCS 6 09/07/2021 1:53 PM DEVELOPMENT INTERN [facility] ([facility]) Flow XM Serum Date 09/05/20212020 1:53 PM [facility] ([facility]) Flow XM Test Date 09/07/2021 021 1:53 PM [facility] ([facility]) Comment: This test was developed and its performance characteristics determined by the [facility]. ??It has not been cleared [...] high complexity clinical laboratory testing. ??CLIA ID# [id number] Performed at: [facility], [address] [place], [place] ??[address] Character Impersonator:Dr. Cristhian Luna, PhD, Flow XM B Cell Neg MCS -39 09/07/2021 1:53 PM [facility] ([facility]) Blood BLOOD SPECIMEN / Unknown Lab Venipuncture / Unknown 09/05/2021 12:17 PM DEVELOPMENT INTERN 09/05/2021 12:41 PM DEVELOPMENT INTERN Farhat Johnson MD LAB - PATHOLOGY/CYTO LOGY ORDERABLES [facility] ([facility]) [address] [place] [address], [facility] * CANNABINOID SCREEN BLOOD (09/05/2021 12:17 PM DEVELOPMENT INTERN) Only the most recent of2 resultswithin the time period is included. Marijuana Metabolites Negative 09/14/2021 10:06 PM DEVELOPMENT INTERN [facility] ([facility]) Comment:REFERENCE RANGE: thr shold: 5 ng/mL Specimen Type Comment 09/14/2021 10:06 PM DEVELOPMENT INTERN [facility] ([facility]) Comment: WHOLE BLOOD This specimen was screened by immunoassay at the thresholds listed above. Presumptive positive results have not been confirmed by an alternate method; results are intended for clinical medical purposes. Please contact the laboratory if confirmatory testing is desired. This test was developed and its performance characteristics determined by [employer]. It has not been cleared or approved by the Food and Drug Administration. Blood BLOOD SPECIMEN / Unknown Lab Venipuncture / Unknown 09/05/2021 12:17 PM DEVELOPMENT INTERN 09/05/2021 12:41 PM DEVELOPMENT INTERN Narrative [facility] ([facility]) - 09/14/2021 10:06 PM DEVELOPMENT INTERN Performed at: ??01 - [employer] [address] [place] [address] ??[phone] Character Impersonator: Donya Peck [facility], Phone: ??[phone] Farhat Johnson MD LAB - CHEMISTRY [facility] ([facility]) [address] [place] [address], [facility] * COCAINE METABOLITE QUANT (09/05/2021 12:17 PM DEVELOPMENT INTERN) Only the most recent of2 resultswithin the time period is included. [facility] Cocaine and Metabolite Blood <20 ng/mL 09/08/2021 4:29 PM DEVELOPMENT INTERN [facility] ([facility]) Comment: INTERPRETIVE INFORMATION: Cocaine Metabolite, Serum or [...] developed and its performance characteristics determined by [facility]. It has not been cleared or approved by the [place] Food and Drug Administration. This test was performed in a CLIA certified laboratory and is intended for clinical purposes. Performed By: [facility] [address] [place] [address] Ship Rigger Apprentice: Mckayla Loomis MD Blood BLOOD SPECIMEN / Unknown Lab Venipuncture / Unknown 09/05/2021 12:17 PM DEVELOPMENT INTERN 09/05/2021 12:39 PM DEVELOPMENT INTERN Farhat Johnson MD LAB - CHEMISTRY ORDE NATHALIE NMJildy [facility]) [address] [place] [address], [facility] * SYPHILIS ANTIBODY CASCADING REFLEX (09/05/2021 12:17 PM DEVELOPMENT INTERN) Only the most recent of2 resultswithin the time period is included. Treponema pallidum Antibody Non-react heather Non-react heather 09/05/2021 2:[address] [facility] Comment: No Laboratory evidence of syphilis infection. ?? Note: ??Circulating antibodies may be low or undetectable in early infection. ??If recent exposure is suspected, re-draw sample in 2-4 weeks and repeat testing. Blood BLOOD SPECIMEN / Unknown Lab Venipuncture / Unknown 09/05/2021 12:17 PM DEVELOPMENT INTERN 09/05/2021 12:39 PM DEVELOPMENT INTERN Farhat Johnson MD LAB - SEROLOGY ORDER MICHAEL Performing Organization Address City/[facility]/ZIP Co de Phone Number [facility] [address] [place] [address], [facility] [phone] * AMPHETAMINE BLOOD CONFIRMATION (09/05/2021 12:17 PM DEVELOPMENT INTERN) Only the most recent of2 resultswithin the time period is included. Amphetamines Confirmation <20 ng/mL 09/09/2021 10:55 PM DEVELOPMENT INTERN [facility] ([facility]) Comment: INTERPRETIVE INFORMATION: Amphetamines, Serum or ?Plasma, [...] developed and its performance characteristics determined by [facility]. It has not been cleared or approved by the [place] Food and Drug Administration. This test was performed in a CLIA certified laboratory and is intended for clinical purposes. Methamphetamine Confirmation <20 ng/mL 09/09/2021 10:55 PM DEVELOPMENT INTERN [facility] ([facility]) MDA Confirmation <20 ng/mL 09/09/20 21 10:55 PM DEVELOPMENT INTERN [facility] ([facility]) MDMA Confirm <20 ng/mL 09/09/2021 10:55 PM DEVELOPMENT INTERN [facility] ([facility]) MDEA Confirmation <20 ng/mL 021 10:55 PM DEVELOPMENT INTERN [facility] ([facility]) Comment: Performed By: [facility] [address] [place] [address] Ship Rigger Apprentice: Mckayla Loomis MD Blood BLOOD SPECIMEN / Unknown Lab Venipuncture / Unknown 09/05/2021 12:17 PM DEVELOPMENT INTERN 09/05/2021 12:39 PM DEVELOPMENT INTERN Farhat Johnson MD LAB - CHEMISTRY PIPE ZELAYA [facility] [employer] [facility]) [address] [place] [address], [facility] * OPIATES BLOOD (09/05/2021 12:17 PM DEVELOPMENT INTERN) Only the most recent of2 resultswithin the time period is included. [facility] Opiates Screen Negative 09/14/2021 10:10 AM DEVELOPMENT INTERN [facility] ([facility]) Comment:REFERENCE RANGE: thr shold: 10 ng/mL Oxycodone Screen Negative 09/14/20 10:10 AM DEVELOPMENT INTERN [facility] ([facility]) Comment:REFERENCE RANGE: thr shold: 10 ng/mL Specimen Type Comment 09/14/2021 10:10 AM DEVELOPMENT INTERN [facility] ([facility]) Comment: WHOLE BLOOD This specimen was screened [...] Lab Venipuncture / Unknown 09/05/2021 12:17 PM DEVELOPMENT INTERN 09/05/2021 12:41 PM DEVELOPMENT INTERN Narrative [facility] ([facility]) - 09/14/2021 10:10 AM DEVELOPMENT INTERN Performed at: ??01 - [employer] [address] [place] [address] ??[phone] Character Impersonator: Donya Chaparro, Phone: ??[phone] Farhat Johnson MD LAB - CHEMISTRY PIPE ZELAYA [facility] ([facility]) [address] [place] [address] * STRONGYLOIDES ANTIBODY IGG (09/05/2021 12:17 PM DEVELOPMENT INTERN) Only the most recent of2 resultswithin the time period is included. Strongyloides Antibody IgG 0.2 <=0.9 IV 09/08/2021 1:57 PM DEVELOPMENT INTERN [employer] ([facility]) Comment: INTERPRETIVE INFORMATION: Strongyloides Ab, IgG by [...] also result in false-positive results. Performed By: [facility] [address] [place] [address] Ship Rigger Apprentice: Mckayla Loomis MD Blood BLOOD SPECIMEN / Unknown Lab Venipuncture / Unknown 09/05/2021 12:17 PM DEVELOPMENT INTERN 09/05/2021 12:39 PM DEVELOPMENT INTERN Farhat Johnson MD LAB - SEROLOGY ORDER MICHAEL [facility] ([facility]) [address] [place] [address], [facility] * CYTOMEGALOVIRUS ANTIBODY IGG BLOOD (09/05/2021 12:17 PM DEVELOPMENT INTERN) Only the most recent of2 resultswithin the time period is included. Cytomegalovirus Antibody IgG <0.20 U/mL 09/07/2021 4:16 AM DEVELOPMENT INTERN [facility] ([facility]) Comment: INTERPRETIVE INFORMATION: Cytomegalovirus Antibody, IgG ??0.59 [...] laboratory at the same time. Performed By: [facility] [address] [place] [address] Ship Rigger Apprentice: Mckayla Loomis MD Blood BLOOD SPECIMEN / Unknown Lab Venipuncture / Unknown 09/05/2021 12:17 PM DEVELOPMENT INTERN 09/05/2021 12:40 PM DEVELOPMENT INTERN Farhat Johnson MD LAB - CHEMISTRY PIPE ZELAYA NMJildy ([facility]) [address] [place] [address], [facility] * TOXOPLASMA GONDII ANTIBODY IGG (09/05/2021 12:17 PM DEVELOPMENT INTERN) Only the most recent of2 resultswithin the time period is included. [facility] Toxoplasma Antibody IgG <3.0 IU/mL 09/10/2021 4:43 AM DEVELOPMENT INTERN [facility] Quick[employer] ([facility]) Comment: INTERPRETIVE INFORMATION: Toxoplasma Ab, IgG ??7.1 [...] the amount of antibody present. Performed By: [facility] [address] [place] [address] Ship Rigger Apprentice: Mckayla Loomis MD Blood BLOOD SPECIMEN / Unknown Lab Venipuncture / Unknown 09/05/2021 12:17 PM DEVELOPMENT INTERN 09/05/2021 12:39 PM DEVELOPMENT INTERN Farhat Johnson MD LAB - CHEMISTRY PIPE ZELAYA [facility] [employer] ([facility]) [address] [place] [address], [facility] * HEMOGLOBIN A1C (09/05/2021 12:17 PM DEVELOPMENT INTERN) Only the most recent of2 resultswithin the time period is included. Hemoglobin A1c 5.2 4.4 - 6.3 % 09/06/2021 10:[address] [facility] Estimated Average Glucose 103 mg/dL 09/06/2021 10:[address] [facility] Comment: HbA1c Interpretation: Treatment target values recommended by ADA and other clinical organizations should be used to evaluate metabolic control in patients. Treatment Target Values: Normal : < 5.7% Pre-diabetes: 5.7-6.4% Diabetes: Equal to or greater than 6.5% Reference: [place] [employer] Standards of Care in Diabetes -2014 In patients 70 years and older consider HbA1c target range of 7.0-7.5% Reference: ??Diabetes Mellitus in Older People: Position Statement on behalf of the International Association of Gerontology and Geriatrics (IAGG), the Diabetes Working Constitution Party for Older People (EDWPOP), and the International Task Force of Experts in Diabetes. ??Salomón Calvillo, et al. J [place] [employer] Association. 2012 Test results diagnostic of diabetes should be repeated for confirmation. The Sebia Capillary 2 assay for the measurement of HbA1c is a National Glycohemoglobin Standardization Program (NGSP)certified method. Blood BLOOD SPECIMEN / Unknown Lab Venipuncture / Unknown 09/05/2021 12:17 PM DEVELOPMENT INTERN 09/05/2021 12:51 PM DEVELOPMENT INTERN Farhat Johnson MD LAB - CHEMISTRY PIPE ZELAYA [facility] [address] [place] [address], [facility] [phone] * NICOTINE + METABOLITES BLOOD (09/05/2021 12:17 PM DEVELOPMENT INTERN) Only the most recent of2 resultswithin the time period is included. Nicotine <2 ng/mL 09/08/2021 2:25 PM DEVELOPMENT INTERN [facility] ([facility]) Comment: Consistent with abstinence from nicotine-containing products [...] developed and its performance characteristics determined by [facility]. It has not been cleared or approved by the US Food and Drug Administration. This test was performed in a CLIA certified laboratory and is intended for clinical purposes. Performed By: [facility] [address] [place] [address] Ship Rigger Apprentice: Mckayla Loomis MD 3-Hydroxy Cotinine <2 ng/mL 2020 2:25 PM DEVELOPMENT INTERN [facility] QuickProNotes [facility]) Cotinine <2 ng/mL 09/08/2021 2:25 PM DEVELOPMENT INTERN [facility] [employer] [facility]) Blood BLOOD SPECIMEN / Unknown Lab Venipuncture / Unknown 09/05/2021 12:17 PM DEVELOPMENT INTERN 09/05/2021 12:39 PM DEVELOPMENT INTERN Farhat Johnson MD LAB - CHEMISTRY PIPE ZELAYA [facility] QuickPro[employer] [facility]) [address] * PROSTATE SPECIFIC ANTIGEN SCREEN (09/05/2021 12:17 PM DEVELOPMENT INTERN) Only the most recent of2 resultswithin the time period is included. [facility] PSA Total 1.0 0.0 - 4.0 ng/mL 09/05/2021 1:41 PM DEVELOPMENT INTERN [facility] Blood BLOOD SPECIMEN / Unknown Lab Venipuncture / Unknown 09/05/2021 12:17 PM DEVELOPMENT INTERN 09/05/2021 12:50 PM DEVELOPMENT INTERN Farhat Johnson MD LAB - CHEMISTRY PIPE ZELAYA Performing Organization Address [facility]/ZIP Co de Phone Number [facility] [address] [place] [phone], [place] [phone] * (ABNORMAL) HEPATITIS B SURFACE ANTIBODY (09/05/2021 12:17 PM DEVELOPMENT INTERN) Only the most recent of2 resultswithin the time period is included. [facility] Hepatitis B Virus Surface Antibody Reactive( A) Non-react heather 09/05/2021 2:16 PM [facility] Comment: > 12 mIU/mL Hepatitis B surface Antibody (HBsAb). Reactive for HBsAb - individual is considered immune to Hepatitis B Virus infection. Hepatitis B Surface Antibody Quantitative 21.3(H) <8.0 mIU/mL 09/05/2021 2:16 PM [facility] Comment: Hepatitis B Surface Antibody Numeric Result Interpretation: ? Nonreactive: ?<8.0 mIU/mL ? Indeterminate: ??8.0 - 12.0 mIU/mL ? Reactive: ?>12.0 mIU/mL ? Blood BLOOD SPECIMEN / Unknown Lab Venipuncture / Unknown 09/05/2021 12:17 PM DEVELOPMENT INTERN 09/05/2021 12:39 PM DEVELOPMENT INTERN Farhat Johnson MD LAB - CHEMISTRY PIPE ZELAYA Performing Organization Address [facility]/ZIP Co de Phone Number [facility] [address] [place] [phone], [place] [phone] * ALCOHOL ETHYL BLOOD (09/05/2021 12:17 PM DEVELOPMENT INTERN) Only the most recent of2 resultswithin the time period is included. Ethanol (mg/dL) <10 <10 mg/dL 2:41 PM DEVELOPMENT INTERN [facility] Ethanol Calculated (g/dL) <0.010 <0.010 g/dL 09/05/2021 2:41 PM DEVELOPMENT INTERN [facility] Blood BLOOD SPECIMEN / Unknown Lab Venipuncture / Unknown 09/05/2021 12:17 PM DEVELOPMENT INTERN 09/05/2021 12:50 PM DEVELOPMENT INTERN Narrative [facility] - 09/05/2021 2:41 PM DEVELOPMENT INTERN Ethanol Interp <10: None Detected. Depression of INTERNET MARKETING MANAGER: >100 mg/dl Potentially Critical: >250 mg/dl Potentially [...] Johnson MD LAB - CHEMISTRY PIPE ZELAYA [address] [address], [facility] [phone] * HEPATITIS C ANTIBODY (09/05/2021 12:17 PM DEVELOPMENT INTERN) Only the most recent of2 resultswithin the time period is included. Hepatitis C Antibody Non-react heather Non-reac tive 09/05/2021 2:16 PM DEVELOPMENT INTERN [facility] Comment:Hepatitis C Antibody screen indicates no serologic evidence of past or current infection with Hepatitis C Virus. Patients with unexplained liver disease who are immunocompromised or suspected of having acute Hepatitis C infection may benefit from Nucleic Acid Test (TOBIAS) for Hepatitis C Viral RNA to confirm Hepatitis C status. Blood BLOOD SPECIMEN / Unknown Lab Venipuncture / Unknown 09/05/2021 12:17 PM DEVELOPMENT INTERN 09/05/2021 12:39 PM DEVELOPMENT INTERN Farhat Johnson MD LAB - CHEMISTRY PIPE ZELAYA [facility] [address] [place] [address], [facility] [phone] * HEPATITIS A ANTIBODY (09/05/2021 12:17 PM DEVELOPMENT INTERN) Only the most recent of2 resultswithin the time period is included. Hepatitis A Virus Antibody Total Negative Negative 09/07/2021 10:49 AM DEVELOPMENT INTERN [employer] ([facility]) Comment: Performed by [facility], [address] [place] [address] [email or web address], Mckayla Loomis MD, Lab. Director Blood BLOOD SPECIMEN / Unknown Lab Venipuncture / Unknown 09/05/2021 12:17 PM DEVELOPMENT INTERN 09/05/2021 12:39 PM DEVELOPMENT INTERN Farhat Johnson MD LAB - CHEMISTRY PIPE ZELAYA Performing Organization Address [facility] Co de Phone Number NMJildy [facility]) [address] * ECHO STRESS TEST W DOBUTAMINE (09/05/2021 11:35 AM DEVELOPMENT INTERN) Only the most recent of2 resultswithin the time period is included. Anatomical Region Laterality Modality Chest Echo 09/05/2021 10:3 6 AM DEVELOPMENT INTERN Narrative Procedure Note Radha Augustin MD - 09/05/2021 Farhat Johnson MD ECHOCARDIOGRAPHY RAD IANT * XR CHEST PA AND LATERAL (09/05/2021 8:21 AM DEVELOPMENT INTERN) Only the most recent of2 resultswithin the time period is included. Anatomical Region Laterality Modality Chest Radiographic Shahnaz ging 09/05/2021 2:05 PM DEVELOPMENT INTERN Impressions 09/05/2021 5:58 PM DEVELOPMENT INTERN FINDINGS/IMPRESSION: Lines and tubes: Right internal jugular approach dialysis catheter is present with the tip positioned at the cavoatrial junction. There is no focal consolidation or pneumothorax. No evidence of pleural effusion, however the right lateral costophrenic angle is only partially included in the [id number]. The cardiomediastinal silhouette is normal. The visible bony thorax is intact. Report drafted by Hailee Carmen MD (Mirror Framer). I, Dr. ELDA DOOLEY have personally reviewed and interpreted this examination/study. This report was electronically signed by ELDA DOOLEY ??on 09/05/2021 5:58 PM . Narrative 09/05/2021 5:58 PM DEVELOPMENT INTERN EXAMINATION: XR CHEST 2VW HISTORY: Z76.82: Pre-kidney [...] angle is only partially included in the [id number]. The cardiomediastinal silhouette isnormal. The visible bony thorax is intact. Report drafted by Hailee Carmen MD (Mirror Framer). I, Dr. ELDA DOOLEY have personally reviewed [...] not visualized. Dictated by Chris Delaney DO (residential field manager). I, Dr. PABLO APONTE have personally [...] not visualized. Dictated by Chris Delaney DO (residential field manager). I, Dr. PABLO APONTE have personally [...] BILAT MAPPING FOR HEMODIALYSIS (10/06/2020 12:33 PM DEVELOPMENT INTERN) Anatomical Region Laterality Modality Lower Extremity, Upper Extremity Echo 10/06/2020 10:4 8 AM DEVELOPMENT INTERN Narrative Procedure Note She Magana MD - 10/06/2020 She Magana MD VASCULAR LAB ORDER MICHAEL * XR PANOREX (10/06/2020 10:36 AM DEVELOPMENT INTERN) Anatomical Region Laterality Modality Head Radiographic Shahnaz ging 10/06/2020 10:4 7 AM DEVELOPMENT INTERN Impressions 10/06/2020 3:13 PM DEVELOPMENT INTERN IMPRESSION: No evidence of periapical abscess. Dictated by Anna Fuentes MD (residential field manager). Dr. SHE Esparza have personally reviewed and interpreted this examination/study. This report was electronically signed by SHE MEZA ??on 10/06/2020 3:13 PM . Narrative 10/06/2020 3:13 PM DEVELOPMENT INTERN EXAMINATION: Panorex HISTORY: Z01.818: Pre-transplant evaluation for [...] evidence of periapical abscess. Dictated by Anna Fuenets MD (residential field manager). I, Dr. SHE MEZA have personally reviewed and interpreted this examination/study. This report was electronically signed by SHE MEZA on 10/06/2020 3:13 PM . Ambrose Pradhan MD DIAGNOSTIC IMAG ING ORDERABLES * HLA TYPING DNA LOW RESOLUTION DR,DQ (10/06/2020 10:19 AM DEVELOPMENT INTERN) DR DQ Low Resolution DRB1-1 13 10/21/2020 5:25 PM DEVELOPMENT INTERN [facility] ([facility]) DR DQ Low Resolution DRB1-2 15 10/21/2020 5:25 PM DEVELOPMENT INTERN [facility] ([facility]) DR DQ Low Resolution DQB1-1 06 10/21/2020 5:25 PM DEVELOPMENT INTERN [facility] ([facility]) DR DQ Low Resolution DQB1-2 - 10/21/2020 5:25 PM DEVELOPMENT INTERN [facility] ([facility]) DR DQ Low Resolution DRB3-1 03 10/21/2020 5:25 PM DEVELOPMENT INTERN [facility] ([facility]) DR DQ Low Resolution DRB3-2 Negative 10/21/2020 5:25 PM DEVELOPMENT INTERN [facility] ([facility]) DR DQ Low Resolution DRB4-1 Negative 10/21/2020 5:25 PM DEVELOPMENT INTERN [facility] ([facility]) DR DQ Low Resolution DRB4-2 Negative 10/21/2020 5:25 PM DEVELOPMENT INTERN [facility] ([facility]) DR DQ Low Resolution DRB5-1 01 10/21/2020 5:25 PM DEVELOPMENT INTERN [facility] ([facility]) DR DQ Low Resolution DRB5-2 Negative 10/21/2020 5:25 PM DEVELOPMENT INTERN [facility] ([facility]) DR DQ Low Resolution Methodology SSOP 10/21/2020 5:25 PM DEVELOPMENT INTERN [facility] ([facility]) Comment DR DQ Low Resolution - 10/21/2020 5:25 PM DEVELOPMENT INTERN [facility] ([facility]) DR DQ Low Resolution test date 10/21/2020 10/21/2020 5:25 PM DEVELOPMENT INTERN [facility] ([facility]) Comment: This test was developed and its performance characteristics determined by the formerly [facility]. ??It has not been cleared [...] high complexity clinical laboratory testing. ??CLIA ID# [id number] Performed at: ??formerly [facility], [address] @ [place], [place] ??[phone] Character Impersonator: Cornelio Brenner MD, Blood BLOOD SPECIMEN / Unknown Lab Venipuncture / Unknown 10/06/2020 10:19 AM DEVELOPMENT INTERN 10/06/2020 10:11 PM DEVELOPMENT INTERN Ambrose Pradhan MD LAB - BLOOD BAN K ORDERABLES [facility] ([facility]) [address] [place] [address] * HLA TYPING DNA LOW RESOLUTION A,B,C (10/06/2020 10:19 AM DEVELOPMENT INTERN) ABC DNA A1 23 10/21/2020 5:25 PM DEVELOPMENT INTERN [facility] ([facility]) ABC DNA A2 33 10/21/2020 5:25 PM DEVELOPMENT INTERN [facility] ([facility]) ABC DNA B1 37 10/21/2020 5:25 PM DEVELOPMENT INTERN [facility] ([facility]) ABC DNA B2 49 10/21/2020 5:25 PM DEVELOPMENT INTERN [facility] ([facility]) ABC DNA BW1 4 10/21/2020 5:25 PM DEVELOPMENT INTERN [facility] ([facility]) ABC DNA BW2 4 10/21/2020 5:25 PM DEVELOPMENT INTERN [facility] ([facility]) ABC DNA C1 02 10/21/2020 5:25 PM DEVELOPMENT INTERN [facility] ([facility]) ABC DNA C2 07 10/21/2020 5:25 PM DEVELOPMENT INTERN [facility] ([facility]) ABC DNA Methodology SSOP 10/21 5:25 PM DEVELOPMENT INTERN [facility] ([facility]) Comment ABC DNA - 5:25 PM DEVELOPMENT INTERN [facility] ([facility]) ABC DNA Test Date 1 10/21/2020 5:25 PM DEVELOPMENT INTERN [facility] ([facility]) Comment: This test was developed and its performance characteristics determined by the formerly [facility]. ??It has not been cleared [...] high complexity clinical laboratory testing. ??CLIA ID# [id number] Performed at: ??[facility], [address] @ [place], [place] ??[address] Character Impersonator: Cornelio Brenner MD, Blood BLOOD SPECIMEN / Unknown Lab Venipuncture / Unknown 10/06/2020 10:19 AM DEVELOPMENT INTERN 10/06/2020 10:11 PM DEVELOPMENT INTERN Ambrose Pradhan MD LAB - BLOOD BAN K ORDERABLES [facility] ([facility]) [address] [place] [address], [place] * HLA ANTIBODY SCREEN LUM CLASS 2 ID (10/06/2020 10:19 AM DEVELOPMENT INTERN) % PRA 1 10/21/2020 5:25 PM DEVELOPMENT INTERN [facility] ([facility]) Class 2 LUM Specificity DQ8 10/21/2020 5:25 PM DEVELOPMENT INTERN [facility] ([facility]) Class 2 LUM Test Date 10/21/2020 5:25 PM DEVELOPMENT INTERN [facility] ([facility]) Comment: This test was developed and its performance characteristics determined by the formerly [facility]. ??It has not been cleared [...] high complexity clinical laboratory testing. ??CLIA ID# [id number] Performed at: ??[facility], [address] @ [place], [place] ??[phone] Character Impersonator: Cornelio Brenner MD, Blood BLOOD SPECIMEN / Unknown Lab Venipuncture / Unknown 10/06/2020 10:19 AM DEVELOPMENT INTERN 10/06/2020 10:11 PM DEVELOPMENT INTERN Ambrose Pradhan MD LAB - BLOOD BAN K ORDERABLES [facility] ([facility]) [address] [place] [address], [place] * HLA ANTIBODY SCREEN LUM CLASS 1 ID (10/06/2020 10:19 AM DEVELOPMENT INTERN) % PRA 3 10/21/2020 5:25 PM DEVELOPMENT INTERN [facility] ([facility]) Class 1 LUM Specificity B46, B65, B76 10/21/2020 5:25 PM DEVELOPMENT INTERN [facility] ([facility]) Class 1 LUM Test Date 10/21/2020 5:25 PM DEVELOPMENT INTERN [facility] ([facility]) Comment: This test was developed and its performance characteristics determined by the [facility]. ??It has not been cleared [...] high complexity clinical laboratory testing. ??CLIA ID# [id number] Performed at: ??[facility], [address] @ [place], [place] ??[phone] Character Impersonator: Cornelio Brenner MD, Blood BLOOD SPECIMEN / Unknown Lab Venipuncture / Unknown 10/06/2020 10:19 AM DEVELOPMENT INTERN 10/06/2020 10:11 PM DEVELOPMENT INTERN Ambrose Pradhan MD LAB - BLOOD BAN K ORDERABLES [facility] ([facility]) [address] [place] [address], [facility] * HIV-1 HIV-2 ANTIGEN/ANTIBODY (10/06/2020 10:19 AM DEVELOPMENT INTERN) HIV Antigen/Antibod y 1 & 2 Non-reacti ve Non-react heather 10/06/2020 11:[address] [facility] Comment:Neither HIV-1 p24 An tigen nor HIV-1/HIV-2 Antibodies are detected. Blood BLOOD SPECIMEN / Unknown Lab Venipuncture / Unknown 10/06/2020 10:19 AM DEVELOPMENT INTERN 10/06/2020 10:54 AM DEVELOPMENT INTERN Ambrose Pradhan MD LAB - HEMATOLOG Y ORDERABLES Performing Organization Address [facility] Co de Phone Number [place] [id number] [place] [address], [facility] [phone] * RUBELLA ANTIBODY IGG TITER (10/06/2020 10:19 AM DEVELOPMENT INTERN) Rubella Antibody IgG 231.0 IU/mL 10/07/2020 4:16 PM DEVELOPMENT INTERN [facility] [employer] ([facility]) Comment: INTERPRETIVE INFORMATION: Rubella Antibody, IgG ??Less [...] the amount of antibody present. Performed By: [facility] [address] [place] [address] Ship Rigger Apprentice: Mckayla Loomis MD Blood BLOOD SPECIMEN / Unknown Lab Venipuncture / Unknown 10/06/2020 10:19 AM DEVELOPMENT INTERN 10/06/2020 11:19 AM DEVELOPMENT INTERN Ambrose Pradhan MD LAB - SEROLOGY ORDERABLES Performing Organization Address [facility] de Phone Number [facility] Quick[employer] [facility]) [address] * RUBEOLA ANTIBODY IGG (10/06/2020 10:19 AM DEVELOPMENT INTERN) Measles (Rubeola) Antibody IgG >300.0 AU/mL 10/07/2020 4:14 PM DEVELOPMENT INTERN [facility] [employer] ([facility]) Comment: INTERPRETIVE INFORMATION: Measles (Rubeola) Antibody, IgG [...] laboratory at the same time. Performed By: [facility] [address] [place] [address] Ship Rigger Apprentice: Mckayla Loomis MD Blood BLOOD SPECIMEN / Unknown Lab Venipuncture / Unknown 10/06/2020 10:19 AM DEVELOPMENT INTERN 10/06/2020 11:19 AM DEVELOPMENT INTERN Ambrose Pradhan MD LAB - CHEMISTRY ORDERABLES [facility] [employer] [facility]) [address] [place] [address], [facility] * MUMPS ANTIBODY IGG (10/06/2020 10:19 AM DEVELOPMENT INTERN) Mumps Virus Antibody IgG >300.0 AU/mL 10/07/2020 4:28 PM DEVELOPMENT INTERN [facility] [employer] ([facility]) Comment: INTERPRETIVE INFORMATION: Mumps Ab, IgG by [...] laboratory at the same time. Performed By: [facility] [address] [place] [address] Ship Rigger Apprentice: Mckayla Loomis MD Blood BLOOD SPECIMEN / Unknown Lab Venipuncture / Unknown 10/06/2020 10:19 AM DEVELOPMENT INTERN 10/06/2020 11:19 AM DEVELOPMENT INTERN Ambrose Pradhan MD LAB - CHEMISTRY ORDERABLES Performing Organization Address City/State/[facility] Co de Phone Number NMJildy [facility]) [address] [place] [address], [facility] * VARICELLA ZOSTER ANTIBODY IGG (10/06/2020 10:19 AM DEVELOPMENT INTERN) Varicella zoster Virus Antibody IgG 2535.0 IV 10/07/2020 5:05 PM DEVELOPMENT INTERN [facility] [employer] ([facility]) Comment: INTERPRETIVE INFORMATION: VZV Ab, IgG 134.9 [...] laboratory at the same time. Performed By: [facility] [address] [place] [address] Ship Rigger Apprentice: Mckayla Loomis MD Blood BLOOD SPECIMEN / Unknown Lab Venipuncture / Unknown 10/06/2020 10:19 AM DEVELOPMENT INTERN 10/06/2020 10:54 AM DEVELOPMENT INTERN Ambrose Pradhan MD LAB - CHEMISTRY ORDERABLES Performing Organization Address City/State/[facility] Co de Phone Number [employer] ([facility]) [address] [place] [address], [facility] * (ABNORMAL) JAKUB-EVANS VIRUS ANTIBODY TO VCA IGG (10/06/2020 10:19 AM DEVELOPMENT INTERN) Jakub-Evans Virus Antibody IgG Viral Capsid Antigen >750.0(H) 0.0 - 21.9 U/mL 10/07/2020 4:56 PM DEVELOPMENT INTERN [employer] ([facility]) Comment: INTERPRETIVE INFORMATION: Jakub-Evans Virus Antibody to ?Viral Capsid Antigen, IgG ??17.9 U/mL or less.......Not Detected ??18.0-21.9 U/mL..........Indeterminate - Repeat testing in ?10-14 days may be helpful. ??22.0 U/mL or greater....Detected Performed By: [facility] [address] [place] [address] Ship Rigger Apprentice: Mckayla Loomis MD Blood BLOOD SPECIMEN / Unknown Lab Venipuncture / Unknown 10/06/2020 10:19 AM DEVELOPMENT INTERN 10/06/2020 10:54 AM DEVELOPMENT INTERN Ambrose Pradhan MD LAB - CHEMISTRY ORDERABLES [facility] ([facility]) [address] [place], [place] [address] * BLOOD TYPE ABO+ RH PANEL (10/06/2020 10:19 AM DEVELOPMENT INTERN) ABO Rh O POS 10/06/2020 11:[address] [facility] Blood BLOOD SPECIMEN / Unknown Lab Venipuncture / Unknown 10/06/2020 10:19 AM DEVELOPMENT INTERN 10/06/2020 10:46 AM DEVELOPMENT INTERN Ambrose Pradhan MD LAB - BLOOD BAN K ORDERABLES [facility] [address] [place] [address], [facility] [phone] * SKIN TEST PPD - POINT OF CARE (06/20/2019 4:00 PM CDT) Only the most recent of2 resultswithin the time period is included. PPD Other MISCELLANEOUS SAMPLE S / Unknown 06/20/2019 4:00 PM CDT Jamilah Montgomery APRN-FORM GRADER OPERATOR LAB - POINT OF CA RE ORDERABLES Care Teams [place] Worker Relationship Specialty Start Date End Date Unknown, Provider PCP - General 12/18/23 Zi Lim MD [facility] [address] [facility] 07/28/20
--- OUTSIDE RECORDS SUMMARY | 2024-11-12 20:20 | XMS_ITS | Referral Summary ---
Author Organization [facility] Address [address] [place] [phone] Phone Care Team Providers Care Weight And Balance Control Agent Name Role Phone Unknown, Notinfile Primary Care [...] Plan of Treatment Not on file Insurance [facility] [employer] MEDICARE Care Teams Weight And Balance Control Agent Relationship Specialty Start Date End Date Unknown, Notinfile PCP - General 04/14/24
--- OUTSIDE RECORDS SUMMARY | 2024-11-12 20:20 | XMS_ITS | Referral Summary ---
Author Organization [facility] Address [address] [place] [address] Care Team Providers Care Quarantine Inspector Name Role Phone Zi Lim MD Unavailable [phone] Unknown, Provider Primary Care Provider Unavaila ble Source Comments [facility],non-[facility] Affiliates and Associated Physician Practices is amultiple site organization consisting of ambulatory clinics and hospital sitesin [place], [place], [place] and [place]. This disclosure is being madepursuant to the Care Everywhere program and may not contain all information available regarding this patient. Last updated 18.[facility] Encounters Date Type Department Care Team Description 11/10/2024 Orders Only [facility] - Nephrology [address] [place] [address] Melisa Chambers APRN-GRAINING OPERATOR 10/31/2024 Orders Only [facility] [address] [place] [address] Mychart, Generic Provider S/P living-donor kidney transplantation (HCC); Anemia in chronic kidney disease (CODE); Vitamin D deficiency; Long-term use of immunosuppressant medication; Other press tender long goods (current) drug therapy; Chronic kidney disease-mineral and bone disorder 10/28/2024 Orders Only [facility] [address] [place] [address] Melisa Chambers APRN-GRAINING OPERATOR 10/25/2024 Refill [facility] - Nephrology [address] [place] [address] [phone] ReyesMelisa west, BUFFET WAITER/WAITRESS-GRAINING OPERATOR MEDICATION REFILL 10/24/2024 Orders Only [facility] - Nephrology [address] [place] [address] [phone] ReyesJuan westa E, BUFFET WAITER/WAITRESS-GRAINING OPERATOR Chronic kidney disease-mineral and bone disorder; S/P living-donor kidney transplantation ([facility]) 10/14/2024 Travel 10/14/2024 8:40 AM BOAT AND PLANT UTILITY SUPERVISOR Office Visit [facility] - Nephrology [address] [place] [address] [phone] Unknown, Provider Disorder of mineral metabolism, unspecified (Primary Dx); Chronic kidney disease-mineral and bone disorder; Long-term use of immunosuppressant medication; Metabolic acidosis; Hyperglycemia 10/03/2024 Orders Only [facility] Nephrology [address] [place] [address] [phone] Mychart, Generic Provider S/P living-donor kidney transplantation ([facility]); Anemia in chronic kidney disease (CODE); Vitamin D deficiency; Long-term use of immunosuppressant medication; Other residential (current) drug therapy; Chronic kidney disease-mineral and bone disorder 09/29/2024 Telephone [facility] Nephrology [address] [place] [address] [phone] ReyesMelisa west, BUFFET WAITER/WAITRESS-GRAINING OPERATOR Follow-up 09/29/2024 Orders Only [facility] Nephrology [address] [place] [address] [phone] ReyesJavad westMelisa E, BUFFET WAITER/WAITRESS-GRAINING OPERATOR Chronic kidney disease-mineral and bone disorder ; S/P living-donor kidney transplantation ([facility]) 09/25/2024 Telephone [facility] Nephrology [address] [place] [address] [phone] ReyesJuan westa [place], BUFFET WAITER/WAITRESS-GRAINING OPERATOR Follow-up 09/24/2024 Telephone [facility] - GI [address] [place] [address] [phone] Melisa Chambers APRN-CNP Epistaxis 09/22/2024 Refill [facility] Neph[facility] [address] [place] [phone] Melisa Chambers APRN-CNP MEDICATION REFILL 09/17/2024 Refill [facility] Ne[facility] [address] [place] [address] [phone] Mirza Hunt MD MEDICATION REFILL from Last [...] Dr. Lim Transplant Date: 09/14/2021 Donor:UNOS ID [id number], Related (first cousin) living donor criteria donor [...] were not included. Ron Sky 1970 Referring Engineering Aide: Zi Lim Dialysis Info: Type: HD T, [...] cyst in jaw, removed at hospital in [facility], pt doesn't remember which hospital but states [...] a good Candidate. ? Gustavo Kent MD Snipper of Transplant Nephology. [facility]. ? Nephrology Clinic Appt w/: Dr. 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 He will work with his primary clinical specialist vascular, both on phosphorus control, which will help [...] we agree with the recommendations of the [place] [employer] of Transplantation (AST) for vaccination of transplant candidates on the waiting list. With regard to planned LDKT, if vaccine is available, we recommend vaccination of planned donor and recipient, ideally completed 1 month before surgery and no later than 2 weeks before surgery ?? 7. Routine screening & other required testing: follow-up all pending tests before [facility] ?? 8. Support / Psychosocial ?? [...] and agreement. ?? Idalia Orta MD, PhD surgical manager Attestation signed by Esthela Tsai MD at [...] Other Consults: none Pertinent Previous Committee Presentations: [facility]: 07/28/2021 Induction Method: Immunosuppression Induction Method/Plan: Antithymocyte globulin (rabbit) (Thymoglobulin) 5 mg/kg Committee Discussion Details: Pt's case presented at [facility] for approval to list. HH and [...] Discussion Details: Pt's case was presented at [facility] to discuss his recent ENT visit [...] a place for him to go - [facility], where they accepted Good Rx and [...] Discussion Details: Pt's case was represented at [facility] today to review his Sestamibi scan [...] Discussion Details: Pt's case was presented at [facility] again today to discuss his potential plan of care for his elevated PTH level. Reviewed medications with team again, sensipar 90mg daily and hecterol 12mcg on dialysis days. Reviewed PTH levels from 09/[address] Orta spoke to team in regards to her conversations she had with both the pt and clinical specialist vascular, she also talked about medical management with [...] Discussion Details: Pt's case was represented to [facility] to discuss his recent PTH level and to see if we are ok with continued medication management or if we want to proceed with parathyroidectomy Team aware that pt has been presented at prior [facility] to discuss his levels, treatment and [...] Committee Discussion Details: Pt's case presented at [facility] to discuss his current PTH level [...] other medication changes and or potential parathyroidectomy. [facility]: 01/20/21 Committee Discussion Details: Pt's case was discussed at [facility] to review his current PTH level, [...] Negative Phos: 7.1 Magnesium: 2.1 Potassium: 6.1 (clinical specialist vascular notified for treatment; DU to lower K [...] QTC Calculation (Bezet) ms 424 Calculated P [place] degrees 62 Calculated R [place] degrees 50 Calculated T [place] degrees 50 Interpretation EKG NORMAL SINUS RHYTHM [...] angle is only partially included in the [id number]. The cardiomediastinal silhouette is normal. The visible [...] US: 08/03/2020 PPD: Colonoscopy: 05/23/2021 Completed at [facility] Pathology report: 05/23/2021 Panorex/Dental: 10/06/2020 FINDINGS: Multiple [...] is the impression of this social media director that Ron Sky has several positive factors for Kidney transplant candidacy from a psychosocial perspective. Patient appears to have appropriate knowledge of illness. Patient has sufficient insurance coverage and stable financial situation for post transplant needs. No concerns regarding substance abuse, legal issues, or mental health needs. Patient has adequate support system and appropriate discharge plan. ? Plan: chemical tank worker to provide supportive services as needed. Patient remains a reasonable candidate for transplant from a psychosocial perspective pending: - negative toxicology screening (no concerns anticipated) Psychiatric Consult Recommended: No ?? Transplant Boom Tender: EDISON Wilkes Abdominal Transplant Boom Tender [phone] ?? NETWORK CONTROL OPERATORS SUPERVISOR forms: RD: 09/05/2021 Transplant Nutrition Evaluation Date of Interview:??09/05/2021 ??Interviewed in person or over the phone:??person ?? 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 ?Nutrition Related PMH:??HTN, ESRD [...] Comments Blood Pressure 115/83 10/14/2024 8:55 AM BOAT AND PLANT UTILITY SUPERVISOR Pulse 68 10/14/2024 8:55 AM BOAT AND PLANT UTILITY SUPERVISOR Temperature 36.9 ??C (98.4 ??F) 04/08/2024 8:37 AM CD T Respiratory Rate 20 12/19/2022 9:10 AM BOAT AND PLANT UTILITY SUPERVISOR Oxygen Saturation 98% 10/14/2024 8:55 AM BOAT AND PLANT UTILITY SUPERVISOR Inhaled Oxygen Concentration - - Weight 131.5 kg (290 lb) 10/14/2024 8:55 AM BOAT AND PLANT UTILITY SUPERVISOR Height 198.1 cm (6' 6 ) 06/19/2023 [...] Description 04/21/2025 8:40 AM CDT Office Visit [facility] - Nephrology [address] [place] [address] Goals Goal Patient Goal Type Associated Problems [...] last dose Medical Devices Implanted Type Area Interior Design Professional Device Identifier Shelf Expiration Date Model / Serial / Lot Stent Uret 6fr 12cm 100cm .028in 1 Stp Implanted:Qty: 1 on 09/14/2021 by Jeimy Renteria MD at [facility] N/A: Ureter [employer] [place] 05/16/2026 [id number] / / [id number] 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 Procedures Procedure Name Priority Date/Time Associated Diagnosis Comments REF LAB-NOTE 10/28/2024 7:26 AM BOAT AND PLANT UTILITY SUPERVISOR MICROALB/CREAT RATIO URINE RANDOM PANEL Routine 10/28/2024 7:26 AM BOAT AND PLANT UTILITY SUPERVISOR Chronic kidney disease-mineral and bone disorder S/P living-donor kidney transplantation (HCC) URINALYSIS REFLEX TO MICROSCOPIC NO CULTURE Routine 10/28/2024 7:26 AM BOAT AND PLANT UTILITY SUPERVISOR Chronic kidney disease-mineral and bone disorder S/P living-donor kidney transplantation (HCC) TACROLIMUS LEVEL Routine 10/28/2024 7:26 AM BOAT AND PLANT UTILITY SUPERVISOR Chronic kidney disease-mineral and bone disorder S/P living-donor kidney transplantation (HCC) PHOSPHORUS BLOOD Routine 10/28/2024 7:26 AM BOAT AND PLANT UTILITY SUPERVISOR Chronic kidney disease-mineral and bone disorder S/P living-donor kidney transplantation (HCC) MAGNESIUM BLOOD Routine 10/28/2024 7:26 AM BOAT AND PLANT UTILITY SUPERVISOR Chronic kidney disease-mineral and bone disorder S/P living-donor kidney transplantation (HCC) COMPREHENSIVE METABOLIC PANEL Routine 10/28/2024 7:26 AM BOAT AND PLANT UTILITY SUPERVISOR Chronic kidney disease-mineral and bone disorder S/P living-donor kidney transplantation (HCC) CBC W AUTO DIFFERENTIAL Routine 10/28/2024 7:26 AM BOAT AND PLANT UTILITY SUPERVISOR Chronic kidney disease-mineral and bone disorder S/P living-donor kidney transplantation ([facility]) PTH INTACT Routine 10/28/2024 7:26 AM BOAT AND PLANT UTILITY SUPERVISOR Chronic kidney disease-mineral and bone disorder S/P living-donor kidney transplantation ([facility]) URIC ACID BLOOD Routine 10/28/2024 7:26 AM BOAT AND PLANT UTILITY SUPERVISOR Chronic kidney disease-mineral and bone disorder S/P living-donor kidney transplantation ([facility]) VITAMIN D 25-HYDROXY Routine 10/28/2024 7:26 AM BOAT AND PLANT UTILITY SUPERVISOR Chronic kidney disease-mineral and bone disorder S/P living-donor kidney transplantation ([facility]) CYTOMEGALOVIRUS QUANT BLOOD Routine 10/28/2024 7:26 AM BOAT AND PLANT UTILITY SUPERVISOR Chronic kidney disease-mineral and bone disorder S/P living-donor kidney transplantation (HCC) BK VIRUS PCR QUANTITATIVE Routine 10/28/2024 7:26 AM BOAT AND PLANT UTILITY SUPERVISOR Chronic kidney disease-mineral and bone disorder S/P living-donor kidney transplantation ([facility]) LIPID PROFILE Routine 10/28/2024 7:26 AM BOAT AND PLANT UTILITY SUPERVISOR Chronic kidney disease-mineral and bone disorder S/P living-donor kidney transplantation ([facility]) REF LAB-NOTE 09/30/2024 7:25 AM BOAT AND PLANT UTILITY SUPERVISOR MICROALB/CREAT RATIO URINE RANDOM PANEL Routine 09/30/2024 7:25 AM BOAT AND PLANT UTILITY SUPERVISOR Chronic kidney disease-mineral and bone disorder S/P living-donor kidney transplantation (HCC) URINALYSIS REFLEX TO MICROSCOPIC NO CULTURE Routine 09/30/2024 7:25 AM BOAT AND PLANT UTILITY SUPERVISOR Chronic kidney disease-mineral and bone disorder S/P living-donor kidney transplantation (HCC) TACROLIMUS LEVEL Routine 09/30/2024 7:25 AM BOAT AND PLANT UTILITY SUPERVISOR Chronic kidney disease-mineral and bone disorder S/P living-donor kidney transplantation (HCC) PHOSPHORUS BLOOD Routine 09/30/2024 7:25 AM BOAT AND PLANT UTILITY SUPERVISOR Chronic kidney disease-mineral and bone disorder S/P living-donor kidney transplantation ([facility]) MAGNESIUM BLOOD Routine 09/30/2024 7:25 AM BOAT AND PLANT UTILITY SUPERVISOR Chronic kidney disease-mineral and bone disorder S/P living-donor kidney transplantation ([facility]) COMPREHENSIVE METABOLIC PANEL Routine 09/30/2024 7:25 AM BOAT AND PLANT UTILITY SUPERVISOR Chronic kidney disease-mineral and bone disorder S/P living-donor kidney transplantation ([facility]) CBC W AUTO DIFFERENTIAL Routine 09/30/2024 7:25 AM BOAT AND PLANT UTILITY SUPERVISOR Chronic kidney disease-mineral and bone disorder S/P living-donor kidney transplantation ([facility]) PTH INTACT Routine 09/30/2024 7:25 AM BOAT AND PLANT UTILITY SUPERVISOR Chronic kidney disease-mineral and bone disorder S/P living-donor kidney transplantation ([facility]) URIC ACID BLOOD Routine 09/30/2024 7:25 AM BOAT AND PLANT UTILITY SUPERVISOR Chronic kidney disease-mineral and bone disorder S/P living-donor kidney transplantation ([facility]) VITAMIN D 25-HYDROXY Routine 09/30/2024 7:25 AM BOAT AND PLANT UTILITY SUPERVISOR Chronic kidney disease-mineral and bone disorder S/P living-donor kidney transplantation ([facility]) CYTOMEGALOVIRUS QUANT BLOOD Routine 09/30/2024 7:25 AM BOAT AND PLANT UTILITY SUPERVISOR Chronic kidney disease-mineral and bone disorder S/P living-donor kidney transplantation ([facility]) BK VIRUS PCR QUANTITATIVE Routine 09/30/2024 7:25 AM BOAT AND PLANT UTILITY SUPERVISOR Chronic kidney disease-mineral and bone disorder S/P living-donor kidney transplantation (HCC) LIPID PROFILE Routine 09/30/2024 7:25 AM BOAT AND PLANT UTILITY SUPERVISOR Chronic kidney disease-mineral and bone disorder S/P living-donor kidney transplantation (HCC) HEPATITIS C RNA QUANTITATIVE STAT 09/14/2021 8:04 AM BOAT AND PLANT UTILITY SUPERVISOR Kidney transplant candidate HIV-1 HIV-2 ANTIBODY + HIV P24 AG PANEL STAT 09/14/2021 8:04 AM BOAT AND PLANT UTILITY SUPERVISOR Kidney transplant candidate from Last 3 Months or Most Recently Relevant to Health Maintenance Results * CYTOMEGALOVIRUS QUANT BLOOD (10/28/2024 7:26 AM BOAT AND PLANT UTILITY SUPERVISOR) Only the most recent of2 resultswithin the time period is included. Cytomegalovirus DNA Quantitative PCR Not Detected Not Detected IU/mL [facility] Cytomegalovirus DNA Quantitative PCR Not Detected Not Detected Log IU/mL [facility] Comment: (Note) For additional information, please refer to http://education.Dabble DB.DebtLESS Community/faq/CMVandEBVPCR (This link is being provided for informational/educational purposes only.) MENDEL med fusion [address] [address],[address] [place] [address] Memo Schrader MD, PhD Test Performed at: [facility] [address] [place] [address] [place] [address] ??[phone] MEMO SCHRADER MD,PHD Blood BLOOD SPECIMEN / Unknown 10/28/2024 7:26 AM BOAT AND PLANT UTILITY SUPERVISOR 10/28/2024 7:27 AM BOAT AND PLANT UTILITY SUPERVISOR Melisa Chambers BUFFET WAITER/WAITRESS-GRAINING OPERATOR LAB - CHEMISTRY ORDERABLES [facility] [address] [place] [address] * URIC ACID BLOOD (10/28/2024 7:26 AM BOAT AND PLANT UTILITY SUPERVISOR) Only the most recent of2 resultswithin the time period is included. Uric Acid 6.5 4.0 - 8.0 mg/dL [facility] Comment: Therapeutic target for gout patients: <6.0 mg/dL ?? Test Performed at: [facility] [email or web address] [place], [place] ??[phone] EDISON TROY MD Blood BLOOD SPECIMEN / Unknown 10/28/2024 7:26 AM BOAT AND PLANT UTILITY SUPERVISOR 10/28/2024 7:27 AM BOAT AND PLANT UTILITY SUPERVISOR Melisa Chambers APRN-[facility] LAB - CHEMISTRY ORDERABLES Performing Organization Address [facility] de Phone Number [facility] [phone] [place], [place] [id number] * (ABNORMAL) TACROLIMUS LEVEL (10/28/2024 7:26 AM BOAT AND PLANT UTILITY SUPERVISOR) Only the most recent of2 resultswithin the time period is included. Tacrolimus 3.8(L) mcg/L [facility] Comment: No definitive therapeutic or toxic ranges have been established. Optimal blood drug levels are influenced by type of transplant, patient response, time post- transplant, co-administration of other drugs, and drug formulation. The following trough range is a suggested guideline: 5.0-20.0 mcg/L. Test Performed at: [employer] [place], [place] ??[address] EDISON TROY MD Blood BLOOD SPECIMEN / Unknown 10/28/2024 7:26 AM BOAT AND PLANT UTILITY SUPERVISOR 10/28/2024 7:27 AM BOAT AND PLANT UTILITY SUPERVISOR Melisa FAYGRAINING OPERATOR LAB - THERAPEUT IC DRUG MONITORING ORDERABLES Performing Organization Address [facility] de Phone Number [facility] [phone] [place] [address] * MICROALB/CREAT RATIO URINE RANDOM PANEL (10/28/2024 7:26 AM BOAT AND PLANT UTILITY SUPERVISOR) Only the most recent of2 resultswithin the [...] within a diagnostic category. Test Performed at: [facility] ??[phone] EDISON TROY MD Urine URINE SPECIMEN OBTAINED BY CLEAN CATCH PROCEDURE / Unknown 10/28/2024 7:26 AM BOAT AND PLANT UTILITY SUPERVISOR 10/28/2024 7:27 AM BOAT AND PLANT UTILITY SUPERVISOR Melisa Chambers BUFFET WAITER/WAITRESS-GRAINING OPERATOR LAB - URINE SOFIA CLARE ORDERABLES Performing Organization Address City/State/[facility] Co de Phone Number [facility] [phone] [place] [address] * (ABNORMAL) URINALYSIS REFLEX TO MICROSCOPIC NO CULTURE (10/28/2024 7:26 AM BOAT AND PLANT UTILITY SUPERVISOR) Only the most recent of2 resultswithin the time period is included. Color UA YELLOW YELLOW [facility] Appearance CLEAR CLEAR [facility] Specific [place] UA 1.021 1.001 - 1.035 [facility] pH [...] SEEN /LPF [facility] Comment: Test Performed at: [employer] [employer] [place], [place] ??[phone] EDISON TROY MD Granular Casts [facility] Casts UA [facility] Yeast [facility] Comments [facility] Comment: Test Performed at: [facility] [address] [place], [place] ??[address] EDISON TROY MD Urine URINE SPECIMEN OBTAINED BY CLEAN CATCH PROCEDURE / Unknown 10/28/2024 7:26 AM BOAT AND PLANT UTILITY SUPERVISOR 10/28/2024 7:27 AM BOAT AND PLANT UTILITY SUPERVISOR Melisa Chambers APRN-GRAINING OPERATOR LAB - URINALYSI S ORDERABLES Performing Organization Address [facility] de Phone Number [facility] [address] [place] [address] * (ABNORMAL) PTH INTACT (10/28/2024 7:26 AM BOAT AND PLANT UTILITY SUPERVISOR) Only the most recent of2 resultswithin the [...] or Low Normal ?High Test Performed at: [facility] ??[phone] EDISON TROY MD Blood BLOOD SPECIMEN / Unknown 10/28/2024 7:26 AM BOAT AND PLANT UTILITY SUPERVISOR 10/28/2024 7:27 AM BOAT AND PLANT UTILITY SUPERVISOR Melisa Chambers BUFFET WAITER/WAITRESS-GRAINING OPERATOR LAB - CHEMISTRY ORDERABLES Performing Organization Address [facility] de Phone Number [facility] [address] [place] [address] * VITAMIN D 25-HYDROXY (10/28/2024 7:26 AM BOAT AND PLANT UTILITY SUPERVISOR) Only the most recent of2 resultswithin the time period is included. Pathologist [facility] Vitamin D, 25 Hydroxy 45 30 - [...] D, (D2,D3), LC/MS/MS is recommended: order code 87368 (patients >2yrs). See Note 1 Note 1 For additional information, please refer to http://education.Cheyipai/faq/CIY968 (This link is being provided for informational/ educational purposes only.) Test Performed at: [facility] [address] [facility] [place] ??[phone] EDISON TROY MD Blood BLOOD SPECIMEN / Unknown 10/28/2024 7:26 AM BOAT AND PLANT UTILITY SUPERVISOR 10/28/2024 7:27 AM BOAT AND PLANT UTILITY SUPERVISOR Melisa Chambers BUFFET WAITER/WAITRESS-GRAINING OPERATOR LAB - CHEMISTRY ORDERABLES [facility] [address] [place] [address] * BK VIRUS PCR QUANTITATIVE (10/28/2024 7:26 AM BOAT AND PLANT UTILITY SUPERVISOR) Only the most recent of2 resultswithin the time period is included. [facility] BK Virus DNA Quantitative PCR Not Detected Not Detected IU/mL [employer] BK Virus DNA PCR Not Detected Not Detected Log IU/mL [facility] Comment: MDF med [facility] [address] [facility] [address] [facility] [address] Memo Schrader MD, PhD Test Performed at: [facility] [address] [facility] [address] [place], [place] ??[address] MEMO SCHRADER MD,PHD Blood BLOOD SPECIMEN / Unknown 10/28/2024 7:26 AM BOAT AND PLANT UTILITY SUPERVISOR 10/28/2024 7:27 AM BOAT AND PLANT UTILITY SUPERVISOR Melisa Chambers BUFFET WAITER/WAITRESS-GRAINING OPERATOR LAB - CHEMISTRY ORDERABLES [facility] [address] [place] [address] * CBC WITH DIFFERENTIAL (10/28/2024 7:26 AM BOAT AND PLANT UTILITY SUPERVISOR) Only the most recent of2 resultswithin the [...] 1.4 % [facility] Comment: Test Performed at: [facility] [address] [place], [place] ??[address] EDISON TROY MD Blasts [facility] nR [facility] Comments [facility] Comment: Test Performed at: [facility] [address] [place], [place] ??[address] EDISON TROY MD Blood BLOOD SPECIMEN / Unknown 10/28/2024 7:26 AM BOAT AND PLANT UTILITY SUPERVISOR 10/28/2024 7:27 AM BOAT AND PLANT UTILITY SUPERVISOR Melisa Atkinsonp BUFFET WAITER/WAITRESS-GRAINING OPERATOR LAB - HEMATOLOG Y ORDERABLES [facility] [address] [place] [address] * (ABNORMAL) COMPREHENSIVE METABOLIC PANEL (10/28/2024 7:26 AM BOAT AND PLANT UTILITY SUPERVISOR) Only the most recent of2 resultswithin the [...] 46 U/L [facility] Comment: Test Performed at: [facility] [employer] [place], [place] ??[address] EDISON TROY MD Blood BLOOD SPECIMEN / Unknown 10/28/2024 7:26 AM BOAT AND PLANT UTILITY SUPERVISOR 10/28/2024 7:27 AM BOAT AND PLANT UTILITY SUPERVISOR Melisa Chambers APRN-GRAINING OPERATOR LAB - CHEMISTRY ORDERABLES Performing Organization Address [facility] Co de Phone Number [place] [phone] * PHOSPHORUS BLOOD (10/28/2024 7:26 AM BOAT AND PLANT UTILITY SUPERVISOR) Only the most recent of2 resultswithin the time period is included. Phosphorus 2.7 2.5 - 4.5 mg/dL [facility] Comment: Test Performed at: [facility] ??[phone] EDISON TROY MD Blood BLOOD SPECIMEN / Unknown 10/28/2024 7:26 AM BOAT AND PLANT UTILITY SUPERVISOR 10/28/2024 7:27 AM BOAT AND PLANT UTILITY SUPERVISOR Melisa Chambers APRN-GRAINING OPERATOR LAB - CHEMISTRY ORDERABLES Performing Organization Address [facility] [facility] de Phone Number [place] [phone] * MAGNESIUM BLOOD (10/28/2024 7:26 AM BOAT AND PLANT UTILITY SUPERVISOR) Only the most recent of2 resultswithin the time period is included. Magnesium 1.8 1.5 - 2.5 mg/dL [facility] Comment: Test Performed at: [facility] [id number] [place], [place] ??[phone] EDISON TROY MD Blood BLOOD SPECIMEN / Unknown 10/28/2024 7:26 AM [employer]AT AND PLANT UTILITY SUPERVISOR 10/28/2024 7:27 AM [employer]AT AND PLANT UTILITY SUPERVISOR Melisa Chambers APRN-GRAINING OPERATOR LAB - CHEMISTRY ORDERABLES Performing Organization Address [facility] [place] [address] * LIPID PROFILE (10/28/2024 7:26 AM [employer]AT AND PLANT UTILITY SUPERVISOR) Only the most recent of2 resultswithin the [...] of LDL-C. Yogi SS et al. FRANDY. 2013;310(55): 7604-1762 (http://education.[place]/faq/SJL599) CHOL/HDLC RATIO 3.0 <5.0 (calc) [facility] Non HDL Cholesterol 86 <130 mg/dL (calc) [facility] Comment: For patients with diabetes plus 1 major ASCVD risk factor, treating to a non-HDL-C goal of <100 mg/dL (LDL-C of <70 mg/dL) is considered a therapeutic option. Test Performed at: [facility] [id number] [place] ??[phone] EDISON TROY MD Blood BLOOD SPECIMEN / Unknown 10/28/2024 7:26 AM [employer] PLANT UTILITY SUPERVISOR 10/28/2024 7:27 AM [employer] PLANT UTILITY SUPERVISOR Melisa Chambers BUFFET WAITER/WAITRESS-GRAINING OPERATOR LAB - CHEMISTRY ORDERABLES [facility] [address] [place] [address] * HIV-1 HIV-2 ANTIBODY + HIV P24 AG PANEL (09/14/2021 8:04 AM [employer] PLANT UTILITY SUPERVISOR) HIV Antigen/Antibod y 1 & 2 Non-reacti ve Non-react heather 09/14/2021 9:37 AM BOAT AND PLANT UTILITY SUPERVISOR [facility] Comment:No Laboratory eviden ce of HIV infection. Blood BLOOD SPECIMEN / Unknown Venipuncture / Unknown 09/14/2021 8:04 AM [employer] PLANT UTILITY SUPERVISOR 09/14/2021 8:26 AM [employer]AT AND PLANT UTILITY SUPERVISOR Ricky Estes PA-C LAB - CHEMISTRY ORD ERABLES [facility] [address] [place] [address], [place] [phone] * HEPATITIS C RNA QUANTITATIVE (09/14/2021 8:04 AM BOAT AND PLANT UTILITY SUPERVISOR) Pathologist [facility] Hepatitis C RNA PCR, Interp Not detected Not detected 09/15/2021 3:53 PM [employer]AT AND PLANT UTILITY SUPERVISOR [facility] Blood BLOOD SPECIMEN / Unknown Venipuncture / Unknown 09/14/2021 8:04 AM [employer]AT AND PLANT UTILITY SUPERVISOR 09/14/2021 8:26 AM BOAT AND PLANT UTILITY SUPERVISOR Narrative [facility] - 09/15/2021 3:53 PM [employer] PLANT UTILITY SUPERVISOR The Hepatitis C viral (HCV) RNA analysis utilized a serum sample, real-time reverse freight receiver PCR, and is reported as Not Detected, [...] the isolation of HCV RNA with reverse freight receiver of genomic HCV RNA followed by real-time PCR in the presence of an unrelated RNA internal control. ??The internal control ensures that RNA is isolated, and that no general significant inhibitors of the RT-PCR process are present. The analysis was performed using a U.S. FDA approved test methodology (Tysdo Real Time HCV). Ricky Estes PA-C LAB - CHEMISTRY ORD ERABLES [facility] [address] [place] [address], [place] [phone] from Last 3 Months or Most Recently Relevant to Health Maintenance Administered Medications Advance Directives * Full Code (Latest Code Status on File) Date Activated Date Inactivated Comments 09/14/2021 4:47 PM 09/19/2021 3:07 PM Care Teams Quarantine Inspector Relationship Specialty Start Date End Date Unknown, Provider PCP - General 12/18/23 Zi Lim MD [address] [place] [place], [place] [address] [place] [address] Engineering Aide Nephrology 07/28/20
--- OUTSIDE RECORDS SUMMARY | 2024-11-12 20:20 | XMS_ITS | Continuity of Care Document ---
Author Organization [facility] Address [address] [place] [address] Phone Care Team Providers Care Rags Laborer Name Role Phone Pietro CASTELLON, May Unavailable Unavailable Advance Directives Directive Yes / No Effective Date File Name No Information Encounters Encounter Description Practice Location Reason(s) For Visit Diagnoses Date Provider Providers Copied on Encounter [facility], [address] [place], [place], [address], tel:[phone] Maia [facility] No Information Pietro CASTELLON May. [address], [address], [place], [place], [id number] , [place]. tel:[phone] Referring Provider: Jaswinder Lynn, [address] [place], [address]. tel:[phone] Family History Family Member Type Diagnosis Age At Onset No Information Payers Payer name Insurance type Covered republican ID Gabbie cox(s) [employer] [place] [id number] Social History Type Description Quantity Date Captured Comments Sex Male Smoking Status No Information Chief Complaint And Reason For Visit No Information History Of Present Illness Encounter Date Complaint History Of Prese nt Illness No Information Instructions Date Instruction Additional Infor mation No Information Assessments Type Assessment Date No Information
--- OUTSIDE RECORDS SUMMARY | 2024-11-12 20:20 | XMS_ITS | Clinical Summary ---
Author Organization [facility] Address [address] [place] [phone] Phone Care Team Providers Care Dock Boss Name Role Phone Unknown, Notinfile Primary Care [...] 03/31/2021, 03/10/2021 Influenza Vaccine (#1) 2024 Insurance [facility] [employer] MED[employer] Care Teams Dock Boss Relationship Specialty Start Date End Date Unknown, Notinfile PCP - General 04/14/24
--- OUTSIDE RECORDS SUMMARY | 2024-11-12 20:20 | XMS_ITS ---
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 Kidney Coordinator N/A N/A N/A EDISON Reynolds Saturation Equipment Operator N/A N/A N/A Doris Armas Dietitian N/A N/A N/A Jewels Hernandez Safety Supervisor N/A N/A N/A Zi Lim MD Referring Physician N/A N/A N/A Events Post-Transplant Pre-Transplant Admitted: 09/14/2021 Referred: 07/23/2020 Transplanted: 09/14/2021 Evaluation began: 0 Discharged: 09/19/2021 Committee: 07/28/2021 UNOS qualified: 07/30/2020 Center waitlisted: 1 Dialysis History Dialysis History Start End Type Comments Center 07/30/2020 09/14/2021 In-center Hemodialysis [facility] Dialysis [facility] Information Center Phone Fax Address [facility] [phone] [address] [facility] [phone]
--- OUTSIDE RECORDS SUMMARY | 2024-11-12 20:20 | XMS_ITS | Clinical Summary ---
Author Organization [facility] [employer] Address [address] [place] [address] Care Team Providers Care Software Test Developer Name Role Phone Zi Lim MD Unavailable [phone] Unknown, Provider Primary Care Provider Unavaila ble Source Comments [facility],non-owned Affiliates and Associated Physician Practices is amultiple site organization consisting of ambulatory clinics and hospital sitesin [place], [place], [place] and [place]. This disclosure is being madepursuant to the Care Everywhere program and may not contain all information available regarding this patient. Last updated 18.[facility] [employer] Allergies Active Allergy Reactions Criticality Noted Date [...] Dr. Lim Transplant Date: 09/14/2021 Donor:UNOS ID [id number], Related (first cousin) living donor criteria donor [...] were not included. Ron Sky 1970 Referring Burrer Marker Axle: Zi Lim Dialysis Info: Type: HD T, [...] cyst in jaw, removed at hospital in [place], pt doesn't remember which hospital but [...] a good Candidate. ? Gustavo Kent MD Wrinkle Chaser of Transplant Nephology. [facility]. ? Nephrology Clinic Appt w/: Dr. 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 He will work with his primary hogshead cooper, both on phosphorus control, which will help [...] we agree with the recommendations of the [place] Society of Transplantation (AST) for vaccination of [...] and agreement. ?? Idalia Orta MD, PhD central control room operator Attestation signed by Esthela Tsai MD at [...] Other Consults: none Pertinent Previous Committee Presentations: [facility]: 07/28/2021 Induction Method: Immunosuppression Induction Method/Plan: Antithymocyte globulin (rabbit) (Thymoglobulin) 5 mg/kg Committee Discussion Details: Pt's case presented at [facility] for approval to list. HH and evaluation [...] of 09/14/21 Per team, ok to list. [facility]: 07/21/2021 Committee Discussion Details: Pt's case was presented at [facility] to discuss his recent ENT visit with [...] a place for him to go - [facility], where they accepted Good Rx and this [...] be able to afford senispar post txp. [facility]: 06/30/2021 Committee Discussion Details: Pt's case was represented at [facility] today to review his Sestamibi scan we [...] follow up with both pt and sister. [facility]: 06/09/2021 Committee Discussion Details: Pt's case was presented at [facility] again today to discuss his potential plan of care for his elevated PTH level. Reviewed medications with team again, sensipar 90mg daily and hecterol 12mcg on dialysis days. Reviewed PTH levels from 09/[address] Orta spoke to team in regards to her conversations she had with both the pt and hogshead cooper, she also talked about medical management with [...] Discussion Details: Pt's case was represented to [facility] to discuss his recent PTH level and to see if we are ok with continued medication management or if we want to proceed with parathyroidectomy Team aware that pt has been presented at prior [facility] to discuss his levels, treatment [...] Committee Discussion Details: Pt's case presented at [facility] to discuss his current PTH level with [...] Discussion Details: Pt's case was discussed at [facility] to review his current PTH level, treatment [...] Negative Phos: 7.1 Magnesium: 2.1 Potassium: 6.1 (hogshead cooper notified for treatment; DU to lower K [...] QTC Calculation (Bezet) ms 424 Calculated P Beaver degrees 62 Calculated R Beaver degrees 50 Calculated T Beaver degrees 50 Interpretation EKG NORMAL SINUS RHYTHM [...] angle is only partially included in the eyuwo-up-hgbe. The cardiomediastinal silhouette is normal. The visible [...] US: 08/03/2020 PPD: Colonoscopy: 05/23/2021 Completed at [facility] Pathology report: 05/23/2021 Panorex/Dental: 10/06/2020 FINDINGS: [...] It is the impression of this social services assistant that Ron Sky has several positive factors for Kidney transplant candidacy from a psychosocial perspective. Patient appears to have appropriate knowledge of illness. Patient has sufficient insurance coverage and stable financial situation for post transplant needs. No concerns regarding substance abuse, legal issues, or mental health needs. Patient has adequate support system and appropriate discharge plan. ? Plan: workers compensation attorney to provide supportive services as needed. Patient remains a reasonable candidate for transplant from a psychosocial perspective pending: - negative toxicology screening (no concerns anticipated) Psychiatric Consult Recommended: No ?? Transplant Press Catcher: EDISON Wilkes Abdominal Transplant Press Catcher [phone] ?? SOCIAL SERVICES ASSISTANT forms: RD: 09/05/2021 Transplant Nutrition Evaluation Date of Interview:??09/05/2021 ??Interviewed in person or over the phone:??person ?? 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 ?Nutrition Related PMH:??HTN, ESRD [...] Only [facility] - Nephrology [address] [place] [phone] Melisa Chambers APRN-CONTRACTS PARALEGAL 10/31/2024 Orders Only [facility] [address] [place] [phone] Mychart, Generic Provider S/P living-donor kidney transplantation (HCC); Anemia in chronic kidney disease (CODE); Vitamin D deficiency; Long-term use of immunosuppressant medication; 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; Chronic kidney disease-mineral and bone disorder 10/28/2024 Orders Only [facility] [address] [place] [phone] Melisa Chambers SOLUTIONS OPERATOR-CONTRACTS PARALEGAL 10/25/2024 Refill [facility] Nephrology [address] [place] [phone] Melisa Chambers, SOLUTIONS OPERATOR-CONTRACTS PARALEGAL MEDICATION REFILL 10/24/2024 Orders Only [facility] - Nephrology [address] [place] [phone] Melisa Chambers, SOLUTIONS OPERATOR-CONTRACTS PARALEGAL Chronic kidney disease-mineral and bone disorder; S/P living-donor kidney transplantation ([facility]) 10/14/2024 8:40 AM MANAGER MULTIMEDIA Office Visit [facility] - Nephrology [address] [place] [phone] Unknown, Provider Disorder of mineral metabolism, unspecified (Primary Dx); Chronic kidney disease-mineral and bone disorder; Long-term use of immunosuppressant medication; Metabolic acidosis; Hyperglycemia 10/14/2024 Travel 10/03/2024 Orders Only [facility] - Nephrology [address] [place] [phone] Mychart, Generic Provider S/P living-donor kidney transplantation (HCC); Anemia in chronic kidney disease (CODE); Vitamin D deficiency; Long-term use of immunosuppressant medication; Other usp (current) drug therapy; Chronic kidney disease-mineral and bone disorder 09/29/2024 Telephone [facility] - Nephrology [address] [place] [phone] Melisa Chambers, SOLUTIONS OPERATOR-CONTRACTS PARALEGAL Follow-up 09/29/2024 Orders Only [facility] - Nephrology [address] [place] [phone] Melisa Chambers, SOLUTIONS OPERATOR-CONTRACTS PARALEGAL Chronic kidney disease-mineral and bone disorder ; S/P living-donor kidney transplantation ([facility]) 09/25/2024 Telephone [facility] - Nephrology [address] [place] [phone] Melisa Chambers, SOLUTIONS OPERATOR-CONTRACTS PARALEGAL Follow-up 09/24/2024 Telephone [facility] - GI [address] [place] [address], [place] [phone] Melisa Chambers APRN-CONTRACTS PARALEGAL Epistaxis 09/22/2024 Refill [facility] Ne[facility] [address] [place] [phone] Melisa Chambers SOLUTIONS OPERATOR-CONTRACTS PARALEGAL MEDICATION REFILL 09/17/2024 Refill [facility] [address] [place] [phone] Mirza Hunt MD MEDICATION REFILL from Last [...] Comments Blood Pressure 115/83 10/14/2024 8:55 AM MANAGER MULTIMEDIA Pulse 68 10/14/2024 8:55 AM MANAGER MULTIMEDIA Temperature 36.9 ??C (98.4 ??F) 04/08/2024 8:37 AM CD T Respiratory Rate 20 12/19/2022 9:10 AM MANAGER MULTIMEDIA Oxygen Saturation 98% 10/14/2024 8:55 AM MANAGER MULTIMEDIA Inhaled Oxygen Concentration - - Weight 131.5 kg (290 lb) 10/14/2024 8:55 AM MANAGER MULTIMEDIA Height 198.1 cm (6' 6 ) 06/19/2023 8:23 AM CDT Body Mass Index 33.51 06/19/2023 8:23 AM CDT Plan of Treatment Upcoming Encounters Date Type Department Care Team (Late st Contact Info) Description 04/21/2025 8:40 AM CDT Office Visit [facility] - Nephrology [address] [place] [phone] Health Maintenance Due Date Last Done Comments [...] last dose Medical Devices Implanted Type Area Power Generation Plant Operator Device Identifier Shelf Expiration Date Model / Serial / Lot Stent Uret 6fr 12cm 100cm .028in 1 Stp Implanted:Qty: 1 on 09/14/2021 by Jeimy Renteria MD at [facility] N/A: [employer] 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 Procedures Procedure Name Priority Date/Time Associated Diagnosis Comments REF LAB-NOTE 10/28/2024 7:26 AM MANAGER MULTIMEDIA MICROALB/CREAT RATIO URINE RANDOM PANEL Routine 10/28/2024 7:26 AM MANAGER MULTIMEDIA Chronic kidney disease-mineral and bone disorder S/P living-donor kidney transplantation ([facility]) URINALYSIS REFLEX TO MICROSCOPIC NO CULTURE Routine 10/28/2024 7:26 AM MANAGER MULTIMEDIA Chronic kidney disease-mineral and bone disorder S/P living-donor kidney transplantation ([facility]) TACROLIMUS LEVEL Routine 10/28/2024 7:26 AM MANAGER MULTIMEDIA Chronic kidney disease-mineral and bone disorder S/P living-donor kidney transplantation ([facility]) PHOSPHORUS BLOOD Routine 10/28/2024 7:26 AM MANAGER MULTIMEDIA Chronic kidney disease-mineral and bone disorder S/P living-donor kidney transplantation ([facility]) MAGNESIUM BLOOD Routine 10/28/2024 7:26 AM MANAGER MULTIMEDIA Chronic kidney disease-mineral and bone disorder S/P living-donor kidney transplantation ([facility]) COMPREHENSIVE METABOLIC PANEL Routine 10/28/2024 7:26 AM MANAGER MULTIMEDIA Chronic kidney disease-mineral and bone disorder S/P living-donor kidney transplantation ([facility]) CBC W AUTO DIFFERENTIAL Routine 10/28/2024 7:26 AM MANAGER MULTIMEDIA Chronic kidney disease-mineral and bone disorder S/P living-donor kidney transplantation ([facility]) PTH INTACT Routine 10/28/2024 7:26 AM MANAGER MULTIMEDIA Chronic kidney disease-mineral and bone disorder S/P living-donor kidney transplantation ([facility]) URIC ACID BLOOD Routine 10/28/2024 7:26 AM MANAGER MULTIMEDIA Chronic kidney disease-mineral and bone disorder S/P living-donor kidney transplantation (HCC) VITAMIN D 25-HYDROXY Routine 10/28/2024 7:26 AM MANAGER MULTIMEDIA Chronic kidney disease-mineral and bone disorder S/P living-donor kidney transplantation (HCC) CYTOMEGALOVIRUS QUANT BLOOD Routine 10/28/2024 7:26 AM MANAGER MULTIMEDIA Chronic kidney disease-mineral and bone disorder S/P living-donor kidney transplantation ([facility]) BK VIRUS PCR QUANTITATIVE Routine 10/28/2024 7:26 AM MANAGER MULTIMEDIA Chronic kidney disease-mineral and bone disorder S/P living-donor kidney transplantation ([facility]) LIPID PROFILE Routine 10/28/2024 7:26 AM MANAGER MULTIMEDIA Chronic kidney disease-mineral and bone disorder S/P living-donor kidney transplantation ([facility]) REF LAB-NOTE 09/30/2024 7:25 AM MANAGER MULTIMEDIA MICROALB/CREAT RATIO URINE RANDOM PANEL Routine 09/30/2024 7:25 AM MANAGER MULTIMEDIA Chronic kidney disease-mineral and bone disorder S/P living-donor kidney transplantation ([facility]) URINALYSIS REFLEX TO MICROSCOPIC NO CULTURE Routine 09/30/2024 7:25 AM MANAGER MULTIMEDIA Chronic kidney disease-mineral and bone disorder S/P living-donor kidney transplantation ([facility]) TACROLIMUS LEVEL Routine 09/30/2024 7:25 AM MANAGER MULTIMEDIA Chronic kidney disease-mineral and bone disorder S/P living-donor kidney transplantation ([facility]) PHOSPHORUS BLOOD Routine 09/30/2024 7:25 AM MANAGER MULTIMEDIA Chronic kidney disease-mineral and bone disorder S/P living-donor kidney transplantation ([facility]) MAGNESIUM BLOOD Routine 09/30/2024 7:25 AM MANAGER MULTIMEDIA Chronic kidney disease-mineral and bone disorder S/P living-donor kidney transplantation ([facility]) COMPREHENSIVE METABOLIC PANEL Routine 09/30/2024 7:25 AM MANAGER MULTIMEDIA Chronic kidney disease-mineral and bone disorder S/P living-donor kidney transplantation (HCC) CBC W AUTO DIFFERENTIAL Routine 09/30/2024 7:25 AM MANAGER MULTIMEDIA Chronic kidney disease-mineral and bone disorder S/P living-donor kidney transplantation (HCC) PTH INTACT Routine 09/30/2024 7:25 AM MANAGER MULTIMEDIA Chronic kidney disease-mineral and bone disorder S/P living-donor kidney transplantation (HCC) URIC ACID BLOOD Routine 09/30/2024 7:25 AM MANAGER MULTIMEDIA Chronic kidney disease-mineral and bone disorder S/P living-donor kidney transplantation (HCC) VITAMIN D 25-HYDROXY Routine 09/30/2024 7:25 AM MANAGER MULTIMEDIA Chronic kidney disease-mineral and bone disorder S/P living-donor kidney transplantation (HCC) CYTOMEGALOVIRUS QUANT BLOOD Routine 09/30/2024 7:25 AM MANAGER MULTIMEDIA Chronic kidney disease-mineral and bone disorder S/P living-donor kidney transplantation (HCC) BK VIRUS PCR QUANTITATIVE Routine 09/30/2024 7:25 AM MANAGER MULTIMEDIA Chronic kidney disease-mineral and bone disorder S/P living-donor kidney transplantation ([facility]) LIPID PROFILE Routine 09/30/2024 7:25 AM MANAGER MULTIMEDIA Chronic kidney disease-mineral and bone disorder S/P living-donor kidney transplantation ([facility]) HEPATITIS C RNA QUANTITATIVE STAT 09/14/2021 8:04 AM MANAGER MULTIMEDIA Kidney transplant candidate HIV-1 HIV-2 ANTIBODY + HIV P24 AG PANEL STAT 09/14/2021 8:04 AM MANAGER MULTIMEDIA Kidney transplant candidate from Last 3 Months or Most Recently Relevant to Health Maintenance Results * CYTOMEGALOVIRUS QUANT BLOOD (10/28/2024 7:26 AM MANAGER MULTIMEDIA) Only the most recent of2 resultswithin the time period is included. Cytomegalovirus DNA Quantitative PCR Not Detected Not Detected IU/mL [facility] Cytomegalovirus DNA Quantitative PCR Not Detected Not Detected Log IU/mL [facility] Comment: (Note) For additional information, please refer to http://education.[employer].PollitoIngles/faq/CMVandEBVPCR (This link is being provided for informational/educational purposes only.) [facility] [address] [facility] [address] Memo Schrader MD, PhD Test Performed at: [facility] [address] [address] [address] [place], [place] ??[phone] MEMO SCHRADER MD,PHD Blood BLOOD SPECIMEN / Unknown 10/28/2024 7:26 AM MANAGER MULTIMEDIA 10/28/2024 7:27 AM MANAGER MULTIMEDIA Melisa Chambers SOLUTIONS OPERATOR-[facility] - CHEMISTRY ORDERABLES Performing Organization Address [facility] Co de Phone Number [address] [address] * URIC ACID BLOOD (10/28/2024 7:26 AM MANAGER MULTIMEDIA) Only the most recent of2 resultswithin the time period is included. Uric Acid 6.5 4.0 - 8.0 mg/dL [facility] Comment: Therapeutic target for gout patients: <6.0 mg/dL ?? Test Performed at: [facility] ??[address] EDISON TROY MD Blood BLOOD SPECIMEN / Unknown 10/28/2024 7:26 AM MANAGER MULTIMEDIA 10/28/2024 7:27 AM MANAGER MULTIMEDIA Melisa Chambers SOLUTIONS OPERATOR-[facility] - CHEMISTRY ORDERABLES Performing Organization Address [facility] Co de Phone Number [address] [address] * (ABNORMAL) TACROLIMUS LEVEL (10/28/2024 7:26 AM MANAGER MULTIMEDIA) Only the most recent of2 resultswithin the time period is included. Tacrolimus 3.8(L) mcg/L [facility] Comment: No definitive therapeutic or toxic ranges have been established. Optimal blood drug levels are influenced by type of transplant, patient response, time post- transplant, co-administration of other drugs, and drug formulation. The following trough range is a suggested guideline: 5.0-20.0 mcg/L. Test Performed at: [employer] [place], [place] ??[phone] EDISON TROY MD Blood BLOOD SPECIMEN / Unknown 10/28/2024 7:26 AM MANAGER MULTIMEDIA 10/28/2024 7:27 AM MANAGER MULTIMEDIA Melisa Chambers APRN-CONTRACTS PARALEGAL LAB - THERAPEUT IC DRUG MONITORING ORDERABLES Performing Organization Address [facility] de Phone Number [facility] [address] [place] [address] * MICROALB/CREAT RATIO URINE RANDOM PANEL (10/28/2024 7:26 AM MANAGER MULTIMEDIA) Only the most recent of2 resultswithin the [...] within a diagnostic category. Test Performed at: [facility] [place], [place] ??[phone] EDISON TROY MD Urine URINE SPECIMEN OBTAINED BY CLEAN CATCH PROCEDURE / Unknown 10/28/2024 7:26 AM MANAGER MULTIMEDIA 10/28/2024 7:27 AM MANAGER MULTIMEDIA Melisa Chambers APRN-CONTRACTS PARALEGAL LAB - URINE SOFIA CLARE ORDERABLES Performing Organization Address [facility] Co de Phone Number [facility] [address] [place] [address] * (ABNORMAL) URINALYSIS REFLEX TO MICROSCOPIC NO CULTURE (10/28/2024 7:26 AM MANAGER MULTIMEDIA) Only the most recent of2 resultswithin the time period is included. Color UA YELLOW YELLOW [facility] Appearance CLEAR CLEAR [facility] Specific [place] UA 1.021 1.001 - 1.035 [facility] pH [...] SEEN /LPF [facility] Comment: Test Performed at: [facility] [place], [place] ??[address] EDISON TROY MD Granular Casts [facility] Casts UA [facility] Yeast [facility] Comments [facility] Comment: Test Performed at: [facility] [place] ??[phone] EDISON TROY MD Urine URINE SPECIMEN OBTAINED BY CLEAN CATCH PROCEDURE / Unknown 10/28/2024 7:26 AM MANAGER MULTIMEDIA 10/28/2024 7:27 AM MANAGER MULTIMEDIA Melisa Chambers SOLUTIONS OPERATOR-[employer] PARALEGAL LAB - URINALYSI S ORDERABLES Performing Organization Address City/State/[facility] Co de Phone Number [facility] [address] [place] [address] * (ABNORMAL) PTH INTACT (10/28/2024 7:26 AM MANAGER MULTIMEDIA) Only the most recent of2 resultswithin the [...] or Low Normal ?High Test Performed at: [facility] [place] [address] [place], [place] ??[address] EDISON TROY MD Blood BLOOD SPECIMEN / Unknown 10/28/2024 7:26 AM MANAGER MULTIMEDIA 10/28/2024 7:27 AM MANAGER MULTIMEDIA Melisa Chambers SOLUTIONS OPERATOR-[employer]GAL LAB - CHEMISTRY ORDERABLES [facility] [address] [place] [address] * VITAMIN D 25-HYDROXY (10/28/2024 7:26 AM MANAGER MULTIMEDIA) Only the most recent of2 resultswithin the [...] D, (D2,D3), LC/MS/MS is recommended: order code 87090 (patients >2yrs). See Note 1 Note 1 For additional information, please refer to http://education.WorldDesk.PollitoIngles/faq/KMT334 (This link is being provided for informational/ educational purposes only.) Test Performed at: [facility] [employer] [address] [place], [place] ??[address] EDISON TROY MD Blood BLOOD SPECIMEN / Unknown 10/28/2024 7:26 AM MANAGER MULTIMEDIA 10/28/2024 7:27 AM MANAGER MULTIMEDIA Melisa Chambers SOLUTIONS OPERATOR-[employer]ALEGAL LAB - CHEMISTRY ORDERABLES Performing Organization Address [facility] Co de Phone Number [facility] [phone] [place] [address] * BK VIRUS PCR QUANTITATIVE (10/28/2024 7:26 AM MANAGER MULTIMEDIA) Only the most recent of2 resultswithin the time period is included. [facility] BK Virus DNA Quantitative PCR Not Detected Not Detected IU/mL [facility] BK Virus DNA PCR Not Detected Not Detected Log IU/mL [facility] Comment: [facility] [address] [address],[address] [facility] [address] Memo Schrader MD, PhD Test Performed at: [facility] [address] [address] [address] [place], [place] ??[address] MEMO SCHRADER MD,PHD Blood BLOOD SPECIMEN / Unknown 10/28/2024 7:26 AM MANAGER MULTIMEDIA 10/28/2024 7:27 AM MANAGER MULTIMEDIA Melisa Chambers SOLUTIONS OPERATOR-[employer] LAB - CHEMISTRY ORDERABLES Performing Organization Address [facility] Co de Phone Number [facility] [address] [place] [address] * CBC WITH DIFFERENTIAL (10/28/2024 7:26 AM MANAGER MULTIMEDIA) Only the most recent of2 resultswithin the time period is included. Pathologist [facility] White Blood Cell Count 6.6 3.8 - [...] 1.4 % [facility] Comment: Test Performed at: [facility] [place] ??[address] EDISON TROY MD Blasts [facility] nRBC [facility] Comments [facility] Comment: Test Performed at: [facility] [place] ??[address] EDISON TROY MD Blood BLOOD SPECIMEN / Unknown 10/28/2024 7:26 AM MANAGER MULTIMEDIA 10/28/2024 7:27 AM MANAGER MULTIMEDIA Melisa Chambers SOLUTIONS OPERATOR-[employer] LAB - HEMATOLOG Y ORDERABLES [facility] [address] [place] [address] * (ABNORMAL) COMPREHENSIVE METABOLIC PANEL (10/28/2024 7:26 AM MANAGER MULTIMEDIA) Only the most recent of2 resultswithin the [...] 46 U/L [facility] Comment: Test Performed at: [facility] [place] ??[address] EDISON TROY MD Blood BLOOD SPECIMEN / Unknown 10/28/2024 7:26 AM MANAGER MULTIMEDIA 10/28/2024 7:27 AM MANAGER MULTIMEDIA Melisa Chambers SOLUTIONS OPERATOR-[employer]GAL LAB - CHEMISTRY ORDERABLES [facility] [address] [place] [address] * PHOSPHORUS BLOOD (10/28/2024 7:26 AM MANAGER MULTIMEDIA) Only the most recent of2 resultswithin the time period is included. Phosphorus 2.7 2.5 - 4.5 mg/dL [facility] Comment: Test Performed at: [employer] [address] [place] ??[address] EDISON TROY MD Blood BLOOD SPECIMEN / Unknown 10/28/2024 7:26 AM MANAGER MULTIMEDIA 10/28/2024 7:27 AM MANAGER MULTIMEDIA Melisa DARDEN LAB - CHEMISTRY ORDERABLES Performing Organization Address [facility] de Phone Number [facility] [phone] [place] [address] * MAGNESIUM BLOOD (10/28/2024 7:26 AM MANAGER MULTIMEDIA) Only the most recent of2 resultswithin the time period is included. Magnesium 1.8 1.5 - 2.5 mg/dL [facility] Comment: Test Performed at: [facility] ??[address] EDISON TROY MD Blood BLOOD SPECIMEN / Unknown 10/28/2024 7:26 AM MANAGER MULTIMEDIA 10/28/2024 7:27 AM MANAGER MULTIMEDIA Melisa DARDEN LAB - CHEMISTRY ORDERABLES Performing Organization Address [facility] de Phone Number [address] [phone] * LIPID PROFILE (10/28/2024 7:26 AM MANAGER MULTIMEDIA) Only the most recent of2 resultswithin the [...] LDL-C. Yogi ROJAS et al. FRANDY. 2013;310(19): 4740-3027 (http://[email or web address].PollitoIngles/faq/[email or web address]) CHOL/HDLC RATIO 3.0 <5.0 (calc) [facility] Non HDL Cholesterol 86 <130 mg/dL (calc) [facility] Comment: For patients with diabetes plus 1 major ASCVD risk factor, treating to a non-HDL-C goal of <100 mg/dL (LDL-C of <70 mg/dL) is considered a therapeutic option. Test Performed at: [employer] [id number] [facility] [place] ??[id number] EDISON TROY MD Blood BLOOD SPECIMEN / Unknown 10/28/2024 7:26 AM MANAGER MULTIMEDIA 10/28/2024 7:27 AM MANAGER MULTIMEDIA Melisa Chambers SOLUTIONS OPERATOR-CONTRACTS PARALEGAL LAB - CHEMISTRY ORDERABLES Performing Organization Address City/[facility]/ZIP Co de Phone Number [facility] [address] [place] [address] * HIV-1 HIV-2 ANTIBODY + HIV P24 AG PANEL (09/14/2021 8:04 AM MANAGER MULTIMEDIA) [facility] HIV Antigen/Antibod y 1 & 2 Non-reacti ve Non-react heather 09/14/2021 9:37 AM MANAGER MULTIMEDIA [facility] Comment:No Laboratory eviden ce of HIV infection. Blood BLOOD SPECIMEN / Unknown Venipuncture / Unknown 09/14/2021 8:04 AM MANAGER MULTIMEDIA 09/14/2021 8:26 AM MANAGER MULTIMEDIA Ricky Estes PA-C LAB - CHEMISTRY ORD ERABLES Performing Organization Address City/[facility]/ZIP Co de Phone Number [facility] [address] [place] [address], [facility] [phone] * HEPATITIS C RNA QUANTITATIVE (09/14/2021 8:04 AM MANAGER MULTIMEDIA) Pathologist [facility] Hepatitis C RNA PCR, Interp Not detected Not detected 09/15/2021 3:53 PM MANAGER MULTIMEDIA [facility] Blood BLOOD SPECIMEN / Unknown Venipuncture / Unknown 09/14/2021 8:04 AM MANAGER MULTIMEDIA 09/14/2021 8:26 AM MANAGER MULTIMEDIA Narrative [facility] - 09/15/2021 3:53 PM MANAGER MULTIMEDIA The Hepatitis C viral (HCV) RNA analysis utilized a serum sample, real-time reverse flatbed press operator PCR, and is reported as Not Detected, [...] the isolation of HCV RNA with reverse flatbed press operator of genomic HCV RNA followed by real-time PCR in the presence of an unrelated RNA internal control. ??The internal control ensures that RNA is isolated, and that no general significant inhibitors of the RT-PCR process are present. The analysis was performed using a U.S. FDA approved test methodology (AntVoice Real Time HCV). Ricky Estes PA-C LAB - CHEMISTRY ORD ERABLES [facility] [address] [place] [address], [facility] [phone] from Last 3 Months or Most Recently Relevant to Health Maintenance Advance Directives * Full Code (Latest Code Status on File) Date Activated Date Inactivated Comments 09/14/2021 4:47 PM 09/19/2021 3:07 PM Care Teams Software Test Developer Relationship Specialty Start Date End Date Unknown, Provider PCP - General 12/18/23 iZ Lim MD [address] [facility], [facility] [address] [place] [address] [facility] 07/28/20
--- NOTE | 2024-11-12 20:26 | ED_ITS ---
HPI - Weakness General Chief complaint: Weakness Stated complaint: sick and weak Time Seen by Provider: 11/12/24 19:43 History of Present Illness HPI Narrative: This is a 53-year-old male with a past medical history including previous end- stage renal disease now status post kidney transplant 2021. He also has a history of hypertension, hyperlipidemia. Follows with nephrology over at [facility]. Presents to emergency department today with generalized malaise, right-sided headache, fever, chills, generalized feeling of being unwell. No similar symptoms and family members at home. Symptoms have been going on since last night. Took a Tylenol at home without any relief of his symptoms. Denies any vision changes, neurological changes such as weakness in the extremities or sensory deficits. No chest pain or difficulty in breathing, no abdominal pain or back pain. He was otherwise in his normal state of health. Denies any injury or trauma. Does not take any blood thinner medications. Previous to this he was in his normal state of health. Patient states it feels very similar to last time he had COVID. Related Data Home Medications ?Medication ?Instructions ?Recorded ?Confirmed ?Last Taken ?Type amlodipine 5 mg tablet 10 mg PO DAILY 05/11/21 05/11/21 05/22/21 History cinacalcet 90 mg tablet 90 mg PO DAILY 05/11/21 05/11/21 05/22/21 History mg lisinopril 10 mg tablet 10 mg PO DAILY 05/11/21 05/11/21 05/22/21 History sevelamer carbonate 800 mg tablet 800 mg PO DIRECTED 05/11/21 05/11/21 05/22/21 History vitamin B complex-vitamin C-folic 1 tablet PO DAILY 05/11/21 05/11/21 05/22/21 History acid 0.8 mg tablet (Sonya-Shayne) tablet calcium acetate(phosphat bind) 667 mg 09/09/21 Unknown History mg tablet Allergies Allergy/AdvReac Type Severity Reaction Status Date / Time No Known Allergies Allergy Verified 09/09/21 02:57 Review of Systems 2 Review of Systems: [facility] Past Medical History Medical History Colon cancer screening Dialysis patient Tues/Th/Sat End stage renal disease Obesity Hyperkalemia COVID-19 Chronic hypertension Family History Family History Grandparent Diabetes mellitus, Onset Age: 75 Father Hypertension Family history of elevated blood lipids Cerebrovascular accident Family history of coronary artery disease Social History Social History Smoking status: Never smoker Second hand tobacco smoke exposure: No Alcohol intake: current Drinks per week: 1 Substance use: never Substance use type: does not use Living arrangements: with family Occupation/Education: occupation Gender identity (if verbalized by the patient): Male Sexual Orientation (if Verbalized by the Patient): Straight or Heterosexual Spiritual care concerns: No Agree to blood products: No Exam 2 Narrative: GENERAL: Unwell appearing but not any acute distress, answering all questions appropriately HEAD: [Normocephalic, atraumatic.] EYES: [PERRLA and EOMI.] ENT: Nares clear, no rhinorrhea or epistaxis. Mucous membranes moist. NECK: Supple. CHEST: [Clear to auscultation. No respiratory distress.] HEART: [Regular rate and rhythm]. No murmur heard. [Normal peripheral pulses.] ABDOMEN: [Soft, nondistended], [nontender], [No rigidity or guarding] EXTREMITIES: Normal range of motion. [No edema.] SKIN: Warm, dry, no rash. NEURO: [No focal deficits]. Alert and oriented [x3.] PSYCH: [Normal mood and affect.] Course Vital Signs Vital signs: Vital Signs Temperature 37.3 C 11/12/24 11:42 Pulse Rate 82 11/12/24 11:42 Respiratory Rate 20 11/12/24 11:42 Blood Pressure 161/88 H 11/12/24 11:42 Pulse Oximetry 100 11/12/24 11:42 Oxygen Delivery Room Air 11/12/24 11:42 Temperature 37.3 C 11/12/24 11:42 Pulse Rate 85 11/12/24 21:33 Respiratory Rate 18 11/12/24 21:33 Blood Pressure 143/90 H 11/12/24 21:33 Pulse Oximetry 95 11/12/24 21:33 Oxygen Delivery Room Air 11/12/24 11:42 MDM - Weakness MDM Narrative Medical decision making narrative: 53-year-old male with history of previous end-stage renal disease now status post kidney transplant 2021. On anti rejection medications. Has a history of hypertension, hyperlipidemia. Patient presents to the emergency department today with generalized malaise, right-sided headache, weakness and subjective fever and chills. Took a Tylenol home without symptom control. He has otherwise been in his normal state of health, feels like he has COVID or the flu. Nonfocal neurological assessment. He is complaining of a headache that is throbbing and occasionally worsening during the examination. Does not usually get headaches. Symptoms going on for 2 days. Blood pressure within stable hypertension range, no tachycardia, fever, hypoxia. Considerations presently are for a viral syndrome such as influenza, COVID, RSV, migraine headache or tension headache, less likely intracranial pathology such as a stroke or hemorrhage. Workup was ordered including a chest x-ray, COVID, flu, RSV swabs, electrolyte panel, CBC, CMP, CT of the head without contrast. He was given Toradol, diphenhydramine, Compazine, fluid bolus and will be re-evaluated. Patient re-evaluated and felt significantly improved after the migraine cocktail in fluids. He has no leukocytosis or anemia. Did test positive for influenza A. Electrolytes are within normal limits, kidney disease is at significant improvement from his previous end-stage secondary to the transplant. Normal glucose, normal LFTs. Chest x-ray without concern and CT head without any acute intracranial process. I did discuss with the patient and family about initiating all cell to move your given his risk factors and end-stage disease requiring transplant. They will prefer to speak with her primary doctor about this and not initiate this time. I felt like this was appropriate. Patient is safe and stable for discharge, given care instructions and return precautions and patient and family verbalized understanding. Medical Records Attestation: I reviewed the patient's medical records. Lab Data Attestation: I reviewed the patient's lab results. 11/12/24 20:35 11/12/24 20:36 Labs: Lab Results 11/12/24 11/12/24 Range/Units 20:35 20:36 WBC 6.1 (4.5-10.0) K/mm3 RBC 5.04 (4.6-6.20) M/mm3 Hgb 14.1 D (14.0-18.0) g/dL Hct 43.4 (42.0-52.0) % MCV 86.1 (80-100) fl MCH 28.0 (26-34) pg MCHC 32.5 (32-36) g/dl RDW 12.8 (11.5-14.5) % Plt Count 177 (150-375) k/mm3 MPV 9.9 (7.4-10.4) fl Immature Gran % (Auto) 0.5 (0-0.5) % Neut % (Auto) 77.0 H (45.5-73.1) % Lymph % (Auto) 6.4 L (18.3-44.2) % Wilson % (Auto) 14.6 H (2.6-8.5) % Eos % (Auto) 0.8 (0-4.4) % Baso % (Auto) 0.7 (0.2-1.2) % Lymph # (Auto) 0.39 L (0.9-3.2) K/mm3 Wilson # (Auto) 0.9 H (0.1-0.6) K/mm3 Eos # (Auto) 0.1 (0-0.3) K/mm3 Baso # (Auto) 0.0 (0.0-0.1) K/mm3 Abs Immat Gran (auto) 0.03 (0.00-0.031) K/mm3 Absolute Neuts (auto) 4.7 (1.3-6.7) K/mm3 Absolute Nucleated RBC 0.000 (0.0-0.012) K/mm3 Nucleated RBC % 0.0 (0.0-0.2) % Sodium 138 (137-145) mmol/L Potassium 3.8 (3.4-5.0) mmol/L Chloride 99 (98-107) mmol/L Carbon Dioxide 24 (22-30) mmol/L Anion Gap 15 H (4-12) mmol/L BUN 20 D (9-20) mg/dL Creatinine 1.96 H (0.7-1.3) mg/dL Estim Creat Clear Calc 60 ml/min Estimated GFR 44 L (59 - ) Glucose 117 H (65-110) mg/dL Calcium 9.3 (8.4-10.2) mg/dL Total Bilirubin 1.0 (0.2-1.3) mg/dL AST 24 (17-59) U/L ALT 22 (6-50) U/L Alkaline Phosphatase 65 (38-126) U/L Total Protein 9.0 H (6.3-8.2) g/dL Albumin 4.7 (3.5-5.1) g/dL Influenza A (RT-PCR) Positive A (Negative) Influenza B (RT-PCR) Negative (Negative) RSV (RT-PCR) Negative (Negative) SARS-CoV-2 RNA (RT-PCR) Negative (Negative) Imaging Data Attestation: I personally reviewed and interpreted this imaging study as follows: My impression: Impressions Chest X-Ray 11/12/24 16:53 IMPRESSION: 1. Mild atelectasis at left lung base. Head CT 11/12/24 21:19 IMPRESSION: No acute intracranial process. Discharge Plan Discharge Clinical Impression: Influenza A, Headache, migraine, Kidney transplanted Patient Disposition: Home, Self-Care Condition: Stable Instructions: Antibiotic Form, Influenza (DC) Additional Instructions: Follow-up with your regular primary doctor and manager psychology, talk to them about starting Tamiflu therapy for your influenza. Return if you have any developing chest discomfort, shortness of breath, inability to tolerate p.o. intake. Tylenol and ibuprofen around the clock and any of the [id number] flu medications as needed. Patient Language: Sao Tome[place] Prescriptions: No Action ondansetron HCl [Zofran] 4 mg tablet 4 mg PO Q8H Qty: 20 0RF amlodipine 5 mg tablet 10 mg PO DAILY lisinopril 10 mg tablet 10 mg PO DAILY Sonya-Shayne 0.8 mg tablet 1 tablet PO DAILY cinacalcet 90 mg tablet 90 mg PO DAILY sevelamer carbonate 800 mg tablet 800 mg PO DIRECTED Rx Instructions: 2 tabs with meals and 1 tab with snacks calcium acetate(phosphat bind) 667 mg tablet Follow-up/Referrals: Paul,Eric Martin MD [Non-Staff] - Time of Disposition: 22:24
[2024-11-12 20:40] LABS: Basophils Percent Auto 0.7 % (0.2-1.2); Eosinophils Absolute Auto 0.1 K/mm3 (0-0.3); Eosinophils Percent Auto 0.8 % (0-4.4); Hematocrit 43.4 % (42.0-52.0); Hemoglobin 14.1 g/dL (14.0-18.0); Immature Granulocyte Absolute 0.03 K/mm3 (0.00-0.031); Immature Granulocyte Percent A 0.5 % (0-0.5); Lymphocytes Absolute Auto 0.39 K/mm3 (0.9-3.2); Lymphocytes Percent Auto 6.4 % (18.3-44.2); Mean Corpuscular HGB Conc 32.5 g/dl (32-36); Mean Corpuscular Volume 86.1 fl (80-100); Mean Platelet Volume 9.9 fl (7.4-10.4); Monocytes Absolute Auto 0.9 K/mm3 (0.1-0.6); Monocytes Percent Auto 14.6 % (2.6-8.5); Neutrophils Absolute Auto 4.7 K/mm3 (1.3-6.7); Platelet Count Result 177 k/mm3 (150-375); Red Blood Count 5.04 M/mm3 (4.6-6.20); Red Cell Distribution Width 12.8 % (11.5-14.5); White Blood Count 6.1 K/mm3 (4.5-10.0)
[2024-11-12] MEDS: KETOROLAC 15 MG/ML VIAL (*BKC) IV PUSH (20:41)
[2024-11-12] MEDS: SODIUM CHLORIDE 0.9% IV 1,000 ML 999 ML IV CONT (20:41)
[2024-11-12] MEDS: PROCHLORPERAZINE EDISYLATE 10 MG/2 ML VIAL IV PUSH (20:42)
[2024-11-12] MEDS: diphenhydrAMINE HCl INJ 50 MG/ML VIAL 25 MG IV PUSH (20:42)
[2024-11-12 20:49] LABS: Alanine Aminotransferase 22 U/L (6-50); Albumin Level 4.7 g/dL (3.5-5.1); Alkaline Phosphatase 65 U/L (38-126); Anion Gap 15 mmol/L (4-12); Aspartate Amino Transferase 24 U/L (17-59); Blood Urea Nitrogen 20 mg/dL (9-20); Calcium 9.3 mg/dL (8.4-10.2); Carbon Dioxide 24 mmol/L (22-30); Chloride 99 mmol/L (98-107); Estimated CRCL calculation 60 ml/min; Estimated Glomerular Filt Rate 44; Glucose 117 mg/dL (65-110); Potassium 3.8 mmol/L (3.4-5.0); Sodium 138 mmol/L (137-145)
[2024-11-12 21:33] VITALS: BP 143/90; PULSE 85; RESP 18; O2SAT 95
[2024-11-12 21:34] LABS: Influenza A QL RT-PCR Positive (Negative); Influenza B QL RT-PCR Negative (Negative); RSV RNA, RT-PCR Negative (Negative); SARS-CoV-2 RNA PCR Negative (Negative)
[2024-11-12 22:36] VITALS: BP 164/96; PULSE 76; RESP 14; O2SAT 96
== END 2024-11-12 22:36 | disposition home or self-care (01) ==
PROVIDERS: Physician Assistant; Emergency Provider Student in an Organized Health Care Education/Training Program
DX: J10.1 Influenza due to other identified influenza virus with other respiratory manifestations (principal); G43.909 Migraine, unspecified, not intractable, without status migrainosus; Z94.0 Kidney transplant status; Z20.822 Contact with and (suspected) exposure to COVID-19; I12.0 Hypertensive chronic kidney disease with stage 5 chronic kidney disease or end stage renal disease; N18.6 End stage renal disease; Z99.2 Dependence on renal dialysis; E66.9 Obesity, unspecified; Z68.33 Body mass index [BMI] 33.0-33.9, adult; Z86.16 Personal history of COVID-19; Z79.899 Other long term (current) drug therapy
CPT/HCPCS: 36415; 70450; 71046; 80053; 85025; 87637; 96361; 96374; 96375; 99284; J0780; J1200; J1885; J7030